=== PATIENT | male | born 1960 | race Caucasian/White ===

== ENCOUNTER → 2016-10-19 | Outpatient (CLI) | payer OTHER ==
[~2016-10-19] MED LIST: ASPI-586 PO; ATOR40TA70 PO; BUSP15TA60 PO; CATHETER FLUSH 10 ML SYR IV PRN; CINN500C2 PO; DULA0.75 SQ; FINA5TAB6 PO; GABA600T2 PO; GARL10002 PO; GLIP10TA13 PO; IOHEXOL 350 MG/ML 100 ML (OMNIPAQUE 350) VIAL IV ONE; LIRA0.6P3 SQ; LISI-552 PO; LISI1TAB10 PO; LOVA20TA2 PO; METF1000 PO; NS 100 ML (IVPB) BAG IV ONE; OMG1KC PO
--- OUTSIDE RECORDS SUMMARY | 2016-10-19 08:32 | XMS REPORT ---
Author Author YVONNE MCGEE [facility] eClinicalWorks Address Unknown Phone Unavailable Care Team Providers Care Staff Trainer Name Role Phone YVONNE MCGEE CP Unavailable Allergies, Adverse Reactions, Alerts Substance Reaction Event Type Januvia Info Not Available Drug Allergy Problems Problem Type Condition Code Onset Dates Condition Status Problem Elevated blood pressure reading without diagnosis of hypertension 796.2 Active Assessment Cellulitis, neck L03.221 Active Problem Mononeuritis of unspecified site 355.9 Active Problem Dermatophytosis of nail 110.1 Active Problem Unspecified otitis media 382.9 Active Problem Diabetes mellitus without mention of complication, type II or unspecified type, not stated as uncontrolled 250.00 Active Problem Periapical abscess without sinus 522.5 Active Problem Other and unspecified hyperlipidemia 272.4 Active Problem Unspecified essential hypertension 401.9 Active Medications Medication Code System Code Instructions Start Date End Date Status Dosage [place] [facility] [address]-67 5-325 MG Orally every 6 hrs May 30, 2016 1 tablet as needed Lisinopril [facility] [address]-02 20 mg Oct 01, 2014 take 1 tablet by Oral route 1 time per day Take in evening Hydrochlorothiazide [facility] [address]-63 25 MG Orally Once a day 1 tablet Aspirin [facility] [address]-49 81 MG Orally Once a day 1 tablet Lisinopril-Hydrochlorothiazide [facility] [address]-72 20-25 MG Orally Once a day May 29, 2016 1 tablet Bactrim DS [facility] [address]-71 800-160 MG Orally Twice a day May 29, 2016 Jun 08, 2016 1 tablet Atorvastatin Calcium [facility] [address]-36 40 mg Orally Once a day 1 tablet Gabapentin [facility] [address]-80 600 MG Orally Three times a day Oct 01, 2014 1 capsule GlipiZIDE [facility] [address]-09 10 mg Orally Once a day 1 tablet BusPIRone HCl [facility] [address]-04 15 MG Orally Twice a day 1 tablet Metformin HCl [facility] [address]-39 1000 MG Orally Twice a day 1 tablet with meals Procedures Procedure Coding System Code Date Office Visit, Est Pt., Level 2 CPT-4 46868 May 30, 2016 Vital Signs Date/Time: May 30, 2016 Blood Pressure Systolic 140 mmHg Cardiac Monitoring Heart Rate 98 bpm Height 67 in Blood Pressure Diastolic 86 mmHg Results No Known Results Summary Purpose eClinicalWorks Submission
--- NOTE | 2016-10-19 13:16 | Diagnostic Imaging Report ---
PROCEDURE: CT abdomen and pelvis with contrast. TECHNIQUE: Multiple contiguous axial images were obtained through the abdomen and pelvis after administration of intravenous contrast. INDICATION: Ventral hernia. 100 mL of Omnipaque-350 is administered intravenously. FINDINGS: There are few nodules seen in the left lung base measuring up to 10 mm in size. Etiology is uncertain. The liver, the spleen, the pancreas, and the left adrenal gland appear unremarkable. The right adrenal demonstrates a 1.9 cm nodule. The kidneys have symmetric enhancement and contrast excretion. The urinary bladder demonstrates mild wall thickening particularly anteriorly. There is no bowel obstruction. The appendix is normal. Small amount of fecal material is seen in the colon. The abdominal aorta is normal in caliber. No para-aortic significantly enlarged lymph node is seen. No significant free fluid or fluid collection in the abdomen or pelvis noted. The prostate overall size appears within normal limits. There are moderate degenerative changes in the hip joints with subchondral cysts seen at the lateral aspect of the acetabulum on both sides and mild degenerative changes with bridging syndesmophytes along the lower thoracic spine visualized portions. There is no ventral hernia seen. IMPRESSION: 1. There are pulmonary nodules up to 1 cm in size in the left lung base. Etiology is indeterminate. Follow-up PET/CT and/or CT chest in three months is recommended. 2. Indeterminate 1.9 cm right adrenal nodule. 3. Mild urinary bladder wall thickening anteriorly. Correlate with urinalysis, and with cystoscopy if indicated. Dictated by: Dictated on workstation # [id number]
== END ==
LOC: RAD 08:28
PROVIDERS: ATTEND Nurse Practitioner Community Health
DX: K43.9 Ventral hernia without obstruction or gangrene (principal); R91.1 Solitary pulmonary nodule
CPT/HCPCS: 74177

== ENCOUNTER 2016-10-26 05:37 | Outpatient (CLI) | payer BC, OTHER ==
[~2016-10-26] VITALS: Ht 170.2 cm; Wt 108.0 kg
[~2016-10-26 05:37] MED LIST changes: -ASPI-586 PO; -ATOR40TA70 PO; -CATHETER FLUSH 10 ML SYR IV PRN; -CINN500C2 PO; -DULA0.75 SQ; -FINA5TAB6 PO; -GARL10002 PO; -GLIP10TA13 PO; -IOHEXOL 350 MG/ML 100 ML (OMNIPAQUE 350) VIAL IV ONE; -LISI1TAB10 PO; -NS 100 ML (IVPB) BAG IV ONE; -OMG1KC PO
[2016-10-26] MEDS ORDERED: DULA0.75 SQ (09:31)
[2016-10-26] MEDS ORDERED: ATOR40TA70 PO (09:31)
[2016-10-26] MEDS ORDERED: FINA5TAB6 PO (09:31)
[2016-10-26] MEDS ORDERED: GARL10002 PO (09:36)
[2016-10-26] MEDS ORDERED: CINN500C2 PO (09:36)
[2016-10-26] MEDS ORDERED: GLIP10TA13 PO (09:36)
[2016-10-26] MEDS ORDERED: OMG1KC PO (09:36)
[2016-10-26] MEDS ORDERED: LISI1TAB10 PO (09:36)
[2016-10-26] MEDS ORDERED: ASPI-586 PO (09:36)
== END 2016-10-26 09:37 ==
LOC: PREOP 05:37
PROVIDERS: ATTEND Surgery
DX: Z01.818 Encounter for other preprocedural examination (principal); R19.5 Other fecal abnormalities

== ENCOUNTER 2016-10-30 09:37 | Day surgery (SDC) | payer OTHER ==
[~2016-10-30] VITALS: Ht 170.2 cm; Wt 108.0 kg
[~2016-10-30 09:37] MED LIST changes: +ASPI-586 PO; +ATOR40TA70 PO; +CINN500C2 PO; +DULA0.75 SQ; +FINA5TAB6 PO; +GARL10002 PO; +GLIP10TA13 PO; +LISI1TAB10 PO; +OMG1KC PO
[2016-10-30] MEDS ORDERED: NS IV 1000 ML 1,000 ML IV STA (09:44)
[2016-10-30 10:01] VITALS: BP 170/94
[2016-10-30] MEDS ORDERED: proPOfol 200 MG/20 ML (DIPRIVAN) VIAL IV ONE (12:39)
[2016-10-30] MEDS ORDERED: MIDAZOLAM 2 MG/2 ML (VERSED) VIAL ONE (12:40)
--- NOTE | 2016-10-30 13:08 | Progress Note-Pre Operative ---
Pre-Operative Progress Note H&P Reviewed The H&P was reviewed, patient examined and no changes noted. Date H&P Reviewed: Oct 30, 2016 Time H&P Reviewed: 13:08 Pre-Operative Diagnosis: change in bowel habits NENA DE LA VEGA DO Oct 30, 2016 13:08
--- NOTE | 2016-10-30 14:04 | Discharge Inst-Simple/Standard ---
Discharge Inst-Standard Discharge Medications New, Converted or Re-Newed RX: Call to Patients Pharmacy Patient Instructions/Follow Up Plan of Care/Instructions/FU: Follow up with Dr. Calloway in 3 weeks high fiber diet. Stool softner twice a day- Colace 100mg bid Us Diltiazem cream around anal area 3 times a day and after each bowel movement. 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 Activity as Tolerated: Yes Discharge Diet: No Restrictions RENEE PERRY APRN Oct 30, 2016 14:04
--- NOTE | 2016-10-30 14:04 | Progress Note-Post Operative ---
Post-Operative Progess Note Pre-Operative Diagnosis change in bowel habits Post-Operative Diagnosis colon polyps, anal fissure Post-Op Procedure Note Date of Procedure: Oct 30, 2016 Name of Procedure: colonoscopy with hot bx polypectomy x 3, cold biopsy anorectal tissue Procedure Note/Findings see note Anesthesia Type per analytical sciences director Estimated blood loss (mL): none Specimen(s) collected cecum, transverse, sigmoid polyps, anorectal tissue NENA DE LA VEGA DO Oct 30, 2016 14:04
[2016-10-30 14:15] VITALS: BP 122/78
[2016-10-30 14:40] VITALS: BP 132/95
[2016-10-30 14:55] VITALS: BP 132/95
--- NOTE | 2016-10-31 12:48 | OPERATIVE REPORT ---
PROCEDURE PHYSICIAN: NENA DE LA VEGA DATE OF PROCEDURE: 10/30/2016 PREOPERATIVE DIAGNOSIS: Change in bowel habits POSTOPERATIVE DIAGNOSIS: Colon polyps x3. Anal fissure. PROCEDURE: Colonoscopy with hot biopsy polypectomy x 3 and cold biopsy of anorectal tissue. SURGEON: Brodie. ANESTHESIA: Per COST REPORT CLERK. ESTIMATED BLOOD LOSS: None. COMPLICATIONS: None. INDICATIONS: The patient is a 56-year-old male who has change in his bowel habits. He understands the risks and benefits of the procedure and wished to proceed with procedure. Consent was signed on the chart. PROCEDURE: The patient was taken to the operating suite, placed in the left lateral recumbent position. Timeout was performed. Digital rectal exam was performed. Small anal fissure in the posterior area and also patient with increased rectal tone; it appears to be an anal fissure with some little fibromas surrounding this area. The scope was inserted in the rectum and advanced all way to the cecum with minimal difficulty. Lots of irrigation and suction was used for adequate visualization. The prep was adequate with irrigation and suction. The scope was then slowly retracted back. A small polyp was in the cecum, which hot biopsy polypectomy was performed. The scope was then continued to be slowly retracted back. There were no polyps, masses or ulcerations within the ascending colon. Within the transverse colon another small polyp was present which hot biopsy polypectomy was performed. The scope was continued be slowly retracted back into the descending colon, which had no polyps, masses, or ulcerations. The scope was then withdrawn back to the sigmoid where another some small polyp was present which hot biopsy polypectomy was performed. The scope was continued to be retracted back into the rectum, where the scope was also retroflexed. Appearance of little fibromas at the anorectal junction being a sessile appearing questionable lesion. It does appear to be possibly a fibroma but cold biopsy was obtained to verify. The scope was then returned to its normal position and slowly withdrawn noting the posterior anal fissure. The scope was slowly retracted until completely removed. The patient tolerated the procedure well without any complications and taken to recovery room in stable condition. RECOMMENDATIONS: The patient will need repeat colonoscopy in 5 years, unless he has any problems prior to that, he should be reevaluated. He will follow-up on the biopsies in approximately 2 to 3 weeks. In the meantime, he should be on a high fiber diet, increase water intake, be on stool softeners to keep such as Colace 100 mg twice a day to keep stools soft. We also called in diltiazem cream. I will see how the anal fissure is healing in the office in approximately 3 weeks. He may need exam under anesthesia and possibly surgical intervention. Job ID: [id number] Dictated Date: 10/30/2016 14:08:34 Flake Drier Date: 10/31/2016 12:36:25 / jeannette CENTENO
== END 2016-10-30 14:55 | disposition home or self-care (01) ==
LOC: ENDO 09:37
PROVIDERS: ATTEND Surgery
DX: D12.3 Benign neoplasm of transverse colon (principal); K63.5 Polyp of colon; K60.2 Anal fissure, unspecified; R19.4 Change in bowel habit
CPT/HCPCS: 88305

== ENCOUNTER → 2017-01-02 | Outpatient (CLI) | payer OTHER ==
[2017-01-02 08:12] LABS: ANION GAP 9 MMOL/L (5-14); BLOOD UREA NITROGEN 8 MG/DL (7-18); BUN/CREATININE RATIO 9; CALCIUM 9.2 MG/DL (8.5-10.1); CARBON DIOXIDE 27 MMOL/L (21-32); CHLORIDE 100 MMOL/L (98-107); CREATININE SERUM 0.89 MG/DL (0.60-1.30); GFR ESTIMATED > 60; GLUCOSE 257 MG/DL (70-105); POTASSIUM 4.3 MMOL/L (3.6-5.0); SODIUM 136 MMOL/L (135-145)
--- NOTE | 2017-01-02 08:41 | Diagnostic Imaging Report ---
PROCEDURE: CT chest without contrast. TECHNIQUE: Multiple contiguous axial images were obtained through the chest without the use of intravenous contrast. INDICATION: Lung nodule. There are no previous CT chest examinations available for comparison. However, the CT abdomen/pelvis exam of 10/19/2016, did note three pulmonary nodules in the left lung base. The largest of these measured approximately 10.05 mm and was located in the periphery of the left lower lobe. That finding is again evident and now measures 10.48 mm. Immediately superior to this nodule along its medial aspect, there was a 6.86-mm nodule. This nodule now measures 6.3 mm. Just inferior to this nodule was a pleural-based nodule measuring 4.85 mm. This nodule now measures 4.66 mm. These nodules have a fairly smooth margin although they are not calcified. There is another parenchymal opacity in the right upper lung which was not included on the previous study. This area measures 6.14 mm (image 27 of 61.) This may also represent a small nodule. There is a similar-appearing parenchymal opacity in the posterior aspect of the right midlung measuring 6.14 mm ( image 29 of 61.) I suspect that all of these nodules are benign. Even so, I would recommend that a short-term (six-month) followup CT chest exam be obtained for further study. There is no acute cardiopulmonary abnormality noted. There is no sign of failure, pneumonia, or a pleural effusion. The heart size is within normal limits. Coronary artery calcifications are evident. The aorta is not abnormally dilated. There is no obvious mediastinal or hilar adenopathy. The thyroid gland, where visualized, is unremarkable. The sections through the upper abdomen again show the low-density nodule associated with the right adrenal gland that was noted on the recent CT abdomen/pelvis study. This nodule measures approximately 17.26 mm in size and has not changed adversely since the previous study. Most likely this is a benign process. The bone windows show no evidence for a fracture or for a destructive lesion. IMPRESSION: 1. There are small pulmonary nodules in both lungs. These nodules are not clearly calcified but are most likely benign. A six-month followup CT chest exam would be recommended for further study. 2. There is no acute cardiopulmonary abnormality identified. 3. The low-density nodule associated with the right adrenal gland seen previously appears stable. Dictated by: Dictated on workstation # [id number]
== END ==
LOC: RAD 07:39
PROVIDERS: ATTEND Nurse Practitioner Community Health
DX: Z01.812 Encounter for preprocedural laboratory examination (principal); R91.1 Solitary pulmonary nodule
CPT/HCPCS: 36415; 71250; 80048

== ENCOUNTER 2017-06-11 18:23 | Emergency (ER) | payer SELFPAY ==
[~2017-06-11] VITALS: Ht 170.2 cm; Wt 106.1 kg
[2017-06-11] MEDS ORDERED: IBUPROFEN 800 MG (MOTRIN) TAB PO ONE (18:45)
[2017-06-11] MEDS ORDERED: NS IV 1000 ML 1,000 ML IV SCH ×2 (18:45→21:15)
[2017-06-11 18:49] LABS: BASOPHILS % (AUTO) 0 % (0-10); EOSINOPHILS % (AUTO) 0 % (0-10); LYMPHOCYTES # (AUTO) 0.3 X 10^3 (1.0-4.0); LYMPHOCYTES % (AUTO) 2 % (12-44); MEAN CORPUSCULAR HEMOGLOBIN 27 PG (25-34); MEAN CORPUSCULAR HGB CONC 34 G/DL (32-36); MEAN CORPUSCULAR VOLUME 79 FL (80-99); MEAN PLATELET VOLUME 10.1 FL (7.4-10.4); MONOCYTES # (AUTO) 0.5 X 10^3 (0.0-1.0); MONOCYTES % (AUTO) 4 % (0-12); NEUTROPHILS # (AUTO) 12.7 X 10^3 (1.8-7.8); NEUTROPHILS % (AUTO) 93 % (42-75); PLATELET COUNT 184 10^3/uL (130-400); RED BLOOD COUNT 4.86 10^6/uL (4.35-5.85); RED CELL DISTRIBUTION WIDTH 13.9 % (10.0-14.5); WHITE BLOOD COUNT 13.6 10^3/uL (4.3-11.0)
--- NOTE | 2017-06-11 18:49 | ED General ---
General Chief Complaint: Fever-Adult/Adol Stated Complaint: CHILLS,BLURRY VISION Source of Information: Patient Exam Limitations: No Limitations History of Present Illness Time Seen by Provider: 18:47 Initial Comments To ER with reports of chills and blurry vision that started this afternoon at about 4. He states that he has general weakness and "I feel like I got hit by a truck". Earlier today he felt slightly tired but not terrible. Denies any abdominal pain or sore throat, Does report slight cough. Took 2 Tylenol at about 2 hours prior to arrival. Timing/Duration: 4-6 Hours Severity: Moderate Associated Systoms: Weakness Allergies and Home Medications Allergies Coded Allergies: sitagliptin (Unverified Adverse Reaction, Unknown, 01/14/16) Home Medications Aspirin 81 Mg Tablet.dr, 81 MG PO DAILY, (Reported) Atorvastatin Calcium 40 Mg Tablet, 40 MG PO HS, (Reported) Buspirone HCl 15 Mg Tablet, 15 MG PO BID, (Reported) Cinnamon Bark Unknown Strength Capsule, 1,000 MG PO DAILY, (Reported) Dulaglutide 0.75 Mg/0.5 Ml Pen.injctr, 0.75 MG SQ WEEK, (Reported) takes on Saturday Finasteride 5 Mg Tablet, 5 MG PO HS, (Reported) Gabapentin 600 Mg Tablet, 600 MG PO TID, (Reported) Garlic 1,000 Mg Capsule, 1,000 MG PO DAILY, (Reported) Glipizide 10 Mg Tablet, 10 MG PO DAILY, (Reported) Lisinopril/Hydrochlorothiazide 1 Each Tablet, 1 EACH PO DAILY, (Reported) Metformin HCl 1,000 Mg Tablet, 1,000 MG PO BID, (Reported) [place] 3 Polyunsat Fatty Acids 1,000 Mg Cap, 1,000 MG PO DAILY, (Reported) Constitutional: see HPI, chills EENTM: see HPI Respiratory: no symptoms reported Cardiovascular: no symptoms reported Genitourinary: no symptoms reported Musculoskeletal: no symptoms reported Skin: no symptoms reported Psychiatric/Neurological: No Symptoms Reported Hematologic/Lymphatic: No Symptoms Reported Immunological/Allergic: no symptoms reported Past Morizlm-Buqann-Itofax Hx Patient Social History Recent Foreign Travel: No Contact w/Someone Who Travel: No Recent Hopitalizations: No Seasonal Allergies Seasonal Allergies: Yes Surgeries Surgeries: Orthopedic, Tonsillectomy Cardiovascular Cardiac Disorders: Heart Murmur, High Cholesterol, Hypertension Neurological Neurological Disorders: Neuropathy Endocrine Endocrine Disorders: Diabetes, Non-Insulin dep Psychosocial Behavioral Health Disorders: Anxiety Physical Exam Vital Signs Vital Sign - Last 12Hours 06/11/17 18:30 Temp 102.6 Pulse 133 Resp 10 B/P (MAP) 143/53 Capillary Refill : General Appearance: No Apparent Distress, WD/WN Eyes: Bilateral Eye Normal Inspection, Bilateral Eye PERRL, Bilateral Eye EOMI HEENT: PERRL/EOMI, TMs Normal, Normal ENT Inspection Neck: Full Range of Motion, Normal Inspection, Other (Full ROM, no nuchal rigidity. ) Respiratory: Normal Breath Sounds, No Accessory Muscle Use, No Respiratory Distress Cardiovascular: Regular Rate, Rhythm, Normal Peripheral Pulses Gastrointestinal: Normal Bowel Sounds, Non Tender, Soft, No Distended, No Guarding, No Hepatomegaly, No Tenderness Extremity: Normal Capillary Refill, Normal Inspection Neurologic/Psychiatric: Alert, Oriented x3, No Motor/Sensory Deficits Skin: Normal Color, Warm/Dry Focused Exam Evaluation Lactate Level Laboratory Tests 06/11/17 18:35: Lactic Acid Level 2.13*H 06/11/17 20:15: Lactic Acid Level 2.76*H Lactic Acid Level Laboratory Tests Test 06/11/17 18:35 06/11/17 20:15 Lactic Acid Level 2.13 MMOL/L (0.50-2.00) *H 2.76 MMOL/L (0.50-2.00) *H Progress/Results/Core Measures Results/Orders Lab Results Laboratory Tests Test 06/11/17 18:35 06/11/17 18:53 06/11/17 19:00 06/11/17 19:22 Range/Units White Blood Count 13.6 H 4.3-11.0 10^3/uL Red Blood Count 4.86 4.35-5.85 10^6/uL Hemoglobin 13.1 L 13.3-17.7 G/DL Hematocrit 38 L 40-54 % Mean Corpuscular Volume 79 L 80-99 FL Mean Corpuscular Hemoglobin 27 25-34 PG Mean Corpuscular Hemoglobin Concent 34 32-36 G/DL Red Cell Distribution Width 13.9 10.0-14.5 % Platelet Count 184 130-400 10^3/uL Mean Platelet Volume 10.1 7.4-10.4 FL Neutrophils (%) (Auto) 93 H 42-75 % Lymphocytes (%) (Auto) 2 L 12-44 % Monocytes (%) (Auto) 4 0-12 % Eosinophils (%) (Auto) 0 0-10 % Basophils (%) (Auto) 0 0-10 % Neutrophils # (Auto) 12.7 H 1.8-7.8 X 10^3 Lymphocytes # (Auto) 0.3 L 1.0-4.0 X 10^3 Monocytes # (Auto) 0.5 0.0-1.0 X 10^3 Eosinophils # (Auto) 0.0 0.0-0.3 10^3/uL Basophils # (Auto) 0.0 0.0-0.1 10^3/uL Neutrophils % (Manual) 93 % Lymphocytes % (Manual) 1 % Monocytes % (Manual) 2 % Eosinophils % (Manual) 0 % Basophils % (Manual) 0 % Band Neutrophils 4 % Blood Morphology Comment NORMAL Sodium Level 131 L 135-145 MMOL/L Potassium Level 3.5 L 3.6-5.0 MMOL/L Chloride Level 94 L 98-107 MMOL/L Carbon Dioxide Level 24 21-32 MMOL/L Anion Gap 13 5-14 MMOL/L Blood Urea Nitrogen 9 7-18 MG/DL Creatinine 0.84 0.60-1.30 MG/DL Estimat Glomerular Filtration Rate > 60 BUN/Creatinine Ratio 11 Glucose Level 155 H 70-105 MG/DL Lactic Acid Level 2.13 *H 0.50-2.00 MMOL/L Calcium Level 9.3 8.5-10.1 MG/DL Total Bilirubin 1.1 H 0.1-1.0 MG/DL Aspartate Amino Transf (AST/SGOT) 23 5-34 U/L Alanine Aminotransferase (ALT/SGPT) 29 0-55 U/L Alkaline Phosphatase 68 40-136 U/L C-Reactive Protein High Sensitivity 0.40 0.00-0.50 MG/DL Total Protein 6.7 6.4-8.2 GM/DL Albumin 4.3 3.2-4.5 GM/DL Monoscreen NEGATIVE NEGATIVE Urine Color YELLOW Urine Clarity CLEAR Urine pH 7 5-9 Urine Specific [place] 1.010 L 1.016-1.022 Urine Protein NEGATIVE NEGATIVE Urine Glucose (UA) NEGATIVE NEGATIVE Urine Ketones NEGATIVE NEGATIVE Urine Nitrite NEGATIVE NEGATIVE Urine Bilirubin NEGATIVE NEGATIVE Urine Urobilinogen NORMAL NORMAL MG/DL Urine Leukocyte Esterase NEGATIVE NEGATIVE Urine RBC (Auto) NEGATIVE NEGATIVE Urine RBC NONE /HPF Urine WBC RARE /HPF Urine Crystals NONE /LPF Urine Bacteria NEGATIVE /HPF Urine Casts NONE /LPF Urine Mucus NEGATIVE /LPF Urine Culture Indicated NO Group A Streptococcus Screen NEGATIVE NEGATIVE Test 06/11/17 20:15 Range/Units Lactic Acid Level 2.76 *H 0.50-2.00 MMOL/L My Orders Orders - LINDA VACA APRN Cbc With Automated Diff (06/11/17 18:36) Comprehensive Metabolic Panel (06/11/17 18:36) Ua Culture If Indicated (06/11/17 18:36) Blood Culture (06/11/17 18:36) Chest Pa/Lat (2 View) (06/11/17 18:36) Lactic Acid Analyzer (06/11/17 18:36) Ibuprofen Tablet (Motrin Tablet) (06/11/17 18:45) Ns Iv 1000 Ml (Sodium Chloride 0.9%) (06/11/17 18:45) Monotest (06/11/17 18:36) Hs C Reactive Protein (06/11/17 18:36) Rapid Strep A Screen (06/11/17 18:36) Manual Differential (06/11/17 18:35) Tick Panel With Lyme Eia (06/11/17 19:16) West Nile Virus Igg & M (06/11/17 19:16) Influenza A And B Antigens (06/11/17 19:39) Ns Iv 1000 Ml (Sodium Chloride 0.9%) (06/11/17 21:15) Azithromycin Tablet (Zithromax Tablet) (06/12/17 09:00) Medications Given in ED Current Medications Medications Dose Ordered Sig/Ant Route Start Time Stop Time Status Last Admin Dose Admin Ibuprofen 800 mg ONCE ONCE PO 06/11/17 18:45 06/11/17 18:46 DC 06/11/17 19:06 800 MG Vital Signs/I&O Vital Sign - Last 12Hours 06/11/17 06/11/17 18:30 19:06 Temp 102.6 102.5 Pulse 133 Resp 10 B/P (MAP) 143/53 Intake and Output 06/12/17 00:00 Intake Total 2000 ml Balance 2000 ml Diagnostic Imaging Diagonstic Imaging: Xray Comments NAME: RAN ZAVALA MED REC#: [id number] PT STATUS: REG ER : 1960 PHYSICIAN: LINDA VACA APRN ADMIT DATE: 06/11/17/ER Draft Date of Exam:06/11/17 CHEST PA/LAT (2 VIEW) INDICATION: 57-year-old male with fever and weakness, shortness of breath COMPARISONS: 01/14/16 FINDINGS: PA and lateral films of the chest show the cardiac contour to be normal. There is some very mild central venous prominence. There is some peribronchial cuffing centrally but no consolidations. There is no effusion or pneumothorax. Soft tissues and bony thorax are unchanged. Degenerative changes of the thoracic spine noted. IMPRESSION: Some peribronchial cuffing with slight prominence of the central lung markings suggest an element of mild bronchitis. No significant consolidations seen. Dictated on workstation # [id number] Dict: 06/11/171920 Trans: 06/11/171926 [facility] [id number] Interpreted by: LENNY HOYT MD Electronically signed by: Departure Communication (Admissions) Progress Notes 2112-I did discuss the case with Dr. Cruz. I do not find a source of the patient's fever and believe this to be viral in nature given his nonspecific complaints. She would recommend a Z-Catarino given the questionable bronchitis on x- ray if for no other reason than the anti-inflammatory properties associated with a azithromycin. She will have a nurse in the clinic of the patient a call tomorrow to check on him and schedule an appointment in the clinic if necessary. We believe that his elevated lactic acidosis secondary to metformin use. 2214- still feels rather fatigued. Heart rate down to 105 sinus. Blood pressure 111/80. Temperature 98.9. will stay home from work tomorrow to keep an eye on the patient and agrees to return him here for any worsening symptoms. Impression Impression: Primary Impression: Viral syndrome Disposition: HOME, SELF-CARE Condition: Stable Departure-Patient Inst. Decision time for Depature: 21:15 Referrals: BRE GORDILLO DO (PCP) Primary Care Physician LY PRINGLE (Family) Primary Care Physician Patient Instructions: Fever, Adult (DC) Add. Discharge Instructions: 1. Tylenol and Motrin to control your fever 2. Return to ER for any concerns such as persistent fever despite Tylenol and Motrin, pains or aches, headache, confusion or other concerns. 3. All discharge instructions reviewed with patient and/or family. Voiced understanding. Scripts Azithromycin (Zithromax) 250 Mg Tablet 250 MG PO DAILY, #4 TAB Prov: LINDA VACA APRN 06/11/17 LINDA VACA APRN Jun 11, 2017 18:49
[2017-06-11 19:01] LABS: BILIRUBIN,URINE NEGATIVE (NEGATIVE); KETONES,URINE NEGATIVE (NEGATIVE); LEUKOCYTE ESTERASE ,URINE NEGATIVE (NEGATIVE); NITRITE,URINE NEGATIVE (NEGATIVE); PH,URINE 7 (5-9); PROTEIN,URINE NEGATIVE (NEGATIVE); UROBILINOGEN,URINE NORMAL (NORMAL)
[2017-06-11 19:03] LABS: BAND NEUTROPHILS 4 %; BASOPHILS % (MANUAL) 0 %; EOSINOPHILS % (MANUAL) 0 %; LYMPHOCYTES % (MANUAL) 1 %; NEUTROPHILS % (MANUAL) 93 %
[2017-06-11 19:09] LABS: ALANINE AMINOTRANSFERASE 29 U/L (0-55); ALBUMIN 4.3 GM/DL (3.2-4.5); ANION GAP 13 MMOL/L (5-14); ASPARTATE AMINO TRANSFERASE 23 U/L (5-34); BILIRUBIN,TOTAL 1.1 MG/DL (0.1-1.0); BLOOD UREA NITROGEN 9 MG/DL (7-18); BUN/CREATININE RATIO 11; CALCIUM 9.3 MG/DL (8.5-10.1); CARBON DIOXIDE 24 MMOL/L (21-32); CHLORIDE 94 MMOL/L (98-107); CREATININE SERUM 0.84 MG/DL (0.60-1.30); GFR ESTIMATED > 60; GLUCOSE 155 MG/DL (70-105); POTASSIUM 3.5 MMOL/L (3.6-5.0); SODIUM 131 MMOL/L (135-145); TOTAL PROTEIN 6.7 GM/DL (6.4-8.2)
[2017-06-11 19:11] LABS: WBC,URINE RARE /HPF
--- NOTE | 2017-06-11 19:28 | Diagnostic Imaging Report ---
INDICATION: 57-year-old male with fever and weakness, shortness of breath COMPARISONS: 01/14/16 FINDINGS: PA and lateral films of the chest show the cardiac contour to be normal. There is some very mild central venous prominence. There is some peribronchial cuffing centrally but no consolidations. There is no effusion or pneumothorax. Soft tissues and bony thorax are unchanged. Degenerative changes of the thoracic spine noted. IMPRESSION: Some peribronchial cuffing with slight prominence of the central lung markings suggest an element of mild bronchitis. No significant consolidations seen. Dictated by: Dictated on workstation # [id number]
[2017-06-11] MEDS ORDERED: AZIT250T PO (22:16)
[2017-06-11] MEDS ORDERED: AZITHROMYCIN 250 MG TAB (ZITHROMAX) PO ONE (22:26)
[2017-06-11 22:44] VITALS: BP 112/59
[2017-06-11] MEDS ORDERED: AZITHROMYCIN 250 MG TAB (ZITHROMAX) PO SCH (22:45)
[2017-06-12] MEDS ORDERED: AZITHROMYCIN 250 MG TAB (ZITHROMAX) PO SCH (09:00)
[2017-06-13 06:02] LABS: LYME AB G M < 0.01 Index (0.00-0.89)
[2017-06-13 06:49] LABS: TULAREMIA ANTIBODY 1:40
[2017-06-13 06:53] LABS: LYME AB INTERP Negative (Negative)
== END 2017-06-11 22:44 | disposition home or self-care (01) ==
LOC: EDUNIT# 18:23 → ER 18:25
DX: B34.9 Viral infection, unspecified (principal); E11.40 Type 2 diabetes mellitus with diabetic neuropathy, unspecified; E78.00 Pure hypercholesterolemia, unspecified; I10 Essential (primary) hypertension; F41.9 Anxiety disorder, unspecified; Z90.49 Acquired absence of other specified parts of digestive tract; Z79.84 Long term (current) use of oral hypoglycemic drugs; Z79.4 Long term (current) use of insulin; Z79.82 Long term (current) use of aspirin
CPT/HCPCS: 36415; 71020; 80053; 81000; 83605; 85007; 85027; 86141; 86308; 86618; 86666; 86668; 86757; 86788; 86789; 87040; 87430; 87804

== ENCOUNTER → 2017-07-15 | Outpatient (CLI) | payer OTHER ==
[~2017-07-15] MED LIST changes: +AZIT250T PO
--- NOTE | 2017-07-15 11:48 | Diagnostic Imaging Report ---
PROCEDURE: CT chest without contrast. TECHNIQUE: Multiple contiguous axial images were obtained through the chest without the use of intravenous contrast. INDICATION: Followup nodules. COMPARISON: 01/02/2017, and 10/19/2016, exams. FINDINGS: There are pulmonary nodules in the left lung base up to 1.1 cm in size. This is similar to the prior exams without significant change. No significant consolidation, mass, or suspicious nodule is noted. The heart size is normal. There is no mediastinal mass or significant lymphadenopathy seen. No axillary lymphadenopathy seen. The thoracic aorta is normal in caliber. The heart size is normal. No pleural or pericardial effusion. Sections of the upper abdomen demonstrate a 1.9-cm hypodense lesion in the right adrenal gland similar to prior exams likely related to an adenoma. Prominent syndesmophytes are seen in the thoracic spine. IMPRESSION: 1. Stable left lung base nodules up to 1.1 cm in size, unchanged from 10/19/2016. These are likely benign. Another followup in 12 months is recommended to ensure stability. 2. Stable 1.9-cm right adrenal nodule, likely related to an adenoma. Dictated by: Dictated on workstation # [id number]
== END ==
LOC: RAD 08:53
PROVIDERS: ATTEND Nurse Practitioner Community Health
DX: R91.1 Solitary pulmonary nodule (principal)
CPT/HCPCS: 71250

== ENCOUNTER 2018-02-07 08:03 | Outpatient (RCR) | payer MEDICAID ==
[~2018-02-07 08:03] MED LIST changes: -METF1000 PO; +METF10002 PO
== END 2018-05-08 | disposition home or self-care (01) ==
LOC: CARD 08:03
PROVIDERS: ATTEND Internal Medicine Cardiovascular Disease
DX: R07.89 Other chest pain (principal); I10 Essential (primary) hypertension; E78.2 Mixed hyperlipidemia; E66.9 Obesity, unspecified
CPT/HCPCS: 93225; 93226

== ENCOUNTER → 2018-02-12 | Outpatient (CLI) | payer MEDICAID ==
[~2018-02-12] VITALS: Ht 170.2 cm; Wt 110.2 kg
[~2018-02-12] MED LIST changes: +CATHETER FLUSH 10 ML SYR IV PRN; +REGADENOSON 0.4 MG/5 ML SYR (LEXISCAN) IV ONE
[2018-02-12 09:09] VITALS: BP 156/93
[2018-02-12 09:11] VITALS: BP 145/63
--- NOTE | 2018-02-12 22:43 | STRESS TEST ---
DATE OF SERVICE: 02/12/2018 LEXISCAN MYOVIEW STRESS TEST REPORT REFERRING PHYSICIAN: [facility]. Baseline heart rate is 79, baseline blood pressure 156/83, baseline EKG is sinus rhythm with no ischemic changes. In summary, the patient was injected with 10.38 mCi of technetium-99 Myoview and the resting images were obtained. Then, the patient received 0.4 mg of Lexiscan followed by 28.9 mCi of technetium-99 Myoview. Throughout the test, there were no EKG changes. The resting and stress images were reviewed and compared in the short axis, horizontal long axis and vertical long axis views. Review of the images showed no significant ischemia or infarction on SPECT images. SSS is 3 and SDS 2. There is a mild apical thinning. TID value 1.14. On the gated images, the left ventricle appeared to be in normal size with normal contractility and calculated ejection fraction of 64%. CONCLUSION: 1. The patient tolerated Lexiscan well. 2. Mild apical thinning with no significant ischemia or infarction on SPECT images. 3. Normal left ventricular size with normal contractility. Calculated ejection fraction of 64%. Job ID: [id number] DocumentID: [id number] Dictated Date: 02/12/2018 16:18:43 Valve Pipe Irrigator Date: 02/12/2018 22:42:50 Dictated By: MYRTLE AMADOR MD
== END ==
LOC: CARD 06:52
PROVIDERS: ATTEND Internal Medicine Cardiovascular Disease
DX: R07.89 Other chest pain (principal); I10 Essential (primary) hypertension; E78.2 Mixed hyperlipidemia; E66.9 Obesity, unspecified; Z68.38 Body mass index [BMI] 38.0-38.9, adult
CPT/HCPCS: 78452; 93017

== ENCOUNTER → 2018-03-20 | Outpatient (CLI) | payer MEDICAID ==
[~2018-03-20] MED LIST changes: -CATHETER FLUSH 10 ML SYR IV PRN; -REGADENOSON 0.4 MG/5 ML SYR (LEXISCAN) IV ONE
== END ==
LOC: CARD 13:07
PROVIDERS: ATTEND Internal Medicine Cardiovascular Disease
DX: R07.89 Other chest pain (principal); I10 Essential (primary) hypertension; E78.2 Mixed hyperlipidemia; E66.9 Obesity, unspecified; I07.1 Rheumatic tricuspid insufficiency
CPT/HCPCS: 93306

== ENCOUNTER → 2018-08-04 | Outpatient (CLI) | payer MEDICAID ==
[~2018-08-04] MED LIST changes: +METF-399 PO; -METF10002 PO
== END ==
LOC: RAD 13:07
PROVIDERS: ATTEND Orthopaedic Surgery
DX: M75.111 Incomplete rotator cuff tear or rupture of right shoulder, not specified as traumatic (principal); M75.112 Incomplete rotator cuff tear or rupture of left shoulder, not specified as traumatic; Z53.8 Procedure and treatment not carried out for other reasons

== ENCOUNTER → 2018-10-14 | Outpatient (CLI) | payer MEDICAID ==
--- NOTE | 2018-10-14 12:31 | Diagnostic Imaging Report ---
PROCEDURE: CT chest without contrast. TECHNIQUE: Multiple contiguous axial images were obtained through the chest without the use of intravenous contrast. INDICATION: Followup pulmonary nodule. COMPARISON: 07/15/2017. FINDINGS: Lungs and airway: No endoluminal nodule within the trachea. No pulmonary mass or consolidation. A few scattered bilateral pulmonary nodules are all unchanged. There are known nodules in the left lower lobe measuring 1.1 cm. Multiple subjacent noncalcified nodules are present and likely due to noncalcified granulomas. 5 mm linear nodule along the right minor fissure is stable as well and likely due to benign intrapulmonary lymph node. No new pulmonary nodules. Pleura: No pleural effusion or pneumothorax. Heart and mediastinum: Thyroid is normal. No supraclavicular or axillary lymphadenopathy. No mediastinal, discrete hilar, or juxtaphrenic lymphadenopathy. Mild cardiomegaly is unchanged. No pericardial effusion. Normal-caliber thoracic aorta. Upper abdomen: Stable low-attenuation right adrenal nodule, compatible with benign lipid-rich adenoma. No concerning abnormality in the upper abdomen. Musculoskeletal: No worrisome focal osseous lesions. IMPRESSION: 1. Scattered bilateral pulmonary nodules are all stable since 2017 and can be considered benign in nature. 2. No new pulmonary nodules or intrathoracic lymphadenopathy. 3. 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 Dictated by: Dictated on workstation # [id number]
== END ==
LOC: RAD 09:15
PROVIDERS: ATTEND Nurse Practitioner
DX: D35.01 Benign neoplasm of right adrenal gland (principal); R91.8 Other nonspecific abnormal finding of lung field
CPT/HCPCS: 71250

== ENCOUNTER 2018-10-23 05:37 | Outpatient (CLI) | payer MEDICAID ==
[~2018-10-23] VITALS: Ht 170.2 cm; Wt 106.6 kg
[~2018-10-23 05:37] MED LIST changes: -GABA600T2 PO; +GBPN600T PO
[2018-10-23] MEDS ORDERED: GABA800T10 PO (13:50)
== END 2018-10-23 13:52 | disposition home or self-care (01) ==
LOC: PREOP 05:37
PROVIDERS: ATTEND Surgery
DX: Z01.818 Encounter for other preprocedural examination (principal)

== ENCOUNTER → 2018-10-24 | Outpatient (CLI) | payer MEDICAID ==
[~2018-10-24] MED LIST changes: +GABA800T10 PO
--- NOTE | 2018-10-24 14:23 | Diagnostic Imaging Report ---
PROCEDURE: US Gallbladder. TECHNIQUE: Multiple real-time grayscale images were obtained over the right upper quadrant in various projections. INDICATION: Abdominal pain. FINDINGS: The liver measures 15.7 cm. No discrete liver mass is identified. The portal vein is patent and shows normal direction of flow. Gallbladder is without stones or sludge. No wall thickening or biliary duct dilatation is seen. Visualized pancreas is unremarkable. Right kidney is unremarkable. There is no ascites. IMPRESSION: Unremarkable gallbladder ultrasound. Dictated by: Dictated on workstation # [id number]
== END ==
LOC: RAD 07:40
PROVIDERS: ATTEND Surgery
DX: R10.9 Unspecified abdominal pain (principal)
CPT/HCPCS: 76705

== ENCOUNTER 2018-12-11 19:25 | Emergency (ER) | payer BC, MEDICAID, OTHER ==
[~2018-12-11] VITALS: Ht 170.2 cm; Wt 103.0 kg
--- NOTE | 2018-12-11 19:30 | NUR ---
NOTIFIED NURSE HALEY OF CP
--- OUTSIDE RECORDS SUMMARY | 2018-12-11 19:35 | XMS REPORT ---
Author Author LISA SZYMANSKI [facility] Address [address] [place] [address] Care Team Providers Care Regional Coordinator Name Role Phone LISA SZYMANSKI Unavailable PROBLEMS Type Condition ICD9-CM Code TEH81-HH Code Onset Dates Condition Status SNOMED Code Problem Bilateral claudication of lower limb I73.9 Active 883028082 Problem Benign non-nodular prostatic hyperplasia with lower urinary tract symptoms N40.1 Active 16463656066827 Problem Essential hypertension I10 Active 40989763 Problem Neuropathy G62.9 Active 128724785 Problem Other chronic pain G89.29 Active 26844386 Problem Other secondary osteoarthritis of left knee M17.5 Active 920167374 Problem Benign prostatic hyperplasia with lower urinary tract symptoms N40.1 Active 85730948621679 Problem Anxiety F41.9 Active 51516262 Problem Hyperlipidemia, unspecified hyperlipidemia type E78.5 Active 38747417 Problem Diabetic retinopathy associated with type 2 diabetes mellitus, macular edema presence unspecified, unspecified laterality, unspecified retinopathy severity E11.319 Active 041408901 Problem MRSA (methicillin resistant staph aureus) culture positive Z22.322 Active 237824163 Problem Pulmonary nodule R91.1 Active 505944621 Problem Primary osteoarthritis of left knee M17.12 Active 897222924 Problem 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 Active 4376257 Problem Diabetic polyneuropathy associated with type 2 diabetes mellitus E11.42 Active 85464301 Problem Type 2 diabetes mellitus with complication, without long-term current use of insulin E11.8 Active 53879846 Problem Mixed hyperlipidemia E78.2 Active 210691456 ALLERGIES Substance Reaction Event Type Date Status [place] (Diagnostic) Unknown Drug Allergy Jul, Active Januvia Unknown Drug Allergy Jul, Active ENCOUNTERS Encounter Location Date Diagnosis [facility] [address] [facility] [id number] [address] Aug, [facility] [address] [address] Jul, Allergic reaction, initial encounter T78.40XA [place] [address] [address] Jul, Type 2 diabetes mellitus with complication, without long- term current use of insulin E11.8 [place] [address] [address] Jun, Pain in right shoulder M25.511 ; Pain in left shoulder M25.512 and Other chronic pain G89.29 [place] [address] [address] Jun, [place] [address] [address] Jun, Type 2 diabetes mellitus with complication, without long- term current use of insulin E11.8 [place] [address] [address] Jun, Type 2 diabetes mellitus with complication, without long- term current use of insulin E11.8 ; Hyperglycemia R73.9 and Neuropathy G62.9 [place] [address] [address]- [address] May, Pain in left knee M25.562 ; Other chronic pain G89.29 ; Left elbow pain M25.522 and Encounter for immunization Z23 [place] [address] [address] Apr, Other chronic pain G89.29 ; Pain in left shoulder M25.512 and Candidal intertrigo B37.2 [facility] [address] [address] Mar, Encounter for immunization Z23 and Laceration of right ring finger without foreign body without damage to nail, initial encounter S61.214A [place] [address] [address] Mar, Paronychia of finger of right hand L03.011 [facility] [address], [place] [address] Mar, Type 2 diabetes mellitus with complication, without long- term current use of insulin E11.8 [facility] [address] [place] [address]163[address] 8135 Mar, [facility] [id number] [place] [id number] Feb, [facility] [address] [place] [id number] [place] [address] 47831- 6766 Feb, Type 2 diabetes mellitus with complication, without long- term current use of insulin E11.8 [place] [address] [place] [id number] [place] [address] 82708- 6288 Feb, Type 2 diabetes mellitus with complication, without long- term current use of insulin E11.8 ; Polyneuropathy G62.9 ; Essential hypertension I10 ; Other secondary osteoarthritis of left knee M17.5 ; Frequency of micturition R35.0 ; Benign prostatic hyperplasia with lower urinary tract symptoms N40.1 ; Anxiety F41.9 ; Hyperlipidemia, unspecified hyperlipidemia type E78.5 and Leg cramps R25.2 [place] [address] [place] [address] 74435- 4809 Feb, [place] [address] [place] [id number] [place] [address] 75908- 2612 Nov, Benign non-nodular prostatic hyperplasia with lower urinary tract symptoms N40.1 and Acute epididymitis N45.1 [place] [address] [place] [address] 33279- 6136 Sep, Neuropathy G62.9 [place] [address] [place] [id number] [place] [address] 92421- 8800 Sep, Type 2 diabetes mellitus with complication, without long- term current use of insulin E11.8 ; Neuropathy G62.9 ; Bilateral leg weakness R29.898 and Cough R05 [place] [address] [place] [id number] [place] [address] Aug, Left ear pain H92.02 and Bilateral impacted cerumen H61.23 [place] [address] [place] [id number]- [address]26 Jul, [place] [address] [address]- [address] Jul, [place] [address] [place] [id number]- 1445 Jul, Type 2 diabetes mellitus with complication, without long- term current use of insulin E11.8 ; Bilateral leg weakness R29.898 and Neuropathy G62.9 [facility] [address] [address] Jul, Acute non-recurrent maxillary sinusitis J01.[address] [address]- [address] Jul, [place] [address] [address]41- 116[address] Jul, Primary osteoarthritis of left knee M17.12 [place] [id number]- [address] Jul, Type 2 diabetes mellitus with complication, without long- term current use of insulin E11.[address] [address]- [address]69 Jun, [place] [address] [place] [id number]- 5962 Jun, Neuropathy G62.9 ; Bilateral leg weakness R29.898 ; Leg cramps R25.2 and Encounter for immunization Z23 [address] [address]- [address] Jun, Bilateral claudication of lower limb I73.9 ; Essential hypertension I10 ; Mixed hyperlipidemia E78.2 and Diabetic polyneuropathy associated with type 2 diabetes mellitus E11.42 [place] [address] [address] 10 Jun, 2017 Pain in right leg M79.604 ; Pain of left leg M79.605 and Bilateral leg weakness R29.898 [facility] [address] [place] [id number] [place] [address] 87889- 3233 Jun, [facility] [address] [place] [id number] [place] [address] 91779- 3875 Jun, Left lateral knee pain M25.562 and Bilateral leg weakness R29.898 [facility] [address] [place] [id number] [place] [address] 03931- 0260 Jun, [facility] [address] [place] [id number] [place] [address] 69567- 1060 May, Type 2 diabetes mellitus with complication, without long- term current use of insulin E11.8 ; Neuropathy G62.9 and Leg cramps R25.2 [place] [address] [place] [id number] [place] [address] 44409- 0394 May, [facility] [address] [place] [id number] [place] [address] 26316- 1437 Apr, Bilateral leg weakness R29.898 and Leg cramps R25.2 [place] [address] [place] [id number] [place] [address] 45377- 2666 Mar, [facility] [address] [place] [id number] [place] [address] 47049- 8788 Feb, Chronic seasonal allergic rhinitis due to other allergen J30.2 [facility] [address] [place] [id number] [place] [address] 18729- 9001 January, Type 2 diabetes mellitus with complication, without long- term current use of insulin E11.8 and Neuropathy G62.9 [facility] [address] [place] [id number] [place] [address] 73457- 6218 Dec, [facility] [address] [place] [id number] [place] [address] 84824- 0697 Dec, Pulmonary nodule R91.1 [place] [address] [place] [id number] [place] [address] 03409- 8689 Dec, [place] [address] [place] [id number] [place] [address] 48266- 0975 Dec, [place] [address] [place] [id number] [place] [address] 09507- 5855 Nov, Pre-procedure lab exam Z01.812 [place] [address] [place] [id number] [place] [address] 55990- 3981 Nov, Seasonal allergic rhinitis due to pollen J30.1 [place] [address] 55308- 1744 Oct, Lower abdominal pain R10.30 ; Hematuria R31.9 ; Pulmonary nodule R91.1 and Type 2 diabetes mellitus with complication, without long-term current use of insulin E11.8 [place] [address] [place] [id number] [place] [address] 38264- 4715 Sep, Type 2 diabetes mellitus with complication, without long- term current use of insulin E11.8 and Ventral hernia without obstruction or gangrene K43.9 [place] [address] [place] [id number] [place] [address] 63527- 2913 Aug, [place] [address] [place] [id number] [place] [address] 63891- 7520 Aug, Benign non-nodular prostatic hyperplasia with lower urinary tract symptoms N40.1 and Type 2 diabetes mellitus with complication, without long-term current use of insulin E11.8 [place] [address] [place] [address] 57812- 2687 Jul, Benign non-nodular prostatic hyperplasia with lower urinary tract symptoms N40.1 and Type 2 diabetes mellitus with complication, without long-term current use of insulin E11.8 [place] [address] [place] [address] 24387- 6390 Jul, Type 2 diabetes mellitus with complication, without long- term current use of insulin E11.8 [facility] [address] [id number] [address] Jul, [facility] [address], [place] [address]- 3655 Jun, [facility] [address], [place] [address]- 1491 Jun, [facility] [address] [place] [id number] [place] [address] 72743- 1509 Jun, Type 2 diabetes mellitus with complication, without long- term current use of insulin E11.8 [facility] [address] [place] [address] 92839- 4025 Jun, [facility] [address] [place] [address] 82800- 6255 May, [facility] [address] [place] [address] 32022- 1126 May, [facility] [address], [place] [address]- 4[address] May, [facility] [address], [place] [address]- 4043 12 May, 2016 Encounter to establish care Z76.89 ; Type 2 diabetes mellitus with complication, without long-term current use of insulin E11.8 ; Essential hypertension I10 ; Hyperlipidemia, unspecified hyperlipidemia type E78.5 ; 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 ; MRSA (methicillin resistant staph aureus) culture positive Z22.322 ; Pain in unspecified knee M25.569 ; Other chronic pain G89.29 and Neuropathy G62.9 [facility] [address], [place] [address]- 0351 09 May, 2016 Neck abscess L02.11 [facility] [address] [place] [id number] [address]- 4080 06 May, 2016 Abscess, neck L02.11 [facility] [address] [place] [address] 28468 -8204 May, [facility] [address] [place] [id number], [place] [address]- 1431 May, Abscess of neck L02.11 [facility] [address], [place] [address] 31 Apr, 2016 Cellulitis, neck L03.221 [facility] [address], [place] [address] 30 Apr, 2016 Abscess L02.91 [facility] [address], [place] [address]- 3280 January, [facility] [address] [place] [id number] [place] [address] 35414- 2351 Dec, [facility] [address], [place] [address]- 0488 Dec, [facility] [address], [place] [address]- 2208 Oct, [facility] [address], [place] [address]- 3148 Oct, [facility] [address], [place] [address]- 2606 Sep, [facility] [address], [place] [address]- 6355 Sep, [facility] [address], [place] [address]- 1887 Sep, [facility] [address] [place] [id number] [address]- 6348 Sep, [facility] [address] 2535 Sep, [facility] [address] [place] [id number] [address]- 6757 Sep, [facility] [address] [place] [id number] [place] [address]- 2292 Sep, [facility] [place] [facility] [address] [id number] [place] [address]- 1867 Jul, [facility] [place] [facility] [address] [id number] [place] [address]- 3954 Jul, 2013 [facility] [place] [facility] [address] [id number] [place] [address]- 9546 Jun, 2013 [facility] [place] [facility] [address] [id number] [place] [address]- 2743 Jun, 2013 [facility] [place] [facility] [address] [id number] [place] [address] Jun, 2013 [facility] [place] [facility] [address] [id number] [place] [address]- 0353 Jun, 2013 [facility] [place] [facility] [address] [facility] [id number] [place] [address]- 5815 Jun, 2013 [facility] [place] [facility] [address] [id number] [place] [address]- 5595 Jun, 2013 [facility] [place] [facility] [address] [id number] [place] [address]- 2911 Jun, 2013 [facility] [place] [facility] [address] [facility] [id number] [place] [address]- 8428 Jun, [facility] [place] [facility] [address] [id number] [place] [address]- 5284 Jun, [facility] [place] [facility] [address] [id number], [place] [address]- 4946 Jun, [facility] [place] [facility] [address] [id number] [place] [address]- 1521 Jun, [facility] [place] [facility] [address] [facility] [id number] [place] [address]- 0045 May, [facility] [place] [facility] [address] [id number], [place] [address]- 4360 30 May, 2013 [facility] [place] [facility] [address] [id number] [place] [address]- 8921 23 May, 2013 [facility] [place] [facility] [address] [id number] [place] [address]- 2358 23 May, 2013 [facility] [place] [facility] [address] [id number] [place] [address]- 1598 18 May, 2013 [facility] [place] [facility] [address] [id number] [place] [address]- 7674 18 May, 2013 [facility] [place] [facility] [address] [id number] [place] [address]- 0704 11 May, 2013 [facility] [place] [facility] [address] [id number] [place] [address]- 3733 11 May, 2013 [facility] [place] [facility] [address] [id number] [place] [address]- 5480 11 May, 2013 [facility] [place] [facility] [address] [id number] [place] [address]- 6899 11 May, 2013 [facility] [place] [facility] [address] [id number] [place] [address]- 0640 04 May, 2013 [facility] [place] [facility] [address] [id number] [place] [address]- 3351 04 May, 2013 [facility] [place] [facility] [address] [id number] [place] [address]- 1249 03 May, 2013 [facility] [place] [facility] [address] [id number] [place] [address]- 2549 03 Sep, 2013 [facility] [place] [facility] [address] [id number] [place] [address]- 2547 02 May, 2013 [facility] [place] [facility] [address] [id number] [place] [address]- 254 02 May, 2013 [facility] [place] [facility] [address] [id number] [place] [address]- 3964 14 Apr, 2014 [facility] [place] [facility] [address] [id number], [place] [address]- 2546 Apr, [facility] [place] [facility] [address] [id number] [place] [address]- 5962 Apr, [facility] [place] [facility] [address] [id number] [place] [address]- 8156 Apr, [facility] [place] [facility] [address] [facility] [id number] [place] [address]- 1295 Mar, [facility] [place] [facility] [address] [id number] [place] [address]- 0769 Mar, [facility] [place] [facility] [address] [id number] [place] [address]- 7593 Mar, [facility] [place] [facility] [address] [facility] [id number] [place] [address]- 1962 Mar, [facility] [place] [facility] [address] [facility] [id number] [place] [address]- 9910 Mar, [facility] [place] [facility] [address] [facility] [id number] [place] [address]- 1045 Mar, [facility] [address] [facility] [id number] [id number] January, [facility] [place] [facility] [address] [facility] [id number], [place] [address]- 0376 January, [facility] [address] [facility] [id number][place] [address] Dec, [facility] [place] [facility] [address] [id number], [place] [address]- 2546 Dec, [facility] [address] [id number][place] [id number] Oct, [facility] [place] [facility] [address] [facility] [id number] [place] [address]- 2546 Oct, [facility] [address] [facility] [id number][place] [id number] Sep, [facility] [place] [facility] [address] [facility] [id number] [place] [address]- 5145 Sep, [facility] [place] [facility] [address] [id number] [place] [address]- 8555 Aug, [facility] [place] [facility] [address] [id number] [place] [address]- 4876 Aug, [facility] [place] [facility] [address] [id number] [place] [address]- 3736 Jul, [facility] [place] [facility] [address] [id number] [place] [address]- 8279 Jul, [facility] [place] [facility] [address] [id number] [place] [address]- 4004 Jul, [facility] [address] [facility] [id number][place] [id number] Jul, [facility] [place] [facility] [address] [facility] [id number] [place] [address]- 9568 Jul, [facility] [address] [id number] [address] Jul, [facility] [place] [facility] [address] [id number], [place] [address]- 7673 Jul, [facility] [place] [facility] [address] [facility] [id number], [place] [address]- 7816 Jul, [facility] [place] [facility] [address] [facility] [id number], [place] [address]- 4042 Jun, [facility] [place] [facility] [address] [id number], [place] [address]- 3686 Jun, [facility] [address] [facility] [id number][place] [id number] Jun, [facility] [place] [facility] [address] [id number] [place] [address]- 7726 Jun, [facility] [place] [facility] [address] [id number] [place] [address]- 2546 Apr, [facility] [place] [facility] [address] [id number], [place] [address]- 7696 Apr, [facility] [address] [place] [id number], [place] [address]- 4260 Feb, [facility] [address], [place] [address]- 3746 Dec, [facility] [address] [place] [address] [id number], [place] [address]- 4706 Dec, [facility] [address], [place] [address]- 1196 Nov, [facility] [address], [place] [address]- 4066 Nov, [facility] [address], [place] [address]- 8946 Nov, [facility] [address], [place] [address]- 7186 Oct, [facility] [address], [place] [address]- 6926 Oct, [facility] [address], [place] [address]- 6876 Oct, [facility] [address], [place] [address]- 4236 May, [facility] [address] [place] [id number], [place] [address]- 6296 Apr, [facility] [address], [place] [address]- 8416 Feb, [facility] [address] [place] [id number], [place] [address]- 3681 Feb, IMMUNIZATIONS No Known Immunizations SOCIAL HISTORY Never Assessed REASON FOR VISIT Rash started in groin and now all the way up to arms / stomach and legs Thania Correia , cortizone 10 was helping but not anymore - started rash last week Thania CORREIA , stopped taking tramadol it was making him nausea and heat flashes Thania CORREIA PLAN OF CARE Activity Details Follow Up gareth appt Reason: VITAL SIGNS Height 67 in 2018-08-08 Weight 240 lbs 2018-08-08 Temperature 98.2 degrees Fahrenheit 2018-08-08 Heart Rate 98 bpm 2018-08-08 Respiratory Rate 20 2018-08-08 BMI 37.59 kg/m2 2018-08-08 Blood pressure systolic 134 mmHg 2018-08-08 Blood pressure diastolic 88 mmHg 2018-08-08 MEDICATIONS Medication Instructions Dosage Frequency Start Date End Date Duration Status PredniSONE 20 mg Orally Once a day 2 tablet 24h Jul, Jul, 4 days Active BusPIRone HCl 15 MG TAKE ONE TABLET BY MOUTH TWICE DAILY 90 Active Aspirin 81 MG Orally Once a day 1 tablet 24h Active Trulicity 1.5 MG/0.5ML Subcutaneous once weekly Inject 1.5 mg 90 days Active Cinnamon 500 MG Active Metformin HCl 1000 MG Orally twice a day 1 tablet with a meal 12h Active GlipiZIDE 10 MG Orally 2 times a day 1 tablet 12h May, 90 days Active Fish Oil 1360 MG Orally Once a day 1 capsule 24h Active Proscar 5 mg Orally Once a day 1 tablet 24h 90 Active Gabapentin 800 MG TAKE ONE TABLET BY MOUTH THREE TIMES DAILY 90 Active Atorvastatin Calcium 40 MG TAKE ONE TABLET BY MOUTH ONCE DAILY. 90 Active Glucocard Expression Monitor w/Device as directed Sep, Active FreeStyle Caterina 14 Day Sensor - subcutaneously replace sensor every 14 days after read as directed for testing blood sugar Jun, 28 days Active Glucocard Expression Test - subcutaneously Once a day use to test blood sugar 24h Sep, 100 Active FreeStyle Caterina 14 Day Marty - as directed for reading blood sugar results Jun, Active Lisinopril-Hydrochlorothiazide 20-25 MG TAKE ONE TABLET BY MOUTH ONCE DAILY. 90 Active RESULTS No Results PROCEDURES No Known procedures INSTRUCTIONS MEDICATIONS ADMINISTERED No Known Medications MEDICAL (GENERAL) HISTORY Type Description Date Medical History Diabetes mellitus without mention of complication, type II or unspecified type, not stated as uncontrolled Medical History Periapical abscess without sinus Medical History Elevated blood pressure reading without diagnosis of hypertension Medical History Unspecified essential hypertension Medical History Other and unspecified hyperlipidemia Medical History stress test 01/[address] Meredith 11/2017 Medical History Mild diabetic retinopathy OU 03/2018 Surgical History left shoulder x 2 Surgical History colonoscopy 10/30/2016
--- OUTSIDE RECORDS SUMMARY | 2018-12-11 19:35 | XMS REPORT ---
Author Author LY PR[facility] Address [address] [place] [address] Care Team Providers Care Rn Burn Name Role Phone LY PRINGLE Unavailable PROBLEMS Type Condition ICD9-CM Code [id number] Code Onset Dates Condition Status SNOMED Code Problem Bilateral claudication of lower limb I73.9 Active 330539644 Problem Benign non-nodular prostatic hyperplasia with lower urinary tract symptoms N40.1 Active 44260510740459 Problem Essential hypertension I10 Active 30140334 Problem Neuropathy G62.9 Active 585610217 Problem Other chronic pain G89.29 Active 07094078 Problem Other secondary osteoarthritis of left knee M17.5 Active 791813267 Problem Benign prostatic hyperplasia with lower urinary tract symptoms N40.1 Active 62815658284725 Problem Anxiety F41.9 Active 28272876 Problem Hyperlipidemia, unspecified hyperlipidemia type E78.5 Active 27086429 Problem Diabetic retinopathy associated with type 2 diabetes mellitus, macular edema presence unspecified, unspecified laterality, unspecified retinopathy severity E11.319 Active 880529273 Problem MRSA (methicillin resistant staph aureus) culture positive Z22.322 Active 647983668 Problem Pulmonary nodule R91.1 Active 974993250 Problem Primary osteoarthritis of left knee M17.12 Active 223190992 Problem 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 Active 4795080 Problem Diabetic polyneuropathy associated with type 2 diabetes mellitus E11.42 Active 94229591 Problem Type 2 diabetes mellitus with complication, without long-term current use of insulin E11.8 Active 90237889 Problem Mixed hyperlipidemia E78.2 Active 051333744 ALLERGIES Substance Reaction Event Type Date Status [place] (Diagnostic) Unknown Drug Allergy Jun, Active Januvia Unknown Drug Allergy Jun, Active ENCOUNTERS Encounter Location Date Diagnosis [facility] [address] [facility] [id number], [place] [address] Aug, [facility] [address] [address] Jul, Allergic reaction, initial encounter T78.40XA [place] [address] [address] Jul, Type 2 diabetes mellitus with complication, without long- term current use of insulin E11.[address] [address] Jun, Pain in right shoulder M25.511 ; Pain in left shoulder M25.512 and Other chronic pain G89.[address] [address] Jun, [address] [address] Jun, Type 2 diabetes mellitus with complication, without long- term current use of insulin E11.[address] [address] Jun, Type 2 diabetes mellitus with complication, without long- term current use of insulin E11.8 ; Hyperglycemia R73.9 and Neuropathy G62.[address] [address] May, Pain in left knee M25.562 ; Other chronic pain G89.29 ; Left elbow pain M25.522 and Encounter for immunization Z23 [address] [address] Apr, Other chronic pain G89.29 ; Pain in left shoulder M25.512 and Candidal intertrigo B37.2 [facility] [place] [address] [address] Mar, Encounter for immunization Z23 and Laceration of right ring finger without foreign body without damage to nail, initial encounter S61.214A [address] [address] Mar, Paronychia of finger of right hand L03.011 [facility] [address], [place] [address] Mar, Type 2 diabetes mellitus with complication, without long- term current use of insulin E11.8 [facility] [address] [place] [address]- [address] Mar, [facility] [id number] [place] [id number] Feb, [facility] [address] [place] [id number] [place] [address]20- 8743 Feb, Type 2 diabetes mellitus with complication, without long- term current use of insulin E11.8 [place] [address] [place] [address] 18482- 0743 Feb, Type 2 diabetes mellitus with complication, without long- term current use of insulin E11.8 ; Polyneuropathy G62.9 ; Essential hypertension I10 ; Other secondary osteoarthritis of left knee M17.5 ; Frequency of micturition R35.0 ; Benign prostatic hyperplasia with lower urinary tract symptoms N40.1 ; Anxiety F41.9 ; Hyperlipidemia, unspecified hyperlipidemia type E78.5 and Leg cramps R25.2 [place] [address] [place] [address] 35695- 3261 Feb, [place] [address] [place] [address] 7[address]48- 3572 Nov, Benign non-nodular prostatic hyperplasia with lower urinary tract symptoms N40.1 and Acute epididymitis N45.1 [place] [address] [place] [address] 15341- 6030 Sep, Neuropathy G62.9 [place] [address] [place] [id number] [place] [address] 18792- 2656 Sep, Type 2 diabetes mellitus with complication, without long- term current use of insulin E11.8 ; Neuropathy G62.9 ; Bilateral leg weakness R29.898 and Cough R05 [place] [address] [address]- [address] Aug, Left ear pain H92.02 and Bilateral impacted cerumen H61.23 [place] [address] [address]54- [address] Jul, [place] [address] [address]- [address] Jul, [place] [address] [address]87- 46[address] Jul, Type 2 diabetes mellitus with complication, without long- term current use of insulin E11.8 ; Bilateral leg weakness R29.898 and Neuropathy G62.9 [facility] [place] [address] [address] Jul, Acute non-recurrent maxillary sinusitis J01.00 [place] [address] [address]- 1990 Jul, [place] [address] 00562- 0509 Jul, Primary osteoarthritis of left knee M17.12 [place] [address] [address]- 66[address] Jul, Type 2 diabetes mellitus with complication, without long- term current use of insulin E11.8 [place] [address] [address]80- 5216 Jun, [place] [address] [address]- 77[address] Jun, Neuropathy G62.9 ; Bilateral leg weakness R29.898 ; Leg cramps R25.2 and Encounter for immunization Z23 [place] [address] [address]- 299[address] Jun, Bilateral claudication of lower limb I73.9 ; Essential hypertension I10 ; Mixed hyperlipidemia E78.2 and Diabetic polyneuropathy associated with type 2 diabetes mellitus E11.42 [place] [address] [place] [id number] [place] [address] 24334- 2336 Jun, Pain in right leg M79.604 ; Pain of left leg M79.605 and Bilateral leg weakness R29.898 [facility] [address] [place] [id number] [place] [address] 78881- 8871 Jun, [facility] [address] [place] [id number] [place] [address] 38063- 2045 Jun, Left lateral knee pain M25.562 and Bilateral leg weakness R29.898 [place] [address] [place] [id number] [place] [address] 31346- 3713 Jun, [place] [address] [place] [id number] [place] [address] 14968- 2569 May, Type 2 diabetes mellitus with complication, without long- term current use of insulin E11.8 ; Neuropathy G62.9 and Leg cramps R25.2 [place] [address] [place] [id number] [place] [address] 66[address]- 2[address] May, [facility] [address] [place] [id number] [place] [address] 19205- 0255 Apr, Bilateral leg weakness R29.898 and Leg cramps R25.2 [place] [address] [place] [id number] [place] [address] 24860- 2806 Mar, [facility] [address] [place] [id number] [place] [address] 11698- 2241 Feb, Chronic seasonal allergic rhinitis due to other allergen J30.2 [facility] [address] [place] [id number] [place] [address] 60476- 5336 January, Type 2 diabetes mellitus with complication, without long- term current use of insulin E11.8 and Neuropathy G62.9 [facility] [address] [place] [id number] [place] [address] 85566- 0315 Dec, [facility] [address] [place] [id number] [place] [address] 50359- 3190 Dec, Pulmonary nodule R91.1 [place] [address] [place] [address] 57143- 8557 Dec, [place] [address] [place] [id number] [place] [address] 20359- 8097 Dec, [place] [address] [place] [id number] [place] [address] 08436- 5089 Nov, Pre-procedure lab exam Z01.812 [place] [address] [place] [id number] [place] [address] 07645- 4044 Nov, Seasonal allergic rhinitis due to pollen J30.1 [place] [address] [place] [id number] [place] [address] 03418- 8524 Oct, Lower abdominal pain R10.30 ; Hematuria R31.9 ; Pulmonary nodule R91.1 and Type 2 diabetes mellitus with complication, without long-term current use of insulin E11.8 [place] [address] [place] [id number] [place] [address] 25127- 3392 Sep, Type 2 diabetes mellitus with complication, without long- term current use of insulin E11.8 and Ventral hernia without obstruction or gangrene K43.9 [place] [address] [place] [id number] [place] [address] 16271- 6670 Aug, [place] [address] [place] [id number] [place] [address] 44641- 3579 Aug, Benign non-nodular prostatic hyperplasia with lower urinary tract symptoms N40.1 and Type 2 diabetes mellitus with complication, without long-term current use of insulin E11.8 [place] [address] [place] [address] 57091- 9593 Jul, Benign non-nodular prostatic hyperplasia with lower urinary tract symptoms N40.1 and Type 2 diabetes mellitus with complication, without long-term current use of insulin E11.8 [place] [address] [place] [id number] [place] [address] 14029- 6071 Jul, Type 2 diabetes mellitus with complication, without long- term current use of insulin E11.8 [facility] [address] [facility] [id number], [place] [address] 6[address] Jul, [facility] [address] [facility] [id number], [place] [address]- 8[address] Jun, [facility] [address] [facility] [id number], [place] [address]- 295[address] Jun, [facility] [address]65[address], [place] [address]- 24[address] Jun, Type 2 diabetes mellitus with complication, without long- term current use of insulin E11.8 [facility] [address], [place] [address]- 2072 Jun, [facility] [address], [place] [address]- 2438 May, [facility] [address], [place] [address]- 5770 May, [facility] [address] [place] [id number], [place] [address]- 64[address] May, [facility] [address], [place] [address]- 4702 12 May, 2016 Encounter to establish care Z76.89 ; Type 2 diabetes mellitus with complication, without long-term current use of insulin E11.8 ; Essential hypertension I10 ; Hyperlipidemia, unspecified hyperlipidemia type E78.5 ; 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 ; MRSA (methicillin resistant staph aureus) culture positive Z22.322 ; Pain in unspecified knee M25.569 ; Other chronic pain G89.29 and Neuropathy G62.9 [facility] [address] [place] [id number], [place] [address]- 74[address] 09 May, 2016 Neck abscess L02.11 [facility] [address] [id number], [place] [address]- 0093 06 May, 2016 Abscess, neck L02.11 [facility] [address] [place] [id number] [place] [address] 04 May, 2016 [facility] [address] [place] [address]- 1894 May, Abscess of neck L02.11 [facility] [address] [place] [address] 31 Apr, 2016 Cellulitis, neck L03.221 [facility] [address] [facility] [id number] [place] [address] 30 Apr, 2016 Abscess L02.91 [facility] [address] [place] [address]- 9508 January, [facility] [address], [place] [address]- 5450 Dec, [facility] [address], [place] [address]- 7125 Dec, [facility] [address] [place] [id number], [place] [address] Oct, [facility] [address] [place] [address]- 0902 Oct, [facility] [address], [place] [address]- 1327 Sep, [facility] [address], [place] [address]- 7732 Sep, [facility] [address] [id number], [place] [address]- 1674 Sep, [facility] [address], [place] [address]- 7825 Sep, [facility] [address] [place] [id number], [place] [address]- 6236 Sep, [facility] [address] [id number], [place] [address]- 3302 Sep, [facility] [address] [facility] [id number] [place] [address] 2548 Sep, [facility] [place] [facility] [address] [id number] [place] [address]- 6208 Jul, [facility] [place] [facility] [address] [id number] [place] [address]- 0056 Jul, [facility] [place] [facility] [address] [id number] [place] [address]- 7876 Jun, 2013 [facility] [place] [facility] [address] [id number] [place] [address]- 3983 Jun, 2013 [facility] [place] [facility] [address] [id number] [place] [address]- 0897 Jun, 2013 [facility] [place] [facility] [address] [id number] [place] [address]- 7913 Jun, 2013 [facility] [place] [facility] [address] [id number] [place] [address]- 0003 Jun, 2013 [facility] [place] [facility] [address] [id number] [place] [address]- 2029 Jun, [facility] [place] [facility] [address] [id number] [place] [address]- 0888 Jun, [facility] [place] [facility] [address] [facility] [id number] [place] [address]- 4351 Jun, [facility] [place] [facility] [address] [id number] [place] [address]- 4737 Jun, [facility] [place] [facility] [address] [id number] [place] [address]- 6104 Jun, [facility] [place] [facility] [address] [id number] [place] [address]- 9154 Jun, [facility] [place] [facility] [address] [id number] [place] [address]- 8725 May, [facility] [place] [facility] [address] [id number] [place] 68[address] May, 2013 [facility] [place] [facility] [address] [id number] [place] [address]- 1140 23 Sep, 2013 [facility] [place] [facility] [address] [id number] [place] [address]- 8426 23 May, 2013 [facility] [place] [facility] [address] [id number] [place] [address]- 2583 18 May, 2013 [facility] [place] [facility] [address] [id number] [place] [address]- 7495 18 May, 2013 [facility] [place] [facility] [address] [id number] [place] [address]- 7624 11 May, 2013 [facility] [place] [facility] [address] [id number] [place] [address]- 7664 11 May, 2013 [facility] [place] [facility] [address] [id number] [place] [address]- 3774 11 May, 2013 [facility] [place] [facility] [address] [id number] [place] [address]- 1242 11 May, 2013 [facility] [place] [facility] [address] [id number] [place] [address]- 0480 04 May, 2013 [facility] [place] [facility] [address] [id number] [place] [address]- 5968 04 May, 2013 [facility] [place] [facility] [address] [id number], [place] [address]- 7054 03 May, 2013 [facility] [place] [facility] [address] [id number], [place] [address]- 5667 03 Sep, 2013 [facility] [place] [facility] [address] [id number] [place] [address]- 0796 02 Sep, 2013 [facility] [place] [facility] [address] [id number] [place] [address]- 4013 02 May, 2013 [facility] [place] [facility] [address] [id number] [place] [address]- 5786 14 Apr, 2013 [facility] [place] [facility] [address] [id number], [place] [address]- 6108 Apr, [facility] [place] [facility] [address] [id number] [place] [address]- 5171 Apr, [facility] [place] [facility] [address] [facility] [id number] [place] [address]- 0012 Apr, [facility] [place] [facility] [address] [facility] [id number] [place] [address]- 7273 Mar, [facility] [place] [facility] [address] [facility] [id number] [place] [address]- 0851 Mar, [facility] [place] [facility] [address] [facility] [id number] [place] [address]- 2172 Mar, [facility] [place] [facility] [address] [facility] [id number] [place] [address]- 9919 Mar, [facility] [place] [facility] [address] [place] [id number] [place] [address]- 8411 Mar, [facility] [place] [facility] [address] [facility] [id number] [place] [address]- 5398 Mar, [facility] [address] [facility] [id number] [place] [id number] January, [facility] [place] [facility] [address] [facility] [id number], [place] [address]- 6916 January, [facility] [address] [facility] [id number] [place] [id number] Dec, [facility] [place] [facility] [address] [facility] [id number], [place] [address]- 2546 Dec, [facility] [address] [facility] [id number] [place] [id number] Oct, [facility] [place] [facility] [address] [facility] [id number], [place] [address]- 0956 Oct, [facility] [address] [facility] [id number] [place] [id number] Sep, [facility] [place] [facility] [address] [facility] [id number] [place] [address]- 9311 Sep, [facility] [place] [facility] [address] [id number] [place] [address]- 2546 Aug, [facility] [place] [facility] [address] [id number] [place] [address]- 2546 Aug, [facility] [place] [facility] [address] [id number] [place] [address]- 2546 Jul, [facility] [place] [facility] [address] [id number] [place] [address]- 2546 Jul, [facility] [place] [facility] [address] [id number] [place] [address]- 2546 Jul, [facility] [address] [id number] [id number] Jul, [facility] [place] [facility] [address] [facility] [id number] [place] [address]- 2546 Jul, [facility] [address] [id number] [id number] Jul, [facility] [place] [facility] [address] [facility] [id number] [place] [address]- 2546 Jul, [facility] [place] [facility] [address] [facility] [id number], [place] [address]- 2546 Jul, [facility] [place] [facility] [address] [facility] [id number], [place] [address]- 2546 Jun, [facility] [place] [facility] [address] [id number], [place] [address]- 2546 Jun, [facility] [address] [facility] [id number] [place] [id number] Jun, [facility] [place] [facility] [address] [id number] [place] [address]- 2546 Jun, [facility] [place] [facility] [address] [id number], [place] [address]- 2546 Apr, [facility] [place] [facility] [address] [facility] [id number], [place] [address]- 7746 Apr, [facility] [address] [place] [id number], [place] [address]- 7816 Feb, [facility] [address], [place] [address]- 4416 Dec, [facility] [address] [id number], [place] [address]- 7986 Dec, [facility] [address], [place] [address]- 1670 Nov, [facility] [address] [id number], [place] [address]- 6666 Nov, [facility] [address], [place] [address]- 4116 Nov, [facility] [address], [place] [address]- 2116 Oct, [facility] [address], [place] [address]- 2414 Oct, [facility] [address], [place] [address]- 0656 Oct, [facility] [address], [place] [address]- 0364 May, [facility] [address], [place] [address]- 7636 Apr, [facility] [address] [id number], [place] [address]- 2831 Feb, [facility] [address] [id number], [place] [address]- 0968 Feb, IMMUNIZATIONS No Known Immunizations SOCIAL HISTORY Never Assessed REASON FOR VISIT Shoulder pain Pt c/o bilateral shoulder pain over several months, has been seen for this which has not had any improvement, states he can barely moved a half gallon of milk with both arms, gets pain when crosses arms. 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 PLAN OF CARE Activity Details Follow Up prn Reason: VITAL SIGNS Height 67 in 2018-07-28 Weight 239.6 lbs 2018-07-28 Temperature 97.9 degrees Fahrenheit 2018-07-28 Heart Rate 92 bpm 2018-07-28 Respiratory Rate 18 2018-07-28 BMI 37.52 kg/m2 2018-07-28 Blood pressure systolic 122 mmHg 2018-07-28 Blood pressure diastolic 68 mmHg 2018-07-28 MEDICATIONS Medication Instructions Dosage Frequency Start Date End Date Duration Status Cinnamon 500 MG Active Tramadol HCl 50 mg Orally 3 times a day 1 tablet as needed 8h Jun, Active Glucocard Expression Monitor w/Device as directed Sep, Active Fish Oil 1360 MG Orally Once a day 1 capsule 24h Active Gabapentin 800 MG TAKE ONE TABLET BY MOUTH THREE TIMES DAILY 90 Active GlipiZIDE 10 MG Orally 2 times a day 1 tablet 12h May, 90 days Active Metformin HCl 1000 MG Orally twice a day 1 tablet with a meal 12h Active Proscar 5 mg Orally Once a day 1 tablet 24h 90 Active BusPIRone HCl 15 MG TAKE ONE TABLET BY MOUTH TWICE DAILY 90 Active Glucocard Expression Test - subcutaneously Once a day use to test blood sugar 24h Sep, 100 Active Lisinopril-Hydrochlorothiazide 20-25 MG TAKE ONE TABLET BY MOUTH ONCE DAILY. 90 Active Aspirin 81 MG Orally Once a day 1 tablet 24h Active FreeStyle Caterina 14 Day [place] - as directed for reading blood sugar results Jun, Active Trulicity 1.5 MG/0.5ML Subcutaneous once weekly as directed Active FreeStyle Caterina 14 Day Sensor - subcutaneously replace sensor every 14 days after read as directed for testing blood sugar Jun, 28 days Active Atorvastatin Calcium 40 MG TAKE ONE [...]
--- OUTSIDE RECORDS SUMMARY | 2018-12-11 19:36 | XMS REPORT ---
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 Name Role Phone LY PRINGLE Unavailable PROBLEMS Type Condition ICD9-CM Code VYG63-MS Code Onset Dates Condition Status SNOMED Code Problem Bilateral claudication of lower limb I73.9 Active 459858596 Problem Benign non-nodular prostatic hyperplasia with lower urinary tract symptoms N40.1 Active 08719393281036 Problem Essential hypertension I10 Active 68928283 Problem Neuropathy G62.9 Active 254446907 Problem Other chronic pain G89.29 Active 31355190 Problem Other secondary osteoarthritis of left knee M17.5 Active 524894971 Problem Benign prostatic hyperplasia with lower urinary tract symptoms N40.1 Active 17983476478183 Problem Anxiety F41.9 Active 51850213 Problem Hyperlipidemia, unspecified hyperlipidemia type E78.5 Active 44634265 Problem Diabetic retinopathy associated with type 2 diabetes mellitus, macular edema presence unspecified, unspecified laterality, unspecified retinopathy severity E11.319 Active 669309619 Problem MRSA (methicillin resistant staph aureus) culture positive Z22.322 Active 191129512 Problem Pulmonary nodule R91.1 Active 155106872 Problem Primary osteoarthritis of left knee M17.12 Active 350642717 Problem 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 Active 1930009 Problem Diabetic polyneuropathy associated with type 2 diabetes mellitus E11.42 Active 05211442 Problem Type 2 diabetes mellitus with complication, without long-term current use of insulin E11.8 Active 89197235 Problem Mixed hyperlipidemia E78.2 Active 543984524 ALLERGIES Substance Reaction Event Type Date Status Terrell (Diagnostic) Unknown Drug Allergy Jul, Active Januvia Unknown Drug Allergy Jul, Active ENCOUNTERS Encounter Location Date Diagnosis [facility] [address] [facility] [id number] [address] Aug, [facility] [address] [place] [id number] [place] [address]87- 8459 Jul, [place] [address] [address] Jul, Type 2 diabetes mellitus with complication, without long- term current use of insulin E11.8 [place] [address] [address]- 9118 Jun, Pain in right shoulder M25.511 ; Pain in left shoulder M25.512 and Other chronic pain G89.29 [place] [address] [address]- 6[address] Jun, [place] [address] [address]47- 9173 Jun, Type 2 diabetes mellitus with complication, without long- term current use of insulin E11.8 [place] [address] [address]- 7986 Jun, Type 2 diabetes mellitus with complication, without long- term current use of insulin E11.8 ; Hyperglycemia R73.9 and Neuropathy G62.9 [place] [address] [address]- 4755 May, Pain in left knee M25.562 ; Other chronic pain G89.29 ; Left elbow pain M25.522 and Encounter for immunization Z23 [place] [address] [address]- 3916 Apr, Other chronic pain G89.29 ; Pain in left shoulder M25.512 and Candidal intertrigo B37.2 [facility] [address] [address] Mar, Encounter for immunization Z23 and Laceration of right ring finger without foreign body without damage to nail, initial encounter S61.214A [place] [address] [address]- 4416 Mar, Paronychia of finger of right hand L03.011 [place] [id number] [place] [address] 58049- 3228 Mar, Type 2 diabetes mellitus with complication, without long- term current use of insulin E11.8 [place] [id number] [place] [address] 13076- 2469 Mar, [facility] [id number] [id number] Feb, [place] [address] [place] [id number] [place] [address] 38925- 7493 Feb, Type 2 diabetes mellitus with complication, without long- term current use of insulin E11.8 [place] [address] [place] [id number] [place] [address] 84219- 7509 Feb, Type 2 diabetes mellitus with complication, without long- term current use of insulin E11.8 ; Polyneuropathy G62.9 ; Essential hypertension I10 ; Other secondary osteoarthritis of left knee M17.5 ; Frequency of micturition R35.0 ; Benign prostatic hyperplasia with lower urinary tract symptoms N40.1 ; Anxiety F41.9 ; Hyperlipidemia, unspecified hyperlipidemia type E78.5 and Leg cramps R25.2 [place] [address] [place] [id number] [place] [address] 16885- 3519 Feb, [place] [address] [place] [id number] [place] [address] 84208- 3308 Nov, Benign non-nodular prostatic hyperplasia with lower urinary tract symptoms N40.1 and Acute epididymitis N45.1 [place] [address] [place] [address] 74491- 8584 Sep, Neuropathy G62.9 [place] [address] [place] [id number]- 3601 Sep, Type 2 diabetes mellitus with complication, without long- term current use of insulin E11.8 ; Neuropathy G62.9 ; Bilateral leg weakness R29.898 and Cough R05 [place] [address] [id number] [place] [address] Aug, Left ear pain H92.02 and Bilateral impacted cerumen H61.23 [place] [address] [place] [id number]- 3024 Jul, [facility] [address] 8[address]- 3470 Jul, [place] [address] [place] [id number]- 4006 Jul, Type 2 diabetes mellitus with complication, without long- term current use of insulin E11.8 ; Bilateral leg weakness R29.898 and Neuropathy G62.9 [facility] IN [facility] [address] [address] Jul, Acute non-recurrent maxillary sinusitis J01.00 [place] [address] 51095- 2565 Jul, [place] [address] 36525- 3560 Jul, Primary osteoarthritis of left knee M17.12 [place] [address] 63690- 3348 Jul, Type 2 diabetes mellitus with complication, without long- term current use of insulin E11.8 [place] [address] 96904- 6992 Jun, [place] [address] [place] [id number]- 3504 Jun, Neuropathy G62.9 ; Bilateral leg weakness R29.898 ; Leg cramps R25.2 and Encounter for immunization Z23 [place] [address] 94523- 8967 Jun, Bilateral claudication of lower limb I73.9 ; Essential hypertension I10 ; Mixed hyperlipidemia E78.2 and Diabetic polyneuropathy associated with type 2 diabetes mellitus E11.42 [place] [address] [place] [id number]- 2546 Jun, Pain in right leg M79.604 ; Pain of left leg M79.605 and Bilateral leg weakness R29.898 [place] [address] [place] [id number] [place] [address] 21423- 6148 Jun, [facility] [address] [place] [id number] [place] [address] 89988- 7413 Jun, Left lateral knee pain M25.562 and Bilateral leg weakness R29.898 [place] [address] [place] [id number] [place] [address] 95154- 9817 Jun, [place] [address] [place] [id number] [place] [address] 36695- 0247 May, Type 2 diabetes mellitus with complication, without long- term current use of insulin E11.8 ; Neuropathy G62.9 and Leg cramps R25.2 [place] [address] [place] [id number] [place] [address] 68428- 8659 May, [place] [address] [place] [id number] [place] [address] 38478- 1920 Apr, Bilateral leg weakness R29.898 and Leg cramps R25.2 [place] [address] [place] [id number] [place] [address] 89963- 5306 Mar, [place] [address] [place] [id number] [place] [address] 97372- 7994 Feb, Chronic seasonal allergic rhinitis due to other allergen J30.2 [place] [address] [place] [id number] [place] [address] 91973- 9479 January, Type 2 diabetes mellitus with complication, without long- term current use of insulin E11.8 and Neuropathy G62.9 [facility] [address] [place] [id number] [place] [address] 48970- 6895 Dec, [place] [address] [place] [id number] [place] [address] 35760- 4632 Dec, Pulmonary nodule R91.1 [place] [address] [place] [id number] [place] [address] 48293- 6390 Dec, [place] [address] [place] [id number] [place] [address] 04657- 5470 Dec, [place] [address] [place] [id number] [place] [address] 81472- 4642 Nov, Pre-procedure lab exam Z01.812 [place] [address] 66561- 6010 Nov, Seasonal allergic rhinitis due to pollen J30.1 [place] [address] 54644- 8340 Oct, Lower abdominal pain R10.30 ; Hematuria R31.9 ; Pulmonary nodule R91.1 and Type 2 diabetes mellitus with complication, without long-term current use of insulin E11.8 [place] [address] [place] [id number] [place] [address] 18954- 7101 Sep, Type 2 diabetes mellitus with complication, without long- term current use of insulin E11.8 and Ventral hernia without obstruction or gangrene K43.9 [place] [address] [place] [id number] [place] [address] 31041- 0988 Aug, [place] [address] [place] [id number] [place] [address] 84903- 3290 Aug, Benign non-nodular prostatic hyperplasia with lower urinary tract symptoms N40.1 and Type 2 diabetes mellitus with complication, without long-term current use of insulin E11.8 [place] [address] [place] [address] 28341- 5925 Jul, Benign non-nodular prostatic hyperplasia with lower urinary tract symptoms N40.1 and Type 2 diabetes mellitus with complication, without long-term current use of insulin E11.8 [place] [address] [place] [id number] [place] [address] 34364- 4151 Jul, Type 2 diabetes mellitus with complication, without long- term current use of insulin E11.8 [facility] [address] [id number] [address]- 5548 Jul, [facility] [address] [address]- 1654 Jun, [facility] [address] [facility] [id number] [address]- 6516 Jun, [facility] [address] [address]- 2893 Jun, Type 2 diabetes mellitus with complication, without long- term current use of insulin E11.8 [facility] [address] [address]- 4963 Jun, [facility] [address] [address]- 6345 May, [facility] [address] [address]- 1268 May, [facility] [address] [address]- 3242 May, [facility] [address] [address]- 2698 12 May, 2016 Encounter to establish care Z76.89 ; Type 2 diabetes mellitus with complication, without long-term current use of insulin E11.8 ; Essential hypertension I10 ; Hyperlipidemia, unspecified hyperlipidemia type E78.5 ; 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 ; MRSA (methicillin resistant staph aureus) culture positive Z22.322 ; Pain in unspecified knee M25.569 ; Other chronic pain G89.29 and Neuropathy G62.9 [facility] [address] [place] [address] [id number] [address]- 0224 09 May, 2016 Neck abscess L02.11 [facility] [address] [place] [id number] [address]- 7085 06 May, 2016 Abscess, neck L02.11 [facility] [address] [id number] [address] May, [facility] [address] [place] [id number] [address]- 5448 May, Abscess of neck L02.11 [facility] [address] [address] 31 Apr, 2016 Cellulitis, neck L03.221 [facility] [address] [address]7373 Apr, Abscess L02.91 [facility] [address] [address]- 6535 January, [facility] [address] [place] [address] [id number] [place] [address] 14148- 3380 Dec, [facility] [address]- 4768 Dec, [facility] [address] [place] [address] 45648- 0210 Oct, [facility] [address] [address]- 5965 Oct, [facility] [address]- 5087 Sep, [facility] [address] [address]- 2269 Sep, [facility] [address] [address]- 6519 Sep, [facility] [address] [address]- 0583 Sep, [facility] [address] [address]- 9476 Sep, [facility] [address] [place] [id number] [address]- 9396 Sep, [facility] [address] [address]- 1164 Sep, [facility] [place] [facility] [address] [id number] [place] [address]- 1056 Jul, [facility] [place] [facility] [address] [id number] 6438 Jul, [facility] [place] [facility] [address] [id number] [place] [address]- 5515 Jun, 2013 [facility] [place] [facility] [address] [id number], [place] [address]- 8809 Jun, 2013 [facility] [place] [facility] [address] [id number] [place] [address]- 1753 Jun, 2013 [facility] [place] [facility] [address] [id number] [place] [address]- 8907 Jun, 2013 [facility] [place] [facility] [address] [id number], [place] [address]- 3190 Jun, 2013 [facility] [place] [facility] [address] [id number], [place] [address]- 0185 Jun, [facility] [place] [facility] [address] [id number] [address]- 4069 Jun, [facility] [place] [facility] [address] [id number], [place] [address]- 4696 Jun, [facility] [place] [facility] [address] [id number], [place] [address]- 4258 Jun, [facility] [place] [facility] [address] [id number], [place] [address]- 9279 Jun, [facility] [place] [facility] [address] [id number]- 7469 Jun, [facility] [place] [facility] [address] [id number], [place] [address]- 6969 May, [facility] [place] [facility] [address] [id number] [place] [address]- 7921 May, [facility] [place] [facility] [address] [id number] [place] [address]- 2449 23 Sep, 2013 [facility] [place] [facility] [address] [id number] [place] [address]- 2136 23 May, 2013 [facility] [place] [facility] [address] [id number] [place] [address]- 2546 18 May, 2013 [facility] [place] [facility] [address] [id number] [place] [address] 2546 18 May, 2013 [facility] [place] [facility] [address] [id number] [place] [address]- 2547 11 May, 2013 [facility] [place] [facility] [address] [id number] [place] [address]- 6346 11 May, 2013 [facility] [place] [facility] [address] [id number] [place] [address]- 4426 11 May, 2013 [facility] [place] [facility] [address] [id number] [place] [address]- 5106 11 May, 2013 [facility] [place] [facility] [address] [id number] [place] [address]- 1230 04 May, 2013 [facility] [place] [facility] [address] [id number] [place] [address]- 2549 04 May, 2013 [facility] [place] [facility] [address] [id number] [place] [address]- 9274 03 May, 2013 [facility] [place] [facility] [address] [id number] [place] [address]- 2545 03 May, 2013 [facility] [place] [facility] [address] [id number] [place] [address]- 2544 02 May, 2013 [facility] [place] [facility] [address] [id number] [place] [address]- 2546 02 May, 2013 [facility] [place] [facility] [address] [id number] [place] [address]- 8687 14 Apr, 2014 [facility] [place] [facility] [address] [id number] [place] [address]- 9633 Apr, [facility] [place] [facility] [address] [id number] [place] [address]- 6387 Apr, [facility] [place] [facility] [address] [id number] [place] [address]- 8716 Apr, [facility] [place] [facility] [address] [id number] [place] [address]- 0046 Mar, [facility] [place] [facility] [address] [id number] [place] [address]- 5433 Mar, [facility] [place] [facility] [address] [id number] [place] [address]- 5996 Mar, [facility] [place] [facility] [address] [id number] [place] [address]- 7405 Mar, [facility] [place] [facility] [address] [id number] [place] [address]- 3351 Mar, [facility] [place] [facility] [address] [id number] [place] [address]- 9403 Mar, [facility] [address] [id number] [place] [id number] January, [facility] [place] [facility] [address] [id number] [place] [address]- 7986 January, [facility] [address] [id number] [place] [id number] Dec, [facility] [place] [facility] [address] [id number], [place] [address]- 2546 Dec, [facility] [address] [id number] [id number] Oct, [facility] [place] [facility] [address] [id number] [place] [address]- 2546 Oct, [facility] [address] [id number] [place] [id number] Sep, [facility] [place] [facility] [address] [id number] [place] [address]- 5616 Sep, [facility] [place] [facility] [address] [id number] [place] [address]- 5603 Aug, [facility] [place] [facility] [address] [id number] [place] [address]- 8876 Aug, [facility] [place] [facility] [address] [id number] [place] [address]- 6556 Jul, [facility] [place] [facility] [address] [id number] [place] [address]- 6306 Jul, [facility] [place] [facility] [address] [id number] [place] [address]- 0024 Jul, [facility] [id number] [place] [id number] Jul, [facility] [address] [id number] [address]- 0026 Jul, [facility] [address] [place] [id number] Jul, [facility] [address] [id number], [place] [address]- 5596 Jul, [facility] [place] [facility] [address] [facility] [id number] [address]- 2546 Jul, [facility] [place] [facility] [address] [id number] [address]- 5586 Jun, [facility] [place] [facility] [address] [id number], [place] [address]- 2546 Jun, [facility] [address] [facility] [id number] [id number] Jun, [facility] [place] [facility] [address] [id number], [place] [address] 2546 Jun, [facility] [place] [facility] [address] [id number] [place] [address] 2546 Apr, [facility] [place] [facility] [address] [id number], [place] [address] 2546 Apr, [facility] [place] [facility] [address] [address]- 1171 Feb, [facility] [address] [address]- 9196 Dec, [facility] [address], [place] [address]- 9266 Dec, [facility] [address] [address]- 4763 Nov, [facility] [address] [address]- 5710 Nov, [facility] [id number] [place] [address] 21465- 7686 Nov, [facility] [address], [place] [address]- 7636 Oct, [facility] [address] [address]- 1071 Oct, [facility] [address], [place] [address]- 8242 Oct, [facility] [address] [address]- 0118 May, [facility] [address], [place] [address]- 5916 Apr, [facility] [address] [address]- 5066 Feb, [facility] [id number] [address]- 0169 Feb, IMMUNIZATIONS No Known Immunizations SOCIAL HISTORY Never Assessed REASON FOR VISIT PALS PLAN OF CARE VITAL SIGNS MEDICATIONS Medication Instructions Dosage Frequency Start Date End Date Duration Status Trulicity 1.5 MG/0.5ML Subcutaneous once weekly Inject 1.5 mg 90 days Active RESULTS No Results PROCEDURES No Known [...]
--- OUTSIDE RECORDS SUMMARY | 2018-12-11 19:36 | XMS REPORT ---
Author Author LY PRINGLE Organization [facility] Address [address] [place] [address] Care Team Providers Care Bread Molder Name Role Phone LY PRINGLE Unavailable PROBLEMS Type Condition ICD9-CM Code CUO88-CM Code Onset Dates Condition Status SNOMED Code Problem Bilateral claudication of lower limb I73.9 Active 079231157 Problem Benign non-nodular prostatic hyperplasia with lower urinary tract symptoms N40.1 Active [id number] Problem Essential hypertension I10 Active 75314993 Problem Neuropathy G62.9 Active 746821638 Problem Other chronic pain G89.29 Active 23230790 Problem Other secondary osteoarthritis of left knee M17.5 Active 278082506 Problem Benign prostatic hyperplasia with lower urinary tract symptoms N40.1 Active 91560115073788 Problem Anxiety F41.9 Active 57608477 Problem Hyperlipidemia, unspecified hyperlipidemia type E78.5 Active 03854511 Problem Diabetic retinopathy associated with type 2 diabetes mellitus, macular edema presence unspecified, unspecified laterality, unspecified retinopathy severity E11.319 Active 370754909 Problem MRSA (methicillin resistant staph aureus) culture positive Z22.322 Active 270921510 Problem Pulmonary nodule R91.1 Active 831348585 Problem Primary osteoarthritis of left knee M17.12 Active 872291058 Problem 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 Active 2561458 Problem Diabetic polyneuropathy associated with type 2 diabetes mellitus E11.42 Active 63322740 Problem Type 2 diabetes mellitus with complication, without long-term current use of insulin E11.8 Active 95656073 Problem Mixed hyperlipidemia E78.2 Active 465571514 ALLERGIES No Information ENCOUNTERS Encounter Location Date Diagnosis [facility] [address] [facility] [id number] [address] Jun, Pain in right shoulder M25.511 ; Pain in left shoulder M25.512 and Other chronic pain G89.29 [facility] [id number] [place] [address] 30720- 3864 Jun, [facility] [id number] [place] [address] 39928- 2486 Jun, Type 2 diabetes mellitus with complication, without long- term current use of insulin E11.8 [facility] [id number] [place] [address] 63373- 5725 Jun, Type 2 diabetes mellitus with complication, without long- term current use of insulin E11.8 ; Hyperglycemia R73.9 and Neuropathy G62.9 [facility] [id number] [place] [address] 87648- 8803 May, Pain in left knee M25.562 ; Other chronic pain G89.29 ; Left elbow pain M25.522 and Encounter for immunization Z23 [facility] [id number] [place] [address] 06034- 4543 Apr, Other chronic pain G89.29 ; Pain in left shoulder M25.512 and Candidal intertrigo B37.2 [facility] WALK IN [facility] [id number] [place] [address] 42376 -1479 Mar, Encounter for immunization Z23 and Laceration of right ring finger without foreign body without damage to nail, initial encounter S61.214A [facility] [id number] [place] [address] 53288- 9490 Mar, Paronychia of finger of right hand L03.011 [facility] [id number] [place] [address] 98372- 1767 Mar, Type 2 diabetes mellitus with complication, without long- term current use of insulin E11.8 [facility] [id number] [place] [address] 94389- 0996 Mar, [facility] [id number] [place] [address] [id number] Feb, [facility] [id number] [place] [address] 07174- 4626 Feb, Type 2 diabetes mellitus with complication, without long- term current use of insulin E11.8 [facility] [address] 95001- 1678 Feb, Type 2 diabetes mellitus with complication, without long- term current use of insulin E11.8 ; Polyneuropathy G62.9 ; Essential hypertension I10 ; Other secondary osteoarthritis of left knee M17.5 ; Frequency of micturition R35.0 ; Benign prostatic hyperplasia with lower urinary tract symptoms N40.1 ; Anxiety F41.9 ; Hyperlipidemia, unspecified hyperlipidemia type E78.5 and Leg cramps R25.2 [facility] [address] 42369- 2062 Feb, [facility] [address] 15077- 0128 Nov, Benign non-nodular prostatic hyperplasia with lower urinary tract symptoms N40.1 and Acute epididymitis N45.1 [facility] [address] 91831- 2426 Sep, Neuropathy G62.9 [facility] [address] 86218- 3912 Sep, Type 2 diabetes mellitus with complication, without long- term current use of insulin E11.8 ; Neuropathy G62.9 ; Bilateral leg weakness R29.898 and Cough R05 [facility] [address] 86569- 4665 Aug, Left ear pain H92.02 and Bilateral impacted cerumen H61.23 [facility] [id number] [place] [address] 76475- 6374 Jul, [facility] [address] 10721- 3226 Jul, [facility] [address] 73519- 6638 Jul, Type 2 diabetes mellitus with complication, without long- term current use of insulin E11.8 ; Bilateral leg weakness R29.898 and Neuropathy G62.9 [facility] WALK IN [facility] [id number] [place] [address] 10250 -2119 Jul, Acute non-recurrent maxillary sinusitis J01.00 [facility] [id number] [place] [address] 29219- 1300 Jul, [place] [address] 22359- 2305 Jul, Primary osteoarthritis of left knee M17.12 [facility] [address] 41244- 8372 Jul, Type 2 diabetes mellitus with complication, without long- term current use of insulin E11.8 [facility] [address] 00954- 0272 Jun, [facility] [address] 25494- 2852 Jun, Neuropathy G62.9 ; Bilateral leg weakness R29.898 ; Leg cramps R25.2 and Encounter for immunization Z23 [place] [address] 77121- 6469 Jun, Bilateral claudication of lower limb I73.9 ; Essential hypertension I10 ; Mixed hyperlipidemia E78.2 and Diabetic polyneuropathy associated with type 2 diabetes mellitus E11.42 [facility] [id number] [place] [address] 06881- 4612 Jun, Pain in right leg M79.604 ; Pain of left leg M79.605 and Bilateral leg weakness R29.898 [facility] [id number] [place] [address] 64668- 7746 Jun, [facility] [address] 96446- 1626 Jun, Left lateral knee pain M25.562 and Bilateral leg weakness R29.898 [facility] [address] 47824- 0204 Jun, [facility] [id number] [place] [address] 07757- 7328 May, Type 2 diabetes mellitus with complication, without long- term current use of insulin E11.8 ; Neuropathy G62.9 and Leg cramps R25.2 [facility] [id number] [place] [address] 31779- 7431 May, [facility] [address] 61895- 6325 Apr, Bilateral leg weakness R29.898 and Leg cramps R25.2 [facility] [address] 87791- 4744 Mar, [facility] [id number] [place] [address] 88453- 2915 Feb, Chronic seasonal allergic rhinitis due to other allergen J30.2 [facility] [address] 19590- 5569 January, Type 2 diabetes mellitus with complication, without long- term current use of insulin E11.8 and Neuropathy G62.9 [facility] [id number] [place] [address] 97119- 2841 Dec, [facility] [id number] [place] [address] 94522- 3973 Dec, Pulmonary nodule R91.1 [facility] [id number] [place] [address] 99645- 6981 Dec, [facility] [id number] [place] [address] 45223- 7095 Dec, [facility] [id number] [place] [address] 03330- 2749 Nov, Pre-procedure lab exam Z01.812 [facility] [id number] [place] [address] 14271- 8305 Nov, Seasonal allergic rhinitis due to pollen J30.1 [facility] [id number] [place] [address] 65373- 8792 Oct, Lower abdominal pain R10.30 ; Hematuria R31.9 ; Pulmonary nodule R91.1 and Type 2 diabetes mellitus with complication, without long-term current use of insulin E11.8 [facility] [id number] [place] [address] 39411- 2445 Sep, Type 2 diabetes mellitus with complication, without long- term current use of insulin E11.8 and Ventral hernia without obstruction or gangrene K43.9 [facility] [id number] [place] [address] 35737- 7612 Aug, [facility] [id number] [place] [address] 77758- 1254 Aug, Benign non-nodular prostatic hyperplasia with lower urinary tract symptoms N40.1 and Type 2 diabetes mellitus with complication, without long-term current use of insulin E11.8 [facility] [id number] [place] [address] 31801- 4440 Jul, Benign non-nodular prostatic hyperplasia with lower urinary tract symptoms N40.1 and Type 2 diabetes mellitus with complication, without long-term current use of insulin E11.8 [facility] [id number] [place] [address] 31932- 0908 Jul, Type 2 diabetes mellitus with complication, without long- term current use of insulin E11.8 [facility] [id number] [place] [address] 58358- 4521 Jul, [facility] [id number] [place] [address] 30610- 9193 Jun, [facility] [id number] [place] [address] 31629- 9724 Jun, [facility] [id number] [place] [address] 87970- 0353 Jun, Type 2 diabetes mellitus with complication, without long- term current use of insulin E11.8 [facility] [address] [address]- 0480 Jun, [facility] [address], [place] [address]- 0817 May, [facility] [address], [place] [address]- 0603 May, [facility] [place] [address] [place] [address] 34738- 5220 May, [facility] [address] [place] [address] 35615- 3942 May, Encounter to establish care Z76.89 ; Type 2 diabetes mellitus with complication, without long-term current use of insulin E11.8 ; Essential hypertension I10 ; Hyperlipidemia, unspecified hyperlipidemia type E78.5 ; 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 ; MRSA (methicillin resistant staph aureus) culture positive Z22.322 ; Pain in unspecified knee M25.569 ; Other chronic pain G89.29 and Neuropathy G62.9 [facility] [address], [place] [address]- 1845 May, Neck abscess L02.11 [facility] [address], [place] [address]- 6732 06 May, 2016 Abscess, neck L02.11 [facility] [address], [place] [address]80 04 May, 2016 [facility] [address], [place] [address]- 1449 May, Abscess of neck L02.11 [facility] [address] [place] [address] 56029 -6752 Apr, Cellulitis, neck L03.221 [facility] [id number] [address] Apr, Abscess L02.91 [facility] [id number] [place] [address], [place] [address]- 9350 January, [facility] [place] [facility] [address] [id number] [place] [address]- 9671 Dec, [facility] [place] [facility] [address] [id number] [place] [address]- 6786 Dec, [facility] [place] [facility] [address] [id number] [place] [address]- 5875 Oct, [facility] [place] [facility] [address] [id number] [place] [address]- 8994 Oct, [facility] [place] [facility] [address] [id number] [place] [address]- 0846 Sep, [facility] [place] [facility] [address] [id number] [place] [address]- 8184 Sep, [facility] [place] [facility] [address] [id number] [place] [address]- 8667 Sep, [facility] [place] [facility] [address] [id number] [place] [address]- 0647 Sep, [facility] [place] [facility] [address] [id number] [place] [address]- 7754 Sep, [facility] [place] [facility] [address] [facility] [id number] [place] [address]- 1691 Sep, [facility] [place] [facility] [address] [id number] [place] [address]- 1015 Sep, [facility] [place] [facility] [address] [id number] [place] [address]- 8908 Jul, [facility] [place] [facility] [address] [id number] [place] [address]- 2831 Jul, [facility] [place] [facility] [address] [id number] [place] [address]- 4140 Jun, [facility] [place] [facility] [address] [id number] [place] [address]- 4222 Jun, [facility] [place] [facility] [address] [id number] [place] [address]- 8844 Jun, 2013 [facility] [place] [facility] [address] [id number] [place] [address]- 5292 Jun, 2013 [facility] [place] [facility] [address] [id number] [place] [address]- 9210 Jun, 2013 [facility] [place] [facility] [address] [id number] [place] [address]- 4091 Jun, 2013 [facility] [place] [facility] [address] [id number] [place] [address]- 8502 Jun, 2013 [facility] [place] [facility] [address] [id number] [place] [address]- 2647 Jun, [facility] [place] [facility] [address] [id number] [place] [address]- 1493 Jun, [facility] [place] [facility] [address] [id number] [place] [address]- 9235 Jun, [facility] [place] [facility] [address] [id number] [place] [address]- 3619 Jun, [facility] [place] [facility] [address] [id number] [place] [address]- 2525 30 May, 2013 [facility] [place] [facility] [address] [id number] [place] [address]- 4374 30 May, 2013 [facility] [place] [facility] [address] [id number], [place] [address]- 0430 23 May, 2013 [facility] [place] [facility] [address] [id number] [place] [address]- 8627 23 May, 2013 [facility] [place] [facility] [address] [id number] [place] [address]- 5514 18 May, 2013 [facility] [place] [facility] [address] [id number] [place] [address]- 6070 18 May, 2013 [facility] [place] [facility] [address] [id number] [place] [address]- 2014 11 May, 2013 [facility] [place] [facility] [address] [id number] [place] [address]- 4691 11 May, 2013 [facility] [place] [facility] [address] [id number] [place] [address]- 9216 11 May, 2013 [facility] [place] [facility] [address] [id number] [place] [address]- 0756 11 May, 2013 [facility] [place] [facility] [address] [id number] [place] [address]- 7053 04 May, 2013 [facility] [place] [facility] [address] [id number] [place] [address]- 8936 04 May, 2013 [facility] [place] [facility] [address] [id number] [place] [address]- 8410 May, 2013 [facility] [place] [facility] [address] [id number] [place] [address]- 0693 May, 2013 [facility] [place] [facility] [address] [id number] [place] [address]- 1244 May, 2013 [facility] [place] [facility] [address] [id number] [place] [address]- 0186 May, 2013 [facility] [place] [facility] [address] [id number] [place] [address]- 0060 Apr, [facility] [place] [facility] [address] [id number] [place] [address]- 3376 Apr, [facility] [place] [facility] [address] [id number] [place] [address]- 5776 Apr, [facility] [place] [facility] [address] [id number] [place] [address]- 1589 Apr, [facility] [place] [facility] [address] [id number] [place] [address]- 7661 Mar, [facility] [place] [facility] [address] [id number] [place] [address]- 9572 Mar, [facility] [place] [facility] [address] [id number] [place] [address]- 2546 Mar, [facility] [address] [id number] [place] [address]- 6623 Mar, [facility] [place] [facility] [address] [id number] [place] [address]- 2546 Mar, [facility] [address] [id number] [place] [address]- 7496 Mar, [facility] [address] [id number] [place] [id number] January, [facility] [address] [id number] [place] [address]- 0956 January, [facility] [address] [id number] [place] [id number] Dec, [facility] [address] [id number], [place] [address]- 7406 Dec, [facility] [address] [facility] [id number] [id number] Oct, [facility] [place] [facility] [address] [id number] [place] [address]- 8676 Oct, [facility] [address] [facility] [id number] [place] [id number] Sep, [facility] [place] [facility] [address] [id number] [place] [address]- 5796 Sep, [facility] [place] [facility] [address] [id number] [place] [address]- 4999 Aug, [facility] [place] [facility] [address] [id number] [place] [address]- 5603 Aug, [facility] [place] [facility] [address] [id number] [place] [address]- 2916 Jul, [facility] [place] [facility] [address] [id number] [place] [address]- 6526 Jul, [facility] [place] [facility] [address] [id number], [place] [address]- 2546 Jul, [facility] [address] [facility] [id number] [id number] Jul, [facility] [place] [facility] [address] [facility] [id number], [place] [address]- 2546 Jul, [facility] [address] [id number] [id number] Jul, [facility] [place] [facility] [address] [id number], [place] [address]- 2546 Jul, [facility] [place] [facility] [address] [id number], [place] [address]- 2546 Jul, [facility] [place] [facility] [id number] [address]- 2546 Jun, [facility] [place] [facility] [id number] [address]- 2546 Jun, [facility] [id number] [id number] Jun, [facility] [place] [facility] [id number] [address]- 9336 Jun, [facility] [place] [facility] [id number] [address]- 0566 Apr, [facility] [place] [facility] [id number] [address]- 2546 Apr, [facility] [place] [facility] [address] [facility] [id number], [place] [address]- 2546 Feb, [facility] [place] [facility] [address] [id number], [place] [address]- 2546 Dec, [facility] [place] [facility] [address] [id number], [place] [address]- 2546 Dec, [facility] [place] [facility] [address] [facility] [id number], [place] [address]- 2546 Nov, [facility] [place] [facility] [address] [id number], [place] [address]- 2546 Nov, [facility] [id number] [address]- 2546 Nov, [facility] [id number] [address] 2546 Oct, [facility] [id number] [address]- 2546 Oct, [facility] [address], [place] [address]- 2546 Oct, [facility] [address], [place] [address] 2546 May, [facility] [address], [place] [address]- 2546 Apr, [facility] [id number] [address] 2546 Feb, [facility] [id number], [place] [address]- 2546 Feb, IMMUNIZATIONS No Known Immunizations SOCIAL HISTORY Never Assessed REASON FOR VISIT Free Style Caterina results PLAN OF CARE VITAL SIGNS MEDICATIONS No Known Medications RESULTS No Results PROCEDURES No Known procedures [...]
--- OUTSIDE RECORDS SUMMARY | 2018-12-11 19:37 | XMS REPORT ---
Author Author REED KING Organization [facility] Address [address] [place] [address] Care Team Providers Care Learning Technologist Name Role Phone REED KING Unavailable PROBLEMS Type Condition ICD9-CM Code JTQ29-HK Code Onset Dates Condition Status SNOMED Code Problem Mixed hyperlipidemia E78.2 Active 795651321 Problem Essential hypertension I10 Active 89445444 Problem Bilateral claudication of lower limb I73.9 Active 313224057 Problem Other chronic pain G89.29 Active 49399189 Problem Anxiety F41.9 Active 72231763 Problem Benign prostatic hyperplasia with lower urinary tract symptoms N40.1 Active 26427251502459 Problem Benign non-nodular prostatic hyperplasia with lower urinary tract symptoms N40.1 Active 32124531364004 Problem Hyperlipidemia, unspecified hyperlipidemia type E78.5 Active 15471082 Problem Other secondary osteoarthritis of left knee M17.5 Active 467628879 Problem Diabetic retinopathy associated with type 2 diabetes mellitus, macular edema presence unspecified, unspecified laterality, unspecified retinopathy severity E11.319 Active 453656482 Problem Polyneuropathy G62.9 Active 78435284 Problem Type 2 diabetes mellitus with complication, without long-term current use of insulin E11.8 Active 74803957 Problem Pulmonary nodule R91.1 Active 223552585 Problem MRSA (methicillin resistant staph aureus) culture positive Z22.322 Active 996043375 Problem Primary osteoarthritis of left knee M17.12 Active 158337162 Problem 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 Active 3187791 Problem Diabetic polyneuropathy associated with type 2 diabetes mellitus E11.42 Active 98077119 ALLERGIES Substance Reaction Event Type Date Status [place] (Diagnostic) Unknown Drug Allergy Apr, Active Januvia Unknown Drug Allergy Apr, Active ENCOUNTERS Encounter Location Date Diagnosis [facility] [address] [facility] [id number] [place] [address] Jun, [facility] [id number] [place] [address]6779- 3528 Apr, Other chronic pain G89.29 ; Pain in left shoulder M25.512 and Candidal intertrigo B37.2 [facility] IN [facility] [id number] [place] [address] -[address]285 Mar, Encounter for immunization Z23 and Laceration of right ring finger without foreign body without damage to nail, initial encounter S61.214A [place] [address] [address]- [address]84 Mar, Paronychia of finger of right hand L03.011 [place] [address] 75722- 9699 Mar, Type 2 diabetes mellitus with complication, without long- term current use of insulin E11.8 [facility] [address] [place] [id number] [place] [address] 86055- 1661 Mar, [facility] [address] [id number] Feb, [facility] [address] [place] [id number] [place] [address] 43080- 3088 Feb, Type 2 diabetes mellitus with complication, without long- term current use of insulin E11.8 [facility] [id number] [place] [address] 10820- 8745 Feb, Type 2 diabetes mellitus with complication, without long- term current use of insulin E11.8 ; Polyneuropathy G62.9 ; Essential hypertension I10 ; Other secondary osteoarthritis of left knee M17.5 ; Frequency of micturition R35.0 ; Benign prostatic hyperplasia with lower urinary tract symptoms N40.1 ; Anxiety F41.9 ; Hyperlipidemia, unspecified hyperlipidemia type E78.5 and Leg cramps R25.2 [facility] [id number] [place] [address] 92394- 8504 Feb, [facility] [id number] [place] [address] 99271- 6677 02 Mar, 2018 Benign non-nodular prostatic hyperplasia with lower urinary tract symptoms N40.1 and Acute epididymitis N45.1 [place] [address] [address]- 8794 Sep, Neuropathy G62.9 [place] [address] 60662- 6375 Sep, Type 2 diabetes mellitus with complication, without long- term current use of insulin E11.8 ; Neuropathy G62.9 ; Bilateral leg weakness R29.898 and Cough R05 [place] [address] 79573- 5349 Aug, Left ear pain H92.02 and Bilateral impacted cerumen H61.23 [place] [address] 28377- 3948 Jul, [place] [address] 74612- 6572 Jul, [place] [address] 77946- 2530 Jul, Type 2 diabetes mellitus with complication, without long- term current use of insulin E11.8 ; Bilateral leg weakness R29.898 and Neuropathy G62.9 [facility] IN [facility] [id number] [place] [address] 37499 -6941 Jul, Acute non-recurrent maxillary sinusitis J01.00 [place] [address] [id number] [place] [address] 23170- 4182 Jul, [place] [address] 46838- 7153 Jul, Primary osteoarthritis of left knee M17.12 [place] [address] 66295- 9073 Jul, Type 2 diabetes mellitus with complication, without long- term current use of insulin E11.8 [place] [address] 69989- 2093 Jun, [facility] [id number] [place] [address] 57316- 0562 Jun, Neuropathy G62.9 ; Bilateral leg weakness R29.898 ; Leg cramps R25.2 and Encounter for immunization Z23 [facility] [id number] [place] [address] 40867- 4274 Jun, Bilateral claudication of lower limb I73.9 ; Essential hypertension I10 ; Mixed hyperlipidemia E78.2 and Diabetic polyneuropathy associated with type 2 diabetes mellitus E11.42 [place] [address] 93778- 6324 Jun, Pain in right leg M79.604 ; Pain of left leg M79.605 and Bilateral leg weakness R29.898 [place] [address] 09361- 7161 Jun, [place] [address] 61501- 3839 Jun, Left lateral knee pain M25.562 and Bilateral leg weakness R29.898 [place] [address] 27896- 6776 Jun, [place] [address] [address] [id number] [place] [address] 44660- 1233 18 May, 2017 Type 2 diabetes mellitus with complication, without long- term current use of insulin E11.8 ; Neuropathy G62.9 and Leg cramps R25.2 [place] [address] [address] [id number] [place] [address] 27851- 5207 May, [place] [address] 84910- 9466 Apr, Bilateral leg weakness R29.898 and Leg cramps R25.2 [place] [address] [place] [address] [id number] [place] [address] 78043- 3684 Mar, [place] [address] 24894- 5668 Feb, Chronic seasonal allergic rhinitis due to other allergen J30.2 [place] [address] [address] [id number] [place] [address] 28358- 1784 January, Type 2 diabetes mellitus with complication, without long- term current use of insulin E11.8 and Neuropathy G62.9 [place] [address] 90887- 0405 Dec, [place] [address] 19932- 0709 Dec, Pulmonary nodule R91.[address] 68891- 8190 Dec, [place] [address] [place] [id number] [place] [address] 65258- 3675 Dec, [place] [address] 57852- 4234 Nov, Pre-procedure lab exam Z01.812 [place] [address] [address] [id number] [place] [address] 08027- 3930 Nov, Seasonal allergic rhinitis due to pollen J30.1 [place] [address] [place] [address] [id number] [place] [address] 64524- 6107 Oct, Lower abdominal pain R10.30 ; Hematuria R31.9 ; Pulmonary nodule R91.1 and Type 2 diabetes mellitus with complication, without long-term current use of insulin E11.8 [place] [address] [address] [id number] [place] [address] 02457- 9473 Sep, Type 2 diabetes mellitus with complication, without long- term current use of insulin E11.8 and Ventral hernia without obstruction or gangrene K43.9 [place] [address] [place] [address] [id number] [place] [address] 74396- 5754 Aug, [place] [address] [place] [address] [id number] [place] [address] 24149- 8235 Aug, Benign non-nodular prostatic hyperplasia with lower urinary tract symptoms N40.1 and Type 2 diabetes mellitus with complication, without long-term current use of insulin E11.8 [place] [address] [address] [id number] [place] [address] 31996- 8793 Jul, Benign non-nodular prostatic hyperplasia with lower urinary tract symptoms N40.1 and Type 2 diabetes mellitus with complication, without long-term current use of insulin E11.8 [place] [address] [place] [address] [id number] [place] [address] 83146- 5814 Jul, Type 2 diabetes mellitus with complication, without long- term current use of insulin E11.8 [place] [address] [address] [id number] [place] [address] 34756- 5783 Jul, [facility] [id number] [place] [address] 88058- 3270 Jun, [place] [address] [id number] [place] [address] 90770- 2025 Jun, [facility] [id number] [place] [address] 95467- 8067 Jun, Type 2 diabetes mellitus with complication, without long- term current use of insulin E11.8 [place] [address] [place] [address]- 2256 Jun, [place] [address] [place] [address]- 5152 May, [facility] [id number] [place] [address] 31492- 8435 May, [facility] [address] [place] [address]- 5119 May, [place] [address] [place] [address] [id number] [place] [address] 60584- 0754 May, Encounter to establish care Z76.89 ; Type 2 diabetes mellitus with complication, without long-term current use of insulin E11.8 ; Essential hypertension I10 ; Hyperlipidemia, unspecified hyperlipidemia type E78.5 ; 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 ; MRSA (methicillin resistant staph aureus) culture positive Z22.322 ; Pain in unspecified knee M25.569 ; Other chronic pain G89.29 and Neuropathy G62.9 [facility] [address] [id number] [place] [address]- 2385 09 May, 2016 Neck abscess L02.11 [facility] [address] [id number] [place] [address]- 3537 06 May, 2016 Abscess, neck L02.11 [facility] [address] [id number] [place] [address] May, [facility] [address] [id number] [place] [address]- 4441 May, Abscess of neck L02.11 [facility] IN [facility] [address] [id number] [place] [address]79 Apr, Cellulitis, neck L03.221 [facility] IN [facility] [address] [id number] [place] [address]8 Apr, Abscess L02.91 [place] [address] [facility] [id number] [place] [address]- 4903 January, [facility] [address] [id number] [place] [address]- 1324 Dec, [facility] [address] [id number] [place] [address]- 7336 Dec, [facility] [address] [id number] [place] [address]- 8117 Oct, [facility] [address] [facility] [id number] [place] [address]- 5429 Oct, [facility] [address] [facility] [id number] [place] [address]- 3067 Sep, [facility] [address] [facility] [id number] [place] [address]- 5869 Sep, [facility] [place] [facility] [address] [id number] [place] [address]- 8054 Sep, [facility] [place] [facility] [address] [id number] [place] [address]- 0396 Sep, [facility] [place] [facility] [address] [id number] [place] [address]- 0808 Sep, [facility] [place] [facility] [address] [id number] [place] [address]- 4177 Sep, [facility] [place] [facility] [address] [id number] [place] [address]- 8222 Sep, [facility] [place] [facility] [address] [id number] [place] [address]- 6110 Jul, [facility] [place] [facility] [address] [id number] [place] [address]- 2229 Jul, [facility] [place] [facility] [address] [id number] [place] [address]- 7787 Jun, [facility] [place] [facility] [address] [id number] [place] [address]- 1235 Jun, [facility] [place] [facility] [address] [id number] [place] [address]- 5764 Jun, [facility] [place] [facility] [address] [facility] [id number] [place] [address]- 4970 Jun, [facility] [place] [facility] [address] [id number] [place] [address]- 5086 Jun, [facility] [place] [facility] [address] [id number] [place] [address]- 9187 Jun, [facility] [place] [facility] [address] [id number] [place] 7227 Jun, [facility] [place] [facility] [address] [id number] [place] [address]- 9501 Jun, [facility] [place] [facility] [address] [id number] [place] [address]- 0504 Jun, [facility] [place] [facility] [address] [id number] [place] [address]- 9320 02 Jun, 2014 [facility] [place] [facility] [address] [id number] [place] [address]- 2721 Jun, [facility] [place] [facility] [address] [id number] [place] [address]- 2171 30 May, 2013 [facility] [place] [facility] [address] [id number] [place] [address]- 4989 30 May, 2013 [facility] [place] [facility] [address] [id number] [place] [address]- 4995 23 May, 2013 [facility] [place] [facility] [address] [id number] [place] [address]- 5051 23 May, 2013 [facility] [place] [facility] [address] [id number] [place] [address]- 9849 18 May, 2013 [facility] [place] [facility] [address] [id number] [place] [address]- 9041 18 May, 2013 [facility] [place] [facility] [address] [id number] [place] [address]- 7375 11 May, 2013 [facility] [place] [facility] [address] [id number] [place] [address]- 9866 11 May, 2013 [facility] [place] [facility] [address] [id number] [place] [address]- 3012 11 May, 2013 [facility] [place] [facility] [address] [id number] [place] [address]- 2542 11 May, 2013 [facility] [place] [facility] [address] [id number] [place] [address]- 0791 04 Sep, 2013 [facility] [place] [facility] [address] [id number] [place] [address]- 7838 04 Sep, 2013 [facility] [place] [facility] [address] [id number] [place] [address]- 1306 03 Sep, 2013 [facility] [place] [facility] [address] [id number] [place] [address]- 4908 May, [facility] [place] [facility] [address] [id number] [place] [address]- 3975 May, [facility] [place] [facility] [address] [id number] [place] [address]- 6711 May, [facility] [place] [facility] [address] [id number] [place] [address]- 2552 Apr, [facility] [place] [facility] [address] [id number] [place] [address]- 1670 Apr, [facility] [place] [facility] [address] [id number] [place] [address]- 3642 Apr, [facility] [place] [facility] [address] [id number] [place] [address]- 1717 Apr, [facility] [place] [facility] [address] [id number] [place] [address]- 4239 Mar, [facility] [place] [facility] [address] [id number] [place] [address]- 2974 Mar, [facility] [place] [facility] [address] [id number] [place] [address]- 8792 Mar, [facility] [place] [facility] [address] [id number] [place] [address]- 5573 Mar, [facility] [place] [facility] [address] [id number] [place] [address]- 9453 Mar, [facility] [place] [facility] [address] [id number] [place] [address]- 1444 Mar, [facility] [address] [id number] [id number] January, [facility] [place] [facility] [address] [id number] [place] [address]- 7916 January, [facility] [address] [id number][place] [address] Dec, [facility] [place] [facility] [address] [id number] [place] [address]- 9476 Dec, [facility] [address] [facility] [id number][place] [id number] Oct, [facility] [address] [facility] [id number] [place] [address]- 9176 Oct, [facility] [address] [id number] [id number] Sep, [facility] [place] [facility] [address] [facility] [id number] [place] [address]- 7568 Sep, [facility] [place] [facility] [address] [facility] [id number] [place] [address]- 9141 Aug, [facility] [place] [facility] [address] [facility] [id number] [place] 5934 Aug, [facility] [place] [facility] [address] [place] [address]- 0107 Jul, [facility] [address] [facility] [id number] [place] [address]- 7646 Jul, [facility] [place] [facility] [address] [id number] [place] [address]- 4182 Jul, [facility] [address] [id number][place] [id number] Jul, [facility] [place] [facility] [address] [facility] [id number] [place] [address]- 0138 Jul, [facility] [address] [facility] [id number][place] [address] Jul, [facility] [place] [facility] [address] [id number] [place] [address]- 7616 Jul, [facility] [place] [facility] [address] [facility] [id number] [place] [address]- 2056 06 Jul, 2013 [facility] [place] [facility] [address] [facility] [id number] [place] [address]- 3876 Jun, [facility] [place] [facility] [address] [facility] [id number] [place] [address]- 7420 Jun, [facility] [address] [id number] [place] [id number] Jun, [facility] [address] [facility] [id number] [place] [address]- 1788 Jun, [facility] [address] [facility] [id number] [place] [address]- 2645 Apr, [facility] [address] [facility] [id number] [place] [address]- 9963 Apr, [facility] [address] [id number] [place] [address]- 2619 Feb, [facility] [address] [facility] [id number] [place] [address]- 9895 Dec, [facility] [address] [id number] [place] [address]- 4425 Dec, [facility] [address] [facility] [id number] [place] [address]- 3356 Nov, [facility] [address] [facility] [id number] [place] [address]- 1445 Nov, [facility] [address] [id number] [place] [address]- 6080 Nov, [facility] [address] [id number] [place] [address]- 0618 Oct, [facility] [address] [facility] [id number] [place] [address]- 9176 Oct, [facility] [address] [id number] [place] [address]- 7485 Oct, [facility] [place] [facility] [address] [facility] [id number] [place] [address]- 5212 May, [facility] [address] [facility] [id number] [place] [address]- 5641 Apr, [facility] [address] [facility] [id number] [place] [address]- 0218 Feb, [facility] [address] [facility] [id number] [place] [address]- 7386 Feb, IMMUNIZATIONS No Known Immunizations SOCIAL HISTORY Never Assessed REASON FOR VISIT rash L arm/clavical pain, PT reports his left shoulder has been hurting bad for the last month and it has recently worsened. PT notes it is from falling so many times. 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.- Edgar BYNUM PLAN OF CARE Activity Details Follow Up prn Reason:shoulder pain, rash Future/Pending Procedure JOINT INJECTION-LARGE JOINT VITAL SIGNS Height 67 in 2018-05-13 Weight 240.8 lbs 2018-05-13 Temperature 97.7 degrees Fahrenheit 2018-05-13 Heart Rate 76 bpm 2018-05-13 Respiratory Rate 20 2018-05-13 Oximetry 96 % 2018-05-13 BMI 37.71 kg/m2 2018-05-13 Blood pressure systolic 128 mmHg 2018-05-13 Blood pressure diastolic 72 mmHg 2018-05-13 MEDICATIONS Medication Instructions Dosage Frequency Start Date End Date Duration Status Gabapentin 800 MG TAKE ONE TABLET BY MOUTH THREE TIMES DAILY 90 Active Cinnamon 500 MG Active Glucocard Expression Test - subcutaneously Once a day use to test blood sugar 24h Sep, 100 Active Aspirin 81 MG Orally Once a day 1 tablet 24h Active GlipiZIDE 5 MG Orally bid 1 tablet in AM and 1.5 tab in PM 12h 18 May, 2017 90 days Active Glucocard Expression Monitor w/Device as directed Sep, Active BusPIRone HCl 15 MG TAKE ONE TABLET BY MOUTH TWICE DAILY 90 Active Proscar 5 mg Orally Once a day 1 tablet 24h 90 Active Lisinopril-Hydrochlorothiazide 20-25 MG TAKE ONE TABLET BY MOUTH ONCE DAILY. 90 Active Fish Oil 1360 MG Orally Once a day 1 capsule 24h Active Atorvastatin Calcium 40 MG TAKE ONE TABLET BY MOUTH ONCE DAILY. 90 Active Nystatin 139040 UNIT/GM Externally Twice a day 1 application to affected area 12h 14 Apr, 2018 Apr, 14 days Active RESULTS Name Result Date Reference Range Xray : Shoulder, Left 2 view (IN HOUSE) 2018-05-13 PROCEDURES Procedure Date Ordered Result Body Site X-RAY EXAM OF SHOULDER May 13, 2018 DRAIN/INJECT, JOINT/BURSA May 13, 2018 INSTRUCTIONS MEDICATIONS ADMINISTERED No Known Medications MEDICAL [...]
--- OUTSIDE RECORDS SUMMARY | 2018-12-11 19:37 | XMS REPORT ---
Author Author NAREN Valdes [facility] IN [facility] Address [address] [place] [address] Care Team Providers Care Hose Handler Name Role Phone NAREN Valdes Unavailable PROBLEMS Type Condition ICD9-CM Code POK06-GY Code Onset Dates Condition Status SNOMED Code Problem Mixed hyperlipidemia E78.2 Active 446798595 Problem Essential hypertension I10 Active 25994230 Problem Bilateral claudication of lower limb I73.9 Active 415164838 Problem Other chronic pain G89.29 Active 88233197 Problem Anxiety F41.9 Active 86451317 Problem Benign prostatic hyperplasia with lower urinary tract symptoms N40.1 Active 35621343295375 Problem Benign non-nodular prostatic hyperplasia with lower urinary tract symptoms N40.1 Active 37236290634941 Problem Hyperlipidemia, unspecified hyperlipidemia type E78.5 Active 76321458 Problem Other secondary osteoarthritis of left knee M17.5 Active 673407553 Problem Diabetic retinopathy associated with type 2 diabetes mellitus, macular edema presence unspecified, unspecified laterality, unspecified retinopathy severity E11.319 Active 077840177 Problem Polyneuropathy G62.9 Active 28244052 Problem Type 2 diabetes mellitus with complication, without long-term current use of insulin E11.8 Active 85995476 Problem Pulmonary nodule R91.1 Active 660078336 Problem MRSA (methicillin resistant staph aureus) culture positive Z22.322 Active 577918556 Problem Primary osteoarthritis of left knee M17.12 Active 768283567 Problem 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 Active 5091869 Problem Diabetic polyneuropathy associated with type 2 diabetes mellitus E11.42 Active 75627842 ALLERGIES Substance Reaction Event Type Date Status Januvia Unknown Drug Allergy Mar, Active ENCOUNTERS Encounter Location Date Diagnosis [facility] [address] [facility] [id number], [place] [address] Jun, [facility] [address] [facility] [id number] [place] [address]2500- 6533 Apr, Other chronic pain G89.29 ; Pain in left shoulder M25.512 and Candidal intertrigo B37.2 [facility] WALK IN [facility] [address] [place] [id number] [place] [address]280 [address] Mar, Encounter for immunization Z23 and Laceration of right ring finger without foreign body without damage to nail, initial encounter S61.214A [place] [address] [address] Mar, Paronychia of finger of right hand L03.011 [place] [address] 35447- 6628 Mar, Type 2 diabetes mellitus with complication, without long- term current use of insulin E11.8 [facility] [id number] [place] [address] 63736- 9371 Mar, [facility] [address] [id number] Feb, [facility] [id number] [place] [address] 20662- 5717 Feb, Type 2 diabetes mellitus with complication, without long- term current use of insulin E11.8 [facility] [id number] [place] [address] 98139- 0377 Feb, Type 2 diabetes mellitus with complication, without long- term current use of insulin E11.8 ; Polyneuropathy G62.9 ; Essential hypertension I10 ; Other secondary osteoarthritis of left knee M17.5 ; Frequency of micturition R35.0 ; Benign prostatic hyperplasia with lower urinary tract symptoms N40.1 ; Anxiety F41.9 ; Hyperlipidemia, unspecified hyperlipidemia type E78.5 and Leg cramps R25.2 [facility] [id number] [place] [address] 41363- 2848 Feb, [facility] [id number] [place] [address] 48835- 1711 Nov, Benign non-nodular prostatic hyperplasia with lower urinary tract symptoms N40.1 and Acute epididymitis N45.1 [place] [address] [address]00- 5911 Sep, Neuropathy G62.9 [place] [address] [place] [id number]- 3005 Sep, Type 2 diabetes mellitus with complication, without long- term current use of insulin E11.8 ; Neuropathy G62.9 ; Bilateral leg weakness R29.898 and Cough R05 [place] [address] [address]44- 0999 Aug, Left ear pain H92.02 and Bilateral impacted cerumen H61.23 [place] [address] 57391- 2905 Jul, [place] [address] 92298- 2064 Jul, [place] [address] 89172- 6749 Jul, Type 2 diabetes mellitus with complication, without long- term current use of insulin E11.8 ; Bilateral leg weakness R29.898 and Neuropathy G62.9 [facility] IN [facility] [id number] [place] [address] 11166 -1197 Jul, Acute non-recurrent maxillary sinusitis J01.00 [place] [address] 02498- 6503 Jul, [place] [address] 10808- 1527 Jul, Primary osteoarthritis of left knee M17.12 [place] [address] 84984- 5655 Jul, Type 2 diabetes mellitus with complication, without long- term current use of insulin E11.8 [place] [address] 58465- 8861 Jun, [place] [address] [address] [id number] [place] [address] 39560- 3094 Jun, Neuropathy G62.9 ; Bilateral leg weakness R29.898 ; Leg cramps R25.2 and Encounter for immunization Z23 [facility] [id number] [place] [address] 74343- 5629 Jun, Bilateral claudication of lower limb I73.9 ; Essential hypertension I10 ; Mixed hyperlipidemia E78.2 and Diabetic polyneuropathy associated with type 2 diabetes mellitus E11.42 [place] [address] 11141- 8495 Jun, Pain in right leg M79.604 ; Pain of left leg M79.605 and Bilateral leg weakness R29.898 [place] [address] 66557- 1826 Jun, [place] [address] 36347- 5511 Jun, Left lateral knee pain M25.562 and Bilateral leg weakness R29.898 [place] [address] 89696- 3982 Jun, [place] [address] [place] [id number] [place] [address] 35800- 6784 18 May, 2017 Type 2 diabetes mellitus with complication, without long- term current use of insulin E11.8 ; Neuropathy G62.9 and Leg cramps R25.2 [place] [address] [id number] [place] [address] 89785- 4237 May, [place] [address] 79252- 1153 Apr, Bilateral leg weakness R29.898 and Leg cramps R25.2 [place] [address] [place] [id number] [place] [address] 67507- 7168 Mar, [place] [address] 40588- 6638 Feb, Chronic seasonal allergic rhinitis due to other allergen J30.2 [place] [address] [id number] [place] [address] 66405- 0602 January, Type 2 diabetes mellitus with complication, without long- term current use of insulin E11.8 and Neuropathy G62.[address] 97522- 4737 Dec, [place] [address] 21946- 3792 Dec, Pulmonary nodule R91.[address] 38081- 6957 Dec, [place] [address] [place] [id number] [place] [address] 30848- 2368 Dec, [address] 00808- 2178 Nov, Pre-procedure lab exam Z01.812 [place] [id number] [place] [address] 99833- 1082 Nov, Seasonal allergic rhinitis due to pollen J30.1 [place] [address] [address] [id number] [place] [address] 84646- 2456 Oct, Lower abdominal pain R10.30 ; Hematuria R31.9 ; Pulmonary nodule R91.1 and Type 2 diabetes mellitus with complication, without long-term current use of insulin E11.8 [place] [address] [address] [id number] [place] [address] 07448- 0616 Sep, Type 2 diabetes mellitus with complication, without long- term current use of insulin E11.8 and Ventral hernia without obstruction or gangrene K43.9 [place] [address] [place] [id number] [place] [address] 13306- 4632 Aug, [place] [id number] [place] [address] 19273- 0038 Aug, Benign non-nodular prostatic hyperplasia with lower urinary tract symptoms N40.1 and Type 2 diabetes mellitus with complication, without long-term current use of insulin E11.8 [place] [address] [place] [id number] [place] [address] 77714- 1023 Jul, Benign non-nodular prostatic hyperplasia with lower urinary tract symptoms N40.1 and Type 2 diabetes mellitus with complication, without long-term current use of insulin E11.8 [place] [address] [place] [id number] [place] [address] 04249- 1348 Jul, Type 2 diabetes mellitus with complication, without long- term current use of insulin E11.8 [place] [address] [place] [id number] [place] [address] 98681- 1533 Jul, [place] [address] [place] [id number] [place] [address] 61458- 1645 Jun, [place] [address] [place] [id number] [place] [address] 21259- 9985 Jun, [place] [address] [place] [id number] [place] [address] 18700- 3579 Jun, Type 2 diabetes mellitus with complication, without long- term current use of insulin E11.8 [place] [address] [place] [address] 38045- 3710 Jun, [place] [address] [place] [address] 88548- 1906 May, [place] [address] [place] [address] [id number] [place] [address] 81597- 5493 May, [place] [address] [address]- 3575 May, [place] [address] [place] [id number] [place] [address] 62224- 2132 May, Encounter to establish care Z76.89 ; Type 2 diabetes mellitus with complication, without long-term current use of insulin E11.8 ; Essential hypertension I10 ; Hyperlipidemia, unspecified hyperlipidemia type E78.5 ; 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 ; MRSA (methicillin resistant staph aureus) culture positive Z22.322 ; Pain in unspecified knee M25.569 ; Other chronic pain G89.29 and Neuropathy G62.9 [facility] [address] [id number], [place] [address] 09 May, 2016 Neck abscess L02.11 [facility] [address] [id number], [place] [address] 49[address] 06 May, 2016 Abscess, neck L02.11 [facility]ARE [address] [id number], [place] [address] May, [facility] [address] [id number], [place] [address]- 7444 May, Abscess of neck L02.11 [facility] WALK IN [facility] [address] [id number], [place] [address] Apr, Cellulitis, neck L03.221 [facility] WALK IN [facility] [address] [id number], [place] [address] Apr, Abscess L02.91 [place] [address] [facility] [id number], [place] [address]- 8718 January, [facility] [address] [id number], [place] [address]- 5713 Dec, [facility] [address] [id number], [place] [address]- 9584 Dec, [facility] [address] [id number], [place] [address]- 7648 Oct, [facility] [address] [id number], [place] [address]- 8905 Oct, [facility] [address] [id number], [place] [address]- 8953 Sep, [facility] [address] [facility] [id number], [place] [address]- 3176 Sep, [facility] [place] [facility] [address] [id number] [place] [address]- 5704 Sep, [facility] [place] [facility] [address] [id number] [place] [address]- 5903 Sep, [facility] [place] [facility] [address] [id number] [place] [address]- 8404 Sep, [facility] [place] [facility] [address] [id number] [place] [address]- 0312 Sep, [facility] [place] [facility] [address] [id number] [place] [address]- 0350 Sep, [facility] [place] [facility] [address] [id number] [place] [address]- 2423 Jul, [facility] [place] [facility] [address] [id number] [place] [address]- 6784 Jul, [facility] [place] [facility] [address] [id number], [place] [address]- 8089 Jun, [facility] [place] [facility] [address] [id number] [place] [address]- 3953 Jun, [facility] [place] [facility] [address] [id number], [place] [address]- 7177 Jun, [facility] [place] [facility] [address] [id number], [place] [address]- 7997 Jun, [facility] [place] [facility] [address] [id number], [place] [address]- 9235 Jun, [facility] [place] [facility] [address] [id number], [place] [address]- 2582 Jun, [facility] [place] [facility] [address] [id number] [place] [address]- 7241 Jun, [facility] [place] [facility] [address] [id number], [place] [address]- 0823 Jun, [facility] [place] [facility] [address] [id number], [place] [address]- 1454 Jun, [facility] [place] [facility] [address] [id number] [place] [address]- 6313 02 Jun, 2014 [facility] [place] [facility] [address] [id number] [place] [address]- 1490 Jun, [facility] [place] [facility] [address] [id number] [place] [address]- 4052 30 May, 2013 [facility] [place] [facility] [address] [id number] [place] [address] 2544 30 May, 2013 [facility] [place] [facility] [address] [id number] [place] [address]- 7801 23 May, 2013 [facility] [place] [facility] [address] [id number] [place] [address]- 1000 23 May, 2013 [facility] [place] [facility] [address] [id number] [place] [address]- 0854 18 May, 2013 [facility] [place] [facility] [address] [id number] [place] [address]- 6928 18 May, 2013 [facility] [place] [facility] [address] [id number] [place] [address]- 8998 11 May, 2013 [facility] [place] [facility] [address] [id number] [place] [address]- 254 11 May, 2013 [facility] [place] [facility] [address] [id number] [place] [address]- 8586 11 May, 2013 [facility] [place] [facility] [address] [id number], [place] [address]- 2545 11 May, 2013 [facility] [place] [facility] [address] [id number] [place] [address]- 2541 04 Sep, 2013 [facility] [place] [facility] [address] [id number] [place] [address]- 2174 04 May, 2013 [facility] [place] [facility] [address] [id number] [place] [address]- 2544 03 Sep, 2013 [facility] [place] [facility] [address] [id number] [place] [address]- 2747 May, [facility] [place] [facility] [address] [id number] [place] [address]- 1110 May, [facility] [place] [facility] [address] [id number] [place] [address]- 3241 May, [facility] [place] [facility] [address] [id number] [place] [address]- 3930 Apr, [facility] [place] [facility] [address] [id number] [place] [address]- 6831 Apr, [facility] [place] [facility] [address] [id number] [place] [address]- 4568 Apr, [facility] [place] [facility] [address] [id number] [place] [address]- 0548 Apr, [facility] [place] [facility] [address] [id number] [place] [address]- 7994 Mar, [facility] [place] [facility] [address] [id number] [place] [address]- 9606 Mar, [facility] [place] [facility] [address] [id number] [place] [address]- 3122 Mar, [facility] [place] [facility] [address] [id number] [place] [address]- 5399 Mar, [facility] [place] [facility] [address] [id number] [place] [address]- 7151 Mar, [facility] [place] [facility] [address] [id number] [place] [address]- 1519 Mar, [facility] [address] [id number][place] [id number] January, [facility] [place] [facility] [address] [id number] [place] [address]- 8426 January, [facility] [address] [id number][place] [id number] Dec, [facility] [place] [facility] [address] [facility] [id number], [place] [address]- 3356 Dec, [facility] [address] [facility] [id number][place] [address] Oct, [facility] [place] [facility] [address] [facility] [id number], [place] [address]- 6796 Oct, [facility] [address] [facility] [id number][place] [address] Sep, [facility] [place] [facility] [address] [facility] [id number], [place] [address]- 8609 Sep, [facility] [place] [facility] [address] [facility] [id number], [place] [address]- 8071 Aug, [facility] [place] [facility] [address] [facility] [id number], [place] [address]- 3846 Aug, [facility] [place] [facility] [address] [facility] [id number], [place] [address]- 9279 Jul, [facility] [place] [facility] [address] [facility] [id number], [place] [address]- 4752 Jul, [facility] [place] [facility] [address] [facility] [id number], [place] [address]- 2196 Jul, [facility] [address] [id number][place] [address] Jul, [facility] [place] [facility] [address] [facility] [id number], [place] [address]- 8088 Jul, [facility] [address] [facility] [id number][place] [address] Jul, [facility] [place] [facility] [address] [facility] [id number], [place] [address]- 7906 Jul, [facility] [place] [facility] [address] [facility] [id number], [place] [address]- 6063 Jul, [facility] [place] [facility] [address] [facility] [id number], [place] [address]- 9506 Jun, [facility] [place] [facility] [address] [facility] [id number], [place] [address]- 1212 Jun, [facility] [address] [id number] [place] [id number] Jun, [facility] [address] [id number], [place] [address] 1943 Jun, [facility] [address] [id number] [address]- 2099 Apr, [facility] [address] [facility] [id number], [place] [address]- 6048 Apr, [facility] [address] [place] [id number] [place] [address]- 1124 Feb, [facility] [address]65[address], [place] [address]- 1742 Dec, [facility] [address]65[address], [place] [address]- 4928 Dec, [facility] [address] [id number], [place] [address]- 2095 Nov, [facility] [address] [id number] [place] [address]- 9545 Nov, [facility] [address] [id number], [place] [address]- 3161 Nov, [facility] [address] [id number], [place] [address]- 1236 Oct, [facility] [place] [facility] [address] [facility] [id number], [place] [address]- 0697 Oct, [facility] [place] [facility] [address] [facility] [id number], [place] [address]- 7516 Oct, [facility] [place] [facility] [address] [id number], [place] [address]- 7175 May, [facility] [place] [facility] [address] [id number], [place] [address]- 7232 Apr, [facility] [address] [facility] [id number] [place] [address]- 9814 15 Feb, 2012 [facility] [address] [facility] [id number], [place] [address]- 3007 14 Feb, 2012 IMMUNIZATIONS Vaccine Route Administration Date Status TDAP (BOOSTRIX) IM Intramuscular April 29, 2018 Administered SOCIAL HISTORY Never Assessed REASON FOR VISIT cut tip of right ring finger an hour ago at home on a slicer. [email or web address] PLAN OF CARE Activity Details Follow Up prn Reason: VITAL SIGNS Height 67 in 2018-04-29 Weight 241.6 lbs 2018-04-29 Temperature 98.0 degrees Fahrenheit 2018-04-29 Heart Rate 94 bpm 2018-04-29 Respiratory Rate 20 2018-04-29 BMI 37.84 kg/m2 2018-04-29 Blood pressure systolic 132 mmHg 2018-04-29 Blood pressure diastolic 74 mmHg 2018-04-29 MEDICATIONS Medication Instructions Dosage Frequency Start Date End Date Duration Status Fish Oil 1360 MG Orally Once a day 1 capsule 24h Active Gabapentin 800 MG TAKE ONE TABLET BY MOUTH THREE TIMES DAILY 90 Active Cinnamon 500 MG Active Glucocard Expression Monitor w/Device as directed Sep, Active Lisinopril-Hydrochlorothiazide 20-25 MG TAKE ONE TABLET BY MOUTH ONCE DAILY. 90 Active Aspirin 81 MG Orally Once a day 1 tablet 24h Active BusPIRone HCl 15 MG TAKE ONE TABLET BY MOUTH TWICE DAILY 90 Active GlipiZIDE 5 MG Orally bid 1 tablet in AM and 1.5 tab in PM 12h May, 90 days Active Tegretol 200 mg Orally Once a day at bedtime 1 tablet Apr, 90 days Active Proscar 5 mg Orally Once a day 1 tablet 24h 90 Active Glucocard Expression Test - subcutaneously Once a day use to test blood sugar 24h Sep, 100 Active Atorvastatin Calcium 40 MG TAKE ONE TABLET BY MOUTH ONCE DAILY. 90 Active RESULTS No Results PROCEDURES Procedure Date Ordered Result Body Site TDAP (BOOSTRIX) April 29, 2018 SINGLE IMMUNIZATION ADMIN April 29, 2018 INSTRUCTIONS MEDICATIONS ADMINISTERED No Known Medications [...]
--- OUTSIDE RECORDS SUMMARY | 2018-12-11 19:37 | XMS REPORT ---
Author Author REED KING [facility] Address [address] [place] [address] Care Team Providers Care Captain Waiter/Waitress Name Role Phone REED KING Unavailable PROBLEMS ALLERGIES ENCOUNTERS IMMUNIZATIONS SOCIAL HISTORY No smoking Hx information available REASON FOR VISIT PLAN OF CARE VITAL SIGNS MEDICATIONS RESULTS No Results PROCEDURES INSTRUCTIONS MEDICATIONS ADMINISTERED No Known Medications MEDICAL (GENERAL) HISTORY
--- OUTSIDE RECORDS SUMMARY | 2018-12-11 19:38 | XMS REPORT ---
Author Author LY PRINGLE Organization [facility] Address [address] [place] [address] Care Team Providers Care Agricultural Researcher Name Role Phone LY PRINGLE Unavailable PROBLEMS Type Condition ICD9-CM Code TMO64-YP Code Onset Dates Condition Status SNOMED Code Problem Mixed hyperlipidemia E78.2 Active 819482077 Problem Essential hypertension I10 Active 24615065 Problem Bilateral claudication of lower limb I73.9 Active 461596011 Problem Other chronic pain G89.29 Active 23192767 Problem Anxiety F41.9 Active 44448758 Problem Benign prostatic hyperplasia with lower urinary tract symptoms N40.1 Active 81249273349764 Problem Benign non-nodular prostatic hyperplasia with lower urinary tract symptoms N40.1 Active 87646294042689 Problem Hyperlipidemia, unspecified hyperlipidemia type E78.5 Active 91402789 Problem Other secondary osteoarthritis of left knee M17.5 Active 924324509 Problem Diabetic retinopathy associated with type 2 diabetes mellitus, macular edema presence unspecified, unspecified laterality, unspecified retinopathy severity E11.319 Active 446973961 Problem Polyneuropathy G62.9 Active 55280783 Problem Type 2 diabetes mellitus with complication, without long-term current use of insulin E11.8 Active 19607829 Problem Pulmonary nodule R91.1 Active 878399870 Problem MRSA (methicillin resistant staph aureus) culture positive Z22.322 Active 589976982 Problem Primary osteoarthritis of left knee M17.12 Active 612490290 Problem 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 Active 8796038 Problem Diabetic polyneuropathy associated with type 2 diabetes mellitus E11.42 Active 41517685 ALLERGIES No Information ENCOUNTERS Encounter Location Date Diagnosis [facility] [address] [facility] [id number], [place] [address] Jun, [facility] [address] [facility] [id number], [place] [address] Apr, Other chronic pain G89.29 ; Pain in left shoulder M25.512 and Candidal intertrigo B37.2 [facility] [id number] [place] [address]08 -[address]79 Mar, Encounter for immunization Z23 and Laceration of right ring finger without foreign body without damage to nail, initial encounter S61.214A [place] [id number] [place] [address] 11469- 0762 Mar, Paronychia of finger of right hand L03.011 [place] [address] [address]00- 4041 Mar, Type 2 diabetes mellitus with complication, without long- term current use of insulin E11.8 [facility] [id number] [place] [address] 90438- 0419 Mar, [facility] [address] [id number] Feb, [facility] [address] 8[address]38- 0022 Feb, Type 2 diabetes mellitus with complication, without long- term current use of insulin E11.8 [facility] [id number] [place] [address] 21884- 4369 Feb, Type 2 diabetes mellitus with complication, without long- term current use of insulin E11.8 ; Polyneuropathy G62.9 ; Essential hypertension I10 ; Other secondary osteoarthritis of left knee M17.5 ; Frequency of micturition R35.0 ; Benign prostatic hyperplasia with lower urinary tract symptoms N40.1 ; Anxiety F41.9 ; Hyperlipidemia, unspecified hyperlipidemia type E78.5 and Leg cramps R25.2 [place] [address] 21535- 0386 Feb, [facility] [id number] [place] [address] 26462- 9071 Nov, Benign non-nodular prostatic hyperplasia with lower urinary tract symptoms N40.1 and Acute epididymitis N45.1 [place] [id number] [place] [address] 43790- 1916 Sep, Neuropathy G62.9 [place] [address] [place] 19591289- 0002 Sep, Type 2 diabetes mellitus with complication, without long- term current use of insulin E11.8 ; Neuropathy G62.9 ; Bilateral leg weakness R29.898 and Cough R05 [facility] [address] 75369- 4652 Aug, Left ear pain H92.02 and Bilateral impacted cerumen H61.23 [place] [address] 87432- 2675 Jul, [place] [address] 41940- 4630 Jul, [place] [address] 37154- 3566 Jul, Type 2 diabetes mellitus with complication, without long- term current use of insulin E11.8 ; Bilateral leg weakness R29.898 and Neuropathy G62.9 [facility] [address] 9[address]60 -3023 Jul, Acute non-recurrent maxillary sinusitis J01.00 [facility] [address] 05441- 1374 Jul, [facility] [address] 09793- 9824 Jul, Primary osteoarthritis of left knee M17.12 [place] [address] 69718- 5164 Jul, Type 2 diabetes mellitus with complication, without long- term current use of insulin E11.8 [facility] [address] 61604- 8034 Jun, [facility] [address] 59987- 6528 Jun, Neuropathy G62.9 ; Bilateral leg weakness R29.898 ; Leg cramps R25.2 and Encounter for immunization Z23 [place] [id number] [place] [address] 35230- 7867 Jun, Bilateral claudication of lower limb I73.9 ; Essential hypertension I10 ; Mixed hyperlipidemia E78.2 and Diabetic polyneuropathy associated with type 2 diabetes mellitus E11.42 [place] [address] 96608- 9824 Jun, Pain in right leg M79.604 ; Pain of left leg M79.605 and Bilateral leg weakness R29.898 [place] [address] 99548- 6539 Jun, [place] [address] 06064- 6425 Jun, Left lateral knee pain M25.562 and Bilateral leg weakness R29.898 [place] [address] 29183- 6302 Jun, [place] [address] 04414- 4592 May, Type 2 diabetes mellitus with complication, without long- term current use of insulin E11.8 ; Neuropathy G62.9 and Leg cramps R25.2 [place] [id number] [place] [address] 79865- 3292 May, [place] [address] 57580- 5546 Apr, Bilateral leg weakness R29.898 and Leg cramps R25.2 [place] [id number] [place] [address] 93273- 1217 Mar, [place] [id number] [place] [address] 10753- 6787 Feb, Chronic seasonal allergic rhinitis due to other allergen J30.2 [place] [id number] [place] [address] 14375- 7571 January, Type 2 diabetes mellitus with complication, without long- term current use of insulin E11.8 and Neuropathy G62.9 [place] [id number] [place] [address] 81021- 5776 Dec, [place] [address] 42599- 2709 Dec, Pulmonary nodule R91.[address] 75894- 8607 Dec, [place] [address] 59779- 3522 Dec, [address] 38572- 8014 Nov, Pre-procedure lab exam Z01.[address] 51637- 9136 Nov, Seasonal allergic rhinitis due to pollen J30.1 [place] [id number] [place] [address] 95132- 0756 Oct, Lower abdominal pain R10.30 ; Hematuria R31.9 ; Pulmonary nodule R91.1 and Type 2 diabetes mellitus with complication, without long-term current use of insulin E11.8 [place] [id number] [place] [address] 83727- 2992 Sep, Type 2 diabetes mellitus with complication, without long- term current use of insulin E11.8 and Ventral hernia without obstruction or gangrene K43.9 [place] [id number] [place] [address] 15986- 7671 Aug, [address] 59812- 2239 Aug, Benign non-nodular prostatic hyperplasia with lower urinary tract symptoms N40.1 and Type 2 diabetes mellitus with complication, without long-term current use of insulin E11.8 [facility] [address] [facility] [id number], [place] [address] 299[address] Jul, Benign non-nodular prostatic hyperplasia with lower urinary tract symptoms N40.1 and Type 2 diabetes mellitus with complication, without long-term current use of insulin E11.8 [facility] [address] [address] 379[address] Jul, Type 2 diabetes mellitus with complication, without long- term current use of insulin E11.8 [facility] [address] [facility] [id number], [place] [address] 8340 Jul, [facility] [address] [address] 1805 Jun, [facility] [address], [place] [address]- 8030 Jun, [facility] [address] [address]- 0209 Jun, Type 2 diabetes mellitus with complication, without long- term current use of insulin E11.8 [facility] [address] [address]- 8644 Jun, [facility] [address] [id number] [address]- 8172 May, [facility] [address] [id number], [place] [address]- 2166 May, [facility] [address] [id number], [place] [address]- 3564 May, [facility] [address] [id number], [place] [address]- [address]32 12 May, 2016 Encounter to establish care Z76.89 ; Type 2 diabetes mellitus with complication, without long-term current use of insulin E11.8 ; Essential hypertension I10 ; Hyperlipidemia, unspecified hyperlipidemia type E78.5 ; 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 ; MRSA (methicillin resistant staph aureus) culture positive Z22.322 ; Pain in unspecified knee M25.569 ; Other chronic pain G89.29 and Neuropathy G62.9 [facility] [id number] [place] [address] 03545- 7904 09 May, 2016 Neck abscess L02.11 [facility] [id number] [place] [address] 80366- 5673 06 May, 2016 Abscess, neck L02.11 [facility] [address] 34412 -1438 May, [facility] [id number] [place] [address] 57899- 3556 May, Abscess of neck L02.11 [facility] [id number] [place] [address] 67961 -6113 Apr, Cellulitis, neck L03.221 [facility] [id number] [place] [address] 99432 -9721 Apr, Abscess L02.91 [facility] [id number] [place] [address] 70879- 6899 January, [facility] [id number] [place] [address] 45087- 4910 Dec, [facility] [id number] [place] [address] 04689- 8818 Dec, [facility] [id number] [place] [address] 62205- 3470 Oct, [facility] [id number] [place] [address] 11161- 0527 Oct, [facility] [id number] [place] [address] 49464- 7259 Sep, [facility] [id number] [place] [address] 99282- 6327 Sep, [facility] [address] 74121- 8012 Sep, [facility] [place] [facility] [address] [id number] [place] [address]- 7824 Sep, [facility] [place] [facility] [address] [id number] [place] [address]- 4385 Sep, [facility] [place] [facility] [address] [id number] [place] [address]- 9656 Sep, [facility] [place] [facility] [address] [id number] [place] [address]- 2955 Sep, [facility] [place] [facility] [address] [id number] [place] [address]- 8557 Jul, [facility] [place] [facility] [address] [id number] [place] [address]- 3759 Jul, [facility] [place] [facility] [address] [id number], [place] [address]- 3092 Jun, [facility] [place] [facility] [address] [id number], [place] [address]- 0408 Jun, [facility] [place] [facility] [address] [id number], [place] [address]- 0219 Jun, [facility] [place] [facility] [address] [id number], [place] [address]- 6146 Jun, [facility] [place] [facility] [address] [id number], [place] [address]- 4533 Jun, [facility] [place] [facility] [address] [id number], [place] [address]- 3955 Jun, [facility] [place] [facility] [address] [id number], [place] [address]- 9064 Jun, [facility] [place] [facility] [address] [id number], [place] [address]- 5196 Jun, [facility] [place] [facility] [address] [id number], [place] [address]- 6597 Jun, [facility] [place] [facility] [address] [id number] [place] [address]- 0117 02 Jun, 2014 [facility] [place] [facility] [address] [id number] [place] [address]- 1369 Jun, [facility] [place] [facility] [address] [id number] [place] [address]- 2146 30 May, 2013 [facility] [place] [facility] [address] [id number] [place] [address]- 4266 30 May, 2013 [facility] [place] [facility] [address] [id number] [place] [address]- 2548 23 May, 2013 [facility] [place] [facility] [address] [id number] [place] [address]- 3718 23 May, 2013 [facility] [place] [facility] [address] [id number] [place] [address]- 4959 18 May, 2013 [facility] [place] [facility] [address] [id number] [place] [address]- 2547 18 May, 2013 [facility] [place] [facility] [address] [id number] [place] [address]- 254 11 May, 2013 [facility] [place] [facility] [address] [id number] [place] [address]- 2542 11 May, 2013 [facility] [place] [facility] [address] [id number] [place] [address]- 2544 11 May, 2013 [facility] [place] [facility] [address] [id number] [place] [address]- 2545 11 May, 2013 [facility] [place] [facility] [address] [id number] [place] [address]- 2543 04 Sep, 2013 [facility] [place] [facility] [address] [id number] [place] [address] 2544 04 Sep, 2013 [facility] [place] [facility] [address] [id number] [place] [address]- 2546 03 Sep, 2013 [facility] [place] [facility] [address] [id number] [place] [address]- 2541 May, [facility] [place] [facility] [address] [id number] [place] [address]- 3090 May, [facility] [place] [facility] [address] [id number] [place] [address]- 6326 May, [facility] [place] [facility] [address] [id number] [place] [address]- 5408 Apr, [facility] [place] [facility] [address] [id number] [place] [address]- 4196 Apr, [facility] [place] [facility] [address] [id number] [place] [address]- 5721 Apr, [facility] [place] [facility] [address] [id number] [place] [address]- 0980 Apr, [facility] [place] [facility] [address] [id number] [place] [address]- 0267 Mar, [facility] [place] [facility] [address] [id number] [place] [address]- 5459 Mar, [facility] [place] [facility] [address] [id number] [place] [address]- 3693 Mar, [facility] [place] [facility] [address] [id number] [place] [address]- 0917 Mar, [facility] [place] [facility] [address] [id number] [place] [address]- 9007 Mar, [facility] [place] [facility] [address] [id number] [place] [address]- 7458 Mar, [facility] [address] [id number] [address] January, [facility] [place] [facility] [address] [id number] [place] [address]- 1086 January, [facility] [address] [id number] [address] Dec, [facility] [place] [facility] [address] [id number] [place] [address]- 6506 Dec, [facility] [address] [id number] [place] [id number] Oct, [facility] [address] [id number] [place] [address]- 2126 Oct, [facility] [address] [facility] [id number][place] [address] Sep, [facility] [place] [facility] [address] [id number] [place] [address]- 7166 Sep, [facility] [place] [facility] [address] [id number] [place] [address]- 0936 Aug, [facility] [place] [facility] [address] [id number] [place] [address]- 2146 Aug, [facility] [place] [facility] [id number] [address]- 1664 Jul, [facility] [place] [facility] [address] [place] [address]- 2729 Jul, [facility] [place] [facility] [address] [id number] [address]- 8648 Jul, [facility] [address] [facility] [id number][place] [id number] Jul, [facility] [address] [id number], [place] [address]- 5896 Jul, [facility] [address] [facility] [id number][place] [id number] Jul, [facility] [place] [facility] [address] [id number], [place] [address]- 2546 Jul, [facility] [place] [facility] [address] [facility] [id number], [place] [address]- 3386 Jul, [facility] [place] [facility] [address] [facility] [id number], [place] [address]- 0516 Jun, [facility] [place] [facility] [address] [id number], [place] [address]- 4016 Jun, [facility] [address] [id number] [place] [id number] Jun, [facility] [address] [id number] [place] [address]- 7661 Jun, [facility] [address] [id number] [place] [address]- 7337 Apr, [facility] [address] [id number] [place] [address]- 8526 Apr, [facility] [address] [id number] [place] [address]- 6268 Feb, [facility] [address] [id number] [place] [address]- 6662 Dec, [facility] [address] [id number] [place] [address]- 3109 Dec, [facility] [address] [id number] [place] [address]- 1351 Nov, [facility] [address] [id number] [place] [address]- 5339 Nov, [facility] [address] [id number] [place] [address]- 2004 Nov, [facility] [address] [id number] [place] [address]- 9896 Oct, [facility] [address] [id number] [place] [address]- 4742 Oct, [facility] [address] [id number] [place] [address]- 8054 Oct, [facility] [place] [facility] [address] [id number] [place] [address]- 0080 May, [facility] [place] [facility] [address] [id number] [place] [address]- 7603 Apr, [facility] [address] [id number] [place] [address]- 1532 15 Feb, 2012 [facility] [address] [facility] [id number] [place] [address]- 1629 14 Feb, 2012 IMMUNIZATIONS No Known Immunizations SOCIAL HISTORY Never Assessed REASON FOR VISIT Refill request PLAN OF CARE VITAL SIGNS MEDICATIONS Medication Instructions Dosage Frequency Start Date End Date Duration Status GlipiZIDE 5 MG Orally bid 1 tablet in AM and 1.5 tab in PM 12h 18 May, 2017 90 days Active RESULTS No Results PROCEDURES [...]
--- OUTSIDE RECORDS SUMMARY | 2018-12-11 19:38 | XMS REPORT ---
Author Author LY PRINGLE Organization [facility] Address [address] [place] [address] Care Team Providers Care Aluminum Pourer Name Role Phone LY PRINGLE Unavailable PROBLEMS Type Condition ICD9-CM Code [id number] Code Onset Dates Condition Status SNOMED Code Problem Mixed hyperlipidemia E78.2 Active 954527572 Problem Essential hypertension I10 Active 08784191 Problem Bilateral claudication of lower limb I73.9 Active 985322602 Problem Other chronic pain G89.29 Active 50949842 Problem Anxiety F41.9 Active 01993587 Problem Benign prostatic hyperplasia with lower urinary tract symptoms N40.1 Active [id number] Problem Benign non-nodular prostatic hyperplasia with lower urinary tract symptoms N40.1 Active 92146193494901 Problem Hyperlipidemia, unspecified hyperlipidemia type E78.5 Active 76186011 Problem Other secondary osteoarthritis of left knee M17.5 Active 761325970 Problem Diabetic retinopathy associated with type 2 diabetes mellitus, macular edema presence unspecified, unspecified laterality, unspecified retinopathy severity E11.319 Active 709106395 Problem Polyneuropathy G62.9 Active 98586165 Problem Type 2 diabetes mellitus with complication, without long-term current use of insulin E11.8 Active 75942222 Problem Pulmonary nodule R91.1 Active 392360599 Problem MRSA (methicillin resistant staph aureus) culture positive Z22.322 Active 079377587 Problem Primary osteoarthritis of left knee M17.12 Active 502583857 Problem 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 Active 8133536 Problem Diabetic polyneuropathy associated with type 2 diabetes mellitus E11.42 Active 39421698 ALLERGIES No Information ENCOUNTERS Encounter Location Date Diagnosis [facility] [address] [facility] [id number], [place] [address] Jun, [facility] [address] [facility] [id number], [place] [address] Apr, Other chronic pain G89.29 ; Pain in left shoulder M25.512 and Candidal intertrigo B37.2 [facility] [id number] [place] [address] Mar, Encounter for immunization Z23 and Laceration of right ring finger without foreign body without damage to nail, initial encounter S61.214A [place] [id number] [place] [address] 38158- 1002 Mar, Paronychia of finger of right hand L03.011 [place] [address] [address]251- 9629 Mar, Type 2 diabetes mellitus with complication, without long- term current use of insulin E11.8 [facility] [id number] [place] [address] 53205- 7810 Mar, [facility] [address] [id number] Feb, [facility] [address] [address]35- [address]290 Feb, Type 2 diabetes mellitus with complication, without long- term current use of insulin E11.8 [facility] [id number] [place] [address] 97939- 2763 Feb, Type 2 diabetes mellitus with complication, without long- term current use of insulin E11.8 ; Polyneuropathy G62.9 ; Essential hypertension I10 ; Other secondary osteoarthritis of left knee M17.5 ; Frequency of micturition R35.0 ; Benign prostatic hyperplasia with lower urinary tract symptoms N40.1 ; Anxiety F41.9 ; Hyperlipidemia, unspecified hyperlipidemia type E78.5 and Leg cramps R25.2 [place] [address] 18192- 2553 Feb, [facility] [id number] [place] [address] 19585- 0580 Nov, Benign non-nodular prostatic hyperplasia with lower urinary tract symptoms N40.1 and Acute epididymitis N45.1 [place] [id number] [place] [address] 22702- 7071 Sep, Neuropathy G62.9 [place] [address] [place] [address] [id number]- 3076 Sep, Type 2 diabetes mellitus with complication, without long- term current use of insulin E11.8 ; Neuropathy G62.9 ; Bilateral leg weakness R29.898 and Cough R05 [facility] [address] 20364- 7338 Aug, Left ear pain H92.02 and Bilateral impacted cerumen H61.23 [place] [address] 70434- 6998 Jul, [place] [address] 03564- 3174 Jul, [place] [address] 79832- 0399 Jul, Type 2 diabetes mellitus with complication, without long- term current use of insulin E11.8 ; Bilateral leg weakness R29.898 and Neuropathy G62.9 [facility] [address] [address]2124 Jul, Acute non-recurrent maxillary sinusitis J01.00 [facility] [address] 03291- 9685 Jul, [facility] [address] 32954- 0026 Jul, Primary osteoarthritis of left knee M17.12 [place] [address] 13753- 8657 Jul, Type 2 diabetes mellitus with complication, without long- term current use of insulin E11.8 [facility] [address] 56505- 3646 Jun, [facility] [address] 32548- 3611 Jun, Neuropathy G62.9 ; Bilateral leg weakness R29.898 ; Leg cramps R25.2 and Encounter for immunization Z23 [place] [id number] [place] [address] 05550- 9653 Jun, Bilateral claudication of lower limb I73.9 ; Essential hypertension I10 ; Mixed hyperlipidemia E78.2 and Diabetic polyneuropathy associated with type 2 diabetes mellitus E11.42 [place] [address] 53579- 6999 Jun, Pain in right leg M79.604 ; Pain of left leg M79.605 and Bilateral leg weakness R29.898 [place] [address] 05284- 9028 Jun, [place] [address] 80336- 6621 Jun, Left lateral knee pain M25.562 and Bilateral leg weakness R29.898 [place] [address] 33950- 9711 Jun, [place] [address] 41423- 1532 May, Type 2 diabetes mellitus with complication, without long- term current use of insulin E11.8 ; Neuropathy G62.9 and Leg cramps R25.2 [place] [id number] [place] [address] 28235- 0705 May, [place] [address] 50117- 0145 Apr, Bilateral leg weakness R29.898 and Leg cramps R25.2 [place] [id number] [place] [address] 30742- 7579 Mar, [place] [id number] [place] [address] 85967- 6885 Feb, Chronic seasonal allergic rhinitis due to other allergen J30.2 [place] [id number] [place] [address] 29008- 1839 January, Type 2 diabetes mellitus with complication, without long- term current use of insulin E11.8 and Neuropathy G62.9 [place] [id number] [place] [address] 13309- 7120 Dec, [place] [address] 64097- 3079 Dec, Pulmonary nodule R91.[address] 99805- 3057 Dec, [place] [address] 52248- 9517 Dec, [address] 64958- 4841 Nov, Pre-procedure lab exam Z01.[address] 28536- 7693 Nov, Seasonal allergic rhinitis due to pollen J30.1 [place] [id number] [place] [address] 72848- 6041 Oct, Lower abdominal pain R10.30 ; Hematuria R31.9 ; Pulmonary nodule R91.1 and Type 2 diabetes mellitus with complication, without long-term current use of insulin E11.8 [place] [id number] [place] [address] 58917- 8399 Sep, Type 2 diabetes mellitus with complication, without long- term current use of insulin E11.8 and Ventral hernia without obstruction or gangrene K43.9 [place] [id number] [place] [address] 39350- 5325 Aug, [address] [address]- 8012 Aug, Benign non-nodular prostatic hyperplasia with lower urinary tract symptoms N40.1 and Type 2 diabetes mellitus with complication, without long-term current use of insulin E11.8 [facility] [address] [facility] [id number], [place] [address] Jul, Benign non-nodular prostatic hyperplasia with lower urinary tract symptoms N40.1 and Type 2 diabetes mellitus with complication, without long-term current use of insulin E11.8 [facility] [address] [address] Jul, Type 2 diabetes mellitus with complication, without long- term current use of insulin E11.8 [facility] [address] [facility] [id number], [place] [address]- 0260 Jul, [facility] [address], [place] [address]- 7158 Jun, [facility] [address], [place] [address]- 0041 Jun, [facility] [address], [place] [address]- 8541 Jun, Type 2 diabetes mellitus with complication, without long- term current use of insulin E11.8 [facility] [address], [place] [address]- 2719 Jun, [facility] [address] [id number], [place] [address]- 4608 May, [facility] [address] [id number], [place] [address]- 7771 May, [facility] [address] [id number], [place] [address]- 7950 May, [facility] [address] [id number], [place] [address]- 9779 12 May, 2016 Encounter to establish care Z76.89 ; Type 2 diabetes mellitus with complication, without long-term current use of insulin E11.8 ; Essential hypertension I10 ; Hyperlipidemia, unspecified hyperlipidemia type E78.5 ; 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 ; MRSA (methicillin resistant staph aureus) culture positive Z22.322 ; Pain in unspecified knee M25.569 ; Other chronic pain G89.29 and Neuropathy G62.9 [facility] [id number] [place] [address] 24297- 3749 09 May, 2016 Neck abscess L02.11 [facility] [id number] [place] [address] 31472- 6916 06 May, 2016 Abscess, neck L02.11 [facility] [address] 40170 -2236 May, [facility] [id number] [place] [address] 95854- 3727 May, Abscess of neck L02.11 [facility] [id number] [place] [address] 11528 -5048 Apr, Cellulitis, neck L03.221 [facility] [id number] [place] [address] 47929 -1355 Apr, Abscess L02.91 [facility] [id number] [place] [address] 31365- 4697 January, [facility] [id number] [place] [address] 40989- 4343 Dec, [facility] [id number] [place] [address] 62092- 4928 Dec, [facility] [id number] [place] [address] 46714- 7584 Oct, [facility] [id number] [place] [address] 80743- 2645 Oct, [facility] [id number] [place] [address] 14628- 2161 Sep, [facility] [id number] [place] [address] 99977- 1561 Sep, [facility] [address] 84876- 7821 Sep, [facility] [place] [facility] [address] [id number] [place] [address]- 0098 Sep, [facility] [place] [facility] [address] [id number] [place] [address]- 2062 Sep, [facility] [place] [facility] [address] [id number] [place] [address]- 7019 Sep, [facility] [place] [facility] [address] [id number] [place] [address]- 1755 Sep, [facility] [place] [facility] [address] [id number] [place] [address]- 0151 Jul, [facility] [place] [facility] [address] [id number] [place] [address]- 2094 Jul, [facility] [place] [facility] [address] [id number], [place] [address]- 4024 Jun, [facility] [place] [facility] [address] [id number], [place] [address]- 0854 Jun, [facility] [place] [facility] [address] [id number], [place] [address]- 7061 Jun, [facility] [place] [facility] [address] [id number], [place] [address]- 5374 Jun, [facility] [place] [facility] [address] [id number], [place] [address]- 0541 Jun, [facility] [place] [facility] [address] [id number], [place] [address]- 7088 Jun, [facility] [place] [facility] [address] [id number], [place] [address]- 9671 Jun, [facility] [place] [facility] [address] [id number], [place] [address]- 6117 Jun, [facility] [place] [facility] [address] [id number], [place] [address]- 9369 Jun, [facility] [place] [facility] [address] [id number] [place] [address]- 7585 02 Jun, 2014 [facility] [place] [facility] [address] [id number] [place] [address]- 9922 Jun, [facility] [place] [facility] [address] [id number] [place] [address]- 4996 30 May, 2013 [facility] [place] [facility] [address] [id number] [place] [address]- 2466 30 May, 2013 [facility] [place] [facility] [address] [id number] [place] [address]- 2541 23 May, 2013 [facility] [place] [facility] [address] [id number] [place] [address]- 4893 23 May, 2013 [facility] [place] [facility] [address] [id number] [place] [address]- 9271 18 May, 2013 [facility] [place] [facility] [address] [id number] [place] [address]- 2540 18 May, 2013 [facility] [place] [facility] [address] [id number] [place] [address]- 2541 11 May, 2013 [facility] [place] [facility] [address] [id number] [place] [address]- 2547 11 May, 2013 [facility] [place] [facility] [address] [id number] [place] [address]- 2542 11 May, 2013 [facility] [place] [facility] [address] [id number] [place] [address]- 254 11 May, 2013 [facility] [place] [facility] [address] [id number] [place] [address]- 2548 04 Sep, 2013 [facility] [place] [facility] [address] [id number] [place] [address] 2548 04 Sep, 2013 [facility] [place] [facility] [address] [id number] [place] [address]- 2546 03 Sep, 2013 [facility] [place] [facility] [address] [id number] [place] [address]- 2549 May, [facility] [place] [facility] [address] [id number] [place] [address]- 9393 May, [facility] [place] [facility] [address] [id number] [place] [address]- 2106 May, [facility] [place] [facility] [address] [id number] [place] [address]- 4841 Apr, [facility] [place] [facility] [address] [id number] [place] [address]- 2176 Apr, [facility] [place] [facility] [address] [id number] [place] [address]- 1480 Apr, [facility] [place] [facility] [address] [id number] [place] [address]- 2388 Apr, [facility] [place] [facility] [address] [id number] [place] [address]- 1735 Mar, [facility] [place] [facility] [address] [id number] [place] [address]- 0918 Mar, [facility] [place] [facility] [address] [id number] [place] [address]- 6878 Mar, [facility] [place] [facility] [address] [id number] [place] [address]- 5535 Mar, [facility] [place] [facility] [address] [id number] [place] [address]- 3167 Mar, [facility] [place] [facility] [address] [id number] [place] [address]- 7915 Mar, [facility] [address] [id number] [id number] January, [facility] [place] [facility] [address] [id number] [place] [address]- 7906 January, [facility] [address] [id number] [id number] Dec, [facility] [place] [facility] [address] [id number] [place] [address]- 8716 Dec, [facility] [address] [id number] [place] [id number] Oct, [facility] [address] [id number] [place] [address]- 9766 Oct, [facility] [address] [facility] [id number] [id number] Sep, [facility] [place] [facility] [address] [id number] [place] [address]- 5416 Sep, [facility] [place] [facility] [address] [id number] [place] [address]- 1146 Aug, [facility] [place] [facility] [address] [id number] [place] [address]- 0946 Aug, [facility] [place] [facility] [id number] [place] [address]- 4623 Jul, [facility] [place] [facility] [id number] [place] [address]- 9784 Jul, [facility] [place] [facility] [address] [id number], [place] [address]- 3598 Jul, [facility] [address] [facility] [id number] [id number] Jul, [facility] [address] [id number], [place] [address]- 7836 Jul, [facility] [address] [facility] [id number][place] [id number] Jul, [facility] [place] [facility] [address] [id number], [place] [address]- 2546 Jul, [facility] [place] [facility] [address] [facility] [id number], [place] [address]- 7126 Jul, [facility] [place] [facility] [address] [facility] [id number], [place] [address]- 5416 Jun, [facility] [place] [facility] [address] [id number], [place] [address]- 8746 Jun, [facility] [address] [id number] [place] [id number] Jun, [facility] [address] [id number] [place] [address]- 9050 Jun, [facility] [address] [id number] [place] [address]- 6635 Apr, [facility] [address] [id number] [place] [address]- 9831 Apr, [facility] [address] [id number] [place] [address]- 3919 Feb, [facility] [address] [id number] [place] [address]- 0361 Dec, [facility] [address] [id number] [place] [address]- 9476 Dec, [facility] [address] [id number] [place] [address]- 8418 Nov, [facility] [address] [id number] [place] [address]- 5603 Nov, [facility] [address] [id number] [place] [address]- 2016 Nov, [facility] [address] [id number] [place] [address]- 9912 Oct, [facility] [address] [id number] [place] [address]- 4317 Oct, [facility] [address] [id number] [place] [address]- 4777 Oct, [facility] [place] [facility] [address] [id number] [place] [address]- 1152 May, [facility] [place] [facility] [address] [id number] [place] [address]- 5448 Apr, [facility] [address] [id number] [place] [address]- 5102 Feb, [facility] [address] [facility] [id number] [place] [address]- 0613 Feb, IMMUNIZATIONS No Known Immunizations SOCIAL HISTORY Never Assessed REASON FOR VISIT PALS IN-Trulicity PLAN OF CARE VITAL SIGNS MEDICATIONS Unknown Medications RESULTS No Results PROCEDURES No Known [...]
--- OUTSIDE RECORDS SUMMARY | 2018-12-11 19:38 | XMS REPORT ---
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 Name Role Phone LISA SZYMANSKI Unavailable PROBLEMS Type Condition ICD9-CM Code APQ55-BY Code Onset Dates Condition Status SNOMED Code Problem Mixed hyperlipidemia E78.2 Active 694665353 Problem Essential hypertension I10 Active 39005811 Problem Bilateral claudication of lower limb I73.9 Active 261540126 Problem Other chronic pain G89.29 Active 49050082 Problem Anxiety F41.9 Active 92788505 Problem Benign prostatic hyperplasia with lower urinary tract symptoms N40.1 Active 79708853261845 Problem Benign non-nodular prostatic hyperplasia with lower urinary tract symptoms N40.1 Active 59641221514208 Problem Hyperlipidemia, unspecified hyperlipidemia type E78.5 Active 39250452 Problem Other secondary osteoarthritis of left knee M17.5 Active 537457359 Problem Diabetic retinopathy associated with type 2 diabetes mellitus, macular edema presence unspecified, unspecified laterality, unspecified retinopathy severity E11.319 Active 679626468 Problem Polyneuropathy G62.9 Active 20238254 Problem Type 2 diabetes mellitus with complication, without long-term current use of insulin E11.8 Active 89440819 Problem Pulmonary nodule R91.1 Active 159696168 Problem MRSA (methicillin resistant staph aureus) culture positive Z22.322 Active 238858080 Problem Primary osteoarthritis of left knee M17.12 Active 456913857 Problem 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 Active 2415236 Problem Diabetic polyneuropathy associated with type 2 diabetes mellitus E11.42 Active 13425711 ALLERGIES Substance Reaction Event Type Date Status Januvia Unknown Drug Allergy Mar, Active ENCOUNTERS Encounter Location Date Diagnosis [facility] [address] [facility] [id number], [place] [address] Jun, [facility] [address] [facility] [id number], [place] [address] Apr, Other chronic pain G89.29 ; Pain in left shoulder M25.512 and Candidal intertrigo B37.2 [facility] [id number] [place] [address] Mar, Encounter for immunization Z23 and Laceration of right ring finger without foreign body without damage to nail, initial encounter S61.214A [facility] [id number] [place] [address] 88342- 2496 Mar, Paronychia of finger of right hand L03.011 [facility] [id number] [place] [address] 70709- 8104 Mar, Type 2 diabetes mellitus with complication, without long- term current use of insulin E11.8 [facility] [id number] [place] [address] 49277- 0475 Mar, [facility] [address] [id number] Feb, [facility] [id number] [place] [address] 34337- 4939 Feb, Type 2 diabetes mellitus with complication, without long- term current use of insulin E11.8 [facility] [id number] [place] [address] 13920- 3120 Feb, Type 2 diabetes mellitus with complication, without long- term current use of insulin E11.8 ; Polyneuropathy G62.9 ; Essential hypertension I10 ; Other secondary osteoarthritis of left knee M17.5 ; Frequency of micturition R35.0 ; Benign prostatic hyperplasia with lower urinary tract symptoms N40.1 ; Anxiety F41.9 ; Hyperlipidemia, unspecified hyperlipidemia type E78.5 and Leg cramps R25.2 [facility] [id number] [place] [address] 87389- 1403 Feb, [facility] [id number] [place] [address] 03530- 4188 Nov, Benign non-nodular prostatic hyperplasia with lower urinary tract symptoms N40.1 and Acute epididymitis N45.1 [facility] [id number] [place] [address] 76292- 7241 Sep, Neuropathy G62.9 [place] [address] [address]345- 4684 Sep, Type 2 diabetes mellitus with complication, without long- term current use of insulin E11.8 ; Neuropathy G62.9 ; Bilateral leg weakness R29.898 and Cough R05 [facility] [address] [address]- [address]50 Aug, Left ear pain H92.02 and Bilateral impacted cerumen H61.23 [place] [address] 9[address]78- 5849 Jul, [place] [address] 95310- 3662 Jul, [place] [address] [address]64- 2232 Jul, Type 2 diabetes mellitus with complication, without long- term current use of insulin E11.8 ; Bilateral leg weakness R29.898 and Neuropathy G62.9 [facility] [id number] [place] [address] 84015 -1696 Jul, Acute non-recurrent maxillary sinusitis J01.00 [facility] [id number] [place] [address] 29485- 4659 Jul, [facility] [id number] [place] [address] 13598- 1534 Jul, Primary osteoarthritis of left knee M17.12 [place] [address] [address]93- 1975 Jul, Type 2 diabetes mellitus with complication, without long- term current use of insulin E11.8 [facility] [id number] [place] [address] 69682- 3042 Jun, [facility] [id number] [place] [address] 38669- 3818 Jun, Neuropathy G62.9 ; Bilateral leg weakness R29.898 ; Leg cramps R25.2 and Encounter for immunization Z23 [place] [id number] [place] [address] 07609- 3767 Jun, Bilateral claudication of lower limb I73.9 ; Essential hypertension I10 ; Mixed hyperlipidemia E78.2 and Diabetic polyneuropathy associated with type 2 diabetes mellitus E11.42 [place] [address] 84710- 4387 Jun, Pain in right leg M79.604 ; Pain of left leg M79.605 and Bilateral leg weakness R29.898 [place] [address] 18097- 4270 Jun, [place] [address] 12291- 6296 Jun, Left lateral knee pain M25.562 and Bilateral leg weakness R29.898 [place] [address] 86671- 0940 Jun, [place] [address] 52819- 1167 18 May, 2017 Type 2 diabetes mellitus with complication, without long- term current use of insulin E11.8 ; Neuropathy G62.9 and Leg cramps R25.2 [place] [id number] [place] [address] 02888- 0721 May, [place] [address] 03268- 9676 Apr, Bilateral leg weakness R29.898 and Leg cramps R25.2 [place] [id number] [place] [address] 45353- 6457 Mar, [place] [address] 04377- 2575 Feb, Chronic seasonal allergic rhinitis due to other allergen J30.2 [place] [id number] [place] [address] 92908- 6101 January, Type 2 diabetes mellitus with complication, without long- term current use of insulin E11.8 and Neuropathy G62.9 [place] [address] 29320- 3527 Dec, [place] [address] 75166- 2966 Dec, Pulmonary nodule R91.[address] [address]13- 5721 Dec, [place] [address] 16770- 6270 Dec, [address] 0[address]14- 9887 Nov, Pre-procedure lab exam Z01.812 [place] [address] 16893- 2039 Nov, Seasonal allergic rhinitis due to pollen J30.1 [place] [id number] [place] [address] 68248- 3031 Oct, Lower abdominal pain R10.30 ; Hematuria R31.9 ; Pulmonary nodule R91.1 and Type 2 diabetes mellitus with complication, without long-term current use of insulin E11.8 [place] [id number] [place] [address] 71253- 0359 Sep, Type 2 diabetes mellitus with complication, without long- term current use of insulin E11.8 and Ventral hernia without obstruction or gangrene K43.9 [place] [address] 11697- 4051 Aug, [place] [address] 21331- 8368 Aug, Benign non-nodular prostatic hyperplasia with lower urinary tract symptoms N40.1 and Type 2 diabetes mellitus with complication, without long-term current use of insulin E11.8 [facility] [address] [address]294 Jul, Benign non-nodular prostatic hyperplasia with lower urinary tract symptoms N40.1 and Type 2 diabetes mellitus with complication, without long-term current use of insulin E11.8 [place] [address] [address] 6657 Jul, Type 2 diabetes mellitus with complication, without long- term current use of insulin E11.8 [facility] [address] [address]- 3376 Jul, [facility] [address] [address]- 2690 Jun, [facility] [address] [address]- 9329 Jun, [facility] [address], [place] [address]- 9209 Jun, Type 2 diabetes mellitus with complication, without long- term current use of insulin E11.8 [facility] [address] [address]- 6464 Jun, [facility] [address], [place] [address]- 0709 May, [facility] [address], [place] [address]- 3209 May, [facility] [id number], [place] [address]- 2488 May, [facility] [address] [address]- 0320 May, Encounter to establish care Z76.89 ; Type 2 diabetes mellitus with complication, without long-term current use of insulin E11.8 ; Essential hypertension I10 ; Hyperlipidemia, unspecified hyperlipidemia type E78.5 ; 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 ; MRSA (methicillin resistant staph aureus) culture positive Z22.322 ; Pain in unspecified knee M25.569 ; Other chronic pain G89.29 and Neuropathy G62.9 [facility] [address] [id number], [place] [address]- 5848 09 May, 2016 Neck abscess L02.11 [facility] [address] [id number], [place] [address]- 9333 06 May, 2016 Abscess, neck L02.11 [facility] [address] [id number], [place] [address] 04 May, 2016 [facility] [address] [id number], [place] [address]- 5962 May, Abscess of neck L02.11 [facility] [address] [id number], [place] [address]59 Apr, Cellulitis, neck L03.221 [facility] [address] [id number], [place] [address]1272 Apr, Abscess L02.91 [facility] [address] [id number], [place] [address]- 9056 January, [facility] [address] [id number], [place] [address]- 4840 Dec, [facility] [address] [id number], [place] [address]- 5440 Dec, [facility] [address] [id number], [place] [address]- 1312 Oct, [facility] [address] [id number], [place] [address]- 1681 Oct, [facility] [address] [id number], [place] [address]- 5188 Sep, [facility] [address] [id number], [place] [address]- 7800 Sep, [facility] [address] [id number] [place] [address]- 8341 Sep, [facility] [address] [id number] [place] [address]69 Sep, [facility] [place] [facility] [address] [id number] [place] [address]- 7365 Sep, [facility] [address] [id number] [place] [address]- 4467 Sep, [facility] [place] [facility] [address] [id number] [place] [address]- 1255 Sep, [facility] [place] [facility] [address] [id number] [place] [address]- 1949 Jul, [facility] [place] [facility] [address] [id number] [place] [address]- 6292 Jul, [facility] [place] [facility] [address] [id number] [place] [address]- 1143 Jun, [facility] [place] [facility] [address] [id number] [place] [address]- 1831 Jun, [facility] [place] [facility] [address] [id number] [place] [address]- 7838 Jun, [facility] [place] [facility] [address] [facility] [id number], [place] [address]- 7127 Jun, 2013 [facility] [place] [facility] [address] [id number] [place] [address]- 4849 Jun, [facility] [place] [facility] [address] [id number] 5908 Jun, 2013 [facility] [place] [facility] [address] [id number] [place] [address]- 3700 Jun, 2013 [facility] [place] [facility] [address] [facility] [id number] [place] [address]- 2739 Jun, 2013 [facility] [place] [facility] [address] [id number], [place] [address]- 1580 Jun, [facility] [place] [facility] [address] [id number] [place] [address]- 9120 02 Jun, 2014 [facility] [place] [facility] [address] [id number] [place] [address]- 8696 Jun, [facility] [place] [facility] [address] [id number] [place] [address]- 7157 30 May, 2013 [facility] [place] [facility] [address] [id number] [place] [address]- 7816 30 May, 2013 [facility] [place] [facility] [address] [id number] [place] [address]- 9902 23 May, 2013 [facility] [place] [facility] [address] [id number] [place] [address]- 8389 23 May, 2013 [facility] [place] [facility] [address] [id number] [place] [address]- 8602 18 May, 2013 [facility] [place] [facility] [address] [id number] [place] [address]- 8701 18 May, 2013 [facility] [place] [facility] [address] [id number] [place] [address]- 8606 11 May, 2013 [facility] [place] [facility] [address] [id number] [place] [address]- 1344 11 May, 2013 [facility] [place] [facility] [address] [id number], [place] [address]- 5940 11 May, 2013 [facility] [place] [facility] [address] [id number], [place] [address]- 9207 11 May, 2013 [facility] [place] [facility] [address] [id number] [place] [address]- 2548 04 May, 2013 [facility] [place] [facility] [address] [id number] [place] [address]- 2547 04 May, 2013 [facility] [place] [facility] [address] [id number], [place] [address]- 3088 03 May, 2013 [facility] [place] [facility] [address] [id number], [place] [address]- 9029 May, [facility] [place] [facility] [address] [id number] [place] [address]- 6829 May, [facility] [place] [facility] [address] [id number] [place] [address]- 9054 May, [facility] [place] [facility] [address] [id number] [place] [address]- 4983 Apr, [facility] [place] [facility] [address] [id number] [place] [address]- 1935 Apr, [facility] [place] [facility] [address] [id number] [place] [address]- 2068 Apr, [facility] [place] [facility] [address] [id number] [place] [address]- 9447 Apr, [facility] [place] [facility] [address] [id number] [place] [address]- 2295 Mar, [facility] [place] [facility] [address] [id number] [place] [address]- 2528 Mar, [facility] [place] [facility] [address] [id number] [place] [address]- 1892 Mar, [facility] [place] [facility] [address] [id number], [place] [address]- 9607 Mar, [facility] [place] [facility] [address] [id number], [place] [address]- 5063 Mar, [facility] [place] [facility] [address] [id number], [place] [address]- 5273 Mar, [facility] [address] [id number] [place] [id number] January, [facility] [place] [facility] [address] [id number], [place] [address]- 4340 January, [facility] [address] [id number] [address] Dec, [facility] [place] [facility] [address] [id number], [place] [address]- 5576 Dec, [facility] [address] [facility] [id number][place] [address] Oct, [facility] [place] [facility] [address] [facility] [id number], [place] [address]- 0786 Oct, [facility] [address] [facility] [id number] [address] Sep, [facility] [place] [facility] [address] [facility] [id number], [place] [address]- 1622 Sep, [facility] [place] [facility] [address] [facility] [id number], [place] [address]- 1488 Aug, [facility] [place] [facility] [address], [place] [address]- 9860 Aug, [facility] [place] [facility] [address], [place] [address]- 1228 Jul, [facility] [place] [facility] [id number], [place] [address]- 0628 Jul, [facility] [place] [facility] [id number], [place] [address]- 6275 Jul, [facility] [address] [id number] [address] Jul, [facility] [place] [facility] [id number], [place] [address]- 4366 Jul, [facility] [address] [facility] [id number][place] [address] Jul, [facility] [place] [facility] [address] [facility] [id number], [place] [address]- 8166 Jul, [facility] [place] [facility] [address] [facility] [id number], [place] [address]- 6166 Jul, [facility] [place] [facility] [address] [facility] [id number], [place] [address]- 6536 16 Jun, 2013 [facility] [place] [facility] [address], [place] [address]- 0486 Jun, [facility] [address] [id number] [place] [id number] Jun, [facility] [address] [id number] [place] [address]- 9510 Jun, [facility] [address] [id number] [place] [address]- 1776 Apr, [facility] [address] [id number], [place] [address]- 6334 Apr, [facility] [address] [id number] [place] [address]- 4424 Feb, [facility] [address] [id number], [place] [address]- 0489 Dec, [facility] [address] [id number] [place] [address]- 7946 Dec, [facility] [address] [id number], [place] [address]- 6692 Nov, [facility] [address] [id number] [place] [address]- 9360 Nov, [facility] [address] [id number], [place] [address]- 9126 Nov, [facility] [place] [facility] [address] [id number], [place] [address]- 6508 Oct, [facility] [place] [facility] [address] [id number], [place] [address]- 8193 Oct, [facility] [place] [facility] [address] [id number] [place] 7066 Oct, [facility] [place] [facility] [address] [id number], [place] [address]- 6465 May, [facility] [place] [facility] [address] [id number] [place] [address]- 1792 Apr, [facility] [place] [facility] [address] [facility] [id number] [place] [address]- 2979 15 Feb, 2012 [facility] [address] [facility] [id number] [place] [address]- 1762 14 Feb, 2012 IMMUNIZATIONS No Known Immunizations SOCIAL HISTORY Never Assessed REASON FOR VISIT pinky finger on right hand swollen/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, 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 PLAN OF CARE Activity Details Follow Up Routine appt Reason: VITAL SIGNS Height 67 in 2018-04-17 Weight 242.0 lbs 2018-04-17 Temperature 99.6 degrees Fahrenheit 2018-04-17 Heart Rate 102 bpm 2018-04-17 Respiratory Rate 20 2018-04-17 Oximetry on room air:98 % 2018-04-17 BMI 37.90 kg/m2 2018-04-17 Blood pressure systolic 130 mmHg 2018-04-17 Blood pressure diastolic 64 mmHg 2018-04-17 MEDICATIONS Medication Instructions Dosage Frequency Start Date End Date Duration Status Tegretol 200 mg Orally Once a day at bedtime 1 tablet Apr, 90 days Active Lisinopril-Hydrochlorothiazide 20-25 MG TAKE ONE TABLET BY MOUTH ONCE DAILY. 90 Active Glucocard Expression Test - subcutaneously Once a day use to test blood sugar 24h Sep, 100 Active Atorvastatin Calcium 40 MG TAKE ONE TABLET BY MOUTH ONCE DAILY. 90 Active Gabapentin 800 MG TAKE ONE TABLET BY MOUTH THREE TIMES DAILY 90 Active Aspirin 81 MG Orally Once a day 1 tablet 24h Active BusPIRone HCl 15 MG TAKE ONE TABLET BY MOUTH TWICE DAILY 90 Active Bactrim DS 800-160 MG Orally Twice a day 1 tablet 12h Mar,Mar 07 days Active GlipiZIDE 5 MG Orally bid 1 tablet in AM and 1.5 tab in PM 12h May, 90 days Active Fish Oil 1360 MG Orally Once a day 1 capsule 24h Active Proscar 5 mg Orally Once a day 1 tablet 24h 90 Active Cinnamon 500 MG Active Glucocard Expression Monitor w/Device as directed Sep, Active RESULTS No Results PROCEDURES No Known [...]
--- OUTSIDE RECORDS SUMMARY | 2018-12-11 19:39 | XMS REPORT ---
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 Maker Name Role Phone LY PRINGLE Unavailable PROBLEMS Type Condition ICD9-CM Code JHB41-BZ Code Onset Dates Condition Status SNOMED Code Problem Mixed hyperlipidemia E78.2 Active 334637149 Problem Essential hypertension I10 Active 00941026 Problem Bilateral claudication of lower limb I73.9 Active 018322231 Problem Other chronic pain G89.29 Active 59289790 Problem Anxiety F41.9 Active 91805806 Problem Benign prostatic hyperplasia with lower urinary tract symptoms N40.1 Active 71786601612905 Problem Benign non-nodular prostatic hyperplasia with lower urinary tract symptoms N40.1 Active 30733535213068 Problem Hyperlipidemia, unspecified hyperlipidemia type E78.5 Active 69872264 Problem Other secondary osteoarthritis of left knee M17.5 Active 729796370 Problem Diabetic retinopathy associated with type 2 diabetes mellitus, macular edema presence unspecified, unspecified laterality, unspecified retinopathy severity E11.319 Active 631581770 Problem Polyneuropathy G62.9 Active 77137794 Problem Type 2 diabetes mellitus with complication, without long-term current use of insulin E11.8 Active 70748086 Problem Pulmonary nodule R91.1 Active 254125208 Problem MRSA (methicillin resistant staph aureus) culture positive Z22.322 Active 056507978 Problem Primary osteoarthritis of left knee M17.12 Active 678441232 Problem 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 Active 6367632 Problem Diabetic polyneuropathy associated with type 2 diabetes mellitus E11.42 Active 88872319 ALLERGIES No Information ENCOUNTERS Encounter Location Date Diagnosis [facility] [address] [facility] [id number], [place] [address] Jun, [facility] [address] [facility] [id number] [address] Apr, Other chronic pain G89.29 ; Pain in left shoulder M25.512 and Candidal intertrigo B37.2 [facility] WALK IN [facility] [id number] [place] [address]71 -[address]76 Mar, Encounter for immunization Z23 and Laceration of right ring finger without foreign body without damage to nail, initial encounter S61.214A [place] [id number] [place] [address] 17423- 5330 Mar, Paronychia of finger of right hand L03.011 [place] [address] [address]- 6870 Mar, Type 2 diabetes mellitus with complication, without long- term current use of insulin E11.8 [facility] [id number] [place] [address] 09101- 4087 Mar, [facility] [address] [id number] Feb, [facility] [address] [address]- 8464 Feb, Type 2 diabetes mellitus with complication, without long- term current use of insulin E11.8 [facility] [id number] [place] [address] 00922- 3873 Feb, Type 2 diabetes mellitus with complication, without long- term current use of insulin E11.8 ; Polyneuropathy G62.9 ; Essential hypertension I10 ; Other secondary osteoarthritis of left knee M17.5 ; Frequency of micturition R35.0 ; Benign prostatic hyperplasia with lower urinary tract symptoms N40.1 ; Anxiety F41.9 ; Hyperlipidemia, unspecified hyperlipidemia type E78.5 and Leg cramps R25.2 [place] [address] 28[address]- 7214 Feb, [facility] [id number] [place] [address] 98885- 8900 Nov, Benign non-nodular prostatic hyperplasia with lower urinary tract symptoms N40.1 and Acute epididymitis N45.1 [place] [id number] [place] [address] 96571- 5869 Sep, Neuropathy G62.9 [place] [address] [id number]- [address]270 Sep, Type 2 diabetes mellitus with complication, without long- term current use of insulin E11.8 ; Neuropathy G62.9 ; Bilateral leg weakness R29.898 and Cough R05 [facility] [address] 13572- 0086 Aug, Left ear pain H92.02 and Bilateral impacted cerumen H61.23 [place] [address] 13185- 1858 Jul, [place] [address] 17335- 3171 Jul, [place] [address] 46809- 5025 Jul, Type 2 diabetes mellitus with complication, without long- term current use of insulin E11.8 ; Bilateral leg weakness R29.898 and Neuropathy G62.[address] [facility] IN [facility] [address] [address] Jul, Acute non-recurrent maxillary sinusitis J01.00 [facility] [address] 75822- 2041 Jul, [facility] [address] 15106- 4129 Jul, Primary osteoarthritis of left knee M17.12 [place] [address] 57670- 9967 Jul, Type 2 diabetes mellitus with complication, without long- term current use of insulin E11.8 [facility] [address] 75152- 4444 Jun, [facility] [address] 96991- 6543 Jun, Neuropathy G62.9 ; Bilateral leg weakness R29.898 ; Leg cramps R25.2 and Encounter for immunization Z23 [place] [id number] [place] [address] 10902- 9059 Jun, Bilateral claudication of lower limb I73.9 ; Essential hypertension I10 ; Mixed hyperlipidemia E78.2 and Diabetic polyneuropathy associated with type 2 diabetes mellitus E11.42 [place] [address] 92024- 6885 Jun, Pain in right leg M79.604 ; Pain of left leg M79.605 and Bilateral leg weakness R29.898 [place] [address] 67493- 9502 Jun, [place] [address] 76257- 4029 Jun, Left lateral knee pain M25.562 and Bilateral leg weakness R29.898 [place] [address] 18831- 1210 Jun, [place] [address] 69162- 8568 May, Type 2 diabetes mellitus with complication, without long- term current use of insulin E11.8 ; Neuropathy G62.9 and Leg cramps R25.2 [place] [id number] [place] [address] 29064- 9912 May, [place] [address] 46708- 6473 Apr, Bilateral leg weakness R29.898 and Leg cramps R25.2 [place] [id number] [place] [address] 55997- 7298 Mar, [place] [id number] [place] [address] 99976- 8404 Feb, Chronic seasonal allergic rhinitis due to other allergen J30.2 [place] [id number] [place] [address] 37413- 4486 January, Type 2 diabetes mellitus with complication, without long- term current use of insulin E11.8 and Neuropathy G62.9 [place] [id number] [place] [address] 32884- 7591 Dec, [place] [address] 66224- 4545 Dec, Pulmonary nodule R91.[address] [address]- 6572 Dec, [place] [address] 89715- 6761 Dec, [address] 63370- 0999 Nov, Pre-procedure lab exam Z01.[address] 41126- 1542 Nov, Seasonal allergic rhinitis due to pollen J30.1 [place] [id number] [place] [address] 74555- 9315 Oct, Lower abdominal pain R10.30 ; Hematuria R31.9 ; Pulmonary nodule R91.1 and Type 2 diabetes mellitus with complication, without long-term current use of insulin E11.8 [place] [id number] [place] [address] 72749- 6564 Sep, Type 2 diabetes mellitus with complication, without long- term current use of insulin E11.8 and Ventral hernia without obstruction or gangrene K43.9 [place] [id number] [place] [address] 48113- 9402 Aug, [address] 06316- 5294 Aug, Benign non-nodular prostatic hyperplasia with lower urinary tract symptoms N40.1 and Type 2 diabetes mellitus with complication, without long-term current use of insulin E11.8 [facility] [address] [facility] [id number], [place] [address] Jul, Benign non-nodular prostatic hyperplasia with lower urinary tract symptoms N40.1 and Type 2 diabetes mellitus with complication, without long-term current use of insulin E11.8 [facility] [address] [address] 0967 Jul, Type 2 diabetes mellitus with complication, without long- term current use of insulin E11.8 [facility] [address] [facility] [id number], [place] [address]- 1817 Jul, [facility] [address] [address]- 5939 Jun, [facility] [address], [place] [address] Jun, [facility] [address] [address]- 4669 Jun, Type 2 diabetes mellitus with complication, without long- term current use of insulin E11.8 [facility] [address], [place] [address]- 6476 Jun, [facility] [address] [place] [id number] [address]- 6733 May, [facility] [id number], [place] [address]- 0305 May, [facility] [id number], [place] [address]- 7473 May, [facility] [address] [id number], [place] [address]- 7542 12 May, 2016 Encounter to establish care Z76.89 ; Type 2 diabetes mellitus with complication, without long-term current use of insulin E11.8 ; Essential hypertension I10 ; Hyperlipidemia, unspecified hyperlipidemia type E78.5 ; 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 ; MRSA (methicillin resistant staph aureus) culture positive Z22.322 ; Pain in unspecified knee M25.569 ; Other chronic pain G89.29 and Neuropathy G62.9 [facility] [id number] [place] [address] 35634- 9996 09 May, 2016 Neck abscess L02.11 [facility] [id number] [place] [address] 72759- 3547 06 May, 2016 Abscess, neck L02.11 [facility]ARE [address] 27623 -3863 May, [facility] [id number] [place] [address] 19368- 4103 May, Abscess of neck L02.11 [facility] [id number] [place] [address] 41818 -7506 Apr, Cellulitis, neck L03.221 [facility] [id number] [place] [address] 30432 -5064 Apr, Abscess L02.91 [facility] [id number] [place] [address] 43948- 0830 January, [facility] [id number] [place] [address] 67115- 4137 Dec, [facility] [id number] [place] [address] 82968- 8660 Dec, [facility] [id number] [place] [address] 24429- 3044 Oct, [facility] [id number] [place] [address] 01633- 1750 Oct, [facility] [id number] [place] [address] 82923- 0342 Sep, [facility] [id number] [place] [address] 34769- 4076 Sep, [facility] [address] 41939- 9617 Sep, [facility] [place] [facility] [address] [id number] [place] [address]- 5881 Sep, [facility] [place] [facility] [address] [id number] [place] [address]- 0043 Sep, [facility] [place] [facility] [address] [id number] [place] [address]- 3124 Sep, [facility] [place] [facility] [address] [id number] [place] [address]- 3959 Sep, [facility] [place] [facility] [address] [id number] [place] [address]- 4736 Jul, [facility] [place] [facility] [address] [id number] [place] [address]- 9089 Jul, [facility] [place] [facility] [address] [id number], [place] [address]- 3921 Jun, [facility] [place] [facility] [address] [id number], [place] [address]- 1153 Jun, [facility] [place] [facility] [address] [id number], [place] [address]- 8881 Jun, [facility] [place] [facility] [address] [id number], [place] [address]- 4368 Jun, [facility] [place] [facility] [address] [id number], [place] [address]- 4470 Jun, [facility] [place] [facility] [address] [id number], [place] [address]- 3582 Jun, [facility] [place] [facility] [address] [id number], [place] [address]- 4537 Jun, [facility] [place] [facility] [address] [id number], [place] [address]- 5200 Jun, [facility] [place] [facility] [address] [id number], [place] [address]- 2860 Jun, [facility] [place] [facility] [address] [id number] [place] [address]- 1965 02 Jun, 2014 [facility] [place] [facility] [address] [id number] [place] [address]- 3710 Jun, [facility] [place] [facility] [address] [id number] [place] [address]- 8596 30 May, 2013 [facility] [place] [facility] [address] [id number] [place] [address]- 5736 30 May, 2013 [facility] [place] [facility] [address] [id number] [place] [address]- 2548 23 May, 2013 [facility] [place] [facility] [address] [id number] [place] [address]- 1654 23 May, 2013 [facility] [place] [facility] [address] [id number] [place] [address]- 5566 18 May, 2013 [facility] [place] [facility] [address] [id number] [place] [address]- 2541 18 May, 2013 [facility] [place] [facility] [address] [id number] [place] [address]- 2545 11 May, 2013 [facility] [place] [facility] [address] [id number] [place] [address]- 2541 11 May, 2013 [facility] [place] [facility] [address] [id number] [place] [address]- 2549 11 May, 2013 [facility] [place] [facility] [address] [id number] [place] [address]- 2549 11 May, 2013 [facility] [place] [facility] [address] [id number] [place] [address]- 2544 04 Sep, 2013 [facility] [place] [facility] [address] [id number] [place] [address] 2540 04 Sep, 2013 [facility] [place] [facility] [address] [id number] [place] [address]- 2546 03 Sep, 2013 [facility] [place] [facility] [address] [id number] [place] [address]- 2542 May, [facility] [place] [facility] [address] [id number] [place] [address]- 9878 May, [facility] [place] [facility] [address] [id number] [place] [address]- 5426 May, [facility] [place] [facility] [address] [id number] [place] [address]- 4231 Apr, [facility] [place] [facility] [address] [id number] [place] [address]- 5630 Apr, [facility] [place] [facility] [address] [id number] [place] [address]- 5727 Apr, [facility] [place] [facility] [address] [id number] [place] [address]- 3558 Apr, [facility] [place] [facility] [address] [id number] [place] [address]- 5410 Mar, [facility] [place] [facility] [address] [id number] [place] [address]- 5768 Mar, [facility] [place] [facility] [address] [id number] [place] [address]- 3981 Mar, [facility] [place] [facility] [address] [id number] [place] [address]- 5901 Mar, [facility] [place] [facility] [address] [id number] [place] [address]- 8601 Mar, [facility] [place] [facility] [address] [id number] [place] [address]- 7938 Mar, [facility] [address] [id number] [id number] January, [facility] [place] [facility] [address] [id number] [place] [address]- 0986 January, [facility] [address] [id number] [address] Dec, [facility] [place] [facility] [address] [id number] [place] [address]- 7176 Dec, [facility] [address] [id number] [place] [id number] Oct, [facility] [address] [id number] [place] [address]- 0996 Oct, [facility] [address] [facility] [id number] [id number] Sep, [facility] [place] [facility] [address] [id number] [place] [address]- 9916 Sep, [facility] [place] [facility] [address] [id number] [place] [address]- 7676 Aug, [facility] [place] [facility] [address] [id number] [place] [address]- 8636 Aug, [facility] [place] [facility] [id number] [address]- 8483 Jul, [facility] [place] [facility] [address] [address]- 4196 Jul, [facility] [place] [facility] [address] [id number] [address]- 9583 Jul, [facility] [address] [facility] [id number][place] [id number] Jul, [facility] [address] [id number] [address]- 5246 Jul, [facility] [address] [facility] [id number] [address] Jul, [facility] [place] [facility] [address] [id number], [place] [address]- 2546 Jul, [facility] [place] [facility] [address] [facility] [id number], [place] [address]- 8476 Jul, [facility] [place] [facility] [address] [facility] [id number], [place] [address]- 1416 Jun, [facility] [place] [facility] [address] [id number], [place] [address]- 6846 Jun, [facility] [address] [id number] [place] [id number] Jun, [facility] [address] [id number] [place] [address]- 7717 Jun, [facility] [address] [id number] [place] [address]- 4564 Apr, [facility] [address] [id number] [place] [address]- 8723 Apr, [facility] [address] [id number] [place] [address]- 2702 Feb, [facility] [address] [id number] [place] [address]- 3588 Dec, [facility] [address] [id number] [place] [address]- 1096 Dec, [facility] [address] [id number] [place] [address]- 5499 Nov, [facility] [address] [id number] [place] [address]- 4858 Nov, [facility] [address] [id number] [place] [address]- 7162 Nov, [facility] [address] [id number] [place] [address]- 4393 Oct, [facility] [address] [id number] [place] [address]- 9840 Oct, [facility] [address] [id number] [place] [address]- 3029 Oct, [facility] [place] [facility] [address] [id number] [place] [address]- 8206 May, [facility] [place] [facility] [address] [id number] [place] [address]- 5851 Apr, [facility] [address] [id number] [place] [address]- 9451 Feb, [facility] [address] [facility] [id number] [place] [address]- 3443 Feb, IMMUNIZATIONS No Known Immunizations SOCIAL HISTORY Never Assessed REASON FOR VISIT Prior Authorization PLAN OF CARE VITAL SIGNS MEDICATIONS Unknown [...]
--- OUTSIDE RECORDS SUMMARY | 2018-12-11 19:39 | XMS REPORT ---
Author Author LY PRINGLE Organization [facility] Address [address] [place] [address] Care Team Providers Care Cork Sorter Name Role Phone LY PRINGLE Unavailable PROBLEMS Type Condition ICD9-CM Code KXO30-VR Code Onset Dates Condition Status SNOMED Code Problem Mixed hyperlipidemia E78.2 Active 198482106 Problem Essential hypertension I10 Active 03523368 Problem Bilateral claudication of lower limb I73.9 Active 863661142 Problem Other chronic pain G89.29 Active 21544721 Problem Anxiety F41.9 Active 52874376 Problem Benign prostatic hyperplasia with lower urinary tract symptoms N40.1 Active 18990971258248 Problem Benign non-nodular prostatic hyperplasia with lower urinary tract symptoms N40.1 Active 74906517608816 Problem Hyperlipidemia, unspecified hyperlipidemia type E78.5 Active 05295782 Problem Other secondary osteoarthritis of left knee M17.5 Active 768443339 Problem Diabetic retinopathy associated with type 2 diabetes mellitus, macular edema presence unspecified, unspecified laterality, unspecified retinopathy severity E11.319 Active 067434273 Problem Polyneuropathy G62.9 Active 00738353 Problem Type 2 diabetes mellitus with complication, without long-term current use of insulin E11.8 Active 66124837 Problem Pulmonary nodule R91.1 Active 432601311 Problem MRSA (methicillin resistant staph aureus) culture positive Z22.322 Active 835084878 Problem Primary osteoarthritis of left knee M17.12 Active 201034993 Problem 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 Active 4438661 Problem Diabetic polyneuropathy associated with type 2 diabetes mellitus E11.42 Active 61734127 ALLERGIES No Information ENCOUNTERS Encounter Location Date Diagnosis [facility] [address] [facility] [id number] [address] Jun, [facility] [address] [facility] [id number], [place] [address] Apr, Other chronic pain G89.29 ; Pain in left shoulder M25.512 and Candidal intertrigo B37.2 [facility] [id number] [place] [address]65 Mar, Encounter for immunization Z23 and Laceration of right ring finger without foreign body without damage to nail, initial encounter S61.214A [place] [id number] [place] [address] 76542- 4138 Mar, Paronychia of finger of right hand L03.011 [place] [address] [address] Mar, Type 2 diabetes mellitus with complication, without long- term current use of insulin E11.8 [facility] [id number] [place] [address]25- 6609 Mar, [facility] [address] [id number] Feb, [facility] [address] [address] 1178 Feb, Type 2 diabetes mellitus with complication, without long- term current use of insulin E11.8 [facility] [id number] [place] [address] 52895- 9835 Feb, Type 2 diabetes mellitus with complication, without long- term current use of insulin E11.8 ; Polyneuropathy G62.9 ; Essential hypertension I10 ; Other secondary osteoarthritis of left knee M17.5 ; Frequency of micturition R35.0 ; Benign prostatic hyperplasia with lower urinary tract symptoms N40.1 ; Anxiety F41.9 ; Hyperlipidemia, unspecified hyperlipidemia type E78.5 and Leg cramps R25.2 [place] [address] 99374- 5607 Feb, [facility] [id number] [place] [address] 96856- 6366 Nov, Benign non-nodular prostatic hyperplasia with lower urinary tract symptoms N40.1 and Acute epididymitis N45.1 [place] [id number] [place] [address] 57682- 7926 Sep, Neuropathy G62.9 [place] [address] [place] [id number]- 2993 Sep, Type 2 diabetes mellitus with complication, without long- term current use of insulin E11.8 ; Neuropathy G62.9 ; Bilateral leg weakness R29.898 and Cough R05 [facility] [address] 67472- 0132 Aug, Left ear pain H92.02 and Bilateral impacted cerumen H61.23 [place] [address] 71275- 8417 Jul, [place] [address] 33521- 3344 Jul, [place] [address] 78587- 3141 Jul, Type 2 diabetes mellitus with complication, without long- term current use of insulin E11.8 ; Bilateral leg weakness R29.898 and Neuropathy G62.9 [facility] [address] 14[address] -8845 Jul, Acute non-recurrent maxillary sinusitis J01.00 [facility] [address] 75765- 2440 Jul, [facility] [address] 65724- 5429 Jul, Primary osteoarthritis of left knee M17.12 [place] [address] 22812- 1762 Jul, Type 2 diabetes mellitus with complication, without long- term current use of insulin E11.8 [facility] [address] 26909- 6744 Jun, [facility] [address] 98252- 0392 Jun, Neuropathy G62.9 ; Bilateral leg weakness R29.898 ; Leg cramps R25.2 and Encounter for immunization Z23 [place] [id number] [place] [address] 59090- 3545 Jun, Bilateral claudication of lower limb I73.9 ; Essential hypertension I10 ; Mixed hyperlipidemia E78.2 and Diabetic polyneuropathy associated with type 2 diabetes mellitus E11.42 [place] [address] 32561- 1601 Jun, Pain in right leg M79.604 ; Pain of left leg M79.605 and Bilateral leg weakness R29.898 [place] [address] 93186- 1496 Jun, [place] [address] 04453- 0389 Jun, Left lateral knee pain M25.562 and Bilateral leg weakness R29.898 [place] [address] 44520- 5419 Jun, [place] [address] 05663- 8721 May, Type 2 diabetes mellitus with complication, without long- term current use of insulin E11.8 ; Neuropathy G62.9 and Leg cramps R25.2 [place] [id number] [place] [address] 60485- 1867 May, [place] [address] 49826- 1740 Apr, Bilateral leg weakness R29.898 and Leg cramps R25.2 [place] [id number] [place] [address] 37767- 5617 Mar, [place] [id number] [place] [address] 03337- 2483 Feb, Chronic seasonal allergic rhinitis due to other allergen J30.2 [place] [id number] [place] [address] 68467- 0834 January, Type 2 diabetes mellitus with complication, without long- term current use of insulin E11.8 and Neuropathy G62.9 [place] [address] [id number] [place] [address] 69655- 0529 Dec, [place] [address] 47652- 6983 Dec, Pulmonary nodule R91.[address] 69876- 4947 Dec, [place] [address] 41619- 6884 Dec, [address] 56612- 5255 Nov, Pre-procedure lab exam Z01.[address] 29791- 8510 Nov, Seasonal allergic rhinitis due to pollen J30.1 [place] [id number] [place] [address] 04326- 8581 Oct, Lower abdominal pain R10.30 ; Hematuria R31.9 ; Pulmonary nodule R91.1 and Type 2 diabetes mellitus with complication, without long-term current use of insulin E11.8 [place] [id number] [place] [address] 10500- 1093 Sep, Type 2 diabetes mellitus with complication, without long- term current use of insulin E11.8 and Ventral hernia without obstruction or gangrene K43.9 [place] [id number] [place] [address] 43376- 4003 Aug, [address] 13323- 9870 Aug, Benign non-nodular prostatic hyperplasia with lower urinary tract symptoms N40.1 and Type 2 diabetes mellitus with complication, without long-term current use of insulin E11.8 [facility] [address] [facility] [id number], [place] [address] Jul, Benign non-nodular prostatic hyperplasia with lower urinary tract symptoms N40.1 and Type 2 diabetes mellitus with complication, without long-term current use of insulin E11.8 [facility] [address] [address] Jul, Type 2 diabetes mellitus with complication, without long- term current use of insulin E11.8 [facility] [address] [facility] [id number], [place] [address]- 1669 Jul, [facility] [address], [place] [address] 4541 Jun, [facility] [address], [place] [address] 2827 Jun, [facility] [address], [place] [address]- 7259 Jun, Type 2 diabetes mellitus with complication, without long- term current use of insulin E11.8 [facility] [address], [place] [address]- 4507 Jun, [facility] [address] [id number], [place] [address]- 8514 May, [facility] [address] [address] [id number], [place] [address]- 7210 May, [facility] [address] [id number], [place] [address]- 5153 May, [facility] [address] [id number], [place] [address]- 8979 12 May, 2016 Encounter to establish care Z76.89 ; Type 2 diabetes mellitus with complication, without long-term current use of insulin E11.8 ; Essential hypertension I10 ; Hyperlipidemia, unspecified hyperlipidemia type E78.5 ; 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 ; MRSA (methicillin resistant staph aureus) culture positive Z22.322 ; Pain in unspecified knee M25.569 ; Other chronic pain G89.29 and Neuropathy G62.9 [facility] [id number] [place] [address] 03946- 3276 09 May, 2016 Neck abscess L02.11 [facility] [id number] [place] [address] 03675- 6235 06 May, 2016 Abscess, neck L02.11 [facility] [address] 02889 -6496 May, [facility] [id number] [place] [address] 07023- 8960 May, Abscess of neck L02.11 [facility] [id number] [place] [address] 82204 -7989 Apr, Cellulitis, neck L03.221 [facility] [id number] [place] [address] 72332 -7008 Apr, Abscess L02.91 [facility] [id number] [place] [address] 84634- 9369 January, [facility] [id number] [place] [address] 25981- 2348 Dec, [facility] [id number] [place] [address] 68082- 8913 Dec, [facility] [id number] [place] [address] 90704- 0891 Oct, [facility] [id number] [place] [address] 63627- 1553 Oct, [facility] [id number] [place] [address] 12056- 3239 Sep, [facility] [id number] [place] [address] 29359- 3060 Sep, [facility] [address] 03954- 2212 Sep, [facility] [place] [facility] [address] [id number] [place] [address]- 6982 Sep, [facility] [place] [facility] [address] [id number] [place] [address]- 3403 Sep, [facility] [place] [facility] [address] [id number] [place] [address]- 6768 Sep, [facility] [place] [facility] [address] [id number] [place] [address]- 7434 Sep, [facility] [place] [facility] [address] [id number] [place] [address]- 9988 Jul, [facility] [place] [facility] [address] [id number] [place] [address]- 4605 Jul, [facility] [place] [facility] [address] [id number], [place] [address]- 6183 Jun, [facility] [place] [facility] [address] [id number], [place] [address]- 3993 Jun, [facility] [place] [facility] [address] [id number], [place] [address]- 5693 Jun, [facility] [place] [facility] [address] [id number], [place] [address]- 6239 Jun, [facility] [place] [facility] [address] [id number], [place] [address]- 6889 Jun, [facility] [place] [facility] [address] [id number], [place] [address]- 6299 Jun, [facility] [place] [facility] [address] [id number], [place] [address]- 6970 Jun, [facility] [place] [facility] [address] [id number], [place] [address]- 9474 Jun, [facility] [place] [facility] [address] [id number][place] [address]- 0316 Jun, [facility] [place] [facility] [address] [id number] [place] [address]- 8186 02 Jun, 2014 [facility] [place] [facility] [address] [id number] [place] [address]- 4554 Jun, [facility] [place] [facility] [address] [id number] [place] [address]- 5746 30 May, 2013 [facility] [place] [facility] [address] [id number] [place] [address]- 1506 30 May, 2013 [facility] [place] [facility] [address] [id number] [place] [address]- 2540 23 May, 2013 [facility] [place] [facility] [address] [id number] [place] [address]- 8531 23 May, 2013 [facility] [place] [facility] [address] [id number] [place] [address]- 0270 18 May, 2013 [facility] [place] [facility] [address] [id number] [place] [address]- 2544 18 May, 2013 [facility] [place] [facility] [address] [id number] [place] [address]- 254 11 May, 2013 [facility] [place] [facility] [address] [id number] [place] [address]- 2545 11 May, 2013 [facility] [place] [facility] [address] [id number] [place] [address]- 2542 11 May, 2013 [facility] [place] [facility] [address] [id number] [place] [address]- 2542 11 May, 2013 [facility] [place] [facility] [address] [id number] [place] [address]- 2541 04 Sep, 2013 [facility] [place] [facility] [address] [id number] [place] [address] 2545 04 Sep, 2013 [facility] [place] [facility] [address] [id number] [place] [address]- 2546 03 Sep, 2013 [facility] [place] [facility] [address] [id number] [place] [address]- 2542 May, [facility] [place] [facility] [address] [id number] [place] [address]- 5488 May, [facility] [place] [facility] [address] [id number] [place] [address]- 5646 May, [facility] [place] [facility] [address] [id number] [place] [address]- 7024 Apr, [facility] [place] [facility] [address] [id number] [place] [address]- 4001 Apr, [facility] [place] [facility] [address] [id number] [place] [address]- 6361 Apr, [facility] [place] [facility] [address] [id number] [place] [address]- 3365 Apr, [facility] [place] [facility] [address] [id number] [place] [address]- 6673 Mar, [facility] [place] [facility] [address] [id number] [place] [address]- 9981 Mar, [facility] [place] [facility] [address] [id number] [place] [address]- 3322 Mar, [facility] [place] [facility] [address] [id number] [place] [address]- 4339 Mar, [facility] [place] [facility] [address] [id number] [place] [address]- 1225 Mar, [facility] [place] [facility] [address] [id number] [place] [address]- 1422 Mar, [facility] [address] [id number] [id number] January, [facility] [place] [facility] [address] [id number] [place] [address]- 3046 January, [facility] [address] [id number][place] [id number] Dec, [facility] [place] [facility] [address] [id number] [place] [address]- 0296 Dec, [facility] [address] [id number] [place] [id number] Oct, [facility] [address] [id number] [place] [address]- 7716 Oct, [facility] [address] [facility] [id number][place] [id number] Sep, [facility] [place] [facility] [address] [id number] [place] [address]- 7886 Sep, [facility] [place] [facility] [address] [id number] [place] [address]- 7376 Aug, [facility] [place] [facility] [address] [id number] [place] [address]- 7256 Aug, [facility] [place] [facility] [id number] [place] [address]- 8684 Jul, [facility] [place] [facility] [address] [place] [address]- 2427 Jul, [facility] [place] [facility] [address] [id number], [place] [address]- 8639 Jul, [facility] [address] [facility] [id number][place] [id number] Jul, [facility] [address] [id number], [place] [address]- 2306 Jul, [facility] [address] [facility] [id number][place] [id number] Jul, [facility] [place] [facility] [address] [id number], [place] [address]- 2546 Jul, [facility] [place] [facility] [address] [facility] [id number], [place] [address]- 8896 Jul, [facility] [place] [facility] [address] [facility] [id number], [place] [address]- 2526 Jun, [facility] [place] [facility] [address] [id number], [place] [address]- 9156 Jun, [facility] [address] [id number] [place] [id number] Jun, [facility] [address] [id number] [place] [address]- 5934 Jun, [facility] [address] [id number] [place] [address]- 4191 Apr, [facility] [address] [id number] [place] [address]- 1247 Apr, [facility] [address] [id number] [place] [address]- 1378 Feb, [facility] [address] [id number] [place] [address]- 3092 Dec, [facility] [address] [id number] [place] [address]- 3134 Dec, [facility] [address] [id number] [place] [address]- 9470 Nov, [facility] [address] [id number] [place] [address]- 6958 Nov, [facility] [address] [id number] [place] [address]- 4833 Nov, [facility] [address] [id number] [place] [address]- 2026 Oct, [facility] [address] [id number] [place] [address]- 7357 Oct, [facility] [address] [id number] [place] [address]- 3176 Oct, [facility] [place] [facility] [address] [id number] [place] [address]- 5974 May, [facility] [place] [facility] [address] [id number] [place] [address]- 8534 Apr, [facility] [address] [id number] [place] [address]- 2319 Feb, [facility] [address] [facility] [id number] [place] [address]- 9925 Feb, IMMUNIZATIONS No Known Immunizations SOCIAL HISTORY Never Assessed REASON FOR VISIT PALs Trulicity PLAN OF CARE VITAL SIGNS MEDICATIONS Medication Instructions Dosage Frequency Start Date End Date Duration Status Glucocard Expression Test - subcutaneously Once a day use to test blood sugar 24h Sep, 100 Active RESULTS No Results PROCEDURES No Known [...]
--- OUTSIDE RECORDS SUMMARY | 2018-12-11 19:39 | XMS REPORT ---
Author Author LY PRINGLE [facility] Address [address] [place] [address] Care Team Providers Care Cleaning Supervisor Name Role Phone LY PRINGLE Unavailable PROBLEMS Type Condition ICD9-CM Code HRP24-SR Code Onset Dates Condition Status SNOMED Code Problem Mixed hyperlipidemia E78.2 Active 300884998 Problem Essential hypertension I10 Active 37574932 Problem Bilateral claudication of lower limb I73.9 Active 630485656 Problem Other chronic pain G89.29 Active 73223486 Problem Anxiety F41.9 Active 89591501 Problem Benign prostatic hyperplasia with lower urinary tract symptoms N40.1 Active 61773284420858 Problem Benign non-nodular prostatic hyperplasia with lower urinary tract symptoms N40.1 Active 92793281178670 Problem Hyperlipidemia, unspecified hyperlipidemia type E78.5 Active 15122717 Problem Other secondary osteoarthritis of left knee M17.5 Active 127106974 Problem Diabetic retinopathy associated with type 2 diabetes mellitus, macular edema presence unspecified, unspecified laterality, unspecified retinopathy severity E11.319 Active 959000567 Problem Polyneuropathy G62.9 Active 89100612 Problem Type 2 diabetes mellitus with complication, without long-term current use of insulin E11.8 Active 29382364 Problem Pulmonary nodule R91.1 Active 416793411 Problem MRSA (methicillin resistant staph aureus) culture positive Z22.322 Active 917956475 Problem Primary osteoarthritis of left knee M17.12 Active 806790529 Problem 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 Active 3574032 Problem Diabetic polyneuropathy associated with type 2 diabetes mellitus E11.42 Active 14764205 ALLERGIES Substance Reaction Event Type Date Status Januvia Unknown Drug Allergy Feb, Active ENCOUNTERS Encounter Location Date Diagnosis [facility] [address] [facility] [id number], [place] [address] Jun, [facility] [address] [facility] [id number], [place] [address] Apr, Other chronic pain G89.29 ; Pain in left shoulder M25.512 and Candidal intertrigo B37.2 [facility] [id number] [place] [address]883 Mar, Encounter for immunization Z23 and Laceration of right ring finger without foreign body without damage to nail, initial encounter S61.214A [place] [id number] [place] [address] 32475- 0957 Mar, Paronychia of finger of right hand L03.011 [place] [id number] [place] [address] 54116- 8344 Mar, Type 2 diabetes mellitus with complication, without long- term current use of insulin E11.8 [facility] [id number] [place] [address] 81636- 6636 Mar, [facility] [id number] [place] [address] [id number] Feb, [facility] [address] [place] [id number] [place] [address] 30218- 2980 Feb, Type 2 diabetes mellitus with complication, without long- term current use of insulin E11.8 [facility] [address] [place] [address] 86342- 9070 Feb, Type 2 diabetes mellitus with complication, without long- term current use of insulin E11.8 ; Polyneuropathy G62.9 ; Essential hypertension I10 ; Other secondary osteoarthritis of left knee M17.5 ; Frequency of micturition R35.0 ; Benign prostatic hyperplasia with lower urinary tract symptoms N40.1 ; Anxiety F41.9 ; Hyperlipidemia, unspecified hyperlipidemia type E78.5 and Leg cramps R25.2 [place] [id number] [place] [address] 55631- 5202 Feb, [facility] [id number] [place] [address] 05473- 7815 Nov, Benign non-nodular prostatic hyperplasia with lower urinary tract symptoms N40.1 and Acute epididymitis N45.1 [facility] [address] 8[address]89- 4719 Sep, Neuropathy G62.9 [place] [address] [place] 540512- 5288 Sep, Type 2 diabetes mellitus with complication, without long- term current use of insulin E11.8 ; Neuropathy G62.9 ; Bilateral leg weakness R29.898 and Cough R05 [facility] [address] 14752- 0867 Aug, Left ear pain H92.02 and Bilateral impacted cerumen H61.23 [place] [address] 43137- 7601 Jul, [place] [address] 24812- 4620 Jul, [place] [address] 58300- 3528 Jul, Type 2 diabetes mellitus with complication, without long- term current use of insulin E11.8 ; Bilateral leg weakness R29.898 and Neuropathy G62.9 [facility] [address] 33591 -9057 Jul, Acute non-recurrent maxillary sinusitis J01.00 [place] [address] 95630- 6388 Jul, [facility] [address] 29760- 5481 Jul, Primary osteoarthritis of left knee M17.12 [place] [address] 98935- 8606 Jul, Type 2 diabetes mellitus with complication, without long- term current use of insulin E11.8 [facility] [address] 66103- 5094 Jun, [place] [id number] [place] [address] 28039- 4397 Jun, Neuropathy G62.9 ; Bilateral leg weakness R29.898 ; Leg cramps R25.2 and Encounter for immunization Z23 [facility] [id number] [place] [address] 88890- 2837 Jun, Bilateral claudication of lower limb I73.9 ; Essential hypertension I10 ; Mixed hyperlipidemia E78.2 and Diabetic polyneuropathy associated with type 2 diabetes mellitus E11.42 [place] [id number] [place] [address] 43633- 4273 Jun, Pain in right leg M79.604 ; Pain of left leg M79.605 and Bilateral leg weakness R29.898 [place] [id number] [place] [address] 31684- 8399 Jun, [place] [address] 73258- 7663 Jun, Left lateral knee pain M25.562 and Bilateral leg weakness R29.898 [place] [id number] [place] [address] 39535- 3335 Jun, [place] [id number] [place] [address] 92951- 3097 May, Type 2 diabetes mellitus with complication, without long- term current use of insulin E11.8 ; Neuropathy G62.9 and Leg cramps R25.2 [place] [id number] [place] [address] 92331- 3990 May, [place] [id number] [place] [address] 23784- 6534 Apr, Bilateral leg weakness R29.898 and Leg cramps R25.2 [place] [id number] [place] [address] 84059- 9861 Mar, [place] [address] 66181- 6721 Feb, Chronic seasonal allergic rhinitis due to other allergen J30.2 [place] [id number] [place] [address] 43894- 7391 January, Type 2 diabetes mellitus with complication, without long- term current use of insulin E11.8 and Neuropathy G62.9 [place] [address] [id number] [place] [address] 77564- 6261 Dec, [place] [address] 30938- 9415 Dec, Pulmonary nodule R91.[address] 97581- 0481 Dec, [place] [id number] [place] [address] 30902- 4904 Dec, [address] 51607- 1429 Nov, Pre-procedure lab exam Z01.812 [place] [address] 27438- 3330 Nov, Seasonal allergic rhinitis due to pollen J30.1 [place] [id number] [place] [address] 10350- 1023 Oct, Lower abdominal pain R10.30 ; Hematuria R31.9 ; Pulmonary nodule R91.1 and Type 2 diabetes mellitus with complication, without long-term current use of insulin E11.8 [place] [id number] [place] [address] 25660- 4290 Sep, Type 2 diabetes mellitus with complication, without long- term current use of insulin E11.8 and Ventral hernia without obstruction or gangrene K43.9 [place] [id number] [place] [address] 79694- 1332 Aug, [place] [id number] [place] [address] 55524- 1082 Aug, Benign non-nodular prostatic hyperplasia with lower urinary tract symptoms N40.1 and Type 2 diabetes mellitus with complication, without long-term current use of insulin E11.8 [place] [address] [address] Jul, Benign non-nodular prostatic hyperplasia with lower urinary tract symptoms N40.1 and Type 2 diabetes mellitus with complication, without long-term current use of insulin E11.8 [place] [address] [address] 9915 Jul, Type 2 diabetes mellitus with complication, without long- term current use of insulin E11.8 [facility] [address] [address] 0239 Jul, [facility] [id number] [place] [address] 21429- 8349 Jun, [place] [address] [address] 3393 Jun, [facility] [address] [id number] [address]- 6605 Jun, Type 2 diabetes mellitus with complication, without long- term current use of insulin E11.8 [place] [address] [address] 3254 Jun, [facility] [address] [address]- 5955 May, [facility] [address] [address]- 0077 May, [facility] [address], [place] [address]- 6060 May, [facility] [address] [place] [address] 89552- 4713 May, Encounter to establish care Z76.89 ; Type 2 diabetes mellitus with complication, without long-term current use of insulin E11.8 ; Essential hypertension I10 ; Hyperlipidemia, unspecified hyperlipidemia type E78.5 ; 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 ; MRSA (methicillin resistant staph aureus) culture positive Z22.322 ; Pain in unspecified knee M25.569 ; Other chronic pain G89.29 and Neuropathy G62.9 [facility] [address] [id number], [place] [address]- 6048 09 May, 2016 Neck abscess L02.11 [facility] [address] [id number], [place] [address]- 1800 06 May, 2016 Abscess, neck L02.11 [facility] [address] [id number], [place] [address] 04 May, 2016 [facility] [address] [id number], [place] [address]- 7704 May, Abscess of neck L02.11 [facility] [address] [id number], [place] [address] Apr, Cellulitis, neck L03.221 [facility] [address] [id number], [place] [address] Apr, Abscess L02.91 [facility] [address] [id number], [place] [address]- 2432 January, [facility] [address] [facility] [id number], [place] [address]- 2811 Dec, [facility] [address] [id number], [place] [address]- 2622 Dec, [facility] [address] [id number], [place] [address]- 5645 Oct, [facility] [address] [id number], [place] [address]- 6725 Oct, [facility] [address] [facility] [id number], [place] [address]- 8361 Sep, [facility] [address] [facility] [id number], [place] [address]- 1906 Sep, [facility] [place] [facility] [address] [id number] [place] [address]- 3781 Sep, [facility] [place] [facility] [address] [id number] [place] [address]- 3300 Sep, [facility] [place] [facility] [address] [id number] [place] [address]- 9641 Sep, [facility] [place] [facility] [address] [id number] [place] [address]- 3079 Sep, [facility] [place] [facility] [address] [id number] [place] [address]- 3501 Sep, [facility] [place] [facility] [address] [id number] [place] [address]- 7065 Jul, [facility] [place] [facility] [address] [id number] [place] [address]- 3343 Jul, [facility] [place] [facility] [address] [id number] [place] [address]- 6518 Jun, [facility] [place] [facility] [address] [id number] [place] [address]- 5834 Jun, [facility] [place] [facility] [address] [id number] [place] [address]- 0545 Jun, [facility] [place] [facility] [address] [facility] [id number] [place] [address]- 9471 Jun, 2013 [facility] [place] [facility] [address] [id number] [place] [address]- 3883 Jun, [facility] [place] [facility] [address] [id number] [place] [address]- 7340 Jun, [facility] [place] [facility] [address] [id number] [place] [address]- 1758 Jun, [facility] [place] [facility] [address] [id number] [place] [address]- 2171 Jun, [facility] [place] [facility] [address] [id number] [place] [address]- 9050 Jun, [facility] [place] [facility] [address] [id number] [place] [address]- 6038 Jun, [facility] [place] [facility] [address] [id number] [place] [address]- 9240 Jun, [facility] [place] [facility] [address] [id number] [place] [address]- 3638 30 May, 2013 [facility] [place] [facility] [address] [id number] [place] [address]- 7123 30 May, 2013 [facility] [place] [facility] [address] [id number] [place] [address]- 9467 23 May, 2013 [facility] [place] [facility] [address] [id number] [place] [address]- 2194 23 May, 2013 [facility] [place] [facility] [address] [id number] [place] [address]- 9378 18 May, 2013 [facility] [place] [facility] [address] [id number] [place] [address]- 9762 18 May, 2013 [facility] [place] [facility] [address] [id number] [place] [address]- 9296 11 May, 2013 [facility] [place] [facility] [address] [id number] [place] [address]- 8145 11 May, 2013 [facility] [place] [facility] [address] [id number], [place] [address]- 4903 11 May, 2013 [facility] [place] [facility] [address] [id number], [place] [address]- 1098 11 May, 2013 [facility] [place] [facility] [address] [id number] [place] [address]- 0085 04 May, 2013 [facility] [place] [facility] [address] [id number] [place] [address]- 1231 04 May, 2013 [facility] [place] [facility] [address] [id number] [place] [address]- 6153 03 May, 2013 [facility] [place] [facility] [address] [id number] [place] [address]- 7868 May, [facility] [place] [facility] [address] [id number] [place] [address]- 9536 May, [facility] [place] [facility] [address] [id number] [place] [address]- 2130 May, [facility] [place] [facility] [address] [id number] [place] [address]- 6201 Apr, [facility] [place] [facility] [address] [id number] [place] [address]- 9966 Apr, [facility] [place] [facility] [address] [id number] [place] [address]- 9201 Apr, [facility] [place] [facility] [address] [id number] [place] [address]- 5121 Apr, [facility] [place] [facility] [address] [id number] [place] [address]- 1356 Mar, [facility] [place] [facility] [address] [id number] [place] [address]- 4576 Mar, [facility] [place] [facility] [address] [id number] [place] [address]- 0871 Mar, [facility] [place] [facility] [address] [id number] [place] [address]- 0034 Mar, [facility] [place] [facility] [address] [id number] [place] [address]- 0639 Mar, [facility] [place] [facility] [address] [id number] [place] [address]- 5290 Mar, [facility] [address] [id number][place] [address] January, [facility] [place] [facility] [address] [id number] [place] [address]- 4702 January, [facility] [address] [id number][place] [id number] Dec, [facility] [place] [facility] [address] [id number], [place] [address]- 2908 Dec, [facility] [address] [facility] [id number][place] [id number] Oct, [facility] [place] [facility] [address] [id number], [place] [address]- 1234 Oct, [facility] [id number] [address] Sep, [facility] [place] [facility] [address] [facility] [id number], [place] [address]- 1137 Sep, [facility] [place] [facility] [address] [facility] [id number], [place] [address]- 9044 Aug, [facility] [place] [facility] [address] [facility] [id number], [place] [address]- 1308 Aug, [facility] [place] [facility] [address], [place] [address]- 4156 Jul, [facility] [place] [facility] [address], [place] [address]- 4996 Jul, [facility] [place] [facility] [address], [place] [address]- 2053 Jul, [facility] [id number] [address] Jul, [facility] [place] [facility] [address], [place] [address]- 4907 Jul, [facility] [address] [facility] [id number][place] [id number] Jul, [facility] [place] [facility] [address] [facility] [id number] 6623 Jul, [facility] [place] [facility] [address] [facility] [id number], [place] [address]- 2025 Jul, [facility] [place] [facility] [address] [facility] [id number], [place] [address]- 5673 Jun, [facility] [place] [facility] [address] [facility] [id number], [place] [address]- 3716 Jun, [facility] [address] [id number][place] [id number] Jun, [facility] [address] [id number] [place] [address]- 9527 Jun, [facility] [place] [facility] [address] [id number] [place] [address]- 9837 Apr, [facility] [place] [facility] [address] [id number] [place] [address]- 2157 Apr, [facility] [place] [facility] [address] [id number] [place] [address]- 1597 Feb, [facility] [place] [facility] [address] [id number] [place] [address]- 2220 Dec, [facility] [place] [facility] [address] [id number] [place] [address]- 0208 Dec, [facility] [place] [facility] [address] [id number] [place] [address]- 0196 Nov, [facility] [place] [facility] [address] [id number] [place] [address]- 4852 Nov, [facility] [place] [facility] [address] [id number] [place] [address]- 7807 Nov, [facility] [place] [facility] [address] [id number] [place] [address]- 0260 Oct, [facility] [place] [facility] [address] [id number] [place] [address]- 8130 Oct, [facility] [place] [facility] [address] [id number] [place] [address]- 4604 Oct, [facility] [place] [facility] [address] [id number] [place] [address]- 9837 May, [facility] [place] [facility] [address] [id number] [place] [address]- 9412 Apr, [facility] [place] [facility] [address] [facility] [id number] [place] [address] [address] 15 Feb, 2012 [facility] [address] [facility] [id number] [place] [address]- 4902 14 Feb, 2012 IMMUNIZATIONS No Known Immunizations SOCIAL HISTORY Never Assessed REASON FOR VISIT Diabetes---DBennettRN PLAN OF CARE Activity Details Follow Up 3 Months Reason:DM VITAL SIGNS Height 67 in 2018-03-19 Weight 239 lbs 2018-03-19 Temperature 97.8 degrees Fahrenheit 2018-03-19 Heart Rate 90 bpm 2018-03-19 Respiratory Rate 2018-03-19 BMI 37.43 kg/m2 2018-03-19 Blood pressure systolic 120 mmHg 2018-03-19 Blood pressure diastolic 74 mmHg 2018-03-19 MEDICATIONS Medication Instructions Dosage Frequency Start Date End Date Duration Status BusPIRone HCl 15 MG TAKE ONE TABLET BY MOUTH TWICE DAILY 90 Active GlipiZIDE 5 mg Orally bid 1 tablet in AM and 1.5 tab in PM 12h May, 30 days Active Lisinopril-Hydrochlorothiazide 20-25 MG TAKE ONE TABLET BY MOUTH ONCE DAILY. 90 Active Atorvastatin Calcium 40 MG TAKE ONE TABLET BY MOUTH ONCE DAILY. 90 Active Metformin HCl 1000 MG TAKE ONE TABLET BY MOUTH TWICE DAILY WITH MEALS 90 Active Glucocard Expression Monitor w/Device as directed Sep, Active Proscar 5 mg Orally Once a day 1 tablet 24h 90 Active Gabapentin 800 MG TAKE ONE TABLET BY MOUTH THREE TIMES DAILY 90 Active Trulicity 0.75 MG/0.5ML Subcutaneous once weekly Inject 0.5ML Jun, 90 days Active Glucocard Expression Test - subcutaneously Once a day use to test blood sugar 24h Sep, 100 Active Fish Oil 1360 MG Orally Once a day 1 capsule 24h Active Tegretol 200 mg Orally Once a day at bedtime 1 tablet Apr, 90 days Active Cinnamon 500 MG Active Aspirin 81 MG Orally Once a day 1 tablet 24h Active RESULTS Name Result Date Reference Range A1C (IN HOUSE) 2018-03-19 A1C IN HOUSE 8.4 4.3 - 5.6 % Previous A1c 6.8 Lot [id number] Exp date 12/17 PROCEDURES Procedure Date Ordered Result Body Site GLYCATED HEMOGLOBIN TEST March 19, 2018 INSTRUCTIONS MEDICATIONS ADMINISTERED No Known Medications [...]
--- OUTSIDE RECORDS SUMMARY | 2018-12-11 19:40 | XMS REPORT ---
Author Author YVONNE MCGEE Organization [facility] Address [address] [place] [address] Care Team Providers Care Class A Lineman Name Role Phone YVONNE MCGEE Unavailable PROBLEMS Type Condition ICD9-CM Code IRG54-UZ Code Onset Dates Condition Status SNOMED Code Problem Bilateral claudication of lower limb I73.9 Active 700345192 Problem Mixed hyperlipidemia E78.2 Active 774408549 Problem Diabetic polyneuropathy associated with type 2 diabetes mellitus E11.42 Active 47481446 Problem Anxiety F41.9 Active 65395038 Problem Hyperlipidemia, unspecified hyperlipidemia type E78.5 Active 17436283 Problem Benign non-nodular prostatic hyperplasia with lower urinary tract symptoms N40.1 Active 14943643617656 Problem Essential hypertension I10 Active 82414975 Problem Other secondary osteoarthritis of left knee M17.5 Active 809102604 Problem Benign prostatic hyperplasia with lower urinary tract symptoms N40.1 Active 31053667096644 Problem Diabetic retinopathy associated with type 2 diabetes mellitus, macular edema presence unspecified, unspecified laterality, unspecified retinopathy severity E11.319 Active 646740971 Problem 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 Active 3412335 Problem Type 2 diabetes mellitus with complication, without long-term current use of insulin E11.8 Active 29902761 Problem Polyneuropathy G62.9 Active 40659403 Problem Pulmonary nodule R91.1 Active 658651240 Problem MRSA (methicillin resistant staph aureus) culture positive Z22.322 Active 376707262 Problem Primary osteoarthritis of left knee M17.12 Active 238723364 ALLERGIES Substance Reaction Event Type Date Status Januvia Unknown Drug Allergy Nov, Active ENCOUNTERS Encounter Location Date Diagnosis [facility] [address] [id number] [place] [address] Mar, [facility] [address] [id number] [place] [address] Mar, [facility] [id number] [address] Feb, [facility] [id number] [place] [address]000- 7961 Feb, Type 2 diabetes mellitus with complication, without long- term current use of insulin E11.8 [facility] [id number] [place] [address] 98918- 6575 Feb, Type 2 diabetes mellitus with complication, without long- term current use of insulin E11.8 ; Polyneuropathy G62.9 ; Essential hypertension I10 ; Other secondary osteoarthritis of left knee M17.5 ; Frequency of micturition R35.0 ; Benign prostatic hyperplasia with lower urinary tract symptoms N40.1 ; Anxiety F41.9 ; Hyperlipidemia, unspecified hyperlipidemia type E78.5 and Leg cramps R25.2 [facility] [id number] [place] [address] 20739- 4258 Feb, [facility] [id number] [place] [address] 70386- 9633 Nov, Benign non-nodular prostatic hyperplasia with lower urinary tract symptoms N40.1 and Acute epididymitis N45.1 [facility] [id number] [place] [address] 95608- 6786 Sep, Neuropathy G62.9 [facility] [id number] [place] [address] 38867- 2042 Sep, Type 2 diabetes mellitus with complication, without long- term current use of insulin E11.8 ; Neuropathy G62.9 ; Bilateral leg weakness R29.898 and Cough R05 [facility] [id number] [place] [address] 39813- 7656 Aug, Left ear pain H92.02 and Bilateral impacted cerumen H61.23 [facility] [id number] [place] [address] 92935- 3711 Jul, [facility] [id number] [place] [address] 09504- 8123 Jul, [facility] [id number] [place] [address] 58340- 8138 Jul, Type 2 diabetes mellitus with complication, without long- term current use of insulin E11.8 ; Bilateral leg weakness R29.898 and Neuropathy G62.9 [facility] [id number] [place] [address] 41288 -2586 Jul, Acute non-recurrent maxillary sinusitis J01.00 [place] [address] [address]65- 9369 Jul, [facility] [address] 43869- 7176 Jul, Primary osteoarthritis of left knee M17.12 [place] [address] [address]72- 2229 Jul, Type 2 diabetes mellitus with complication, without long- term current use of insulin E11.8 [facility] [address] 05648- 8941 Jun, [facility] [address] 25679- 2762 Jun, Neuropathy G62.9 ; Bilateral leg weakness R29.898 ; Leg cramps R25.2 and Encounter for immunization Z23 [facility] [id number] [place] [address] 85711- 0821 Jun, Bilateral claudication of lower limb I73.9 ; Essential hypertension I10 ; Mixed hyperlipidemia E78.2 and Diabetic polyneuropathy associated with type 2 diabetes mellitus E11.42 [facility] [id number] [place] [address] 99151- 7902 Jun, Pain in right leg M79.604 ; Pain of left leg M79.605 and Bilateral leg weakness R29.898 [facility] [id number] [place] [address] 75315- 4116 Jun, [facility] [address] [address]342- 4080 Jun, Left lateral knee pain M25.562 and Bilateral leg weakness R29.898 [facility] [id number] [place] [address] 38363- 1307 Jun, [facility] [id number] [place] [address] 09359- 1405 May, Type 2 diabetes mellitus with complication, without long- term current use of insulin E11.8 ; Neuropathy G62.9 and Leg cramps R25.2 [place] [id number] [place] [address] 29451- 8232 May, [facility] [id number] [place] [address] 30996- 6513 Apr, Bilateral leg weakness R29.898 and Leg cramps R25.2 [facility] [id number] [place] [address] 56730- 5971 Mar, [facility] [id number] [place] [address] 36667- 1168 Feb, Chronic seasonal allergic rhinitis due to other allergen J30.2 [facility] [id number] [place] [address] 77833- 8938 January, Type 2 diabetes mellitus with complication, without long- term current use of insulin E11.8 and Neuropathy G62.9 [facility] [id number] [place] [address] 79529- 2041 Dec, [facility] [id number] [place] [address] 46059- 2834 Dec, Pulmonary nodule R91.1 [facility] [id number] [place] [address] 47383- 2179 Dec, [facility] [id number] [place] [address] 62624- 9830 Dec, [facility] [id number] [place] [address] 79579- 2558 Nov, Pre-procedure lab exam Z01.812 [facility] [id number] [place] [address] 39826- 7306 Nov, Seasonal allergic rhinitis due to pollen J30.1 [facility] [id number] [place] [address] 90535- 1562 Oct, Lower abdominal pain R10.30 ; Hematuria R31.9 ; Pulmonary nodule R91.1 and Type 2 diabetes mellitus with complication, without long-term current use of insulin E11.8 [place] [id number] [place] [address] 95741- 2802 Sep, Type 2 diabetes mellitus with complication, without long- term current use of insulin E11.8 and Ventral hernia without obstruction or gangrene K43.9 [place] [address] 10474- 4786 Aug, [place] [address] 02950- 7783 Aug, Benign non-nodular prostatic hyperplasia with lower urinary tract symptoms N40.1 and Type 2 diabetes mellitus with complication, without long-term current use of insulin E11.8 [place] [id number] [place] [address] 53155- 2584 Jul, Benign non-nodular prostatic hyperplasia with lower urinary tract symptoms N40.1 and Type 2 diabetes mellitus with complication, without long-term current use of insulin E11.8 [place] [id number] [place] [address] 23111- 5126 Jul, Type 2 diabetes mellitus with complication, without long- term current use of insulin E11.8 [place] [id number] [place] [address] 89532- 9510 Jul, [place] [id number] [place] [address] 99641- 3175 Jun, [place] [address] 80202- 4391 Jun, [facility] [address] [facility] [id number], [place] [address]11 13 Jun, 2016 Type 2 diabetes mellitus with complication, without long- term current use of insulin E11.8 [facility] [address] [facility] [id number], [place] [address]- 0892 Jun, [place] [address] [place] [address] 77319- 7284 May, [place] [address] [facility] [id number], [place] [address]- 6698 May, [place] [address], [place] [address] May, [place] [id number], [place] [address]- 7499 12 May, 2016 Encounter to establish care Z76.89 ; Type 2 diabetes mellitus with complication, without long-term current use of insulin E11.8 ; Essential hypertension I10 ; Hyperlipidemia, unspecified hyperlipidemia type E78.5 ; 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 ; MRSA (methicillin resistant staph aureus) culture positive Z22.322 ; Pain in unspecified knee M25.569 ; Other chronic pain G89.29 and Neuropathy G62.9 [facility] [address] [id number], [place] [address]- 1181 09 May, 2016 Neck abscess L02.11 [place] [address], [place] [address]- 7469 06 May, 2016 Abscess, neck L02.11 [facility] [address] [id number], [place] [address] May, [place] [address], [place] [address]- 3720 May, Abscess of neck L02.11 [facility] [address] [id number], [place] [address] Apr, Cellulitis, neck L03.221 [facility] [address] [id number] [place] [address] Apr, Abscess L02.91 [facility] [address] [id number] [place] [address]- 8022 January, [facility] [address] [id number] [place] [address]- 0020 Dec, [facility] [address] [id number] [place] [address]- 2618 Dec, [facility] [address] [id number] [place] [address]- 3700 Oct, [facility] [address] [id number] [place] [address]- 6592 Oct, [facility] [address] [facility] [id number] [place] [address]- 2593 Sep, [facility] [address] [facility] [id number] [place] [address]- 8412 Sep, [facility] [address] [facility] [id number] [place] [address]- 7666 Sep, [facility] [address] [facility] [id number] [place] [address]- 4501 Sep, [facility] [address] [facility] [id number] [place] [address]- 2664 Sep, [facility] [address] [facility] [id number], [place] [address]- 0660 Sep, [facility] [address] [facility] [id number] [place] [address]- 0775 Sep, [facility] [address] [facility] [id number] [place] [address]- 1571 Jul, [facility] [address] [facility] [id number] [place] [address]- 2237 Jul, [facility] [address] [id number], [place] [address]- 5335 Jun, 2013 [facility] [place] [facility] [address] [id number] [place] [address]- 4242 Jun, 2013 [facility] [place] [facility] [address] [id number], [place] [address]- 4543 Jun, 2013 [facility] [place] [facility] [address] [id number] [place] [address]- 5046 Jun, 2013 [facility] [place] [facility] [address] [id number] [place] [address]- 5297 Jun, 2013 [facility] [place] [facility] [address] [id number] [place] [address]- 1748 Jun, 2013 [facility] [place] [facility] [address] [id number] [place] [address]- 3753 Jun, 2013 [facility] [place] [facility] [address] [id number], [place] [address]- 2445 Jun, 2013 [facility] [place] [facility] [address] [id number], [place] [address]- 9375 Jun, 2013 [facility] [place] [facility] [address] [id number] [place] [address]- 3714 Jun, 2013 [facility] [place] [facility] [address] [id number], [place] [address]- 7563 Jun, 2013 [facility] [place] [facility] [address] [id number], [place] [address]- 3916 30 May, 2013 [facility] [place] [facility] [address] [id number], [place] [address]- 0928 30 Sep, 2013 [facility] [place] [facility] [address] [id number], [place] [address]- 3259 23 Sep, 2013 [facility] [place] [facility] [address] [id number], [place] [address]- 0602 23 May, 2013 [facility] [place] [facility] [address] [id number], [place] [address]- 0733 18 Sep, 2013 [facility] [place] [facility] [address] [id number] [place] [address]- 9221 18 Sep, 2013 [facility] [place] [facility] [address] [id number] [place] [address] 2546 11 May, 2013 [facility] [place] [facility] [address] [id number] [place] [address] 2546 11 May, 2013 [facility] [place] [facility] [address] [id number] [place] [address] 2546 11 May, 2013 [facility] [place] [facility] [address] [id number] [place] [address] 2547 11 May, 2013 [facility] [place] [facility] [address] [id number] [place] [address]- 0092 04 May, 2013 [facility] [place] [facility] [address] [id number] [place] [address]- 9468 04 May, 2013 [facility] [place] [facility] [address] [id number] [place] [address]- 1422 03 May, 2013 [facility] [place] [facility] [address] [id number] [place] [address]- 6950 03 May, 2013 [facility] [place] [facility] [address] [id number] [place] [address]- 6145 02 May, 2013 [facility] [place] [facility] [address] [id number] [place] [address]- 5387 02 May, 2013 [facility] [place] [facility] [address] [id number] [place] [address]- 3259 14 Apr, 2014 [facility] [place] [facility] [address] [id number] [place] [address]- 254 14 Apr, 2014 [facility] [place] [facility] [address] [id number] [place] [address]- 254 14 Apr, 2014 [facility] [place] [facility] [address] [id number] [place] [address]- 2542 14 Apr, 2014 [facility] [place] [facility] [address] [id number] [place] [address]- 3609 Mar, [facility] [place] [facility] [address] [id number] [place] [address]- 3549 Mar, [facility] [place] [facility] [address] [id number] [place] [address]- 1156 Mar, [facility] [place] [facility] [address] [facility] [id number] [place] [address]- 8746 Mar, [facility] [place] [facility] [address] [facility] [id number] [place] [address]- 7416 Mar, [facility] [place] [facility] [address] [id number] [place] [address]- 3226 Mar, [facility] [address] [facility] [id number] [place] [id number] January, [facility] [address] [facility] [id number] [place] [address]- 1066 January, [facility] [address] [facility] [id number] [place] [address] Dec, [facility] [place] [facility] [address] [facility] [id number] [place] [address]- 0126 Dec, [facility] [address] [facility] [id number] [place] [id number] Oct, [facility] [place] [facility] [address] [facility] [id number], [place] [address]- 2546 Oct, [facility] [address] [facility] [id number] [place] [address] Sep, [facility] [place] [facility] [address] [id number] [place] [address]- 2546 Sep, [facility] [place] [facility] [address] [facility] [id number] [place] [address]- 2176 Aug, [facility] [place] [facility] [address] [id number] [place] [address]- 2546 Aug, [facility] [place] [facility] [address] [facility] [id number] [place] [address]- 5126 Jul, [facility] [address] [id number] [place] [address]- 2046 Jul, [facility] [place] [facility] [address] [id number] [place] [address]- 2626 Jul, [facility] [address] [facility] [id number] [place] [address] Jul, [facility] [place] [facility] [address] [id number] [place] [address]- 2546 Jul, [facility] [address] [id number] [place] [id number] Jul, [facility] [place] [facility] [address] [id number] [place] [address]- 2546 Jul, [facility] [place] [facility] [address] [id number] [place] [address]- 2546 Jul, [facility] [place] [facility] [address] [id number] [place] [address]- 5726 Jun, [facility] [place] [facility] [address] [id number] [place] [address]- 0996 Jun, [facility] [address] [facility] [id number] [place] [id number] Jun, [facility] [place] [facility] [address] [id number], [place] [address]- 1746 Jun, [facility] [place] [facility] [address] [id number] [place] [address]- 2546 Apr, [facility] [place] [facility] [address] [id number], [place] [address]- 2546 Apr, [facility] [place] [facility] [address] [id number] [place] [address]- 7326 Feb, [facility] [place] [facility] [address] [id number] [place] [address]- 2546 Dec, [facility] [place] [facility] [address] [id number], [place] [address]- 9996 Dec, [facility] [address] [id number], [place] [address]- 9355 Nov, [facility] [address], [place] [address]- 9965 Nov, [facility] [address], [place] [address]- 0406 Nov, [facility] [id number] [place] [address] 45520- 2973 Oct, [facility] [id number] [place] [address] 64473- 4876 Oct, [facility] [id number] [place] [address] 71946- 5206 Oct, [facility] [id number] [place] [address] 59164- 8746 May, [facility] [address] [place] [address] 92103- 6946 Apr, [facility] [address], [place] [address]- 3760 Feb, [facility] [address] [address]11 Feb, IMMUNIZATIONS No Known Immunizations SOCIAL HISTORY Never Assessed REASON FOR VISIT Low Abdominal/ high groin pain, Pain has been present for a while. PT has a past hernia problem-Ciro BYNUM, PT testicles are hurting and has problems urinating PLAN OF CARE VITAL SIGNS Height 67 in 2017-11-29 Weight 237.8 lbs 2017-11-29 Temperature 98.0 degrees Fahrenheit 2017-11-29 Heart Rate 82 bpm 2017-11-29 Respiratory Rate 20 2017-11-29 BMI 37.24 kg/m2 2017-11-29 Blood pressure systolic 142 mmHg 2017-11-29 Blood pressure diastolic 82 mmHg 2017-11-29 MEDICATIONS Medication Instructions Dosage Frequency Start Date End Date Duration Status Fish Oil 1360 MG Orally Once a day 1 capsule 24h Active Gabapentin 800 MG TAKE ONE TABLET BY MOUTH THREE TIMES DAILY 30 Active Aspirin 81 MG Orally Once a day 1 tablet 24h Active Bactrim DS 800-160 MG Orally Twice a day 1 tablet 12h Nov,Nov 4 weeks Active Tegretol 200 mg Orally Once a day at bedtime 1 tablet Apr, Active Metformin HCl 1000 MG TAKE ONE TABLET BY MOUTH TWICE DAILY WITH MEALS 90 Active Proscar 5 mg Orally Once a day 1 tablet 24h 90 Active Cinnamon 500 MG Active Trulicity 0.75 MG/0.5ML Subcutaneous once weekly Inject 0.5ML Jun, 90 days Active GlipiZIDE 5 mg Orally 2 times a day 1 tablet 12h May, 30 days Active BusPIRone HCl 15 MG TAKE ONE TABLET BY MOUTH TWICE DAILY 90 Active Glucocard Expression Test - subcutaneously Once a day use to test blood sugar 24h Sep, Active Glucocard Expression Monitor w/Device as directed Sep, Active Atorvastatin Calcium 40 MG TAKE ONE TABLET BY MOUTH ONCE DAILY. 90 Active Lisinopril-Hydrochlorothiazide 20-25 MG TAKE ONE TABLET BY MOUTH ONCE DAILY. 90 Active RESULTS Name Result Date Reference Range UA LONG DIP (IN HOUSE) 2017-11-29 Lot # [id number] Exp date 06/2018 Clarity clear Color yellow Odor none GLU 2+ SHAN negative KET negative SG <=1.005 BLO negative pH 5.0 Protein negative URO 0.2 NIT negative SARINA negative Lot # Exp date PROCEDURES Procedure Date Ordered Result Body Site URINALYSIS, AUTO, W/O SCOPE November 29, 2017 INSTRUCTIONS MEDICATIONS ADMINISTERED No Known Medications MEDICAL [...] 01/[address] Meredith 11/2017 Surgical History left shoulder x 2 Surgical History colonoscopy 10/30/2016
--- OUTSIDE RECORDS SUMMARY | 2018-12-11 19:40 | XMS REPORT ---
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 Active 2261714 Problem Pulmonary nodule R91.1 Active 664312906 Problem Type 2 diabetes mellitus with complication, without long-term current use of insulin E11.8 Active 69918781 Problem Polyneuropathy G62.9 Active 66705397 Problem MRSA (methicillin resistant staph aureus) culture positive Z22.322 Active 210135348 Problem Benign non-nodular prostatic hyperplasia with lower urinary tract symptoms N40.1 Active 29644484831280 Problem Mixed hyperlipidemia E78.2 Active 282096598 Problem Bilateral claudication of lower limb I73.9 Active 955510149 Problem Primary osteoarthritis of left knee M17.12 Active 812603079 Problem Essential hypertension I10 Active 34705612 Problem Diabetic polyneuropathy associated with type 2 diabetes mellitus E11.42 Active 29599851 ALLERGIES No Information ENCOUNTERS Encounter Location Date Diagnosis [place] [address] [address] Feb, [place] [id number] [place] [address] Nov, Benign non-nodular prostatic hyperplasia with lower urinary tract symptoms N40.1 and Acute epididymitis N45.1 [place] [id number] [place] [address]20- 9984 Sep, Neuropathy G62.9 [place] [address], [place] [address] Sep, Type 2 diabetes mellitus with complication, without long- term current use of insulin E11.8 ; Neuropathy G62.9 ; Bilateral leg weakness R29.898 and Cough R05 [place] [address] [address] Aug, Left ear pain H92.02 and Bilateral impacted cerumen H61.23 [place] [address] [address] Jul, [place] [address] [address]676 Jul, [place] [address] [address] 9756 Jul, Type 2 diabetes mellitus with complication, without long- term current use of insulin E11.8 ; Bilateral leg weakness R29.898 and Neuropathy G62.9 [facility] [address] [address] Jul, Acute non-recurrent maxillary sinusitis J01.00 [place] [address] [address] Jul, [place] [address] [address] 3704 Jul, Primary osteoarthritis of left knee M17.12 [place] [address] [address]- 65[address] Jul, Type 2 diabetes mellitus with complication, without long- term current use of insulin E11.8 [place] [address] [address]- 1717 Jun, [place] [address] 96[address]- 9328 Jun, Neuropathy G62.9 ; Bilateral leg weakness R29.898 ; Leg cramps R25.2 and Encounter for immunization Z23 [place] [address] [address]- 47[address] Jun, Bilateral claudication of lower limb I73.9 ; Essential hypertension I10 ; Mixed hyperlipidemia E78.2 and Diabetic polyneuropathy associated with type 2 diabetes mellitus E11.42 [place] [address] [address]- 0859 Jun, Pain in right leg M79.604 ; Pain of left leg M79.605 and Bilateral leg weakness R29.898 [place] [address] [address]- 3330 Jun, [place] [address] [address]- 4[address] Jun, Left lateral knee pain M25.562 and Bilateral leg weakness R29.898 [place] [address] 8[address]29- 6084 Jun, [place] [address] 11271- 6[address] May, Type 2 diabetes mellitus with complication, without long- term current use of insulin E11.8 ; Neuropathy G62.9 and Leg cramps R25.2 [place] [address] 14951- 6238 May, [place] [address] 0[address]31- 1662 Apr, Bilateral leg weakness R29.898 and Leg cramps R25.2 [place] [address] 5[address]99- 8110 Mar, [place] [address] 33871- 1234 Feb, Chronic seasonal allergic rhinitis due to other allergen J30.2 [place] [address] 0[address]- 9[address] January, Type 2 diabetes mellitus with complication, without long- term current use of insulin E11.8 and Neuropathy G62.9 [place] [address] 11386- 6869 Dec, [place] [id number] [place] [address] 81260- 9413 Dec, Pulmonary nodule R91.1 [place] [address] [place] [id number] [place] [address] 42474- 9523 Dec, [place] [address] [place] [id number] [place] [address] 13352- 0227 Dec, [place] [address] [address]607- 66[address] Nov, Pre-procedure lab exam Z01.[address] [address]- [address]85 Nov, Seasonal allergic rhinitis due to pollen J30.1 [place] [address] [place] [id number] [place] [address] 22372- 3728 Oct, Lower abdominal pain R10.30 ; Hematuria R31.9 ; Pulmonary nodule R91.1 and Type 2 diabetes mellitus with complication, without long-term current use of insulin E11.8 [place] [address] [place] [id number] [place] [address] 22520- 6734 Sep, Type 2 diabetes mellitus with complication, without long- term current use of insulin E11.8 and Ventral hernia without obstruction or gangrene K43.9 [place] [address] [place] [id number] [place] [address] 95015- 2072 Aug, [place] [address] 25737- 8159 Aug, Benign non-nodular prostatic hyperplasia with lower urinary tract symptoms N40.1 and Type 2 diabetes mellitus with complication, without long-term current use of insulin E11.8 [place] [address] [place] [address] 39874- 5316 Jul, Benign non-nodular prostatic hyperplasia with lower urinary tract symptoms N40.1 and Type 2 diabetes mellitus with complication, without long-term current use of insulin E11.8 [place] [address] [facility] [id number], [place] [address] Jul, Type 2 diabetes mellitus with complication, without long- term current use of insulin E11.8 [facility] [address] [facility] [id number], [place] [address] 8[address] Jul, [facility] [address] [facility] [id number], [place] [address] 3216 Jun, [facility] [address] [facility] [id number], [place] [address] 1804 Jun, [facility] [address] [facility] [id number], [place] [address]- 3476 Jun, Type 2 diabetes mellitus with complication, without long- term current use of insulin E11.8 [place] [address] [facility] [id number], [place] [address] 2637 Jun, [facility] [address] [facility] [id number], [place] [address]- 2962 May, [facility] [address] [facility] [id number], [place] [address] 5254 May, [facility] [address], [place] [address] 77[address] May, [facility] [address] [place] [id number], [place] [address] 12 May, 2016 Encounter to establish care Z76.89 ; Type 2 diabetes mellitus with complication, without long-term current use of insulin E11.8 ; Essential hypertension I10 ; Hyperlipidemia, unspecified hyperlipidemia type E78.5 ; 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 ; MRSA (methicillin resistant staph aureus) culture positive Z22.322 ; Pain in unspecified knee M25.569 ; Other chronic pain G89.29 and Neuropathy G62.9 [facility] [address] [facility] [id number], [place] [address]- 6040 09 May, 2016 Neck abscess L02.11 [place] [address] [place] [id number] [place] [address] 11976- 8236 06 May, 2016 Abscess, neck L02.11 [facility] [address] [facility] [id number], [place] [address] May, [facility] [address] [facility] [id number], [place] [address]- 2266 May, Abscess of neck L02.11 [facility] [address] [facility] [id number], [place] [address] Apr, Cellulitis, neck L03.221 [facility] [address] [facility] [id number], [place] [address] Apr, Abscess L02.91 [facility] [address], [place] [address] 490[address] January, [facility] [address], [place] [address]- 3806 Dec, [facility] [address] [place] [id number], [place] [address]- 5342 Dec, [facility] [address], [place] [address]- 5793 Oct, [facility] [address], [place] [address]- 1055 Oct, [facility] [address], [place] [address]- 3590 Sep, [facility] [address], [place] [address]- 3821 Sep, [facility] [address] [place] [id number], [place] [address]- 0701 Sep, [facility] [address] [place] [id number], [place] [address]- 1685 Sep, [facility] [address], [place] [address]- 1223 Sep, [facility] [address] [facility] [id number] [place] [address]- 9956 Sep, [facility] [place] [facility] [address] [id number] [place] [address]- 2056 Sep, [facility] [place] [facility] [address] [id number] [place] [address]- 5538 Jul, [facility] [place] [facility] [address] [id number] [place] [address]- 2645 Jul, [facility] [place] [facility] [address] [id number] [place] [address]- 3969 Jun, 2013 [facility] [place] [facility] [address] [id number] [place] [address]39 Jun, 2013 [facility] [place] [facility] [address] [id number] [place] [address]- 0005 Jun, 2013 [facility] [place] [facility] [address] [id number] [place] [address]- 7642 Jun, 2013 [facility] [place] [facility] [address] [id number] [place] [address]- 1943 Jun, 2013 [facility] [place] [facility] [address] [id number] [place] [address]- 6828 Jun, 2013 [facility] [place] [facility] [address] [facility] [id number] [place] [address]- 5404 Jun, 2013 [facility] [place] [facility] [address] [id number] [place] [address]- 6834 Jun, 2013 [facility] [place] [facility] [address] [id number] [place] [address]- 1379 Jun, [facility] [place] [facility] [address] [id number] [place] [address]- 1683 Jun, [facility] [place] [facility] [address] [id number] [place] [address]- 4050 Jun, [facility] [place] [facility] [address] [id number] [place] 4495 May, [facility] [place] [facility] [address] [id number] [place] [address]- 7701 30 Sep, 2013 [facility] [place] [facility] [address] [id number] [place] [address]- 5406 23 Sep, 2013 [facility] [place] [facility] [address] [id number] [place] [address]- 0610 23 Sep, 2013 [facility] [place] [facility] [address] [id number] [place] [address]- 2544 18 Sep, 2013 [facility] [place] [facility] [address] [id number] [place] [address]- 0390 18 Sep, 2013 [facility] [place] [facility] [address] [id number] [place] [address]- 5568 11 Sep, 2013 [facility] [place] [facility] [address] [id number] [place] [address]- 4848 11 May, 2013 [facility] [place] [facility] [address] [id number] [place] [address]- 4165 11 Sep, 2013 [facility] [place] [facility] [address] [id number] [place] [address]- 6952 11 Sep, 2013 [facility] [place] [facility] [address] [id number] [place] [address]- 9747 04 Sep, 2013 [facility] [place] [facility] [address] [id number], [place] [address]- 7343 04 Sep, 2013 [facility] [place] [facility] [address] [id number], [place] [address]- 1589 03 Sep, 2013 [facility] [place] [facility] [address] [id number] [place] [address]- 2542 03 Sep, 2013 [facility] [place] [facility] [address] [id number] [place] [address]- 9987 02 Sep, 2013 [facility] [place] [facility] [address] [id number] [place] [address]- 3441 02 Sep, 2013 [facility] [place] [facility] [address] [id number], [place] [address]- 6307 Apr, [facility] [place] [facility] [address] [id number] [place] [address]- 0218 Apr, [facility] [place] [facility] [address] [id number] [place] [address]- 8740 Apr, [facility] [place] [facility] [address] [facility] [id number] [place] [address]- 1811 Apr, [facility] [place] [facility] [address] [facility] [id number] [place] [address]- 9624 Mar, [facility] [place] [facility] [address] [facility] [id number] [place] [address]- 9733 Mar, [facility] [place] [facility] [address] [facility] [id number] [place] [address]- 5062 Mar, [facility] [place] [facility] [address] [facility] [id number] [place] [address]- 4415 Mar, [facility] [place] [facility] [address] [facility] [id number] [place] [address]- 0649 Mar, [facility] [place] [facility] [address] [facility] [id number], [place] [address]- 2809 Mar, [facility] [id number][place] [id number] January, [facility] [place] [facility] [address] [facility] [id number], [place] [address]- 5116 January, [facility] [id number][place] [id number] Dec, [facility] [place] [facility] [address] [facility] [id number], [place] [address]- 0794 Dec, [facility] [id number][place] [id number] Oct, [facility] [place] [facility] [address] [facility] [id number], [place] [address]- 4233 Oct, [facility] [id number][place] [address] Sep, [facility] [place] [facility] [address] [id number] [place] [address]- 3576 Sep, [facility] [place] [facility] [address] [id number] [place] [address]- 2546 Aug, [facility] [place] [facility] [address] [id number] [place] [address]- 2546 Aug, [facility] [place] [facility] [address] [id number] [place] [address]- 0826 Jul, [facility] [place] [facility] [address] [id number] [place] [address]- 1306 Jul, [facility] [place] [facility] [address] [facility] [id number], [place] [address]- 9216 Jul, [facility] [address] [place] [id number][place] [address] Jul, [facility] [place] [facility] [address] [facility] [id number], [place] [address]- 3316 Jul, [facility] [id number][place] [id number] Jul, [facility] [place] [facility] [address] [facility] [id number], [place] [address]- 2546 Jul, [facility] [place] [facility] [address] [facility] [id number], [place] [address]- 2546 Jul, [facility] [place] [facility] [address] [id number], [place] [address]- 2546 Jun, [facility] [place] [facility] [address] [id number], [place] [address]- 2546 Jun, [facility] [id number][place] [address] Jun, [facility] [place] [facility] [address] [id number], [place] [address]- 2546 Jun, [facility] [place] [facility] [address] [facility] [id number], [place] [address]- 8540 Apr, [facility] [address] [address] Apr, [facility] [address], [place] [address]- 2857 Feb, [facility] [address], [place] [address]- 3454 Dec, [facility] [address] [place] [id number], [place] [address]- 4126 Dec, [facility] [address] 20[address] Nov, [facility] [address] [place] [id number] [place] [address] 00258- 8325 Nov, [facility] [address], [place] [address]- 2936 Nov, [facility] [address], [place] [address]- 9715 Oct, [facility] [address], [place] [address]- 0888 Oct, [facility] [address], [place] [address]- 5871 Oct, [facility] [address], [place] [address]- 3376 May, [facility] [address], [place] [address]- 8554 Apr, [facility] [address], [place] [address]- 4861 Feb, [facility] [address], [place] [address]- 5759 Feb, IMMUNIZATIONS No Known Immunizations SOCIAL HISTORY Never Assessed REASON FOR VISIT Referrals for polyneuropathy PLAN OF CARE VITAL SIGNS MEDICATIONS Unknown [...] hypertension Medical History Other and unspecified hyperlipidemia Surgical History left shoulder x 2 Surgical History colonoscopy 10/30/2016
--- OUTSIDE RECORDS SUMMARY | 2018-12-11 19:41 | XMS REPORT ---
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 Active 3892675 Problem Pulmonary nodule R91.1 Active 700415529 Problem Type 2 diabetes mellitus with complication, without long-term current use of insulin E11.8 Active 06123089 Problem Polyneuropathy G62.9 Active 44299147 Problem MRSA (methicillin resistant staph aureus) culture positive Z22.322 Active 321503608 Problem Benign non-nodular prostatic hyperplasia with lower urinary tract symptoms N40.1 Active 33536362817976 Problem Mixed hyperlipidemia E78.2 Active 606453854 Problem Bilateral claudication of lower limb I73.9 Active 305516077 Problem Primary osteoarthritis of left knee M17.12 Active 748065293 Problem Essential hypertension I10 Active 56182161 Problem Diabetic polyneuropathy associated with type 2 diabetes mellitus E11.42 Active 02436832 ALLERGIES Substance Reaction Event Type Date Status Sepuv Unknown Drug Allergy Jun, Active ENCOUNTERS Encounter Location Date Diagnosis [facility] [id number], [place] [address] Feb, [facility] [id number], [place] [address] Nov, Benign non-nodular prostatic hyperplasia with lower urinary tract symptoms N40.1 and Acute epididymitis N45.1 [facility] [address] [id number], [place] [address] Sep, Neuropathy G62.9 [facility] [address] [id number], [place] [address] Sep, Type 2 diabetes mellitus with complication, without long- term current use of insulin E11.8 ; Neuropathy G62.9 ; Bilateral leg weakness R29.898 and Cough R05 [place] [address] [address] Aug, Left ear pain H92.02 and Bilateral impacted cerumen H61.23 [place] [address] [address] Jul, [facility] [address] [address] Jul, [place] [address] [address] Jul, Type 2 diabetes mellitus with complication, without long- term current use of insulin E11.8 ; Bilateral leg weakness R29.898 and Neuropathy G62.9 [facility] [address] [address] Jul, Acute non-recurrent maxillary sinusitis J01.00 [place] [address] [address] Jul, [place] [address] [address] Jul, Primary osteoarthritis of left knee M17.12 [place] [address] [address] Jul, Type 2 diabetes mellitus with complication, without long- term current use of insulin E11.8 [place] [address] [address] Jun, [place] [address] [address] Jun, Neuropathy G62.9 ; Bilateral leg weakness R29.898 ; Leg cramps R25.2 and Encounter for immunization Z23 [place] [address] [address] Jun, Bilateral claudication of lower limb I73.9 ; Essential hypertension I10 ; Mixed hyperlipidemia E78.2 and Diabetic polyneuropathy associated with type 2 diabetes mellitus E11.42 [place] [id number] [place] [address] Jun, Pain in right leg M79.604 ; Pain of left leg M79.605 and Bilateral leg weakness R29.898 [place] [address] [address] Jun, [place] [address] [address] Jun, Left lateral knee pain M25.562 and Bilateral leg weakness R29.898 [place] [id number] [place] [address]- 7843 Jun, [place] [address] [address] May, Type 2 diabetes mellitus with complication, without long- term current use of insulin E11.8 ; Neuropathy G62.9 and Leg cramps R25.2 [place] [address] [address]- [address] May, [place] [id number] [place] [address]- [address] Apr, Bilateral leg weakness R29.898 and Leg cramps R25.2 [place] [id number] [place] [address]- 6455 Mar, [place] [id number] [place] [address]- 1580 Feb, Chronic seasonal allergic rhinitis due to other allergen J30.2 [place] [id number] [place] [address]- 7595 January, Type 2 diabetes mellitus with complication, without long- term current use of insulin E11.8 and Neuropathy G62.9 [place] [id number] [place] [address]- 1053 Dec, [place] [id number] [place] [address]87- 5453 Dec, Pulmonary nodule R91.1 [place] [id number] [place] [address]- 3723 Dec, [place] [address] [address]- [address] Dec, [place] [id number] [place] [address]- 0[address] Nov, Pre-procedure lab exam Z01.812 [place] [address] [address]- [address] Nov, Seasonal allergic rhinitis due to pollen J30.1 [place] [id number] [place] [address]97- 4144 Oct, Lower abdominal pain R10.30 ; Hematuria R31.9 ; Pulmonary nodule R91.1 and Type 2 diabetes mellitus with complication, without long-term current use of insulin E11.8 [place] [id number] [place] [address]- 2040 Sep, Type 2 diabetes mellitus with complication, without long- term current use of insulin E11.8 and Ventral hernia without obstruction or gangrene K43.9 [place] [id number] [place] [address]- 9645 Aug, [place] [id number] [place] [address]- 8616 Aug, Benign non-nodular prostatic hyperplasia with lower urinary tract symptoms N40.1 and Type 2 diabetes mellitus with complication, without long-term current use of insulin E11.8 [place] [address] [place] [address]- 75[address] Jul, Benign non-nodular prostatic hyperplasia with lower urinary tract symptoms N40.1 and Type 2 diabetes mellitus with complication, without long-term current use of insulin E11.8 [facility] [address] [facility] [id number] [address] Jul, Type 2 diabetes mellitus with complication, without long- term current use of insulin E11.8 [facility] [address] [facility] [id number], [place] [address] Jul, [facility] [address], [place] [address] Jun, [facility] [address] [facility] [id number], [place] [address] Jun, [place] [address], [place] [address] Jun, Type 2 diabetes mellitus with complication, without long- term current use of insulin E11.8 [place] [address], [place] [address] Jun, [facility] [address], [place] [address] May, [facility] [address], [place] [address] 119[address] May, [facility] [id number], [place] [address] May, [facility] [id number], [place] [address] 12 May, 2016 Encounter to establish care Z76.89 ; Type 2 diabetes mellitus with complication, without long-term current use of insulin E11.8 ; Essential hypertension I10 ; Hyperlipidemia, unspecified hyperlipidemia type E78.5 ; 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 ; MRSA (methicillin resistant staph aureus) culture positive Z22.322 ; Pain in unspecified knee M25.569 ; Other chronic pain G89.29 and Neuropathy G62.9 [place] [id number], [place] [address] 09 May, 2016 Neck abscess L02.11 [place] [address] [place] [address]- [address] 06 May, 2016 Abscess, neck L02.11 [facility] [address] [place] [address] 04 May, 2016 [facility] [address] [place] [address] 02 May, 2016 Abscess of neck L02.11 [facility] [address] [place] [address], [place] [address] Apr, Cellulitis, neck L03.221 [facility] [address] [place] [address], [place] [address] Apr, Abscess L02.91 [facility] [address] [place] [address]- 112[address] January, [facility] [address] [place] [address] 69295- 9200 Dec, [facility] [address], [place] [address]- 87[address] Dec, [facility] [address] [place] [address]- 450[address] Oct, [facility] [address] [place] [address]- 07[address] Oct, [facility] [address], [place] [address]- 9[address] Sep, [facility] [address], [place] [address]- 4764 Sep, [facility] [address], [place] [address]- 9720 Sep, [facility] [address], [place] [address]- 8856 Sep, [facility] [address], [place] [address]- [address] Sep, [facility] [place] [facility] [address] [id number] [place] [address]- [address] Sep, [facility] [place] [facility] [address] [id number] [place] [address]- 9348 Sep, [facility] [place] [facility] [address] [id number] [place] [address]- 4565 Jul, [facility] [place] [facility] [address] [id number] [place] [address]- 7640 Jul, [facility] [place] [facility] [address] [id number] [place] [address]- 3586 Jun, [facility] [place] [facility] [address] [id number] [place] [address]- 3805 Jun, [facility] [place] [facility] [address] [id number] [place] [address]- 9605 Jun, [facility] [place] [facility] [address] [id number], [place] [address]- 2745 Jun, [facility] [place] [facility] [address] [id number], [place] [address]- 8151 Jun, [facility] [place] [facility] [address] [id number], [place] [address]- 5844 Jun, [facility] [place] [facility] [address] [id number], [place] [address]- 5314 Jun, 2013 [facility] [place] [facility] [address] [id number], [place] [address]- 3408 Jun, [facility] [place] [facility] [address] [id number], [place] [address]- 0215 Jun, [facility] [place] [facility] [address] [id number], [place] [address]- 2849 Jun, [facility] [place] [facility] [address] [id number], [place] [address]- 9143 Jun, [facility] [place] [facility] [address] [id number] [place] [address]- 6043 30 Sep, 2013 [facility] [place] [facility] [address] [id number] [place] [address] 2546 30 Sep, 2013 [facility] [place] [facility] [address] [id number] [place] [address] 2546 23 Sep, 2013 [facility] [place] [facility] [address] [id number] [place] [address] 2546 23 Sep, 2013 [facility] [place] [facility] [address] [id number] [place] [address] 2546 18 Sep, 2013 [facility] [place] [facility] [address] [id number] [place] [address] 2541 18 Sep, 2013 [facility] [place] [facility] [address] [id number] [place] [address] 2548 11 Sep, 2013 [facility] [place] [facility] [address] [id number] [place] [address]- 7154 11 Sep, 2013 [facility] [place] [facility] [address] [id number] [place] [address] 2545 11 Sep, 2013 [facility] [place] [facility] [address] [id number] [place] [address] 2546 11 Sep, 2013 [facility] [place] [facility] [address] [id number] [place] [address] 2548 04 Sep, 2013 [facility] [place] [facility] [address] [id number] [place] [address] 2546 04 Sep, 2013 [facility] [place] [facility] [address] [id number] [place] [address] 2546 03 Sep, 2013 [facility] [place] [facility] [address] [id number] [place] [address] 2546 03 Sep, 2013 [facility] [place] [facility] [address] [id number] [place] [address]- 2546 02 Sep, 2013 [facility] [place] [facility] [address] [id number] [place] [address] 2547 02 May, 2014 [facility] [place] [facility] [address] [id number] [place] [address]- 4562 Apr, [facility] [place] [facility] [address] [id number] [place] [address]- 0330 Apr, [facility] [place] [facility] [address] [id number] [place] [address]- 5196 Apr, [facility] [place] [facility] [address] [id number] [place] [address]- 2003 Apr, [facility] [place] [facility] [address] [id number] [place] [address]- 2611 Mar, [facility] [place] [facility] [address] [id number] [place] [address]- 5563 Mar, [facility] [place] [facility] [address] [id number] [place] [address]- 0923 Mar, [facility] [place] [facility] [address] [id number] [place] [address]- 6437 Mar, [facility] [place] [facility] [address] [id number] [place] [address]- 2160 Mar, [facility] [place] [facility] [address] [id number] [place] [address]- 7322 Mar, [facility] [address] [facility] [facility] [id number] [address] January, [facility] [place] [facility] [address] [id number] [place] [address]- 6246 January, [facility] [address] [id number][place] [address] Dec, [facility] [place] [facility] [address] [id number] [place] [address]- 6241 Dec, [facility] [address] [facility] [facility] [id number][place] [address] Oct, [facility] [place] [facility] [address] [id number] [place] [address]- 0611 Oct, [facility] [address] [id number][place] [address] Sep, [facility] [address] [facility] [id number], [place] [address]- 478[address] Sep, [facility] [place] [facility] [address] [id number] [place] [address]- 0666 Aug, [facility] [place] [facility] [address] [facility] [id number] [place] [address]- 2126 Aug, [facility] [place] [facility] [address] [id number] [place] [address]- 1542 Jul, [facility] [place] [facility] [id number] [place] [address]- 4043 Jul, [facility] [id number], [place] [address]- 6316 Jul, [facility] [id number][place] [address] Jul, [facility] [address] [facility] [id number], [place] [address]- 0049 Jul, [facility] [address] [id number] [address] Jul, [facility] [id number], [place] [address]- 7656 Jul, [facility] [place] [facility] [id number], [place] [address]- 9446 Jul, [facility] [place] [facility] [address] [facility] [id number], [place] [address]- 2546 Jun, [facility] [place] [facility] [address] [facility] [id number], [place] [address]- 2186 Jun, [facility] [address] [facility] [id number][place] [address] Jun, [facility] [place] [facility] [id number], [place] [address]- 2546 Jun, [facility] [place] [facility] [address], [place] [address]- 7[address] Apr, [facility] [address], [place] [address]- 4795 Apr, [facility] [id number] [address] Feb, [facility] [address], [place] [address]- 4455 Dec, [facility] [address] [facility] [id number] [place] [address] Dec, [facility] [address] [place] [address]- 6835 Nov, [facility] [address] [place] [address]- 4526 Nov, [facility] [address], [place] [address]- 5768 Nov, [facility] [address], [place] [address]- 7615 Oct, [facility] [address], [place] [address]- 4598 Oct, [facility] [address] [address] Oct, [facility] [address], [place] [address]- 2344 May, [facility] [id number], [place] [address]- 6920 Apr, [facility] [address], [place] [address]- 9414 Feb, [facility] [id number] [address] Feb, IMMUNIZATIONS No Known Immunizations SOCIAL HISTORY Never Assessed REASON FOR VISIT Difficulty walking for two days, viet Tanner MA, PT went the ER and was diagnosted with [facility] PLAN OF CARE Activity Details Follow Up 2 Weeks Reason:leg weakness VITAL SIGNS Height 67 in 2017-07-08 Weight 231.7 lbs 2017-07-08 Temperature 97.7 degrees Fahrenheit 2017-07-08 Heart Rate 88 bpm 2017-07-08 Respiratory Rate 18 2017-07-08 BMI 36.29 kg/m2 2017-07-08 Blood pressure systolic 122 mmHg 2017-07-08 Blood pressure diastolic 82 mmHg 2017-07-08 MEDICATIONS Medication Instructions Dosage Frequency Start Date End Date Duration Status Proscar 5 mg Orally Once a day 1 tablet 24h 30 Active Doxycycline Hyclate 100 MG Orally Twice a day 1 capsule 12h Active Metformin HCl 1000 MG TAKE ONE TABLET BY MOUTH TWICE DAILY WITH MEALS 30 Active Atorvastatin Calcium 40 MG TAKE ONE TABLET BY MOUTH ONCE DAILY. 30 Active BusPIRone HCl 15 MG TAKE ONE TABLET BY MOUTH TWICE DAILY 30 Active Cinnamon 500 MG Active Fish Oil 1360 MG Orally Once a day 1 capsule 24h Active Lisinopril-Hydrochlorothiazide 20-25 MG TAKE ONE TABLET BY MOUTH ONCE DAILY. 30 Active Trulicity 0.75 MG/0.5ML Subcutaneous once weekly Inject 0.5ML Jun, 90 days Active Aspirin 81 MG Orally Once a day 1 tablet 24h Active Glucocard Expression Test - subcutaneously Once a day use to test blood sugar 24h Sep, Active GlipiZIDE 5 mg Orally 2 times a day 1 tablet 12h May, 30 days Active Tegretol 200 mg Orally Once a day at bedtime 1 tablet Apr, Active Gabapentin 800 MG Orally Three times a day 1 capsule 8h 30 Active Glucocard Expression Monitor w/Device as directed Sep, Active RESULTS Name Result Date Reference Range Xray : Knee, Left 3 views (IN HOUSE) 2017-07-08 PROCEDURES Procedure Date Ordered Result Body Site EMG, 2 LIMBS 2017-07-08 NOT PERFORMED/SEE INTERNAL NOTES X-RAY EXAM OF KNEE, 3 Jul 08, 2017 INSTRUCTIONS MEDICATIONS ADMINISTERED No Known Medications [...]
--- OUTSIDE RECORDS SUMMARY | 2018-12-11 19:41 | XMS REPORT ---
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 Active 2679449 Problem Pulmonary nodule R91.1 Active 820528523 Problem Type 2 diabetes mellitus with complication, without long-term current use of insulin E11.8 Active 43935083 Problem Polyneuropathy G62.9 Active 13359135 Problem MRSA (methicillin resistant staph aureus) culture positive Z22.322 Active 386408496 Problem Benign non-nodular prostatic hyperplasia with lower urinary tract symptoms N40.1 Active 56274687963331 Problem Mixed hyperlipidemia E78.2 Active 288992728 Problem Bilateral claudication of lower limb I73.9 Active 981769024 Problem Primary osteoarthritis of left knee M17.12 Active 000018857 Problem Essential hypertension I10 Active 14548864 Problem Diabetic polyneuropathy associated with type 2 diabetes mellitus E11.42 Active 46787496 ALLERGIES Substance Reaction Event Type Date Status Sepuv Unknown Drug Allergy Jun, Active ENCOUNTERS Encounter Location Date Diagnosis [facility] [id number] [address] Feb, [facility] [id number], [place] [address] Nov, Benign non-nodular prostatic hyperplasia with lower urinary tract symptoms N40.1 and Acute epididymitis N45.1 [facility] [id number] [address] Sep, Neuropathy G62.9 [facility] [id number] [address] Sep, Type 2 diabetes mellitus with complication, without long- term current use of insulin E11.8 ; Neuropathy G62.9 ; Bilateral leg weakness R29.898 and Cough R05 [place] [address] [address] Aug, Left ear pain H92.02 and Bilateral impacted cerumen H61.23 [place] [address] [address] Jul, [facility] [address] [address] Jul, [place] [address] [address] Jul, Type 2 diabetes mellitus with complication, without long- term current use of insulin E11.8 ; Bilateral leg weakness R29.898 and Neuropathy G62.9 [facility] [address] [address] Jul, Acute non-recurrent maxillary sinusitis J01.00 [place] [address] [address] Jul, [place] [address] [address] Jul, Primary osteoarthritis of left knee M17.12 [place] [address] [address] Jul, Type 2 diabetes mellitus with complication, without long- term current use of insulin E11.8 [place] [address] [address] Jun, [place] [address] [address] Jun, Neuropathy G62.9 ; Bilateral leg weakness R29.898 ; Leg cramps R25.2 and Encounter for immunization Z23 [place] [address] [address] Jun, Bilateral claudication of lower limb I73.9 ; Essential hypertension I10 ; Mixed hyperlipidemia E78.2 and Diabetic polyneuropathy associated with type 2 diabetes mellitus E11.42 [place] [address] [place] [id number] [place] [address]- [address] Jun, Pain in right leg M79.604 ; Pain of left leg M79.605 and Bilateral leg weakness R29.898 [place] [address] [address] Jun, [place] [address] [address] Jun, Left lateral knee pain M25.562 and Bilateral leg weakness R29.898 [place] [id number] [place] [address]- [address]81 Jun, [place] [address] [address] May, Type 2 diabetes mellitus with complication, without long- term current use of insulin E11.8 ; Neuropathy G62.9 and Leg cramps R25.2 [place] [address] [address]- [address] May, [place] [id number] [place] [address]- 77[address] Apr, Bilateral leg weakness R29.898 and Leg cramps R25.2 [place] [id number] [place] [address]- 38[address] Mar, [place] [id number] [place] [address]- 2579 Feb, Chronic seasonal allergic rhinitis due to other allergen J30.2 [place] [id number] [place] [address]- 95[address] January, Type 2 diabetes mellitus with complication, without long- term current use of insulin E11.8 and Neuropathy G62.9 [place] [id number] [place] [address]- 5879 Dec, [place] [id number] [place] [address] 8[address]14- 5484 Dec, Pulmonary nodule R91.1 [place] [id number] [place] [address]- 9691 Dec, [place] [address] [address] Dec, [place] [id number] [place] [address]689- 1089 Nov, Pre-procedure lab exam Z01.812 [place] [address] [address] Nov, Seasonal allergic rhinitis due to pollen J30.1 [place] [id number] [place] [address]- 8369 Oct, Lower abdominal pain R10.30 ; Hematuria R31.9 ; Pulmonary nodule R91.1 and Type 2 diabetes mellitus with complication, without long-term current use of insulin E11.8 [place] [id number] [place] [address]- 7791 Sep, Type 2 diabetes mellitus with complication, without long- term current use of insulin E11.8 and Ventral hernia without obstruction or gangrene K43.9 [place] [id number] [place] [address]- 0377 Aug, [place] [id number] [place] [address]- 4[address] Aug, Benign non-nodular prostatic hyperplasia with lower urinary tract symptoms N40.1 and Type 2 diabetes mellitus with complication, without long-term current use of insulin E11.8 [place] [address] [place] [address]- 7[address] Jul, Benign non-nodular prostatic hyperplasia with lower urinary tract symptoms N40.1 and Type 2 diabetes mellitus with complication, without long-term current use of insulin E11.8 [facility] [address] [facility] [id number] [address] Jul, Type 2 diabetes mellitus with complication, without long- term current use of insulin E11.8 [facility] [address] [facility] [id number], [place] [address] Jul, [facility] [address] [address] Jun, [facility] [address] [facility] [id number], [place] [address] Jun, [place] [address], [place] [address] Jun, Type 2 diabetes mellitus with complication, without long- term current use of insulin E11.8 [place] [address], [place] [address] Jun, [facility] [address], [place] [address] May, [facility] [address], [place] [address] May, [facility] [id number], [place] [address] May, [facility] [id number], [place] [address] 12 May, 2016 Encounter to establish care Z76.89 ; Type 2 diabetes mellitus with complication, without long-term current use of insulin E11.8 ; Essential hypertension I10 ; Hyperlipidemia, unspecified hyperlipidemia type E78.5 ; 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 [address] [place] [address] 04 May, 2016 [facility] [address] [place] [address] 02 May, 2016 Abscess of neck L02.11 [facility] [address] [place] [address], [place] [address] Apr, Cellulitis, neck L03.221 [facility] [address] [place] [address], [place] [address] Apr, Abscess L02.91 [facility] [address] [place] [address]- [address] January, [facility] [address] [place] [address] 7[address]99- 4268 Dec, [facility] [address], [place] [address]- 4[address] Dec, [facility] [address] [place] [address]- 6[address] Oct, [facility] [address] [place] [address]- 0838 Oct, [facility] [address], [place] [address]- 07[address] Sep, [facility] [address], [place] [address]- [address] Sep, [facility] [address], [place] [address]- 3[address] Sep, [facility] [address], [place] [address]- 4[address] Sep, [facility] [address], [place] [address]- 17[address] Sep, [facility] [place] [facility] [address] [id number] [place] [address]- 0196 Sep, [facility] [place] [facility] [address] [id number] [place] [address]- 5378 Sep, [facility] [place] [facility] [address] [id number] [place] [address]- 4783 Jul, [facility] [place] [facility] [address] [id number] [place] [address]- 0861 Jul, [facility] [place] [facility] [address] [id number] [place] [address]- 1657 Jun, [facility] [place] [facility] [address] [id number] [place] [address]- 5194 Jun, [facility] [place] [facility] [address] [id number] [place] [address]- [address] Jun, [facility] [place] [facility] [address] [id number], [place] [address]- 8[address] Jun, [facility] [place] [facility] [address] [id number], [place] [address]- 0[address] Jun, [facility] [place] [facility] [address] [id number], [place] [address]- [address] Jun, [facility] [place] [facility] [address] [id number], [place] [address]- 9[address] Jun, 2013 [facility] [place] [facility] [address] [id number], [place] [address]- 4987 Jun, [facility] [place] [facility] [address] [id number], [place] [address]- 1420 Jun, [facility] [place] [facility] [address] [id number], [place] [address]- 8561 Jun, [facility] [place] [facility] [address] [id number], [place] [address]- 2740 Jun, [facility] [place] [facility] [address] [id number] [place] [address]- 5250 30 Sep, 2013 [facility] [place] [facility] [address] [id number] [place] [address] 2546 30 Sep, 2013 [facility] [place] [facility] [address] [id number] [place] [address] 2546 23 Sep, 2013 [facility] [place] [facility] [address] [id number] [place] [address] 2546 23 Sep, 2013 [facility] [place] [facility] [address] [id number] [place] [address] 2546 18 Sep, 2013 [facility] [place] [facility] [address] [id number] [place] [address] 2545 18 Sep, 2013 [facility] [place] [facility] [address] [id number] [place] [address] 2540 11 Sep, 2013 [facility] [place] [facility] [address] [id number] [place] [address]- 9727 11 Sep, 2013 [facility] [place] [facility] [address] [id number] [place] [address] 2548 11 Sep, 2013 [facility] [place] [facility] [address] [id number] [place] [address] 2546 11 Sep, 2013 [facility] [place] [facility] [address] [id number] [place] [address] 254 04 Sep, 2013 [facility] [place] [facility] [address] [id number] [place] [address] 2546 04 Sep, 2013 [facility] [place] [facility] [address] [id number] [place] [address] 2546 03 Sep, 2013 [facility] [place] [facility] [address] [id number] [place] [address] 2546 03 Sep, 2013 [facility] [place] [facility] [address] [id number] [place] [address]- 2546 02 Sep, 2013 [facility] [place] [facility] [address] [id number] [place] [address] 2547 02 May, 2014 [facility] [place] [facility] [address] [id number] [place] [address]- 4435 Apr, [facility] [place] [facility] [address] [id number] [place] [address]- 7889 Apr, [facility] [place] [facility] [address] [id number] [place] [address]- 2734 Apr, [facility] [place] [facility] [address] [id number] [place] [address]- 3867 Apr, [facility] [place] [facility] [address] [id number] [place] [address]- 3988 Mar, [facility] [place] [facility] [address] [id number] [place] [address]- 0008 Mar, [facility] [place] [facility] [address] [id number] [place] [address]- 6184 Mar, [facility] [place] [facility] [address] [id number] [place] [address]- 3428 Mar, [facility] [place] [facility] [address] [id number] [place] [address]- 6407 Mar, [facility] [place] [facility] [address] [id number] [place] [address]- 0177 Mar, [facility] [place] [address] [facility] [id number] [place] [address] January, [facility] [place] [facility] [address] [id number] [place] [address]- 8570 January, [facility] [place] [address] [id number] [place] [id number] Dec, [facility] [place] [facility] [address] [id number] [place] [address]- 3499 Dec, [facility] [address] [facility] [id number] [place] [id number] Oct, [facility] [place] [facility] [address] [id number] [place] [address]- 1692 Oct, [facility] [place] [address] [id number] [place] [address] Sep, [facility] [address] [facility] [id number], [place] [address]- [address] Sep, [facility] [place] [facility] [address] [id number] [place] [address]- 9296 Aug, [facility] [place] [facility] [address] [facility] [id number] [place] [address]- 8155 Aug, [facility] [place] [facility] [address] [id number] [place] [address]- 9454 Jul, [facility] [place] [facility] [id number] [place] [address]- 3[address] Jul, [facility] [id number], [place] [address]- 8142 Jul, [facility] [place] [id number] [place] [address] Jul, [facility] [address] [facility] [id number], [place] [address]- 3814 Jul, [facility] [place] [address] [id number] [id number] Jul, [facility] [id number], [place] [address]- 8[address] Jul, [facility] [place] [facility] [id number], [place] [address]- 8996 Jul, [facility] [place] [facility] [address] [facility] [id number], [place] [address]- 2546 Jun, [facility] [place] [facility] [address] [facility] [id number], [place] [address]- 2696 Jun, [facility] [address] [facility] [id number] [place] [address] Jun, [facility] [place] [facility] [id number], [place] [address]- 2546 Jun, [facility] [place] [facility] [address], [place] [address]- 3[address] Apr, [facility] [address], [place] [address]- 6[address] Apr, [facility] [address], [place] [address]- 7827 Feb, [facility] [address], [place] [address]- 0103 Dec, [facility] [address], [place] [address]- 8787 Dec, [facility] [address] [place] [address]- 2451 Nov, [facility] [address], [place] [address]- 04[address] Nov, [facility] [address], [place] [address]- 3199 Nov, [facility] [address], [place] [address]- 7856 Oct, [facility] [address], [place] [address]- [address] Oct, [facility] [address], [place] [address]- 6739 Oct, [facility] [address] [address] May, [facility] [id number] [address] Apr, [facility] [address], [place] [address]- 77[address] Feb, [facility] [id number] [address] Feb, IMMUNIZATIONS Vaccine Route Administration Date Status FLUARIX QUAD (3 AND UP) 2017 IM Intramuscular Jul 22, 2017 Administered SOCIAL HISTORY Never Assessed REASON FOR VISIT leg weakness f/u--H Wilner BYNUM PLAN OF CARE Activity Details Follow Up 4 Weeks Reason:leg weakness VITAL SIGNS Height 67 in 2017-07-22 Weight 227.2 lbs 2017-07-22 Temperature 97.8 degrees Fahrenheit 2017-07-22 Heart Rate 94 bpm 2017-07-22 Respiratory Rate 20 2017-07-22 BMI 35.58 kg/m2 2017-07-22 Blood pressure systolic 138 mmHg 2017-07-22 Blood pressure diastolic 82 mmHg 2017-07-22 MEDICATIONS Medication Instructions Dosage Frequency Start Date End Date Duration Status Lisinopril-Hydrochlorothiazide 20-25 MG TAKE ONE TABLET BY MOUTH ONCE DAILY. 30 Active BusPIRone HCl 15 MG TAKE ONE TABLET BY MOUTH TWICE DAILY 30 Active Metformin HCl 1000 MG TAKE ONE TABLET BY MOUTH TWICE DAILY WITH MEALS 30 Active Atorvastatin Calcium 40 MG TAKE ONE TABLET BY MOUTH ONCE DAILY. 30 Active Aspirin 81 MG Orally Once a day 1 tablet 24h Active Glucocard Expression Monitor w/Device as directed Sep, Active Tegretol 200 mg Orally Once a day at bedtime 1 tablet Apr, Active Gabapentin 800 MG Orally Three times a day 1 1/2 capsule 8h Active Trulicity 0.75 MG/0.5ML Subcutaneous once weekly Inject 0.5ML Jun, 90 days Active Glucocard Expression Test - subcutaneously Once a day use to test blood sugar 24h Sep, Active Cinnamon 500 MG Active GlipiZIDE 5 mg Orally 2 times a day 1 tablet 12h May, 30 days Active Fish Oil 1360 MG Orally Once a day 1 capsule 24h Active Proscar 5 mg Orally Once a day 1 tablet 24h 30 Active RESULTS No Results PROCEDURES Procedure Date Ordered Result Body Site FLUARIX QUAD (3 AND UP) 2016Jul 22, 2017 SINGLE IMMUNIZATION ADMIN Jul 22, 2017 INSTRUCTIONS MEDICATIONS ADMINISTERED No Known Medications [...]
--- OUTSIDE RECORDS SUMMARY | 2018-12-11 19:41 | XMS REPORT ---
Author Author LY PRINGLE [facility] eClinicalWorks Address Unknown Phone Unavailable Care Team Providers Care Attendant Coin Operated Laundry Name Role Phone LY PRINGLE CP Unavailable Allergies, Adverse Reactions, Alerts Substance Reaction Event Type Januvia Info Not Available Drug Allergy Problems Problem Type Condition Code Onset Dates Condition Status Problem Elevated blood pressure reading without diagnosis of hypertension 796.2 Active Problem Diabetes mellitus without mention of complication, type II or unspecified type, not stated as uncontrolled 250.00 Active Problem Periapical abscess without sinus 522.5 Active Problem MRSA (methicillin resistant staph aureus) culture positive Z22.322 Active Problem Unspecified otitis media 382.9 Active Problem 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 Active Problem Other and unspecified hyperlipidemia 272.4 Active Problem Unspecified essential hypertension 401.9 Active Problem Mononeuritis of unspecified site 355.9 Active Problem Dermatophytosis of nail 110.1 Active Assessment Other chronic pain G89.29 Active Assessment Pain in unspecified knee M25.569 Active Assessment Neuropathy G62.9 Active Assessment Hyperlipidemia, unspecified hyperlipidemia type E78.5 Active Assessment Essential hypertension I10 Active Assessment MRSA (methicillin resistant staph aureus) culture positive Z22.322 Active Assessment Type 2 diabetes mellitus with complication, without long-term current use of insulin E11.8 Active Assessment 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 Active Assessment Encounter to establish care Z76.89 Active Medications Medication Code System Code Instructions Start Date End Date Status Dosage Metformin HCl [facility] [address]-70 1000 MG Orally Twice a day 1 tablet with meals Atorvastatin Calcium [facility] [address]-16 40 mg Orally Once a day 1 tablet Gabapentin [facility] [address]-21 600 MG Orally Three times a day Oct 01, 2014 1 capsule BusPIRone HCl [facility] [address]-97 15 MG Orally Twice a day 1 tablet Bactrim DS [facility] [address]-30 800-160 MG Orally Twice a day May 29, 2016 Jun 11, 2016 1 tablet Lisinopril-Hydrochlorothiazide [facility] [address]-53 20-25 MG Orally Once a day May 29, 2016 1 tablet Aspirin [facility] [address]-97 81 MG Orally Once a day 1 tablet GlipiZIDE [facility] [address]-62 10 mg Orally Once a day 1 tablet Procedures Procedure Coding System Code Date Office Visit, New Pt., Level 3 CPT-4 38523 Jun 11, 2016 GLYCATED HEMOGLOBIN TEST CPT-4 98098 Jun 11, 2016 Vital Signs Date/Time: Jun 11, 2016 Cardiac Monitoring Heart Rate 100 bpm Weight 244.5 lbs Height 67 in BMI 38.29 Index Blood Pressure Diastolic 70 mmHg Blood Pressure Systolic 140 mmHg Results Name Result Date Reference Range Unit Abnormality Flag A1C (IN HOUSE) ----A1C IN HOUSE 10.3 20160611 4.3 - 5.6 % ----Previous A1c None Available [id number] ----Lot [id number] ----Exp date [id number] Summary Purpose eClinicalWorks Submission
--- OUTSIDE RECORDS SUMMARY | 2018-12-11 19:41 | XMS REPORT ---
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 Active 6086814 Problem Pulmonary nodule R91.1 Active 202903606 Problem Benign non-nodular prostatic hyperplasia with lower urinary tract symptoms N40.1 Active 908560298 ALLERGIES Substance Reaction Event Type Date Status Andreuvia Unknown Drug Allergy Nov, Active SOCIAL HISTORY Never Assessed PLAN OF CARE Activity Details Follow Up prn Reason: VITAL SIGNS Height 67 in 2016-12-06 Weight 246 lbs 2016-12-06 Temperature 97.7 degrees Fahrenheit 2016-12-06 Heart Rate 88 bpm 2016-12-06 Respiratory Rate 20 2016-12-06 Oximetry on room air:96 % 2016-12-06 BMI 38.52 kg/m2 2016-12-06 Blood pressure systolic 130 mmHg 2016-12-06 Blood pressure diastolic 80 mmHg 2016-12-06 MEDICATIONS Medication Instructions Dosage Frequency Start Date End Date Duration Status Trulicity 0.75 MG/0.5ML Subcutaneous once weekly Inject 0.5ML Jun, 90 days Active Fish Oil 1360 MG Orally Once a day 1 capsule 24h Active Aspirin 81 MG Orally Once a day 1 tablet 24h Active Glucocard Expression Monitor w/Device as directed Sep, Active Cinnamon 500 MG Active Atorvastatin Calcium 40 MG TAKE ONE TABLET BY MOUTH ONCE DAILY. 30 Active Claritin 10 mg Orally Once a day in AM 1 tablet Nov, Feb, 30 day(s) Active Gabapentin 600 MG Orally Three times a day 1 capsule 8h 30 Active Garlic 1500 1500 MG Active Lisinopril-Hydrochlorothiazide 20-25 MG TAKE ONE TABLET BY MOUTH ONCE DAILY. 30 Active GlipiZIDE 10 MG TAKE ONE TABLET BY MOUTH ONCE DAILY. 30 Active Proscar 5 mg Orally Once a day 1 tablet 24h 10 Jul, 2016 Active Glucocard Expression Test - subcutaneously Once a day use to test blood sugar 24h Sep, Active Metformin HCl 1000 MG TAKE ONE TABLET BY MOUTH TWICE DAILY WITH MEALS. 30 Active BusPIRone HCl 15 MG TAKE ONE TABLET BY MOUTH TWICE DAILY 30 Active RESULTS No Results PROCEDURES Procedure Date Ordered Result Body Site MEASURE BLOOD OXYGEN LEVEL December 06, 2016 IMMUNIZATIONS No Known Immunizations MEDICAL (GENERAL) HISTORY Type Description Date Medical [...]
--- OUTSIDE RECORDS SUMMARY | 2018-12-11 19:41 | XMS REPORT ---
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 Active 5789558 Problem Pulmonary nodule R91.1 Active 062204400 Problem Type 2 diabetes mellitus with complication, without long-term current use of insulin E11.8 Active 86257989 Problem Polyneuropathy G62.9 Active 29922682 Problem MRSA (methicillin resistant staph aureus) culture positive Z22.322 Active 182834689 Problem Benign non-nodular prostatic hyperplasia with lower urinary tract symptoms N40.1 Active 03687094342561 Problem Mixed hyperlipidemia E78.2 Active 225458142 Problem Bilateral claudication of lower limb I73.9 Active 130766203 Problem Primary osteoarthritis of left knee M17.12 Active 436105503 Problem Essential hypertension I10 Active 81150917 Problem Diabetic polyneuropathy associated with type 2 diabetes mellitus E11.42 Active 21335105 ALLERGIES No Information ENCOUNTERS Encounter Location Date Diagnosis [place] [address] [address] Feb, [place] [address] [place] [address] Nov, Benign non-nodular prostatic hyperplasia with lower urinary tract symptoms N40.1 and Acute epididymitis N45.1 [place] [address] [place] [address] Sep, Neuropathy G62.9 [place] [address] [address] Sep, Type 2 diabetes mellitus with complication, without long- term current use of insulin E11.8 ; Neuropathy G62.9 ; Bilateral leg weakness R29.898 and Cough R05 [place] [address] [address] Aug, Left ear pain H92.02 and Bilateral impacted cerumen H61.23 [place] [address] [address] Jul, [place] [address] [address] Jul, [place] [address] [address] Jul, Type 2 diabetes mellitus with complication, without long- term current use of insulin E11.8 ; Bilateral leg weakness R29.898 and Neuropathy G62.9 [facility] [address] [address] Jul, Acute non-recurrent maxillary sinusitis J01.00 [place] [address] [address] Jul, [place] [address] [address] Jul, Primary osteoarthritis of left knee M17.12 [place] [address] [address] Jul, Type 2 diabetes mellitus with complication, without long- term current use of insulin E11.8 [place] [address] [address] Jun, [place] [address] [address] Jun, Neuropathy G62.9 ; Bilateral leg weakness R29.898 ; Leg cramps R25.2 and Encounter for immunization Z23 [place] [address] [address] Jun, Bilateral claudication of lower limb I73.9 ; Essential hypertension I10 ; Mixed hyperlipidemia E78.2 and Diabetic polyneuropathy associated with type 2 diabetes mellitus E11.42 [place] [address] [address] Jun, Pain in right leg M79.604 ; Pain of left leg M79.605 and Bilateral leg weakness R29.898 [place] [address] [address] Jun, [place] [address] [address] Jun, Left lateral knee pain M25.562 and Bilateral leg weakness R29.898 [place] [address] [address] Jun, [place] [address] [address] May, Type 2 diabetes mellitus with complication, without long- term current use of insulin E11.8 ; Neuropathy G62.9 and Leg cramps R25.2 [place] [address] [address] May, [place] [address] [address] Apr, Bilateral leg weakness R29.898 and Leg cramps R25.2 [place] [address] [address] Mar, [place] [address] [address] Feb, Chronic seasonal allergic rhinitis due to other allergen J30.2 [place] [address] [address] January, Type 2 diabetes mellitus with complication, without long- term current use of insulin E11.8 and Neuropathy G62.9 [place] [address] [address] Dec, [place] [address] [place] [address] Dec, Pulmonary nodule R91.1 [place] [address] [place] [id number] [place] [address]- [address] Dec, [place] [address] [place] [id number] [place] [address]- [address] Dec, [place] [address] [address] Nov, Pre-procedure lab exam Z01.[address] [address] Nov, Seasonal allergic rhinitis due to pollen J30.1 [place] [address] [place] [id number] [place] [address] Oct, Lower abdominal pain R10.30 ; Hematuria R31.9 ; Pulmonary nodule R91.1 and Type 2 diabetes mellitus with complication, without long-term current use of insulin E11.8 [place] [address] [place] [id number] [place] [address]- [address] Sep, Type 2 diabetes mellitus with complication, without long- term current use of insulin E11.8 and Ventral hernia without obstruction or gangrene K43.9 [place] [address] [place] [id number] [place] [address]- [address] Aug, [place] [address] [address] Aug, Benign non-nodular prostatic hyperplasia with lower urinary tract symptoms N40.1 and Type 2 diabetes mellitus with complication, without long-term current use of insulin E11.8 [place] [address] [place] [address]- 365[address] Jul, Benign non-nodular prostatic hyperplasia with lower urinary tract symptoms N40.1 and Type 2 diabetes mellitus with complication, without long-term current use of insulin E11.8 [place] [address] [facility] [id number] [address] Jul, Type 2 diabetes mellitus with complication, without long- term current use of insulin E11.8 [facility] [address] [facility] [id number] [place] [address] Jul, [facility] [address] [facility] [id number] [place] [address] Jun, [facility] [address] [facility] [id number] [place] [address] Jun, [facility] [address] [facility] [id number] [place] [address] Jun, Type 2 diabetes mellitus with complication, without long- term current use of insulin E11.8 [place] [address] [facility] [id number] [place] [address]- [address] Jun, [facility] [address] [facility] [id number] [place] [address]- [address] May, [facility] [address] [facility] [id number] [place] [address]- [address] May, [facility] [address] [address]- [address] May, [facility] [address] [place] [id number] [address] 12 May, 2016 Encounter to establish care Z76.89 ; Type 2 diabetes mellitus with complication, without long-term current use of insulin E11.8 ; Essential hypertension I10 ; Hyperlipidemia, unspecified hyperlipidemia type E78.5 ; 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 ; MRSA (methicillin resistant staph aureus) culture positive Z22.322 ; Pain in unspecified knee M25.569 ; Other chronic pain G89.29 and Neuropathy G62.9 [facility] [address] [facility] [id number] [place] [address]- [address] 09 May, 2016 Neck abscess L02.11 [place] [address] [place] [id number] [place] [address]- [address] 06 May, 2016 Abscess, neck L02.11 [facility] [address] [facility] [id number] [place] [address] May, [facility] [address] [facility] [id number] [place] [address] May, Abscess of neck L02.11 [facility] [address] [facility] [id number] [place] [address] Apr, Cellulitis, neck L03.221 [facility] [address] [facility] [id number] [place] [address] Apr, Abscess L02.91 [facility] [address] [address]- [address] January, [facility] [address] [address]- 17[address] Dec, [facility] [address] [place] [id number] [address]- [address] Dec, [facility] [address] [address]- [address] Oct, [facility] [address] [address]- [address] Oct, [facility] [address] [address]- 69[address] Sep, [facility] [address] [address]- 47[address] Sep, [facility] [address] [place] [id number] [address]- 0[address] Sep, [facility] [address] [place] [id number] [address]- 1733 Sep, [facility] [address] [address]- [address] Sep, [facility] [address] [facility] [id number] [place] [address]- [address] Sep, [facility] [place] [facility] [address] [id number] [place] [address]- 2676 Sep, [facility] [place] [facility] [address] [id number] [place] [address]- 8821 Jul, [facility] [place] [facility] [address] [id number] [place] [address]- 8234 Jul, [facility] [place] [facility] [address] [id number] [place] [address]- 0396 Jun, 2013 [facility] [place] [facility] [address] [id number] [place] [address] Jun, 2013 [facility] [place] [facility] [address] [id number] [place] [address]- 0991 Jun, 2013 [facility] [place] [facility] [address] [id number] [place] [address]- 3008 Jun, 2013 [facility] [place] [facility] [address] [id number] [place] [address]- 4420 Jun, 2013 [facility] [place] [facility] [address] [id number] [place] [address]- 8613 Jun, 2013 [facility] [place] [facility] [address] [facility] [id number] [place] [address]- 7428 Jun, 2013 [facility] [place] [facility] [address] [id number] [place] [address]- 3366 Jun, 2013 [facility] [place] [facility] [address] [id number] [place] [address]- 1257 Jun, [facility] [place] [facility] [address] [id number] [place] [address]- 8097 Jun, [facility] [place] [facility] [address] [id number] [place] [address]- 2793 Jun, [facility] [place] [facility] [address] [id number] [place] [address] May, [facility] [place] [facility] [address] [id number] [place] [address]- 1692 30 Sep, 2013 [facility] [place] [facility] [address] [id number] [place] [address]- 6[address] 23 Sep, 2013 [facility] [place] [facility] [address] [id number] [place] [address]- 2688 23 Sep, 2013 [facility] [place] [facility] [address] [id number] [place] [address]- 2547 18 Sep, 2013 [facility] [place] [facility] [address] [id number] [place] [address]- 7872 18 Sep, 2013 [facility] [place] [facility] [address] [id number] [place] [address]- 6467 11 Sep, 2013 [facility] [place] [facility] [address] [id number] [place] [address]- 7667 11 May, 2013 [facility] [place] [facility] [address] [id number] [place] [address]- 2199 11 Sep, 2013 [facility] [place] [facility] [address] [id number] [place] [address]- 7841 11 Sep, 2013 [facility] [place] [facility] [address] [id number] [place] [address]- 8858 04 Sep, 2013 [facility] [place] [facility] [address] [id number] [place] [address]- 3574 04 Sep, 2013 [facility] [place] [facility] [address] [id number] [place] [address]- 6861 03 Sep, 2013 [facility] [place] [facility] [address] [id number] [place] [address]- 2545 03 Sep, 2013 [facility] [place] [facility] [address] [id number] [place] [address]- 4486 02 Sep, 2013 [facility] [place] [facility] [address] [id number] [place] [address]- 4568 02 Sep, 2013 [facility] [place] [facility] [address] [id number] [place] [address]- 8545 Apr, [facility] [place] [facility] [address] [id number] [place] [address]- 2490 Apr, [facility] [place] [facility] [address] [id number] [place] [address]- 3279 Apr, [facility] [place] [facility] [address] [facility] [id number] [place] [address]- 8320 Apr, [facility] [place] [facility] [address] [facility] [id number] [place] [address]- 2089 Mar, [facility] [place] [facility] [address] [facility] [id number] [place] [address]- 0506 Mar, [facility] [place] [facility] [address] [facility] [id number] [place] [address]- 4061 Mar, [facility] [place] [facility] [address] [facility] [id number] [place] [address]- 2739 Mar, [facility] [place] [facility] [address] [facility] [id number] [place] [address]- 6410 Mar, [facility] [place] [facility] [address] [facility] [id number] [place] [address]- 57[address] Mar, [facility] [address] [facility] [id number] [id number] January, [facility] [place] [facility] [address] [facility] [id number] [place] [address]- 2948 January, [facility] [address] [facility] [id number][place] [id number] Dec, [facility] [place] [facility] [address] [facility] [id number] [place] [address]- 0759 Dec, [facility] [address] [facility] [id number][place] [id number] Oct, [facility] [place] [facility] [address] [facility] [id number] [place] [address]- 4425 Oct, [facility] [address] [facility] [id number][place] [id number] Sep, [facility] [place] [facility] [address] [id number] [place] [address]- 9356 Sep, [facility] [place] [facility] [address] [id number] [place] [address]- 2546 Aug, [facility] [place] [facility] [address] [id number] [place] [address]- 2546 Aug, [facility] [place] [facility] [address] [id number] [place] [address]- 8716 Jul, [facility] [place] [facility] [address] [id number] [place] [address]- 5326 Jul, [facility] [place] [facility] [address] [facility] [id number] [place] [address]- 2856 Jul, [facility] [address] [id number] [id number] Jul, [facility] [place] [facility] [address] [facility] [id number] [place] [address]- 3[address] Jul, [facility] [address] [facility] [id number][place] [id number] Jul, [facility] [place] [facility] [address] [facility] [id number] [place] [address]- 2546 Jul, [facility] [place] [facility] [address] [facility] [id number] [place] [address]- 2546 Jul, [facility] [place] [facility] [address] [id number] [place] [address]- 2546 Jun, [facility] [place] [facility] [address] [id number] [place] [address]- 2546 Jun, [facility] [address] [facility] [id number][place] [id number] Jun, [facility] [place] [facility] [address] [id number] [place] [address]- 2546 Jun, [facility] [place] [facility] [address] [facility] [id number] [place] [address]- 0[address] Apr, [facility] [address] [place] [id number] [address] Apr, [facility] [address] [address] Feb, [facility] [address] [address]- 0091 Dec, [facility] [address] [address] Dec, [facility] [address] [address] Nov, [facility] [address] [place] [address]- 7629 Nov, [facility] [address] [address]- 7423 Nov, [facility] [address] [address]- 96[address] Oct, [facility] [address] [address] Oct, [facility] [address] [address]- 6428 Oct, [facility] [address] [address]- 54[address] May, [facility] [address] [address]- 4[address] Apr, [facility] [address] [address]- 2[address] Feb, [facility] [address] [address]- 7[address] Feb, IMMUNIZATIONS No Known Immunizations SOCIAL HISTORY Never Assessed REASON FOR VISIT Records request PLAN OF CARE VITAL SIGNS MEDICATIONS Unknown [...]
--- OUTSIDE RECORDS SUMMARY | 2018-12-11 19:42 | XMS REPORT ---
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 Active 7084008 Problem Pulmonary nodule R91.1 Active 321060137 Problem Type 2 diabetes mellitus with complication, without long-term current use of insulin E11.8 Active 62578337 Problem Polyneuropathy G62.9 Active 05605764 Problem MRSA (methicillin resistant staph aureus) culture positive Z22.322 Active 116039370 Problem Benign non-nodular prostatic hyperplasia with lower urinary tract symptoms N40.1 Active 98278119017347 Problem Mixed hyperlipidemia E78.2 Active 194612622 Problem Bilateral claudication of lower limb I73.9 Active 449306577 Problem Primary osteoarthritis of left knee M17.12 Active 752617785 Problem Essential hypertension I10 Active 60497408 Problem Diabetic polyneuropathy associated with type 2 diabetes mellitus E11.42 Active 67549652 ALLERGIES Substance Reaction Event Type Date Status Januvia Unknown Drug Allergy Aug, Active ENCOUNTERS Encounter Location Date Diagnosis [facility] [place] [id number] [address] Feb, [facility] [place] [address] [id number] [address] Nov, Benign non-nodular prostatic hyperplasia with lower urinary tract symptoms N40.1 and Acute epididymitis N45.1 [facility] [place] [id number] [place] [address]98 Sep, Neuropathy G62.9 [facility] [place] [id number] [address] Sep, Type 2 diabetes mellitus with complication, without long- term current use of insulin E11.8 ; Neuropathy G62.9 ; Bilateral leg weakness R29.898 and Cough R05 [place] [address] [id number]- [address] Aug, Left ear pain H92.02 and Bilateral impacted cerumen H61.23 [place] [address] [address] Jul, [place] [address] [address] Jul, [place] [address] [address]- [address] Jul, Type 2 diabetes mellitus with complication, without long- term current use of insulin E11.8 ; Bilateral leg weakness R29.898 and Neuropathy G62.9 [facility] [address] [address] Jul, Acute non-recurrent maxillary sinusitis J01.00 [place] [address] [address]- [address] Jul, [place] [address] [address]- 4[address] Jul, Primary osteoarthritis of left knee M17.12 [place] [address] [address] 5166 Jul, Type 2 diabetes mellitus with complication, without long- term current use of insulin E11.8 [place] [address] [address]- [address] Jun, [place] [address] [address]- 9073 Jun, Neuropathy G62.9 ; Bilateral leg weakness R29.898 ; Leg cramps R25.2 and Encounter for immunization Z23 [place] [address] [address]- 9472 Jun, Bilateral claudication of lower limb I73.9 ; Essential hypertension I10 ; Mixed hyperlipidemia E78.2 and Diabetic polyneuropathy associated with type 2 diabetes mellitus E11.42 [place] [id number] [place] [address]131- 9356 Jun, Pain in right leg M79.604 ; Pain of left leg M79.605 and Bilateral leg weakness R29.898 [place] [address] [address]- [address] Jun, [place] [address] [address]- 2034 Jun, Left lateral knee pain M25.562 and Bilateral leg weakness R29.898 [place] [address] [address] 7060 Jun, [place] [address] [address]- 9566 May, Type 2 diabetes mellitus with complication, without long- term current use of insulin E11.8 ; Neuropathy G62.9 and Leg cramps R25.2 [place] [address] [address]- [address]40 May, [place] [id number] [place] [address]479- 9176 Apr, Bilateral leg weakness R29.898 and Leg cramps R25.2 [place] [id number] [place] [address] 20050- 6505 Mar, [place] [address] [address]- 0732 Feb, Chronic seasonal allergic rhinitis due to other allergen J30.2 [place] [id number] [place] [address]77- 6144 January, Type 2 diabetes mellitus with complication, without long- term current use of insulin E11.8 and Neuropathy G62.9 [place] [address] [place] [address]- 92[address] Dec, [place] [id number] [place] [address] 43632- 8759 Dec, Pulmonary nodule R91.1 [place] [id number] [place] [address] 34642- 0751 Dec, [place] [id number] [place] [address] 08129- 9925 Dec, [place] [id number] [place] [address] 28110- 8863 Nov, Pre-procedure lab exam Z01.812 [place] [id number] [place] [address] 30833- 2472 Nov, Seasonal allergic rhinitis due to pollen J30.1 [place] [id number] [place] [address] 53115- 9251 Oct, Lower abdominal pain R10.30 ; Hematuria R31.9 ; Pulmonary nodule R91.1 and Type 2 diabetes mellitus with complication, without long-term current use of insulin E11.8 [place] [id number] [place] [address] 43558- 2495 Sep, Type 2 diabetes mellitus with complication, without long- term current use of insulin E11.8 and Ventral hernia without obstruction or gangrene K43.9 [place] [address] [place] [address] 95918- 1401 Aug, [place] [id number] [place] [address] 64478- 6384 Aug, Benign non-nodular prostatic hyperplasia with lower urinary tract symptoms N40.1 and Type 2 diabetes mellitus with complication, without long-term current use of insulin E11.8 [place] [address] [place] [address] 29252- 4608 Jul, Benign non-nodular prostatic hyperplasia with lower urinary tract symptoms N40.1 and Type 2 diabetes mellitus with complication, without long-term current use of insulin E11.8 [facility] [place] [address] [facility] [id number] [address] Jul, Type 2 diabetes mellitus with complication, without long- term current use of insulin E11.8 [facility] [place] [address] [facility] [id number] [address] Jul, [facility] [place] [address] [address]- [address] Jun, [facility] [place] [address] [facility] [id number] [address]- 2555 Jun, [facility] [place] [address] [address]- 9810 Jun, Type 2 diabetes mellitus with complication, without long- term current use of insulin E11.8 [facility] [place] [address] [address]- 1136 Jun, [facility] [place] [address] [address]- 66[address] May, [facility] [place] [id number] [address]- 4077 May, [facility] [place] [id number] [address]- 9485 May, [facility] [place] [id number] [address]- [address] 12 May, 2016 Encounter to establish care Z76.89 ; Type 2 diabetes mellitus with complication, without long-term current use of insulin E11.8 ; Essential hypertension I10 ; Hyperlipidemia, unspecified hyperlipidemia type E78.5 ; 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 ; MRSA (methicillin resistant staph aureus) culture positive Z22.322 ; Pain in unspecified knee M25.569 ; Other chronic pain G89.29 and Neuropathy G62.9 [facility] [place] [id number] [address] 09 May, 2016 Neck abscess L02.11 [facility] [place] [address] [address]- 9841 06 May, 2016 Abscess, neck L02.11 [facility] [address] [address] 04 May, 2016 [facility] [place] [address] [place] [address]- 6386 02 May, 2016 Abscess of neck L02.11 [facility] [address] [place] [address], [place] [address] Apr, Cellulitis, neck L03.221 [facility] [address] [place] [address], [place] [address] Apr, Abscess L02.91 [facility] [place] [id number] [place] [address], [place] [address]- 9172 January, [facility] [place] [id number] [place] [address] 97824- 9538 Dec, [facility] [place] [address] [address]- 0091 Dec, [facility] [place] [address] [place] [address] 69828- 4663 Oct, [facility] [place] [address] [address]- 0613 Oct, [facility] [place] [address] [place] [address] 49204- 4897 Sep, [facility] [place] [address] [address]- 8280 Sep, [facility] [place] [address] [place] [address] 92746- 5545 Sep, [facility] [place] [address] [address]- 7179 Sep, [facility] [place] [address] [address]- 9472 Sep, [facility] [place] [facility] [address] [id number] [place] [address]- 9254 Sep, [facility] [place] [facility] [address] [id number] [place] [address]- 7319 Sep, [facility] [place] [facility] [address] [id number] [place] [address]- 3998 Jul, [facility] [place] [facility] [address] [id number] [place] [address]- 1151 Jul, [facility] [place] [facility] [address] [id number] [place] [address] Jun, 2013 [facility] [place] [facility] [address] [id number] [place] [address]- 6699 Jun, 2013 [facility] [place] [facility] [address] [facility] [id number] [place] [address]- 4893 Jun, 2013 [facility] [place] [facility] [address] [id number] [address]- 1243 Jun, 2013 [facility] [place] [facility] [address] [facility] [id number] [address]- 5865 Jun, [facility] [place] [facility] [address] [id number] [address]- 2783 Jun, [facility] [place] [facility] [address] [facility] [id number] [address]- 6478 Jun, [facility] [place] [facility] [address] [id number] [address]- 5323 Jun, [facility] [place] [facility] [address] [id number] [place] [address]- 6374 Jun, [facility] [place] [facility] [address] [id number] 0287 Jun, [facility] [place] [facility] [address] [facility] [id number] [place] [address]- 3108 Jun, [facility] [place] [facility] [address] [id number] [place] [address] 254 30 Sep, 2013 [facility] [place] [facility] [address] [id number] [place] [address] 2546 30 Sep, 2013 [facility] [place] [facility] [address] [id number] [place] [address] 2546 23 Sep, 2013 [facility] [place] [facility] [address] [id number] [place] [address] 2546 23 Sep, 2013 [facility] [place] [facility] [address] [id number] [place] [address] 2544 18 Sep, 2013 [facility] [place] [facility] [address] [id number] [place] [address]- 6107 18 Sep, 2013 [facility] [place] [facility] [address] [id number] [place] [address]- 7279 11 Sep, 2013 [facility] [place] [facility] [address] [id number] [place] [address]- 6961 11 Sep, 2013 [facility] [place] [facility] [address] [id number] [place] [address]- 8532 11 Sep, 2013 [facility] [place] [facility] [address] [id number] [place] [address]- 8340 11 Sep, 2013 [facility] [place] [facility] [address] [id number] [place] [address]- 4490 04 Sep, 2013 [facility] [place] [facility] [address] [id number] [place] [address] 2540 04 Sep, 2013 [facility] [place] [facility] [address] [id number] [place] [address]- 2543 03 Sep, 2013 [facility] [place] [facility] [address] [id number] [place] [address] 2541 03 Sep, 2013 [facility] [place] [facility] [address] [id number] [place] [address]- 2552 02 Sep, 2013 [facility] [place] [facility] [address] [id number] [place] [address]- 6712 02 Sep, 2013 [facility] [place] [facility] [address] [id number] [place] [address]- 6686 Apr, [facility] [place] [facility] [address] [id number] [place] [address]- 7757 Apr, [facility] [place] [facility] [address] [id number] [place] [address]- 4858 Apr, [facility] [place] [facility] [address] [id number] [place] [address]- 8125 Apr, [facility] [place] [facility] [address] [id number] [place] [address]- 6939 Mar, [facility] [place] [facility] [address] [id number] [place] [address]- 5679 Mar, [facility] [place] [facility] [address] [id number] [place] [address]- 7822 Mar, [facility] [place] [facility] [address] [id number] [place] [address]- 1131 Mar, [facility] [place] [facility] [address] [id number] [place] [address]- 2996 Mar, [facility] [place] [facility] [address] [id number] [place] [address]- 0485 Mar, [facility] [address] [facility] [id number] [id number] January, [facility] [place] [facility] [address] [id number] [place] [address]- 1116 January, [facility] [address] [facility] [id number][place] [id number] Dec, [facility] [place] [facility] [address] [id number] [place] [address]- 5942 Dec, [facility] [address] [facility] [id number][place] [id number] Oct, [facility] [place] [facility] [address] [id number] [place] [address]- 3581 Oct, [facility] [address] [facility] [id number][place] [address] Sep, [facility] [address] [id number] [place] [address]- 7594 Sep, [facility] [place] [facility] [address] [id number] [address]- 9374 Aug, [facility] [place] [facility] [address] [facility] [id number] [place] [address]- 5383 Aug, [facility] [place] [facility] [address] [id number] [place] [address]- 7142 Jul, [facility] [place] [facility] [address] [facility] [id number] [place] [address]- 6814 Jul, [facility] [place] [facility] [address] [facility] [id number] [place] [address]- 3584 Jul, [facility] [address] [facility] [id number][place] [id number] Jul, [facility] [place] [facility] [address] [facility] [id number] [place] [address]- 8283 Jul, [facility] [address] [facility] [id number], [place] [id number] Jul, [facility] [place] [facility] [address] [facility] [id number] [place] [address]- 3531 Jul, [facility] [place] [facility] [address] [facility] [id number] [place] [address]- 9466 Jul, [facility] [place] [facility] [address] [facility] [id number] [place] [address]- 9292 Jun, [facility] [place] [facility] [address] [facility] [id number] [place] [address]- 1229 Jun, [facility] [address] [facility] [id number], [place] [id number] Jun, [facility] [place] [facility] [address] [facility] [id number] [place] [address]- 8091 Jun, [facility] [place] [facility] [address] [address]- 5510 Apr, [facility] [address] [address]- 0225 Apr, [facility] [address] [address]- 8678 Feb, [facility] [address] [address]- 5412 Dec, [facility] [address] [address]- 3201 Dec, [facility] [address] [address]- 5836 Nov, [facility] [address] [address]- 4748 Nov, [facility] [address] [address]- 4841 Nov, [facility] [address] [address]- 0983 Oct, [facility] [address] [address]- 5715 Oct, [facility] [address] [address]- 9671 Oct, [facility] [address] [address]- 7974 May, [facility] [id number] [address]- 3598 Apr, [facility] [address] [address]- 1557 Feb, [facility] [address] [address]- 0871 Feb, IMMUNIZATIONS No Known Immunizations SOCIAL HISTORY Never Assessed REASON FOR VISIT ear c/o, feels pain with his left ear, began a week ago, has been putting peroxide in it, has used several days of debrox and removed a lot-Eleuterio PLAN OF CARE Activity Details Follow Up prn, PCP Dannie Reason: VITAL SIGNS Height 67 in 2017-09-24 Weight 235.5 lbs 2017-09-24 Temperature 97.9 degrees Fahrenheit 2017-09-24 Heart Rate 84 bpm 2017-09-24 Respiratory Rate 20 2017-09-24 BMI 36.88 kg/m2 2017-09-24 Blood pressure systolic 132 mmHg 2017-09-24 Blood pressure diastolic 74 mmHg 2017-09-24 MEDICATIONS Medication Instructions Dosage Frequency Start Date End Date Duration Status Glucocard Expression Test - subcutaneously Once a day use to test blood sugar 24h Sep, Active GlipiZIDE 5 mg Orally 2 times a day 1 tablet 12h May, 30 days Active Glucocard Expression Monitor w/Device as directed Sep, Active Fish Oil 1360 MG Orally Once a day 1 capsule 24h Active Tegretol 200 mg Orally Once a day at bedtime 1 tablet Apr, Active Proscar 5 mg Orally Once a day 1 tablet 24h 30 Active Atorvastatin Calcium 40 MG TAKE ONE TABLET BY MOUTH ONCE DAILY. 30 Active BusPIRone HCl 15 MG TAKE ONE TABLET BY MOUTH TWICE DAILY 30 Active Trulicity 0.75 MG/0.5ML Subcutaneous once weekly Inject 0.5ML Jun, 90 days Active Gabapentin 800 MG TAKE ONE TABLET BY MOUTH THREE TIMES DAILY 30 Active Lisinopril-Hydrochlorothiazide 20-25 MG TAKE ONE TABLET BY MOUTH ONCE DAILY. 30 Active Cinnamon 500 MG Active Metformin HCl 1000 MG TAKE ONE TABLET BY MOUTH TWICE DAILY WITH MEALS 30 Active Aspirin 81 MG Orally Once a day 1 tablet 24h Active RESULTS No Results PROCEDURES No Known [...]
--- OUTSIDE RECORDS SUMMARY | 2018-12-11 19:42 | XMS REPORT ---
Author Author LY PRINGLE [facility] [employer] Address Unknown Phone Unavailable Care Team Providers Care Patient Accounts Coordinator Name Role Phone LY PRINGLE CP Unavailable Allergies, Adverse Reactions, Alerts Substance Reaction Event Type Januvia Info Not Available Drug Allergy Problems Problem Type Condition Code Onset Dates Condition Status Problem Diabetes mellitus without mention of complication, type II or unspecified type, not stated as uncontrolled 250.00 Active Problem Other and unspecified hyperlipidemia 272.4 Active Problem Unspecified essential hypertension 401.9 Active Problem Type 2 diabetes mellitus with complication, without long-term current use of insulin E11.8 Active Problem 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 Active Problem Benign non-nodular prostatic hyperplasia with lower urinary tract symptoms N40.1 Active Problem Mononeuritis of unspecified site 355.9 Active Problem Dermatophytosis of nail 110.1 Active Problem MRSA (methicillin resistant staph aureus) culture positive Z22.322 Active Problem Unspecified otitis media 382.9 Active Assessment Type 2 diabetes mellitus with complication, without long-term current use of insulin E11.8 Active Assessment Benign non-nodular prostatic hyperplasia with lower urinary tract symptoms N40.1 Active Problem Elevated blood pressure reading without diagnosis of hypertension 796.2 Active Problem Periapical abscess without sinus 522.5 Active Medications Medication Code System Code Instructions Start Date End Date Status Dosage Aspirin [facility] [address]-43 81 MG Orally Once a day 1 tablet Proscar [facility] [address]-92 5 mg Orally Once a day Aug 09, 2016 1 tablet BusPIRone HCl [facility] [address]-16 15 MG TAKE ONE TABLET BY MOUTH TWICE DAILY. Gabapentin [facility] [address]-40 600 MG Orally Three times a day Oct 01, 2014 1 capsule Atorvastatin Calcium [facility] [address]-55 40 mg Orally Once a day 1 tablet Metformin HCl [facility] [address]-04 1000 MG Orally Twice a day 1 tablet with meals GlipiZIDE [facility] [address]-21 10 mg Orally Once a day 1 1/2 tablet Trulicity [facility] [address]-13 0.75 MG/0.5ML Subcutaneous once weekly Aug 01, 2016 Aug 31, 2016 0.5 ml Lisinopril-Hydrochlorothiazide [facility] 98655507791 20-25 MG Orally Once a day 1 tablet Procedures Procedure Coding System Code Date Office Visit, Est Pt., Level 3 CPT-4 09462 Aug 09, 2016 URINALYSIS, AUTO, W/O SCOPE CPT-4 13260 Aug 09, 2016 Vital Signs Date/Time: Aug 09, 2016 Cardiac Monitoring Heart Rate 94 bpm Weight 248.0 lbs Height 67 in BMI 38.84 Index Blood Pressure Diastolic 82 mmHg Blood Pressure Systolic 132 mmHg Results Name Result Date Reference Range Unit Abnormality Flag UA LONG DIP (IN HOUSE) ----SARINA Negative 20160809 ----NIT Negative 20160809 ----SG 1.010 20160809 ----KET Negative 20160809 ----SHAN Negative 20160809 ----GLU Race 20160809 ----Odor None 20160809 ----pH 7.0 20160809 ----BLO Trace-Intact 20160809 ----URO 0.2 20160809 ----Protein Negative 20160809 ----Lot # [id number] ----Exp date 20160809 ----Clarity Clear 20160809 ----Color Yellow 20160809 Summary Purpose eClinicalWorks Submission
--- OUTSIDE RECORDS SUMMARY | 2018-12-11 19:42 | XMS REPORT ---
Author Author YVONNE MCGEE [facility] Address [address] [place] [address] Care Team Providers Care Raise Driller Name Role Phone YVONNE MCGEE Unavailable PROBLEMS Type Condition ICD9-CM Code [id number] Code Onset Dates Condition Status SNOMED Code Problem Periapical abscess without sinus 522.5 Active 747462400 Problem Unspecified essential hypertension 401.9 Active 60081316 Problem Diabetes mellitus without mention of complication, type II or unspecified type, not stated as uncontrolled 250.00 Active 590491245 Assessment Abscess of neck L02.11 May, Active 8394245 Problem Elevated blood pressure reading without diagnosis of hypertension 796.2 Active 332292808 Problem 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 Active 9241883 Problem MRSA (methicillin resistant staph aureus) culture positive Z22.322 Active 910986521 Problem Dermatophytosis of nail 110.1 Active 971409916 Problem Other and unspecified hyperlipidemia 272.4 Active 21654101 Problem Unspecified otitis media 382.9 Active 54172869 Problem Mononeuritis of unspecified site 355.9 Active 92920139 ALLERGIES Substance Reaction Event Type Date Status Januvia Unknown Drug Allergy May, Active SOCIAL HISTORY No smoking Hx information available PLAN OF CARE VITAL SIGNS Height 67 in 2016-06-01 Weight 247.1 lbs 2016-06-01 Heart Rate 84 bpm 2016-06-01 Respiratory Rate 20 2016-06-01 BMI 38.70 kg/m2 2016-06-01 Blood pressure systolic 136 mmHg 2016-06-01 Blood pressure diastolic 76 mmHg 2016-06-01 MEDICATIONS Medication Instructions Dosage Frequency Start Date End Date Duration Status Bactrim DS 800-160 MG Orally Twice a day 1 tablet 12h Apr, May, 10 day(s) Active Aspirin 81 MG Orally Once a day 1 tablet 24h Active Gabapentin 600 MG Orally Three times a day 1 capsule 8h Sep, 20 days Active Atorvastatin Calcium 40 mg Orally Once a day 1 tablet 24h 20 days Active Prescott 5-325 MG Orally every 6 hrs 1 tablet as needed 6h Apr, Active Lisinopril 20 mg take 1 tablet by Oral route 1 time per day Take in evening Sep, Active Lisinopril-Hydrochlorothiazide 20-25 MG Orally Once a day 1 tablet 24h Apr, 20 days Active Metformin HCl 1000 MG Orally Twice a day 1 tablet with meals 12h 20 days Active Hydrochlorothiazide 25 MG Orally Once a day 1 tablet 24h Active BusPIRone HCl 15 MG Orally Twice a day 1 tablet 12h 20 days Active GlipiZIDE 10 mg Orally Once a day 1 tablet 24h 20 days Active RESULTS No Results PROCEDURES Procedure Date Ordered Related Diagnosis Body Site Office Visit, Est Pt., Level 3 Jun 01, 2016 IMMUNIZATIONS No Known Immunizations
--- OUTSIDE RECORDS SUMMARY | 2018-12-11 19:42 | XMS REPORT ---
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 Active 4410792 Problem Pulmonary nodule R91.1 Active 858730319 Problem Type 2 diabetes mellitus with complication, without long-term current use of insulin E11.8 Active 07411739 Problem Polyneuropathy G62.9 Active 92144543 Problem MRSA (methicillin resistant staph aureus) culture positive Z22.322 Active 643366097 Problem Benign non-nodular prostatic hyperplasia with lower urinary tract symptoms N40.1 Active 95094276414415 Problem Mixed hyperlipidemia E78.2 Active 822774185 Problem Bilateral claudication of lower limb I73.9 Active 554348874 Problem Primary osteoarthritis of left knee M17.12 Active 867060366 Problem Essential hypertension I10 Active 51920091 Problem Diabetic polyneuropathy associated with type 2 diabetes mellitus E11.42 Active 82653459 ALLERGIES No Information ENCOUNTERS Encounter Location Date Diagnosis [place] [id number] [place] [address]- 3476 Feb, [place] [address] [place] [id number] [place] [address] 85179- 0952 Nov, Benign non-nodular prostatic hyperplasia with lower urinary tract symptoms N40.1 and Acute epididymitis N45.1 [place] [address] [place] [id number] [place] [address]407- 3628 Sep, Neuropathy G62.9 [facility] [address] [place] [address] 11286- 8042 Sep, Type 2 diabetes mellitus with complication, without long- term current use of insulin E11.8 ; Neuropathy G62.9 ; Bilateral leg weakness R29.898 and Cough R05 [place] [address] [address] Aug, Left ear pain H92.02 and Bilateral impacted cerumen H61.23 [place] [address] [address] Jul, [place] [address] [address]- 4416 Jul, [place] [address] 9[address]- 3343 Jul, Type 2 diabetes mellitus with complication, without long- term current use of insulin E11.8 ; Bilateral leg weakness R29.898 and Neuropathy G62.9 [facility] [address] [address] Jul, Acute non-recurrent maxillary sinusitis J01.00 [place] [address] [address]- 6613 Jul, [place] [address] [address]01- 2723 Jul, Primary osteoarthritis of left knee M17.12 [place] [address] 29618- 7610 Jul, Type 2 diabetes mellitus with complication, without long- term current use of insulin E11.8 [place] [address] [place] [id number] [place] [address] 14578- 7731 Jun, [place] [address] [address]- 3437 Jun, Neuropathy G62.9 ; Bilateral leg weakness R29.898 ; Leg cramps R25.2 and Encounter for immunization Z23 [place] [address] [address]- 6576 Jun, Bilateral claudication of lower limb I73.9 ; Essential hypertension I10 ; Mixed hyperlipidemia E78.2 and Diabetic polyneuropathy associated with type 2 diabetes mellitus E11.42 [place] [address] [place] [id number] [place] [address] 12871- 8690 Jun, Pain in right leg M79.604 ; Pain of left leg M79.605 and Bilateral leg weakness R29.898 [place] [address] [place] [id number] [place] [address] 48719- 5201 Jun, [place] [address] 31193- 8592 Jun, Left lateral knee pain M25.562 and Bilateral leg weakness R29.898 [place] [address] 60077- 4020 Jun, [place] [address] 74542- 2240 May, Type 2 diabetes mellitus with complication, without long- term current use of insulin E11.8 ; Neuropathy G62.9 and Leg cramps R25.2 [place] [address] [place] [id number] [place] [address] 35081- 9320 May, [place] [address] [place] [id number] [place] [address] 32009- 5619 Apr, Bilateral leg weakness R29.898 and Leg cramps R25.2 [place] [address] [place] [id number] [place] [address] 01552- 2450 Mar, [place] [address] [place] [id number] [place] [address] 70509- 0679 Feb, Chronic seasonal allergic rhinitis due to other allergen J30.2 [place] [address] 0[address]- 4771 January, Type 2 diabetes mellitus with complication, without long- term current use of insulin E11.8 and Neuropathy G62.9 [place] [address] 93053- 5899 Dec, [place] [address] [address] 45[address] Dec, Pulmonary nodule R91.1 [place] [address] [place] [id number] [place] [address] 81431- 7412 Dec, [place] [address] [place] [id number] [place] [address] 80721- 6064 Dec, [place] [address] [place] [id number] [place] [address] 82752- 3486 Nov, Pre-procedure lab exam Z01.812 [place] [address] 74474- 8322 Nov, Seasonal allergic rhinitis due to pollen J30.1 [place] [address] [place] [id number] [place] [address] 76003- 0581 Oct, Lower abdominal pain R10.30 ; Hematuria R31.9 ; Pulmonary nodule R91.1 and Type 2 diabetes mellitus with complication, without long-term current use of insulin E11.8 [place] [address] [place] [id number] [place] [address] 92787- 2298 Sep, Type 2 diabetes mellitus with complication, without long- term current use of insulin E11.8 and Ventral hernia without obstruction or gangrene K43.9 [place] [address] [address]- 5156 Aug, [place] [address] [place] [id number] [place] [address] 31270- 0037 Aug, Benign non-nodular prostatic hyperplasia with lower urinary tract symptoms N40.1 and Type 2 diabetes mellitus with complication, without long-term current use of insulin E11.8 [place] [address] [place] [address] 95582- 0700 Jul, Benign non-nodular prostatic hyperplasia with lower urinary tract symptoms N40.1 and Type 2 diabetes mellitus with complication, without long-term current use of insulin E11.8 [place] [address] [place] [id number] [address] 67[address] Jul, Type 2 diabetes mellitus with complication, without long- term current use of insulin E11.8 [facility] [address] [facility] [id number] [address] 89[address] Jul, [facility] [address] [place] [id number] [address]- 1352 Jun, [facility] [address] [facility] [id number] [address]- 7245 Jun, [facility] [address] [facility] [id number] [address]- 4281 Jun, Type 2 diabetes mellitus with complication, without long- term current use of insulin E11.8 [place] [address] [address]- 3272 Jun, [facility] [address] [address]- 3838 May, [facility] [address] [place] [id number] [address]- 1550 May, [facility] [address] [address]- 5302 May, [facility] [address] [place] [id number] [address]- 5963 12 May, 2016 Encounter to establish care Z76.89 ; Type 2 diabetes mellitus with complication, without long-term current use of insulin E11.8 ; Essential hypertension I10 ; Hyperlipidemia, unspecified hyperlipidemia type E78.5 ; 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 ; MRSA (methicillin resistant staph aureus) culture positive Z22.322 ; Pain in unspecified knee M25.569 ; Other chronic pain G89.29 and Neuropathy G62.9 [facility] [address] [place] [id number] [address]- 8466 09 May, 2016 Neck abscess L02.11 [place] [address] [place] [id number] [address]- 7347 May, Abscess, neck L02.11 [facility] [address] [address] May, [facility] [address] [place] [address] 31787- 2982 May, Abscess of neck L02.11 [facility] [address] [place] [id number] [place] [address] 74595 -0071 Apr, Cellulitis, neck L03.221 [facility] [address] [address] Apr, Abscess L02.91 [facility] [address] [place] [id number] [place] [address] 47943- 2795 January, [facility] [address] [id number] [address]- 3130 Dec, [facility] [address] [place] [id number] [place] [address] 47601- 0210 Dec, [facility] [address] [address]- 0704 Oct, [facility] [id number] [place] [address] 84222- 4672 Oct, [facility] [address] [address]- 1770 Sep, [facility] [address] [address]- 7800 Sep, [facility] [address] [address]- 6912 Sep, [facility] [id number] [place] [address] 82337- 0245 Sep, [facility] [address] [address]- 5058 Sep, [facility] [address] [place] [id number] [place] [address]- 1499 Sep, [facility] [place] [facility] [address] [id number] [place] [address]- 8707 Sep, [facility] [place] [facility] [address] [id number] [place] [address]70 Jul, [facility] [place] [facility] [address] [id number] [place] [address]- 3813 Jul, 2013 [facility] [place] [facility] [address] [id number] [place] [address]- 4085 Jun, 2013 [facility] [place] [facility] [address] [id number] [place] 4302 Jun, 2013 [facility] [place] [facility] [address] [id number] [place] [address]- 6645 Jun, 2013 [facility] [place] [facility] [address] [id number] [place] [address]- 3899 Jun, 2013 [facility] [place] [facility] [address] [id number] [place] [address]- 5139 Jun, 2013 [facility] [place] [facility] [address] [id number] [place] [address]- 0530 Jun, 2013 [facility] [place] [facility] [address] [facility] [id number] [place] [address]- 0490 Jun, 2013 [facility] [place] [facility] [address] [id number] [place] [address]- 3751 Jun, 2013 [facility] [place] [facility] [address] [id number], [place] [address]- 1307 Jun, [facility] [place] [facility] [address] [id number] [place] [address]- 2315 Jun, [facility] [place] [facility] [address] [facility] [id number] [place] [address]- 2127 Jun, [facility] [place] [facility] [address] [id number], [place] [address]- 6810 May, [facility] [place] [facility] [address] [id number] [place] [address]- 8087 30 Sep, 2013 [facility] [place] [facility] [address] [id number] [place] [address]- 8064 23 Sep, 2013 [facility] [place] [facility] [address] [id number] [place] [address]- 2571 23 Sep, 2013 [facility] [place] [facility] [address] [id number] [place] [address]- 5298 18 Sep, 2013 [facility] [place] [facility] [address] [id number] [place] [address]- 2129 18 Sep, 2013 [facility] [place] [facility] [address] [id number] [place] [address]- 6367 11 Sep, 2013 [facility] [place] [facility] [address] [id number] [place] [address]- 6201 11 Sep, 2013 [facility] [place] [facility] [address] [id number] [place] [address]- 4518 11 Sep, 2013 [facility] [place] [facility] [address] [id number] [place] [address]- 4000 11 Sep, 2013 [facility] [place] [facility] [address] [id number] [place] [address]- 5366 04 Sep, 2013 [facility] [place] [facility] [address] [id number] [place] [address]- 4385 04 Sep, 2013 [facility] [place] [facility] [address] [id number] [place] [address]- 2540 03 Sep, 2013 [facility] [place] [facility] [address] [id number] [place] [address]- 2547 03 Sep, 2013 [facility] [place] [facility] [address] [id number] [place] [address]- 2543 02 Sep, 2013 [facility] [place] [facility] [address] [id number] [place] [address]- 0244 02 Sep, 2013 [facility] [place] [facility] [address] [id number] [place] [address]- 2546 Apr, [facility] [place] [facility] [address] [id number] [place] [address]- 7900 Apr, [facility] [place] [facility] [address] [id number] [place] [address]- 3114 Apr, [facility] [place] [facility] [address] [id number] [place] [address]- 4275 Apr, [facility] [place] [facility] [address] [id number] [place] [address]- 4050 Mar, [facility] [place] [facility] [address] [id number] [place] [address]- 3447 Mar, [facility] [place] [facility] [address] [id number] [place] [address]- 4017 Mar, [facility] [place] [facility] [address] [id number] [place] [address]- 0649 Mar, [facility] [place] [facility] [address] [id number] [place] [address]- 1696 Mar, [facility] [place] [facility] [address] [id number] [place] [address]- 8210 Mar, [facility] [address] [facility] [id number] [id number] January, [facility] [place] [facility] [address] [id number][place] [address]- 0699 January, [facility] [address] [facility] [id number][place] [id number] Dec, [facility] [place] [facility] [address] [id number], [place] [address]- 7772 Dec, [facility] [address] [facility] [id number][place] [id number] Oct, [facility] [place] [facility] [address] [id number], [place] [address]- 3598 Oct, [facility] [address] [facility] [id number] [address] Sep, [facility] [place] [facility] [address] [id number] [place] [address]- 0897 Sep, [facility] [place] [facility] [address] [id number] [place] [address]- 9976 Aug, [facility] [place] [facility] [address] [id number] [place] [address]- 1843 Aug, [facility] [place] [facility] [address] [id number] [place] [address]- 5164 Jul, [facility] [place] [facility] [address] [id number] [place] [address]- 5034 Jul, [facility] [place] [facility] [address] [id number] [place] [address]- 4076 Jul, [facility] [address] [facility] [id number][place] [id number] Jul, [facility] [place] [facility] [address] [id number], [place] [address]- 6816 Jul, [facility] [address] [facility] [id number][place] [address] Jul, [facility] [place] [facility] [address] [id number], [place] [address]- 9816 Jul, [facility] [place] [facility] [address] [id number], [place] [address]- 4776 Jul, [facility] [place] [facility] [address] [id number], [place] [address]- 2546 Jun, [facility] [place] [facility] [address] [id number], [place] [address]- 2546 Jun, [facility] [address] [facility] [id number][place] [id number] Jun, [facility] [place] [facility] [address] [id number] [place] [address]- 2546 Jun, [facility] [place] [facility] [address] [id number], [place] [address] 7536 Apr, [facility] [address] [address] [id number] [address]687 Apr, [facility] [address] [address]- 1486 Feb, [facility] [address] [address] [id number] [address]- 9848 Dec, [facility] [address] [address]- 4118 Dec, [facility] [address] [address]- 4368 Nov, [facility] [address] [address]- 4116 Nov, [facility] [address] [address]- 5726 Nov, [facility] [address] [address]- 5102 Oct, [facility] [address], [place] [address]- 9555 Oct, [facility] [address] [address]- 7457 Oct, [facility] [address] [address]- 7070 May, [facility] [id number] [address]- 9419 Apr, [facility] [id number] [address]- 7759 Feb, [facility] [address], [place] [address]- 4153 Feb, IMMUNIZATIONS No Known Immunizations SOCIAL HISTORY Never Assessed REASON FOR VISIT left knee pain-xray done. Consult Ang Monroy;Tony RT(R) PLAN OF CARE Activity Details Follow Up prn Reason: VITAL SIGNS Height 67 in 2017-08-08 Blood pressure systolic 152 mmHg 2017-08-08 Blood pressure diastolic 78 mmHg 2017-08-08 MEDICATIONS Unknown Medications RESULTS No Results PROCEDURES Procedure Date Ordered Result Body Site DRAIN/INJECT, JOINT/BURSA Aug 08, 2017 DEPO MEDROL 80 MG/ML Aug 08, 2017 INSTRUCTIONS MEDICATIONS ADMINISTERED No Known [...]
--- OUTSIDE RECORDS SUMMARY | 2018-12-11 19:42 | XMS REPORT ---
Author Author LY PRINGLE [facility] Address [address] [place] [address] Care Team Providers Care Laminating Machine Offbearer Name Role Phone LY PRINGLE Unavailable PROBLEMS Type Condition ICD9-CM Code QLB73-QE Code Onset Dates Condition Status SNOMED Code Problem Periapical abscess without sinus 522.5 Active 887348749 Problem Unspecified essential hypertension 401.9 Active 43483819 Problem Diabetes mellitus without mention of complication, type II or unspecified type, not stated as uncontrolled 250.00 Active 855082126 Problem Elevated blood pressure reading without diagnosis of hypertension 796.2 Active 772824201 Problem 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
--- OUTSIDE RECORDS SUMMARY | 2018-12-11 19:42 | XMS REPORT ---
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 Active 7933415 Problem Pulmonary nodule R91.1 Active 858134274 Problem Benign non-nodular prostatic hyperplasia with lower urinary tract symptoms N40.1 Active 061029215 ALLERGIES Substance Reaction Event Type Date Status Januvia Unknown Drug Allergy Oct, Active SOCIAL HISTORY Never Assessed PLAN OF CARE Activity Details Follow Up 3 Months Reason:DM VITAL SIGNS Height 67 in 2016-10-31 Weight 242 lbs 2016-10-31 Temperature 98.0 degrees Fahrenheit 2016-10-31 Heart Rate 78 bpm 2016-10-31 Respiratory Rate 20 2016-10-31 BMI 37.90 kg/m2 2016-10-31 Blood pressure systolic 128 mmHg 2016-10-31 Blood pressure diastolic 72 mmHg 2016-10-31 MEDICATIONS Medication Instructions Dosage Frequency Start Date End Date Duration Status BusPIRone HCl 15 MG TAKE ONE TABLET BY MOUTH TWICE DAILY. 30 Active Lisinopril-Hydrochlorothiazide 20-25 MG Orally Once a day 1 tablet 24h 30 Active Aspirin 81 MG Orally Once a day 1 tablet 24h Active GlipiZIDE 10 mg Orally Once a day 1 tablet 24h 30 Active Trulicity 0.75 MG/0.5ML Subcutaneous once weekly Inject 0.5ML Jun, 90 days Active Cinnamon 500 MG Active Garlic 1500 1500 MG Active Metformin HCl 1000 MG Orally Twice a day 1 tablet with meals 12h 30 Active Glucocard Expression Test - subcutaneously Once a day use to test blood sugar 24h Sep, Active Atorvastatin Calcium 40 mg Orally Once a day 1 tablet 24h 30 Active Gabapentin 600 MG Orally Three times a day 1 capsule 8h 30 Active Proscar 5 mg Orally Once a day 1 tablet 24h Jul, Active Fish Oil 1360 MG Orally Once a day 1 capsule 24h Active Glucocard Expression Monitor w/Device as directed Sep, Active RESULTS Name Result Date Reference Range UA LONG DIP (IN HOUSE) 2016-10-31 Lot # [id number] Exp date 05/2017 Clarity clear Color yellow Odor none GLU 2+ SHAN neg KET neg SG 1.010 BLO Trace-intact pH 6.5 Protein neg URO 0.2 NIT neg SARINA neg Lot # Exp date CT Scan : Chest w/o Contrast 2017-01-02 PROCEDURES Procedure Date Ordered Result Body Site URINALYSIS, AUTO, W/O SCOPE Oct 31, 2016 IMMUNIZATIONS No Known Immunizations MEDICAL (GENERAL) [...]
--- OUTSIDE RECORDS SUMMARY | 2018-12-11 19:43 | XMS REPORT ---
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 Active 9493068 Problem Pulmonary nodule R91.1 Active 492686463 Problem Type 2 diabetes mellitus with complication, without long-term current use of insulin E11.8 Active 66343152 Problem Polyneuropathy G62.9 Active 80148437 Problem MRSA (methicillin resistant staph aureus) culture positive Z22.322 Active 498686189 Problem Benign non-nodular prostatic hyperplasia with lower urinary tract symptoms N40.1 Active 66560341072691 Problem Mixed hyperlipidemia E78.2 Active 761448802 Problem Bilateral claudication of lower limb I73.9 Active 494186883 Problem Primary osteoarthritis of left knee M17.12 Active 943499814 Problem Essential hypertension I10 Active 86950396 Problem Diabetic polyneuropathy associated with type 2 diabetes mellitus E11.42 Active 38737651 ALLERGIES No Information ENCOUNTERS Encounter Location Date Diagnosis [place] [id number] [address] Feb, [place] [id number] [place] [address] Nov, Benign non-nodular prostatic hyperplasia with lower urinary tract symptoms N40.1 and Acute epididymitis N45.1 [place] [id number] [place] [address]- 5088 Sep, Neuropathy G62.9 [place] [address], [place] [address] Sep, Type 2 diabetes mellitus with complication, without long- term current use of insulin E11.8 ; Neuropathy G62.9 ; Bilateral leg weakness R29.898 and Cough R05 [place] [address] [address] Aug, Left ear pain H92.02 and Bilateral impacted cerumen H61.23 [place] [address] [address]- [address] Jul, [place] [address] [address] 49[address] Jul, [place] [address] [address] 7830 Jul, Type 2 diabetes mellitus with complication, without long- term current use of insulin E11.8 ; Bilateral leg weakness R29.898 and Neuropathy G62.9 [facility] [address] [address] Jul, Acute non-recurrent maxillary sinusitis J01.00 [place] [address] [address] Jul, [place] [address] [address]- 8538 Jul, Primary osteoarthritis of left knee M17.12 [place] [address] [address]- 1363 Jul, Type 2 diabetes mellitus with complication, without long- term current use of insulin E11.8 [place] [address] [address]- 74[address] Jun, [place] [address] [address]- 6773 Jun, Neuropathy G62.9 ; Bilateral leg weakness R29.898 ; Leg cramps R25.2 and Encounter for immunization Z23 [place] [address] [address] Jun, Bilateral claudication of lower limb I73.9 ; Essential hypertension I10 ; Mixed hyperlipidemia E78.2 and Diabetic polyneuropathy associated with type 2 diabetes mellitus E11.42 [place] [address] [address]- 9[address] Jun, Pain in right leg M79.604 ; Pain of left leg M79.605 and Bilateral leg weakness R29.898 [place] [address] [address]- [address] Jun, [place] [address] 16214- 6547 Jun, Left lateral knee pain M25.562 and Bilateral leg weakness R29.898 [place] [address] [address]- 6314 Jun, [place] [address] [address]- 1202 May, Type 2 diabetes mellitus with complication, without long- term current use of insulin E11.8 ; Neuropathy G62.9 and Leg cramps R25.2 [place] [address] [address]- 9304 May, [place] [address] 40847- 6383 Apr, Bilateral leg weakness R29.898 and Leg cramps R25.2 [place] [address] [address]- 1239 Mar, [place] [address] [address]- 3087 Feb, Chronic seasonal allergic rhinitis due to other allergen J30.2 [place] [address] 100[address]- [address] January, Type 2 diabetes mellitus with complication, without long- term current use of insulin E11.8 and Neuropathy G62.9 [place] [address] 14023- 9453 Dec, [place] [id number] [place] [address] 52374- 4832 Dec, Pulmonary nodule R91.1 [place] [address] [place] [id number] [place] [address] 37466- 6685 Dec, [place] [address] [place] [id number] [place] [address]237- 2934 Dec, [place] [address] [address]- 2570 Nov, Pre-procedure lab exam Z01.[address] [address]- [address] Nov, Seasonal allergic rhinitis due to pollen J30.1 [place] [address] [place] [id number] [place] [address] 70582- 4631 Oct, Lower abdominal pain R10.30 ; Hematuria R31.9 ; Pulmonary nodule R91.1 and Type 2 diabetes mellitus with complication, without long-term current use of insulin E11.8 [place] [address] [place] [id number] [place] [address] 33466- 6833 Sep, Type 2 diabetes mellitus with complication, without long- term current use of insulin E11.8 and Ventral hernia without obstruction or gangrene K43.9 [place] [address] [place] [id number] [place] [address] 16746- 0163 Aug, [place] [address] 9[address]16- 6218 Aug, Benign non-nodular prostatic hyperplasia with lower urinary tract symptoms N40.1 and Type 2 diabetes mellitus with complication, without long-term current use of insulin E11.8 [place] [address] [place] [address] 81514- 1065 Jul, Benign non-nodular prostatic hyperplasia with lower urinary tract symptoms N40.1 and Type 2 diabetes mellitus with complication, without long-term current use of insulin E11.8 [place] [address] [facility] [id number], [place] [address] Jul, Type 2 diabetes mellitus with complication, without long- term current use of insulin E11.8 [facility] [address] [facility] [id number], [place] [address] Jul, [facility] [address] [facility] [id number], [place] [address] 4417 Jun, [facility] [address] [facility] [id number], [place] [address] 3649 Jun, [facility] [address] [facility] [id number], [place] [address]- 8335 Jun, Type 2 diabetes mellitus with complication, without long- term current use of insulin E11.8 [place] [address] [facility] [id number], [place] [address] 3615 Jun, [facility] [address] [facility] [id number], [place] [address]- 7229 May, [facility] [address] [facility] [id number], [place] [address]- 3557 May, [facility] [address], [place] [address] 4[address] May, [facility] [address] [place] [id number] [address]- 9473 12 May, 2016 Encounter to establish care [...] Neuropathy G62.9 [facility] [address] [facility] [id number], [place] [address]- 2827 09 May, 2016 Neck abscess L02.11 [place] [address] [place] [id number] [place] [address] 54675- 1681 06 May, 2016 Abscess, neck L02.11 [facility] [address] [facility] [id number], [place] [address] May, [facility] [address] [facility] [id number] [address]- 4039 May, Abscess of neck L02.11 [facility] [address] [facility] [id number], [place] [address] Apr, Cellulitis, neck L03.221 [facility] [address] [facility] [id number], [place] [address] Apr, Abscess L02.91 [facility] [address], [place] [address]- 6892 January, [facility] [address], [place] [address]- 6615 Dec, [facility] [address] [place] [id number] [address]- 3671 Dec, [facility] [address], [place] [address]- 7529 Oct, [facility] [address], [place] [address]- 4767 Oct, [facility] [address], [place] [address]- 0350 Sep, [facility] [address], [place] [address]- 2678 Sep, [facility] [address] [place] [id number], [place] [address]- 7527 Sep, [facility] [address] [place] [id number], [place] [address]- 7546 Sep, [facility] [address], [place] [address]- 2646 Sep, [facility] [address] [facility] [id number] [place] [address]- 9264 Sep, [facility] [place] [facility] [address] [id number] [place] [address]- 6165 Sep, [facility] [place] [facility] [address] [id number] [place] [address]- 6646 Jul, [facility] [place] [facility] [address] [id number] [place] [address]- 0561 Jul, [facility] [place] [facility] [address] [id number] [place] [address]- 2339 Jun, 2013 [facility] [place] [facility] [address] [id number] [place] [address] Jun, 2013 [facility] [place] [facility] [address] [id number] [place] [address]- 6132 Jun, 2013 [facility] [place] [facility] [address] [id number] [place] [address]- 0538 Jun, 2013 [facility] [place] [facility] [address] [id number] [place] [address]- 2024 Jun, 2013 [facility] [place] [facility] [address] [id number] [place] [address]- 9655 Jun, 2013 [facility] [place] [facility] [address] [facility] [id number] [place] [address]- 1263 Jun, 2013 [facility] [place] [facility] [address] [id number] [place] [address]- 4298 Jun, 2013 [facility] [place] [facility] [address] [id number] [place] [address]- 1589 Jun, [facility] [place] [facility] [address] [id number] [place] [address]- 3811 Jun, [facility] [place] [facility] [address] [id number] [place] [address]- 8606 Jun, [facility] [place] [facility] [address] [id number] [place] [address] May, [facility] [place] [facility] [address] [id number] [place] [address]- 5143 30 Sep, 2013 [facility] [place] [facility] [address] [id number] [place] [address]- 6786 23 Sep, 2013 [facility] [place] [facility] [address] [id number] [place] [address]- 6877 23 Sep, 2013 [facility] [place] [facility] [address] [id number] [place] [address]- 2543 18 Sep, 2013 [facility] [place] [facility] [address] [id number] [place] [address]- 1969 18 Sep, 2013 [facility] [place] [facility] [address] [id number] [place] [address]- 6991 11 Sep, 2013 [facility] [place] [facility] [address] [id number] [place] [address]- 3845 11 May, 2013 [facility] [place] [facility] [address] [id number] [place] [address]- 8878 11 Sep, 2013 [facility] [place] [facility] [address] [id number] [place] [address]- 6489 11 Sep, 2013 [facility] [place] [facility] [address] [id number] [place] [address]- 0751 04 Sep, 2013 [facility] [place] [facility] [address] [id number], [place] [address]- 2619 04 Sep, 2013 [facility] [place] [facility] [address] [id number], [place] [address]- 0577 03 Sep, 2013 [facility] [place] [facility] [address] [id number] [place] [address]- 2548 03 Sep, 2013 [facility] [place] [facility] [address] [id number] [place] [address]- 1410 02 Sep, 2013 [facility] [place] [facility] [address] [id number] [place] [address]- 3645 02 Sep, 2013 [facility] [place] [facility] [address] [id number], [place] [address]- 9316 Apr, [facility] [place] [facility] [address] [id number] [place] [address]- 6815 Apr, [facility] [place] [facility] [address] [id number] [place] [address]- 9036 Apr, [facility] [place] [facility] [address] [facility] [id number] [place] [address]- 0900 Apr, [facility] [place] [facility] [address] [facility] [id number] [place] [address]- 5692 Mar, [facility] [place] [facility] [address] [facility] [id number] [place] [address]- 8384 Mar, [facility] [place] [facility] [address] [facility] [id number] [place] [address]- 3855 Mar, [facility] [place] [facility] [address] [facility] [id number] [place] [address]- 8490 Mar, [facility] [place] [facility] [address] [facility] [id number] [place] [address]- 2863 Mar, [facility] [place] [facility] [address] [facility] [id number], [place] [address]- 7942 Mar, [facility] [address] [facility] [id number] [place] [id number] January, [facility] [place] [facility] [address] [facility] [id number], [place] [address]- 4896 January, [facility] [address] [facility] [id number] [place] [id number] Dec, [facility] [place] [facility] [address] [facility] [id number], [place] [address]- 5535 Dec, [facility] [address] [facility] [id number] [place] [address] Oct, [facility] [place] [facility] [address] [facility] [id number], [place] [address]- 4178 Oct, [facility] [address] [facility] [id number] [place] [id number] Sep, [facility] [place] [facility] [address] [id number] [place] [address]- 6356 Sep, [facility] [place] [facility] [address] [id number] [place] [address]- 2546 Aug, [facility] [place] [facility] [address] [id number] [place] [address]- 2546 Aug, [facility] [place] [facility] [address] [id number] [place] [address]- 8576 Jul, [facility] [place] [facility] [address] [id number] [place] [address]- 6706 Jul, [facility] [place] [facility] [address] [facility] [id number], [place] [address]- 8896 Jul, [facility] [address] [place] [id number] [place] [address] Jul, [facility] [place] [facility] [address] [facility] [id number], [place] [address]- 3476 Jul, [facility] [address] [facility] [id number] [place] [id number] Jul, [facility] [place] [facility] [address] [facility] [id number], [place] [address]- 2546 Jul, [facility] [place] [facility] [address] [facility] [id number], [place] [address]- 2546 Jul, [facility] [place] [facility] [address] [id number], [place] [address]- 2546 Jun, [facility] [place] [facility] [address] [id number], [place] [address]- 2546 Jun, [facility] [address] [facility] [id number] [place] [address] Jun, [facility] [place] [facility] [address] [id number], [place] [address]- 2546 Jun, [facility] [place] [facility] [address] [facility] [id number], [place] [address]- 8969 Apr, [facility] [address] 1313 Apr, [facility] [address], [place] [address]- 3097 Feb, [facility] [address], [place] [address]- 6477 Dec, [facility] [address] [id number] [address] Dec, [facility] [address] [address] Nov, [facility] [address] [place] [id number] [place] [address] 79554- 9406 Nov, [facility] [address] [place] [id number] [place] [address] 69040- 1977 Nov, [facility] [address], [place] [address]- 7803 Oct, [facility] [address], [place] [address]- 7949 Oct, [facility] [address], [place] [address]- 1122 Oct, [facility] [address], [place] [address]- 0664 May, [facility] [address], [place] [address]- 2367 Apr, [facility] [address], [place] [address]- 7839 Feb, [facility] [address], [place] [address]- 7444 Feb, IMMUNIZATIONS No Known Immunizations SOCIAL HISTORY Never Assessed REASON FOR VISIT PALS IN-[facility] PLAN OF CARE VITAL SIGNS MEDICATIONS Unknown [...]
--- OUTSIDE RECORDS SUMMARY | 2018-12-11 19:43 | XMS REPORT ---
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 Active 3615742 Problem Pulmonary nodule R91.1 Active 180608517 Problem Type 2 diabetes mellitus with complication, without long-term current use of insulin E11.8 Active 26193415 Problem Polyneuropathy G62.9 Active 46105811 Problem MRSA (methicillin resistant staph aureus) culture positive Z22.322 Active 221325187 Problem Benign non-nodular prostatic hyperplasia with lower urinary tract symptoms N40.1 Active 78644836911735 Problem Mixed hyperlipidemia E78.2 Active 777613202 Problem Bilateral claudication of lower limb I73.9 Active 790520282 Problem Primary osteoarthritis of left knee M17.12 Active 608627260 Problem Essential hypertension I10 Active 03904517 Problem Diabetic polyneuropathy associated with type 2 diabetes mellitus E11.42 Active 66736215 ALLERGIES Substance Reaction Event Type Date Status Sepuvia Unknown Drug Allergy May, Active ENCOUNTERS Encounter Location Date Diagnosis [facility] [id number] [address] Feb, [facility] [id number], [place] [address] Nov, Benign non-nodular prostatic hyperplasia with lower urinary tract symptoms N40.1 and Acute epididymitis N45.1 [facility] [id number], [place] [address] Sep, Neuropathy G62.9 [facility] [id number], [place] [address] Sep, Type 2 diabetes mellitus with complication, without long- term current use of insulin E11.8 ; Neuropathy G62.9 ; Bilateral leg weakness R29.898 and Cough R05 [place] [address] [address] Aug, Left ear pain H92.02 and Bilateral impacted cerumen H61.23 [place] [address] [address] Jul, [facility] [address] [address] Jul, [place] [address] [address] Jul, Type 2 diabetes mellitus with complication, without long- term current use of insulin E11.8 ; Bilateral leg weakness R29.898 and Neuropathy G62.9 [facility] [address] [address] Jul, Acute non-recurrent maxillary sinusitis J01.00 [place] [address] [address] Jul, [place] [address] [address] Jul, Primary osteoarthritis of left knee M17.12 [place] [address] [address] Jul, Type 2 diabetes mellitus with complication, without long- term current use of insulin E11.8 [place] [address] [address] Jun, [place] [address] [address] Jun, Neuropathy G62.9 ; Bilateral leg weakness R29.898 ; Leg cramps R25.2 and Encounter for immunization Z23 [place] [address] [address] Jun, Bilateral claudication of lower limb I73.9 ; Essential hypertension I10 ; Mixed hyperlipidemia E78.2 and Diabetic polyneuropathy associated with type 2 diabetes mellitus E11.42 [place] [id number] [place] [address] Jun, Pain in right leg M79.604 ; Pain of left leg M79.605 and Bilateral leg weakness R29.898 [place] [address] [address] Jun, [place] [address] [address] Jun, Left lateral knee pain M25.562 and Bilateral leg weakness R29.898 [place] [id number] [place] [address] Jun, [place] [address] [address] May, Type 2 diabetes mellitus with complication, without long- term current use of insulin E11.8 ; Neuropathy G62.9 and Leg cramps R25.2 [place] [address] [address] May, [place] [id number] [place] [address] Apr, Bilateral leg weakness R29.898 and Leg cramps R25.2 [place] [id number] [place] [address]- [address] Mar, [place] [id number] [place] [address] Feb, Chronic seasonal allergic rhinitis due to other allergen J30.2 [place] [id number] [place] [address]- [address] January, Type 2 diabetes mellitus with complication, without long- term current use of insulin E11.8 and Neuropathy G62.9 [place] [id number] [place] [address]- [address] Dec, [place] [id number] [place] [address]- 3599 Dec, Pulmonary nodule R91.1 [place] [id number] [place] [address]- [address] Dec, [place] [address] [address] Dec, [place] [id number] [place] [address] Nov, Pre-procedure lab exam Z01.812 [place] [address] [address] Nov, Seasonal allergic rhinitis due to pollen J30.1 [place] [id number] [place] [address]- 2069 Oct, Lower abdominal pain R10.30 ; Hematuria R31.9 ; Pulmonary nodule R91.1 and Type 2 diabetes mellitus with complication, without long-term current use of insulin E11.8 [place] [id number] [place] [address]- [address] Sep, Type 2 diabetes mellitus with complication, without long- term current use of insulin E11.8 and Ventral hernia without obstruction or gangrene K43.9 [place] [id number] [place] [address]- 9[address] Aug, [place] [id number] [place] [address] Aug, Benign non-nodular prostatic hyperplasia with lower urinary tract symptoms N40.1 and Type 2 diabetes mellitus with complication, without long-term current use of insulin E11.8 [place] [id number] [place] [address] Jul, Benign non-nodular prostatic hyperplasia with lower urinary tract symptoms N40.1 and Type 2 diabetes mellitus with complication, without long-term current use of insulin E11.8 [facility] [address] [facility] [id number] [address] Jul, Type 2 diabetes mellitus with complication, without long- term current use of insulin E11.8 [facility] [address] [facility] [id number], [place] [address] Jul, [facility] [address], [place] [address] Jun, [facility] [address] [facility] [id number], [place] [address] Jun, [place] [address], [place] [address] Jun, Type 2 diabetes mellitus with complication, without long- term current use of insulin E11.8 [place] [address], [place] [address] Jun, [facility] [address], [place] [address] May, [facility] [address], [place] [address] May, [facility] [id number], [place] [address] May, [facility] [id number], [place] [address] 12 May, 2016 Encounter to establish care Z76.89 ; Type 2 diabetes mellitus with complication, without long-term current use of insulin E11.8 ; Essential hypertension I10 ; Hyperlipidemia, unspecified hyperlipidemia type E78.5 ; 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 ; MRSA (methicillin resistant staph aureus) culture positive Z22.322 ; Pain in unspecified knee M25.569 ; Other chronic pain G89.29 and Neuropathy G62.9 [place] [id number], [place] [address] 09 May, 2016 Neck abscess L02.11 [place] [address] [place] [address] 06 May, 2016 Abscess, neck L02.11 [facility] [address] [place] [address] 04 May, 2016 [facility] [address] [place] [address] 02 May, 2016 Abscess of neck L02.11 [facility] [address] [place] [address], [place] [address] Apr, Cellulitis, neck L03.221 [facility] [address] [place] [address], [place] [address] Apr, Abscess L02.91 [facility] [address] [place] [address] January, [facility] [id number] [place] [address]- 139[address] Dec, [facility] [address], [place] [address]- [address] Dec, [facility] [address] [place] [address] Oct, [facility] [id number] [place] [address]- [address] Oct, [facility] [address], [place] [address]- [address] Sep, [facility] [address], [place] [address]- [address] Sep, [facility] [address], [place] [address]- [address] Sep, [facility] [address], [place] [address]- 34[address] Sep, [facility] [address], [place] [address]- [address] Sep, [facility] [place] [facility] [address] [id number] [place] [address]- [address] Sep, [facility] [place] [facility] [address] [id number] [place] [address]- 8[address] Sep, [facility] [place] [facility] [address] [id number] [place] [address]- 6[address] Jul, [facility] [place] [facility] [address] [id number] [place] [address]- 8739 Jul, [facility] [place] [facility] [address] [id number] [place] [address]- 2[address] Jun, [facility] [place] [facility] [address] [id number] [place] [address]- 5288 Jun, [facility] [place] [facility] [address] [id number] [place] [address]- 7321 Jun, [facility] [place] [facility] [address] [id number], [place] [address]- 8988 Jun, [facility] [place] [facility] [address] [id number], [place] [address]- [address] Jun, [facility] [place] [facility] [address] [id number], [place] [address]- 9307 Jun, [facility] [place] [facility] [address] [id number], [place] [address]- 3[address] Jun, 2013 [facility] [place] [facility] [address] [id number], [place] [address]- 8168 Jun, [facility] [place] [facility] [address] [id number], [place] [address]- 9[address] Jun, [facility] [place] [facility] [address] [id number], [place] [address]- 8213 Jun, [facility] [place] [facility] [address] [id number], [place] [address]- 4[address] Jun, [facility] [place] [facility] [address] [id number] [place] [address]- 6478 30 Sep, 2013 [facility] [place] [facility] [address] [id number] [place] [address] 2546 30 Sep, 2013 [facility] [place] [facility] [address] [id number] [place] [address] 2546 23 Sep, 2013 [facility] [place] [facility] [address] [id number] [place] [address] 2546 23 Sep, 2013 [facility] [place] [facility] [address] [id number] [place] [address] 2546 18 Sep, 2013 [facility] [place] [facility] [address] [id number] [place] [address] 2545 18 Sep, 2013 [facility] [place] [facility] [address] [id number] [place] [address] 2544 11 Sep, 2013 [facility] [place] [facility] [address] [id number] [place] [address]- 4287 11 Sep, 2013 [facility] [place] [facility] [address] [id number] [place] [address] 2548 11 Sep, 2013 [facility] [place] [facility] [address] [id number] [place] [address] 2546 11 Sep, 2013 [facility] [place] [facility] [address] [id number] [place] [address] 2549 04 Sep, 2013 [facility] [place] [facility] [address] [id number] [place] [address] 2546 04 Sep, 2013 [facility] [place] [facility] [address] [id number] [place] [address] 2546 03 Sep, 2013 [facility] [place] [facility] [address] [id number] [place] [address] 2546 03 Sep, 2013 [facility] [place] [facility] [address] [id number] [place] [address]- 2546 02 Sep, 2013 [facility] [place] [facility] [address] [id number] [place] [address] 2547 02 May, 2014 [facility] [place] [facility] [address] [id number] [place] [address]- 8429 Apr, [facility] [place] [facility] [address] [id number] [place] [address]- 3164 Apr, [facility] [place] [facility] [address] [id number] [place] [address]- 9385 Apr, [facility] [place] [facility] [address] [id number] [place] [address]- 5527 Apr, [facility] [place] [facility] [address] [id number] [place] [address]- 5978 Mar, [facility] [place] [facility] [address] [id number] [place] [address]- 0089 Mar, [facility] [place] [facility] [address] [id number] [place] [address]- 7016 Mar, [facility] [place] [facility] [address] [id number] [place] [address]- 2330 Mar, [facility] [place] [facility] [address] [id number] [place] [address]- 1095 Mar, [facility] [place] [facility] [address] [id number] [place] [address]- 5326 Mar, [facility] [address] [facility] [id number][place] [address] January, [facility] [place] [facility] [address] [id number] [place] [address]- 5161 January, [facility] [address] [id number][place] [id number] Dec, [facility] [place] [facility] [address] [id number] [place] [address]- 5064 Dec, [facility] [address] [facility] [id number][place] [address] Oct, [facility] [place] [facility] [address] [id number] [place] [address]- 6486 Oct, [facility] [address] [id number][place] [address] Sep, [facility] [address] [facility] [id number] [address]- [address] Sep, [facility] [place] [facility] [address] [id number] [place] [address]- 1136 Aug, [facility] [place] [facility] [address] [facility] [id number] [place] [address]- 8207 Aug, [facility] [place] [facility] [address] [id number] [place] [address]- 5216 Jul, [facility] [place] [facility] [id number] [place] [address]- 2454 Jul, [facility] [id number], [place] [address]- 125[address] Jul, [facility] [id number][place] [id number] Jul, [facility] [address] [facility] [id number], [place] [address]- 9[address] Jul, [facility] [address] [id number] [address] Jul, [facility] [id number], [place] [address] Jul, [facility] [place] [facility] [id number], [place] [address]- 8206 Jul, [facility] [place] [facility] [address] [facility] [id number], [place] [address]- 2546 Jun, [facility] [place] [facility] [address] [facility] [id number], [place] [address]- 7636 Jun, [facility] [address] [facility] [id number][place] [id number] Jun, [facility] [place] [facility] [id number], [place] [address]- 2546 Jun, [facility] [place] [facility] [address] [address] Apr, [facility] [address], [place] [address]- 9[address] Apr, [facility] [id number], [place] [address]- 8190 Feb, [facility] [address], [place] [address]- 7[address] Dec, [facility] [address] [facility] [id number] [place] [address]- 3044 Dec, [facility] [id number] [address] Nov, [facility] [address], [place] [address]- 5[address] Nov, [facility] [address], [place] [address]- 6409 Nov, [facility] [address], [place] [address]- 85[address] Oct, [facility] [address], [place] [address]- 1523 Oct, [facility] [address], [place] [address]- 5933 Oct, [facility] [id number], [place] [address]- 86[address] May, [facility] [id number], [place] [address]- 8[address] Apr, [facility] [address] [address] Feb, [facility] [id number], [place] [address]- [address]16 Feb, IMMUNIZATIONS No Known Immunizations SOCIAL HISTORY Never Assessed REASON FOR VISIT Diabetes, PT went to the ER christopher evening with bronchitis- Ciro BYNUM PLAN OF CARE Activity Details Follow Up 3 Months Reason:DM VITAL SIGNS Height 67 in 2017-06-17 Weight 234.8 lbs 2017-06-17 Temperature 97.6 degrees Fahrenheit 2017-06-17 Heart Rate 68 bpm 2017-06-17 Respiratory Rate 20 2017-06-17 BMI 36.77 kg/m2 2017-06-17 Blood pressure systolic 152 mmHg 2017-06-17 Blood pressure diastolic 98 mmHg 2017-06-17 MEDICATIONS Medication Instructions Dosage Frequency Start Date End Date Duration Status Metformin HCl 1000 MG TAKE ONE TABLET BY MOUTH TWICE DAILY WITH MEALS 30 Active Trulicity 0.75 MG/0.5ML Subcutaneous once weekly Inject 0.5ML Jun, 90 days Active BusPIRone HCl 15 MG Orally 2 times a day 1 tablet 12h Active Atorvastatin Calcium 40 MG TAKE ONE TABLET BY MOUTH ONCE DAILY. 30 Active GlipiZIDE 5 mg Orally 2 times a day 1 tablet 12h May, 30 days Active Fish Oil 1360 MG Orally Once a day 1 capsule 24h Active Cinnamon 500 MG Active Proscar 5 mg Orally Once a day 1 tablet 24h 30 Active Glucocard Expression Test - subcutaneously Once a day use to test blood sugar 24h Sep, Active Aspirin 81 MG Orally Once a day 1 tablet 24h Active Tegretol 200 mg Orally Once a day at bedtime 1 tablet Apr, Active Lisinopril-Hydrochlorothiazide 20-25 MG TAKE ONE TABLET BY MOUTH ONCE DAILY. 30 Active Glucocard Expression Monitor w/Device as directed Sep, Active Gabapentin 800 MG Orally Three times a day 1 capsule 8h 30 Active RESULTS No Results PROCEDURES Procedure Date Ordered Result Body Site GLYCATED HEMOGLOBIN TEST Jun 17, 2017 MICROALBUMIN, SEMIQUANT Jun 17, 2017 INSTRUCTIONS MEDICATIONS ADMINISTERED No Known Medications [...]
--- OUTSIDE RECORDS SUMMARY | 2018-12-11 19:43 | XMS REPORT ---
Author Author YVONNE MCGEE [facility] Address [address] [place] [address] Care Team Providers Care Hoistman Name Role Phone YVONNE MCGEE Unavailable PROBLEMS Type Condition ICD9-CM Code FSG25-RO Code Onset Dates Condition Status SNOMED Code Problem Periapical abscess without sinus 522.5 Active 073788257 Problem Unspecified essential hypertension 401.9 Active 08050913 Problem Diabetes mellitus without mention of complication, type II or unspecified type, not stated as uncontrolled 250.00 Active 702464812 Assessment Neck abscess L02.11 May, Active 6850788 Problem Elevated blood pressure reading without diagnosis of hypertension 796.2 Active 259015069 Problem 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 Active 3702573 Problem MRSA (methicillin resistant staph aureus) culture positive Z22.322 Active 310260760 Problem Dermatophytosis of nail 110.1 Active 106766775 Problem Other and unspecified hyperlipidemia 272.4 Active 47558523 Problem Unspecified otitis media 382.9 Active 47555663 Problem Mononeuritis of unspecified site 355.9 Active 08510135 ALLERGIES Substance Reaction Event Type Date Status Januvia Unknown Drug Allergy May, Active SOCIAL HISTORY No smoking Hx information available PLAN OF CARE VITAL SIGNS Height 67 in 2016-06-08 Weight 243.7 lbs 2016-06-08 Heart Rate 94 bpm 2016-06-08 Respiratory Rate 20 2016-06-08 BMI 38.16 kg/m2 2016-06-08 Blood pressure systolic 124 mmHg 2016-06-08 Blood pressure diastolic 76 mmHg 2016-06-08 MEDICATIONS Medication Instructions Dosage Frequency Start Date End Date Duration Status Bactrim DS 800-160 MG Orally Twice a day 1 tablet 12h Apr, May, 10 day(s) Active Lisinopril 20 mg take 1 tablet by Oral route 1 time per day Take in evening Sep, Active Metformin HCl 1000 MG Orally Twice a day 1 tablet with meals 12h 20 days Active GlipiZIDE 10 mg Orally Once a day 1 tablet 24h 20 days Active BusPIRone HCl 15 MG Orally Twice a day 1 tablet 12h 20 days Active Hydrochlorothiazide 25 MG Orally Once a day 1 tablet 24h Active Aspirin 81 MG Orally Once a day 1 tablet 24h Active Gabapentin 600 MG Orally Three times a day 1 capsule 8h Sep, 20 days Active Atorvastatin Calcium 40 mg Orally Once a day 1 tablet 24h 20 days Active RESULTS No Results PROCEDURES Procedure Date Ordered Related Diagnosis Body Site Office Visit, Est Pt., Level 2 Jun 08, 2016 IMMUNIZATIONS No Known Immunizations
--- OUTSIDE RECORDS SUMMARY | 2018-12-11 19:43 | XMS REPORT ---
Author Author YVONNE MCGEE [facility] Address [address] [place] [address] Care Team Providers Care Regional Facilities Specialist Name Role Phone YVONNE MCGEE Unavailable PROBLEMS Type Condition ICD9-CM Code FDA30-JX Code Onset Dates Condition Status SNOMED Code Problem Periapical abscess without sinus 522.5 Active 708449714 Problem Unspecified essential hypertension 401.9 Active 19511340 Problem Diabetes mellitus without mention of complication, type II or unspecified type, not stated as uncontrolled 250.00 Active 662362722 Assessment Abscess, neck L02.11 May, Active 0571712 Problem Elevated blood pressure reading without diagnosis of hypertension 796.2 Active 485200915 Problem 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 Active 7956342 Problem MRSA (methicillin resistant staph aureus) culture positive Z22.322 Active 603639033 Problem Dermatophytosis of nail 110.1 Active 266869712 Problem Other and unspecified hyperlipidemia 272.4 Active 83755382 Problem Unspecified otitis media 382.9 Active 86505268 Problem Mononeuritis of unspecified site 355.9 Active 49268637 ALLERGIES No Known Allergies SOCIAL HISTORY No smoking Hx information available PLAN OF CARE VITAL SIGNS MEDICATIONS No Known Medications RESULTS No Results PROCEDURES Procedure Date Ordered Related Diagnosis Body Site Office Visit, Est Pt., Level 2 Jun 05, 2016 IMMUNIZATIONS No Known Immunizations
--- OUTSIDE RECORDS SUMMARY | 2018-12-11 19:43 | XMS REPORT ---
Author Author LY PRINGLE Organization [employer] Address Unknown Phone Unavailable Care Team Providers Care Cleaning And Maintenance Worker Name Role Phone LY PRINGLE CP Unavailable Allergies No Known Allergies Problems Problem Type Condition Code Onset Dates Condition Status Problem Periapical abscess without sinus 522.5 Active Problem Unspecified essential hypertension 401.9 Active Problem Diabetes mellitus without mention of complication, type II or unspecified type, not stated as uncontrolled 250.00 Active Problem Elevated blood pressure reading without diagnosis of hypertension 796.2 Active Problem 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
--- OUTSIDE RECORDS SUMMARY | 2018-12-11 19:43 | XMS REPORT ---
Author Author LY PRINGLE [facility] Address [address] [place] [address] Care Team Providers Care Veterinary Technology Instructor Name Role Phone LY PRINGLE Unavailable PROBLEMS Type Condition ICD9-CM Code [id number] Code Onset Dates Condition Status SNOMED Code Problem Periapical abscess without sinus 522.5 Active 742327606 Problem Unspecified essential hypertension 401.9 Active 34506777 Problem Diabetes mellitus without mention of complication, type II or unspecified type, not stated as uncontrolled 250.00 Active 244989895 Problem Elevated blood pressure reading without diagnosis of hypertension 796.2 Active 572886130 Problem 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
--- OUTSIDE RECORDS SUMMARY | 2018-12-11 19:43 | XMS REPORT ---
Author Author LY PRINGLE Organization [employer] Address Unknown Phone Unavailable Care Team Providers Care Child Nutrition Manager Name Role Phone LY PRINGLE CP Unavailable [...] Active Problem Dermatophytosis of nail 110.1 Active Medications Medication Code System Code Instructions Start Date End Date Status Dosage Trulicity [facility] [address]-02 0.75 MG/0.5ML Subcutaneous Jul 02, 2016 Aug 01, 2016 0.5 ml Results No Known Results Summary Purpose [employer] Submission
--- OUTSIDE RECORDS SUMMARY | 2018-12-11 19:44 | XMS REPORT ---
Author Author LY PRINGLE Organization [employer] Address Unknown Phone Unavailable Care Team Providers Care Commercial Attorney Name Role Phone LY PRINGLE CP Unavailable [...] Mononeuritis of unspecified site 355.9 Active Medications Medication Code System Code Instructions Start Date End Date Status Dosage Gabapentin [facility] [address]-77 600 MG Orally Three times a day Oct 01, 2014 1 capsule Results No Known Results Summary Purpose [employer] Submission
--- OUTSIDE RECORDS SUMMARY | 2018-12-11 19:44 | XMS REPORT ---
Author Author LY PRINGLE [facility] Address [address] [place] [address] Care Team Providers Care Title One Reading Teacher Name Role Phone LY PRINGLE Unavailable PROBLEMS Type Condition ICD9-CM Code ICX18-AJ Code Onset Dates Condition Status SNOMED Code Problem Mononeuritis of unspecified site 355.9 Active 02912063 Problem MRSA (methicillin resistant staph aureus) culture positive Z22.322 Active 289174885 Problem Unspecified otitis media 382.9 Active 80393839 Problem Neuropathy G62.9 Active 348503662 Problem Seasonal allergic rhinitis due to pollen J30.1 Active 70421343 Problem Type 2 diabetes mellitus with complication, without long-term current use of insulin E11.8 Active 97120194 Problem 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 Active 6381292 Problem Pulmonary nodule R91.1 Active 018931354 Problem Benign non-nodular prostatic hyperplasia with lower urinary tract symptoms N40.1 Active 686179200 Problem Diabetes mellitus without mention of complication, type II or unspecified type, not stated as uncontrolled 250.00 Active 474393365 Problem Unspecified essential hypertension 401.9 Active 86496830 Problem Elevated blood pressure reading without diagnosis of hypertension 796.2 Active 224960558 Problem Other and unspecified hyperlipidemia 272.4 Active 66300244 Problem Periapical abscess without sinus 522.5 Active 384446665 Problem Dermatophytosis of nail 110.1 Active 453868169 ALLERGIES Unknown Allergies SOCIAL HISTORY No smoking Hx information available PLAN OF CARE VITAL SIGNS MEDICATIONS Unknown Medications RESULTS No Results PROCEDURES No Known procedures IMMUNIZATIONS No Known Immunizations
--- OUTSIDE RECORDS SUMMARY | 2018-12-11 19:44 | XMS REPORT ---
Author Author LY PRINGLE Organization [employer] Address Unknown Phone Unavailable Care Team Providers Care Product Manager Financial Services Name Role Phone LY PRINGLE CP Unavailable Allergies No Known Allergies Problems Problem Type Condition Code Onset Dates Condition Status Problem Periapical abscess without sinus 522.5 Active Problem Unspecified essential hypertension 401.9 Active Problem Diabetes mellitus without mention of complication, type II or unspecified type, not stated as uncontrolled 250.00 Active Assessment Type 2 diabetes mellitus with complication, without long-term current use of insulin E11.8 Active Problem Elevated blood pressure reading without [...] Start Date End Date Status Dosage Trulicity [facility] [address]-83 0.75 MG/0.5ML Subcutaneous once weekly Jul 02, 2016 Inject 0.5ML Metformin HCl [facility] [address]-10 1000 MG Orally Twice a day 1 tablet with meals Aspirin [facility] [address]-59 81 MG Orally Once a day 1 tablet Atorvastatin Calcium [facility] [address]-01 40 mg Orally Once a day 1 tablet Lisinopril-Hydrochlorothiazide [facility] 44761774104 20-25 MG Orally Once a day 1 tablet GlipiZIDE [facility] [address]-57 10 mg Orally Once a day 1 tablet BusPIRone HCl [facility] [address]-27 15 MG Orally Twice a day 1 tablet Gabapentin [facility] [address]-44 600 MG Orally Three times a day Oct 01, 2014 1 capsule Results No Known Results Summary Purpose eClinicalWorks Submission
--- OUTSIDE RECORDS SUMMARY | 2018-12-11 19:44 | XMS REPORT ---
Author Author LY PRINGLE Organization [employer] Address Unknown Phone Unavailable Care Team Providers Care Fisher Line Name Role Phone LY PRINGLE CP Unavailable [...]
--- OUTSIDE RECORDS SUMMARY | 2018-12-11 19:44 | XMS REPORT ---
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 Active 5791521 Problem Pulmonary nodule R91.1 Active 302482397 Problem Type 2 diabetes mellitus with complication, without long-term current use of insulin E11.8 Active 57715018 Problem Polyneuropathy G62.9 Active 85993944 Problem MRSA (methicillin resistant staph aureus) culture positive Z22.322 Active 667945844 Problem Benign non-nodular prostatic hyperplasia with lower urinary tract symptoms N40.1 Active 50236438802454 Problem Mixed hyperlipidemia E78.2 Active 516188736 Problem Bilateral claudication of lower limb I73.9 Active 617453484 Problem Primary osteoarthritis of left knee M17.12 Active 768203111 Problem Essential hypertension I10 Active 65545993 Problem Diabetic polyneuropathy associated with type 2 diabetes mellitus E11.42 Active 44253451 ALLERGIES No Information ENCOUNTERS Encounter Location Date Diagnosis [place] [address] [id number] [place] [address] Nov, Benign non-nodular prostatic hyperplasia with lower urinary tract symptoms N40.1 and Acute epididymitis N45.1 [facility] [id number] [place] [address]15- 5057 Sep, Neuropathy G62.9 [facility] [id number] [place] [address] 24282- 4888 Sep, Type 2 diabetes mellitus with complication, without long- term current use of insulin E11.8 ; Neuropathy G62.9 ; Bilateral leg weakness R29.[address] [facility] [address] [address] Aug, Left ear pain H92.02 and Bilateral impacted cerumen H61.23 [place] [address] [address] Jul, [place] [address] [address] Jul, [place] [address] [address] Jul, Type 2 diabetes mellitus with complication, without long- term current use of insulin E11.8 ; Bilateral leg weakness R29.898 and Neuropathy G62.9 [facility] [place] [address] [address] Jul, Acute non-recurrent maxillary sinusitis J01.00 [place] [address] [address]- [address] Jul, [place] [address] [address] 1994 Jul, Primary osteoarthritis of left knee M17.12 [place] [address] 6[address]- 0569 Jul, Type 2 diabetes mellitus with complication, without long- term current use of insulin E11.8 [place] [address] [address]- 6[address] Jun, [place] [address] [address]- 2980 Jun, Neuropathy G62.9 ; Bilateral leg weakness R29.898 ; Leg cramps R25.2 and Encounter for immunization Z23 [place] [address] [address] 360[address] Jun, Bilateral claudication of lower limb I73.9 ; Essential hypertension I10 ; Mixed hyperlipidemia E78.2 and Diabetic polyneuropathy associated with type 2 diabetes mellitus E11.42 [place] [id number] [place] [address] 37000- 2527 Jun, Pain in right leg M79.604 ; Pain of left leg M79.605 and Bilateral leg weakness R29.898 [facility] [id number] [place] [address] 24123- 3784 Jun, [facility] [id number] [place] [address] 38609- 8052 Jun, Left lateral knee pain M25.562 and Bilateral leg weakness R29.898 [place] [id number] [place] [address] 15350- 2665 Jun, [place] [address] [id number] [place] [address] 56209- 9607 May, Type 2 diabetes mellitus with complication, without long- term current use of insulin E11.8 ; Neuropathy G62.9 and Leg cramps R25.2 [place] [id number] [place] [address] 99103- 6582 May, [facility] [id number] [place] [address] 73829- 5587 Apr, Bilateral leg weakness R29.898 and Leg cramps R25.2 [place] [id number] [place] [address] 06973- 9986 Mar, [facility] [id number] [place] [address] 46679- 2916 Feb, Chronic seasonal allergic rhinitis due to other allergen J30.2 [facility] [id number] [place] [address] 96233- 3072 January, Type 2 diabetes mellitus with complication, without long- term current use of insulin E11.[address] [facility] [id number] [place] [address] 28835- 6749 Dec, [facility] [id number] [place] [address] 01645- 6949 Dec, Pulmonary nodule R91.1 [place] [address] [place] [address] 89533- 2920 Dec, [place] [id number] [place] [address] 87467- 3588 Dec, [place] [id number] [place] [address] 78117- 1327 Nov, Pre-procedure lab exam Z01.812 [place] [id number] [place] [address] 87233- 7550 Nov, Seasonal allergic rhinitis due to pollen J30.1 [place] [id number] [place] [address] 96206- 5836 Oct, Lower abdominal pain R10.30 ; Hematuria R31.9 ; Pulmonary nodule R91.1 and Type 2 diabetes mellitus with complication, without long-term current use of insulin E11.8 [place] [id number] [place] [address] 91937- 9047 Sep, Type 2 diabetes mellitus with complication, without long- term current use of insulin E11.8 and Ventral hernia without obstruction or gangrene K43.9 [place] [id number] [place] [address] 97100- 1447 Aug, [place] [id number] [place] [address] 97801- 2539 Aug, Benign non-nodular prostatic hyperplasia with lower urinary tract symptoms N40.1 and Type 2 diabetes mellitus with complication, without long-term current use of insulin E11.8 [place] [address] [place] [address] 85197- 0522 Jul, Benign non-nodular prostatic hyperplasia with lower urinary tract symptoms N40.1 and Type 2 diabetes mellitus with complication, without long-term current use of insulin E11.8 [place] [id number] [place] [address] 94812- 2867 Jul, Type 2 diabetes mellitus with complication, without long- term current use of insulin E11.8 [facility] [address] [facility] [id number] [address] Jul, [facility] [address] [facility] [id number] [address] Jun, [facility] [address] [facility] [id number] [address]- 5684 Jun, [facility] [address] [address]- 1694 Jun, Type 2 diabetes mellitus with complication, without long- term current use of insulin E11.8 [facility] [address] [address] Jun, [facility] [address] [address] May, [facility] [address] [address]165 May, [facility] [id number] [address]- 3777 May, 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 [address] [place] [id number] [address]- 2615 09 May, [address] [facility] [address] [id number] [address]- 9[address] 06 May, 2016 Abscess, neck L02.11 [facility] [id number] [place] [address] 04 May, 2016 [facility] [address] [address]- 0490 May, Abscess of neck L02.11 [facility] [address] [place] [address] 31 Apr, 2016 Cellulitis, neck L03.221 [facility] [address] [facility] [id number] [place] [address] 30 Apr, [address] [facility] [address] [place] [address]- [address]12 January, [facility] [address] [address]170 Dec, [facility] [address] [address]110 Dec, [facility] [id number] [address] 8107 Oct, [facility] [address] [place] [place] [address] 9699 Oct, [facility] [address] [address]702 Sep, [facility] [address] [address] 5848 Sep, [facility] [id number] [address]- 2178 Sep, [facility] [address] [address]- 8534 Sep, [facility] [id number] [address]- 0290 Sep, [facility] [id number] [address]- 9829 Sep, [facility] [address] [facility] [id number] [place] [address] 2542 Sep, [facility] [place] [facility] [address] [id number] [place] [address]- 9842 Jul, [facility] [place] [facility] [address] [id number] [place] [address]- 4367 Jul, [facility] [place] [facility] [address] [id number] [place] [address]- 6031 Jun, 2013 [facility] [place] [facility] [address] [id number] [place] [address]- 5230 Jun, 2013 [facility] [place] [facility] [address] [id number] [place] [address]- 5970 Jun, 2013 [facility] [place] [facility] [address] [id number] [place] [address]- 2604 Jun, 2013 [facility] [place] [facility] [address] [id number] [place] [address]- 5214 Jun, 2013 [facility] [place] [facility] [address] [id number] [place] [address]- 0474 Jun, [facility] [place] [facility] [address] [id number] [place] [address]- 2249 Jun, [facility] [place] [facility] [address] [facility] [id number] [place] [address]- 6295 Jun, [facility] [place] [facility] [address] [id number] [place] [address]- 2502 Jun, [facility] [place] [facility] [address] [id number] [place] [address]- 1262 Jun, [facility] [place] [facility] [address] [id number] [place] [address]- 2992 Jun, [facility] [place] [facility] [address] [id number] [place] [address]- 4934 May, [facility] [place] [facility] [address] [id number] [place] [address]268 May, 2013 [facility] [place] [facility] [address] [id number] [place] [address]- 1123 23 Sep, 2013 [facility] [place] [facility] [address] [id number] [place] [address]- 9746 23 May, 2013 [facility] [place] [facility] [address] [id number] [place] [address]- 8157 18 May, 2013 [facility] [place] [facility] [address] [id number] [place] [address]- 8760 18 May, 2013 [facility] [place] [facility] [address] [id number] [place] [address]- 2895 11 May, 2013 [facility] [place] [facility] [address] [id number] [place] [address]- 4057 11 May, 2013 [facility] [place] [facility] [address] [id number] [place] [address]- 8994 11 May, 2013 [facility] [place] [facility] [address] [id number] [place] [address]- 3281 11 May, 2013 [facility] [place] [facility] [address] [id number] [place] [address]- 8881 04 May, 2013 [facility] [place] [facility] [address] [id number] [place] [address]- 5855 04 May, 2013 [facility] [place] [facility] [address] [id number] [address]- 0821 03 May, 2013 [facility] [place] [facility] [address] [id number], [place] [address]- 2969 03 Sep, 2013 [facility] [place] [facility] [address] [id number] [place] [address]- 6404 02 Sep, 2013 [facility] [place] [facility] [address] [id number] [place] [address]- 3403 02 May, 2013 [facility] [place] [facility] [address] [id number] [place] [address]- 6247 14 Apr, 2013 [facility] [place] [facility] [address] [id number], [place] [address]- 6590 Apr, [facility] [place] [facility] [address] [id number] [place] [address]- 6252 Apr, [facility] [place] [facility] [address] [facility] [id number] [place] [address]- 7067 Apr, [facility] [place] [facility] [address] [facility] [id number] [place] [address]- 2885 Mar, [facility] [place] [facility] [address] [facility] [id number] [place] [address]- 6375 Mar, [facility] [place] [facility] [address] [facility] [id number] [place] [address]- 0527 Mar, [facility] [place] [facility] [address] [facility] [id number] [place] [address]- 6508 Mar, [facility] [place] [facility] [id number] [address]- 0858 Mar, [facility] [place] [facility] [address] [facility] [id number] [place] [address]- 3288 Mar, [facility] [address] [facility] [id number][place] [id number] January, [facility] [place] [facility] [address] [facility] [id number], [place] [address]- 4306 January, [facility] [address] [facility] [id number][place] [id number] Dec, [facility] [place] [facility] [address] [facility] [id number], [place] [address]- 2546 Dec, [facility] [address] [facility] [id number] [place] [id number] Oct, [facility] [place] [facility] [address] [facility] [id number], [place] [address]- 8326 Oct, [facility] [address] [facility] [id number][place] [id number] Sep, [facility] [place] [facility] [address] [facility] [id number] [place] [address]- 7057 Sep, [facility] [place] [facility] [address] [id number] [place] [address]- 2546 Aug, [facility] [place] [facility] [address] [id number] [place] [address]- 2546 Aug, [facility] [place] [facility] [address] [id number] [place] [address]- 2546 Jul, [facility] [place] [facility] [address] [id number] [place] [address]- 2546 Jul, [facility] [place] [facility] [address] [id number] [place] [address]- 2546 Jul, [facility] [address] [place] [address] [id number] [id number] Jul, [facility] [place] [facility] [address] [facility] [id number] [place] [address]- 2546 Jul, [facility] [address] [place] [address] [id number] [id number] Jul, [facility] [place] [facility] [address] [facility] [id number] [place] [address]- 2546 Jul, [facility] [place] [facility] [address] [facility] [id number], [place] [address]- 2546 Jul, [facility] [place] [facility] [address] [facility] [id number], [place] [address]- 2546 Jun, [facility] [place] [facility] [address] [id number][place] [address]- 2546 Jun, [facility] [address] [facility] [id number][place] [id number] Jun, [facility] [place] [facility] [address] [id number] [place] [address]- 2546 Jun, [facility] [place] [facility] [address] [id number][place] [address]- 2546 Apr, [facility] [place] [facility] [address] [facility] [id number], [place] [address] 2546 Apr, [facility] [id number] [address] 7639 Feb, [facility] [address] [address] Dec, [facility] [address] [address] Dec, [facility] [address] [address] 5766 Nov, [facility] [address] [address] Nov, [facility] [id number] [address] Nov, [facility] [id number] [address] Oct, [facility] [id number] [address] Oct, [facility] [id number] [address] Oct, [facility] [id number] [address] May, [facility] [id number] [address] Apr, [facility] [id number] [address] Feb, [facility] [id number], [place] [address] Feb, IMMUNIZATIONS No Known Immunizations SOCIAL HISTORY Never Assessed REASON FOR VISIT PALS IN- [facility] PLAN OF CARE VITAL SIGNS MEDICATIONS No [...]
--- OUTSIDE RECORDS SUMMARY | 2018-12-11 19:44 | XMS REPORT ---
Author Author LY PRINGLE [facility] Address [address] [place] [address] Care Team Providers Care Senior Quality Control Inspector Name Role Phone LY PRINGLE Unavailable PROBLEMS Type Condition ICD9-CM Code DPL05-UD Code Onset Dates Condition Status SNOMED Code Problem Type 2 diabetes mellitus with complication, without long-term current use of insulin E11.8 Active 32763486 Problem Pulmonary nodule R91.1 Active 231113472 Problem Benign non-nodular prostatic hyperplasia with lower urinary tract symptoms N40.1 Active 393463928 Problem MRSA (methicillin resistant staph aureus) culture positive Z22.322 Active 662893106 Problem 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 Active 6943209 Problem Mixed hyperlipidemia E78.2 Active 695358728 Problem Essential hypertension I10 Active 20679582 Problem Neuropathy G62.9 Active 359163291 Problem Seasonal allergic rhinitis due to pollen J30.1 Active 82251308 Problem Diabetic polyneuropathy associated with type 2 diabetes mellitus E11.42 Active 06470212 Problem Bilateral claudication of lower limb I73.9 Active 906300904 ALLERGIES Substance Reaction Event Type Date Status Andreuvquynh Unknown Drug Allergy January, Active SOCIAL HISTORY Never Assessed PLAN OF CARE Activity Details Follow Up 3 Months Reason:DM VITAL SIGNS Height 67 in 2017-02-04 Weight 241.8 lbs 2017-02-04 Temperature 98.1 degrees Fahrenheit 2017-02-04 Heart Rate 80 bpm 2017-02-04 Respiratory Rate 18 2017-02-04 BMI 37.87 kg/m2 2017-02-04 Blood pressure systolic 140 mmHg 2017-02-04 Blood pressure diastolic 80 mmHg 2017-02-04 MEDICATIONS Medication Instructions Dosage Frequency Start Date End Date Duration Status Trulicity 0.75 MG/0.5ML Subcutaneous once weekly Inject 0.5ML Jun, 90 days Active Glucocard Expression Monitor w/Device as directed Sep, Active Proscar 5 mg Orally Once a day 1 tablet 24h 30 Active Aspirin 81 MG Orally Once a day 1 tablet 24h Active Glucocard Expression Test - subcutaneously Once a day use to test blood sugar 24h 18 Sep, 2016 Active Atorvastatin Calcium 40 MG TAKE ONE TABLET BY MOUTH ONCE DAILY. 30 Active Lisinopril-Hydrochlorothiazide 20-25 MG TAKE ONE TABLET BY MOUTH ONCE DAILY. 30 Active Metformin HCl 1000 MG TAKE ONE TABLET BY MOUTH TWICE DAILY WITH MEALS. 30 Active Cinnamon 500 MG Active Fish Oil 1360 MG Orally Once a day 1 capsule 24h Active BusPIRone HCl 15 MG TAKE ONE TABLET BY MOUTH TWICE DAILY 30 Active Claritin 10 mg Orally Once a day in AM 1 tablet Nov, Feb, 30 day(s) Active Gabapentin 800 MG Orally Three times a day 1 capsule 8h 30 Active GlipiZIDE 10 mg TAKE ONE TABLET BY MOUTH ONCE DAILY. 12h 30 days Active RESULTS Name Result Date Reference Range A1C (IN HOUSE) 2017-02-04 A1C IN HOUSE 8.8 4.3 - 5.6 % Previous A1c 9.8 Lot [id number] Exp date 09/2018 PROCEDURES Procedure Date Ordered Result Body Site GLYCATED HEMOGLOBIN TEST February 04, 2017 IMMUNIZATIONS No Known Immunizations MEDICAL (GENERAL) HISTORY [...]
--- OUTSIDE RECORDS SUMMARY | 2018-12-11 19:44 | XMS REPORT ---
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 Active 4800302 Problem Pulmonary nodule R91.1 Active 767114670 Problem Type 2 diabetes mellitus with complication, without long-term current use of insulin E11.8 Active 50001166 Problem Polyneuropathy G62.9 Active 87648665 Problem MRSA (methicillin resistant staph aureus) culture positive Z22.322 Active 630274799 Problem Benign non-nodular prostatic hyperplasia with lower urinary tract symptoms N40.1 Active 66898363039291 Problem Mixed hyperlipidemia E78.2 Active 053582665 Problem Bilateral claudication of lower limb I73.9 Active 342438968 Problem Primary osteoarthritis of left knee M17.12 Active 389473837 Problem Essential hypertension I10 Active 32617180 Problem Diabetic polyneuropathy associated with type 2 diabetes mellitus E11.42 Active 08857879 ALLERGIES No Information ENCOUNTERS Encounter Location Date Diagnosis [place] [address], [place] [address] Feb, [place] [address] [place] [address] Nov, Benign non-nodular prostatic hyperplasia with lower urinary tract symptoms N40.1 and Acute epididymitis N45.1 [place] [address] [place] [address] Sep, Neuropathy G62.9 [place] [address], [place] [address] Sep, Type 2 diabetes mellitus with complication, without long- term current use of insulin E11.8 ; Neuropathy G62.9 ; Bilateral leg weakness R29.898 and Cough R05 [place] [address] [address] Aug, Left ear pain H92.02 and Bilateral impacted cerumen H61.23 [place] [address] [address] Jul, [place] [address] [address] Jul, [place] [address] [address] Jul, Type 2 diabetes mellitus with complication, without long- term current use of insulin E11.8 ; Bilateral leg weakness R29.898 and Neuropathy G62.9 [facility] [address] [address] Jul, Acute non-recurrent maxillary sinusitis J01.00 [place] [address] [address] Jul, [place] [address] [address] Jul, Primary osteoarthritis of left knee M17.12 [place] [address] [address] Jul, Type 2 diabetes mellitus with complication, without long- term current use of insulin E11.8 [place] [address] [address] Jun, [place] [address] [address] Jun, Neuropathy G62.9 ; Bilateral leg weakness R29.898 ; Leg cramps R25.2 and Encounter for immunization Z23 [place] [address] [address] Jun, Bilateral claudication of lower limb I73.9 ; Essential hypertension I10 ; Mixed hyperlipidemia E78.2 and Diabetic polyneuropathy associated with type 2 diabetes mellitus E11.42 [place] [address] [address] Jun, Pain in right leg M79.604 ; Pain of left leg M79.605 and Bilateral leg weakness R29.898 [place] [address] [address] Jun, [place] [address] [address] Jun, Left lateral knee pain M25.562 and Bilateral leg weakness R29.898 [place] [address] [address] Jun, [place] [address] [address] May, Type 2 diabetes mellitus with complication, without long- term current use of insulin E11.8 ; Neuropathy G62.9 and Leg cramps R25.2 [place] [address] [address] May, [place] [address] [address] Apr, Bilateral leg weakness R29.898 and Leg cramps R25.2 [place] [address] [address] Mar, [place] [address] [address] Feb, Chronic seasonal allergic rhinitis due to other allergen J30.2 [place] [address] [address] January, Type 2 diabetes mellitus with complication, without long- term current use of insulin E11.8 and Neuropathy G62.9 [place] [address] [address]- [address] Dec, [place] [address] [place] [address] 44[address] Dec, Pulmonary nodule R91.1 [place] [address] [place] [id number] [place] [address]- [address] Dec, [place] [address] [place] [id number] [place] [address] Dec, [place] [address] [address] Nov, Pre-procedure lab exam Z01.[address] [address] Nov, Seasonal allergic rhinitis due to pollen J30.1 [place] [address] [place] [id number] [place] [address] Oct, Lower abdominal pain R10.30 ; Hematuria R31.9 ; Pulmonary nodule R91.1 and Type 2 diabetes mellitus with complication, without long-term current use of insulin E11.8 [place] [address] [place] [id number] [place] [address]- 3[address] Sep, Type 2 diabetes mellitus with complication, without long- term current use of insulin E11.8 and Ventral hernia without obstruction or gangrene K43.9 [place] [address] [place] [id number] [place] [address]- 00[address] Aug, [place] [address] [address] Aug, Benign non-nodular prostatic hyperplasia with lower urinary tract symptoms N40.1 and Type 2 diabetes mellitus with complication, without long-term current use of insulin E11.8 [place] [address] [place] [address]- 6[address] Jul, Benign non-nodular prostatic hyperplasia with lower urinary tract symptoms N40.1 and Type 2 diabetes mellitus with complication, without long-term current use of insulin E11.8 [place] [address] [facility] [id number], [place] [address] Jul, Type 2 diabetes mellitus with complication, without long- term current use of insulin E11.8 [facility] [address] [facility] [id number], [place] [address] Jul, [facility] [address] [facility] [id number], [place] [address] Jun, [facility] [address] [facility] [id number], [place] [address] Jun, [facility] [address] [facility] [id number], [place] [address] Jun, Type 2 diabetes mellitus with complication, without long- term current use of insulin E11.8 [place] [address] [facility] [id number], [place] [address] Jun, [facility] [address] [facility] [id number], [place] [address] 9[address] May, [facility] [address] 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 [id number], [place] [address]- [address] 09 May, 2016 Neck abscess L02.11 [place] [address] [place] [id number] [place] [address]- 8[address] 06 May, 2016 Abscess, neck L02.11 [facility] [address] [facility] [id number], [place] [address] May, [facility] [address] [facility] [id number], [place] [address]- 17[address] May, Abscess of neck L02.11 [facility] [address] [facility] [id number], [place] [address] Apr, Cellulitis, neck L03.221 [facility] [address] [facility] [id number], [place] [address] Apr, Abscess L02.91 [facility] [address], [place] [address] January, [facility] [address], [place] [address]- [address] Dec, [facility] [address] [place] [id number] [address]- 68[address] Dec, [facility] [address], [place] [address]- 40[address] Oct, [facility] [address], [place] [address]- 6308 Oct, [facility] [address], [place] [address]- 6686 Sep, [facility] [address], [place] [address]- 8744 Sep, [facility] [address] [place] [id number], [place] [address]- [address] Sep, [facility] [address] [place] [id number], [place] [address]- 1578 Sep, [facility] [address], [place] [address]- 3678 Sep, [facility] [address] [facility] [id number] [place] [address]- [address] Sep, [facility] [place] [facility] [address] [id number] [place] [address]- 6981 Sep, [facility] [place] [facility] [address] [id number] [place] [address]- 6607 Jul, [facility] [place] [facility] [address] [id number] [place] [address]- 8946 Jul, [facility] [place] [facility] [address] [id number] [place] [address]- 2558 Jun, 2013 [facility] [place] [facility] [address] [id number] [place] [address] Jun, 2013 [facility] [place] [facility] [address] [id number] [place] [address]- 3691 Jun, 2013 [facility] [place] [facility] [address] [id number] [place] [address]- 5532 Jun, 2013 [facility] [place] [facility] [address] [id number] [place] [address]- 6699 Jun, 2013 [facility] [place] [facility] [address] [id number] [place] [address]- 4489 Jun, 2013 [facility] [place] [facility] [address] [facility] [id number] [place] [address]- 7014 Jun, 2013 [facility] [place] [facility] [address] [id number] [place] [address]- 9717 Jun, 2013 [facility] [place] [facility] [address] [id number] [place] [address]- 1487 Jun, [facility] [place] [facility] [address] [id number] [place] [address]- 0586 Jun, [facility] [place] [facility] [address] [id number] [place] [address]- 1302 Jun, [facility] [place] [facility] [address] [id number] [place] [address] May, [facility] [place] [facility] [address] [id number] [place] [address]- 6695 30 Sep, 2013 [facility] [place] [facility] [address] [id number] [place] [address]- 5096 23 Sep, 2013 [facility] [place] [facility] [address] [id number] [place] [address]- 5424 23 Sep, 2013 [facility] [place] [facility] [address] [id number] [place] [address]- 2548 18 Sep, 2013 [facility] [place] [facility] [address] [id number] [place] [address]- 4601 18 Sep, 2013 [facility] [place] [facility] [address] [id number] [place] [address]- 5183 11 Sep, 2013 [facility] [place] [facility] [address] [id number] [place] [address]- 3691 11 May, 2013 [facility] [place] [facility] [address] [id number] [place] [address]- 7859 11 Sep, 2013 [facility] [place] [facility] [address] [id number] [place] [address]- 3212 11 Sep, 2013 [facility] [place] [facility] [address] [id number] [place] [address]- 7702 04 Sep, 2013 [facility] [place] [facility] [address] [id number], [place] [address]- 9648 04 Sep, 2013 [facility] [place] [facility] [address] [id number], [place] [address]- 2753 03 Sep, 2013 [facility] [place] [facility] [address] [id number] [place] [address]- 2540 03 Sep, 2013 [facility] [place] [facility] [address] [id number] [place] [address]- 1319 02 Sep, 2013 [facility] [place] [facility] [address] [id number] [place] [address]- 7068 02 Sep, 2013 [facility] [place] [facility] [address] [id number], [place] [address]- 2218 Apr, [facility] [place] [facility] [address] [id number] [place] [address]- 9228 Apr, [facility] [place] [facility] [address] [id number] [place] [address]- 0037 Apr, [facility] [place] [facility] [address] [facility] [id number] [place] [address]- 6201 Apr, [facility] [place] [facility] [address] [facility] [id number] [place] [address]- 2128 Mar, [facility] [place] [facility] [address] [facility] [id number] [place] [address]- 0223 Mar, [facility] [place] [facility] [address] [facility] [id number] [place] [address]- 7067 Mar, [facility] [place] [facility] [address] [facility] [id number] [place] [address]- 9277 Mar, [facility] [place] [facility] [address] [facility] [id number] [place] [address]- 4913 Mar, [facility] [place] [facility] [address] [facility] [id number], [place] [address]- 9405 Mar, [facility] [address] [facility] [id number][place] [id number] January, [facility] [place] [facility] [address] [facility] [id number], [place] [address]- 8815 January, [facility] [address] [facility] [id number][place] [address] Dec, [facility] [place] [facility] [address] [facility] [id number], [place] [address]- 0688 Dec, [facility] [address] [facility] [id number][place] [id number] Oct, [facility] [place] [facility] [address] [facility] [id number], [place] [address]- 8291 Oct, [facility] [address] [facility] [id number][place] [address] Sep, [facility] [place] [facility] [address] [id number] [place] [address]- 7356 Sep, [facility] [place] [facility] [address] [id number] [place] [address]- 2546 Aug, [facility] [place] [facility] [address] [id number] [place] [address]- 2546 Aug, [facility] [place] [facility] [address] [id number] [place] [address]- 8456 Jul, [facility] [place] [facility] [address] [id number] [place] [address]- 4216 Jul, [facility] [place] [facility] [address] [facility] [id number], [place] [address]- 4546 Jul, [facility] [address] [place] [id number][place] [address] Jul, [facility] [place] [facility] [address] [facility] [id number], [place] [address]- 8806 Jul, [facility] [address] [facility] [id number][place] [id number] Jul, [facility] [place] [facility] [address] [facility] [id number], [place] [address]- 2546 Jul, [facility] [place] [facility] [address] [facility] [id number], [place] [address]- 2546 Jul, [facility] [place] [facility] [address] [id number], [place] [address]- 2546 Jun, [facility] [place] [facility] [address] [id number], [place] [address]- 2546 Jun, [facility] [address] [facility] [id number][place] [address] Jun, [facility] [place] [facility] [address] [id number], [place] [address]- 2546 Jun, [facility] [place] [facility] [address] [facility] [id number], [place] [address]- 3351 Apr, [facility] [address] [place] [id number], [place] [address]- 60[address] Apr, [facility] [address], [place] [address]- 9248 Feb, [facility] [address], [place] [address]- 2163 Dec, [facility] [address], [place] [address]- 3734 Dec, [facility] [address], [place] [address]- 0057 Nov, [facility] [address] [place] [address]- 2630 Nov, [facility] [address], [place] [address]- 0110 Nov, [facility] [address], [place] [address]- 9068 Oct, [facility] [address], [place] [address]- 8115 Oct, [facility] [address], [place] [address]- 4148 Oct, [facility] [address], [place] [address]- 2344 May, [facility] [address] [address] Apr, [facility] [address], [place] [address]- 3066 Feb, [facility] [address], [place] [address]- 7588 Feb, IMMUNIZATIONS No Known Immunizations SOCIAL HISTORY Never Assessed REASON FOR VISIT PALS/Trulicity PLAN OF CARE VITAL SIGNS MEDICATIONS Medication Instructions Dosage Frequency Start Date End Date Duration Status Trulicity 0.75 MG/0.5ML Subcutaneous once weekly Inject 0.5ML Jun, 90 days Active RESULTS No Results PROCEDURES [...]
--- OUTSIDE RECORDS SUMMARY | 2018-12-11 19:45 | XMS REPORT ---
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 Active 9179264 Problem Pulmonary nodule R91.1 Active 946013891 Problem Type 2 diabetes mellitus with complication, without long-term current use of insulin E11.8 Active 93630721 Problem Polyneuropathy G62.9 Active 66333981 Problem MRSA (methicillin resistant staph aureus) culture positive Z22.322 Active 890338546 Problem Benign non-nodular prostatic hyperplasia with lower urinary tract symptoms N40.1 Active 93096062355462 Problem Mixed hyperlipidemia E78.2 Active 237567758 Problem Bilateral claudication of lower limb I73.9 Active 100061343 Problem Primary osteoarthritis of left knee M17.12 Active 440261040 Problem Essential hypertension I10 Active 39484132 Problem Diabetic polyneuropathy associated with type 2 diabetes mellitus E11.42 Active 13056724 ALLERGIES No Information ENCOUNTERS Encounter Location Date Diagnosis [place] [address] [address] Feb, [place] [id number] [place] [address]- [address] Nov, Benign non-nodular prostatic hyperplasia with lower urinary tract symptoms N40.1 and Acute epididymitis N45.1 [place] [id number] [place] [address]- 7095 Sep, Neuropathy G62.9 [place] [id number] [address] Sep, Type 2 diabetes mellitus with complication, without long- term current use of insulin E11.8 ; Neuropathy G62.9 ; Bilateral leg weakness R29.898 and Cough R05 [place] [address] [address] Aug, Left ear pain H92.02 and Bilateral impacted cerumen H61.23 [place] [address] [address] Jul, [place] [address] [address]- [address] Jul, [place] [address] [address]- [address]35 Jul, Type 2 diabetes mellitus with complication, without long- term current use of insulin E11.8 ; Bilateral leg weakness R29.898 and Neuropathy G62.9 [facility] [address] [address] Jul, Acute non-recurrent maxillary sinusitis J01.00 [place] [address] [address] Jul, [place] [address] [address]- [address] Jul, Primary osteoarthritis of left knee M17.12 [place] [address] [address]- [address] Jul, Type 2 diabetes mellitus with complication, without long- term current use of insulin E11.8 [place] [address] [address]- [address] Jun, [place] [address] [address]- 89[address] Jun, Neuropathy G62.9 ; Bilateral leg weakness R29.898 ; Leg cramps R25.2 and Encounter for immunization Z23 [place] [address] [address]- 0766 Jun, Bilateral claudication of lower limb I73.9 ; Essential hypertension I10 ; Mixed hyperlipidemia E78.2 and Diabetic polyneuropathy associated with type 2 diabetes mellitus E11.42 [place] [address] [address]- [address]907 Jun, Pain in right leg M79.604 ; Pain of left leg M79.605 and Bilateral leg weakness R29.898 [place] [address] [address]- [address]796 Jun, [place] [address] [address]- [address] Jun, Left lateral knee pain M25.562 and Bilateral leg weakness R29.898 [place] [address] [address]- 3[address] Jun, [place] [address] [address]- [address] May, Type 2 diabetes mellitus with complication, without long- term current use of insulin E11.8 ; Neuropathy G62.9 and Leg cramps R25.2 [place] [address] [address]- 1042 May, [place] [address] [address]- 2937 Apr, Bilateral leg weakness R29.898 and Leg cramps R25.2 [place] [address] [address]- 8074 Mar, [place] [address] [address]- 3[address] Feb, Chronic seasonal allergic rhinitis due to other allergen J30.2 [place] [address] [address]- 6[address] January, Type 2 diabetes mellitus with complication, without long- term current use of insulin E11.8 and Neuropathy G62.9 [place] [address] [address]- [address] Dec, [place] [id number] [place] [address]19- 0449 Dec, Pulmonary nodule R91.1 [place] [address] [place] [id number] [place] [address]64- 8645 Dec, [place] [address] [place] [id number] [place] [address] 14886- 2111 Dec, [place] [address] [address]- 8[address] Nov, Pre-procedure lab exam Z01.[address] [address]- [address] Nov, Seasonal allergic rhinitis due to pollen J30.1 [place] [address] [place] [id number] [place] [address] 8[address]11- 0369 Oct, Lower abdominal pain R10.30 ; Hematuria R31.9 ; Pulmonary nodule R91.1 and Type 2 diabetes mellitus with complication, without long-term current use of insulin E11.8 [place] [address] [place] [id number] [place] [address] 18684- 5505 Sep, Type 2 diabetes mellitus with complication, without long- term current use of insulin E11.8 and Ventral hernia without obstruction or gangrene K43.9 [place] [address] [place] [id number] [place] [address] 28845- 9495 Aug, [place] [address] [address]- 4176 Aug, Benign non-nodular prostatic hyperplasia with lower urinary tract symptoms N40.1 and Type 2 diabetes mellitus with complication, without long-term current use of insulin E11.8 [place] [address] [place] [address] 39059- 2225 Jul, Benign non-nodular prostatic hyperplasia with lower urinary tract symptoms N40.1 and Type 2 diabetes mellitus with complication, without long-term current use of insulin E11.8 [place] [address] [facility] [id number] [address] Jul, Type 2 diabetes mellitus with complication, without long- term current use of insulin E11.8 [facility] [address] [facility] [id number] [address]- [address] Jul, [facility] [address] [facility] [id number] [address]- 5[address] Jun, [facility] [address] [facility] [id number] [address]- 5717 Jun, [facility] [address] [facility] [id number] [address]- 9472 Jun, Type 2 diabetes mellitus with complication, without long- term current use of insulin E11.8 [place] [address] [facility] [id number] [address]- 1168 Jun, [facility] [address] [facility] [id number] [address]- 6482 May, [facility] [address] [facility] [id number], [place] [address]- 6497 May, [facility] [address], [place] [address] 0[address] May, [facility] [address] [place] [id number] [address]- [address] 12 May, 2016 Encounter to establish care [...] G62.9 [facility] [address] [facility] [id number], [place] [address]- [address]35 09 May, 2016 Neck abscess L02.11 [place] [address] [place] [id number] [place] [address] 41795- 5760 06 May, 2016 Abscess, neck L02.11 [facility] [address] [facility] [id number] [address] May, [facility] [address] [facility] [id number] [address]- 6136 May, Abscess of neck L02.[address] [facility] [address] [facility] [id number], [place] [address] Apr, Cellulitis, neck L03.221 [facility] [address] [facility] [id number], [place] [address] Apr, Abscess L02.91 [facility] [address], [place] [address]- 1507 January, [facility] [address] [address]- 0135 Dec, [facility] [address] [place] [id number], [place] [address]- 6959 Dec, [facility] [address], [place] [address]- 3041 Oct, [facility] [address], [place] [address]- 1819 Oct, [facility] [address] [address]- 1214 Sep, [facility] [address], [place] [address]- 0036 Sep, [facility] [address] [place] [id number], [place] [address]- 8409 Sep, [facility] [address] [place] [id number], [place] [address]- 1378 Sep, [facility] [address], [place] [address]- 5773 Sep, [facility] [address] [facility] [id number] [place] [address]- 7879 Sep, [facility] [place] [facility] [address] [id number] [place] [address]- 7422 Sep, [facility] [place] [facility] [address] [id number] [place] [address]- 6543 Jul, [facility] [place] [facility] [address] [id number] [place] [address]- 9840 Jul, [facility] [place] [facility] [address] [id number] [place] [address]- 3640 Jun, 2013 [facility] [place] [facility] [address] [id number] [place] [address]65 Jun, 2013 [facility] [place] [facility] [address] [id number] [place] [address]- 6857 Jun, 2013 [facility] [place] [facility] [address] [id number] [place] [address]- 6736 Jun, 2013 [facility] [place] [facility] [address] [id number] [place] [address]- 9125 Jun, 2013 [facility] [place] [facility] [address] [id number] [place] [address]- 9606 Jun, 2013 [facility] [place] [facility] [address] [facility] [id number] [place] [address]- 2473 Jun, 2013 [facility] [place] [facility] [address] [id number] [place] [address]- 4332 Jun, 2013 [facility] [place] [facility] [address] [id number] [place] [address]- 6632 Jun, [facility] [place] [facility] [address] [id number] [place] [address]- 0714 Jun, [facility] [place] [facility] [address] [id number] [place] [address]- 9053 Jun, [facility] [place] [facility] [address] [id number] [place] [address] May, [facility] [place] [facility] [address] [id number] [place] [address]- 6222 30 Sep, 2013 [facility] [place] [facility] [address] [id number] [place] [address]- 8316 23 Sep, 2013 [facility] [place] [facility] [address] [id number] [place] [address]- 2630 23 Sep, 2013 [facility] [place] [facility] [address] [id number] [place] [address]- 2540 18 Sep, 2013 [facility] [place] [facility] [address] [id number] [place] [address]- 7487 18 Sep, 2013 [facility] [place] [facility] [address] [id number] [place] [address]- 8885 11 Sep, 2013 [facility] [place] [facility] [address] [id number] [place] [address]- 0173 11 May, 2013 [facility] [place] [facility] [address] [id number] [place] [address]- 4409 11 Sep, 2013 [facility] [place] [facility] [address] [id number] [place] [address]- 6825 11 Sep, 2013 [facility] [place] [facility] [address] [id number] [place] [address]- 4074 04 Sep, 2013 [facility] [place] [facility] [address] [id number] [address]- 9405 04 Sep, 2013 [facility] [place] [facility] [address] [id number][place] [address]- 2001 03 Sep, 2013 [facility] [place] [facility] [address] [id number] [place] [address]- 2544 03 Sep, 2013 [facility] [place] [facility] [address] [id number] [place] [address]- 2295 02 Sep, 2013 [facility] [place] [facility] [address] [id number] [place] [address]- 7664 02 Sep, 2013 [facility] [place] [facility] [address] [id number] [address]- 4319 Apr, [facility] [place] [facility] [address] [id number] [place] [address]- 5472 Apr, [facility] [place] [facility] [address] [id number] [place] [address]- 4084 Apr, [facility] [place] [facility] [address] [facility] [id number] [place] [address]- 5166 Apr, [facility] [place] [facility] [address] [facility] [id number] [place] [address]- 1389 Mar, [facility] [place] [facility] [address] [facility] [id number] [place] [address]- 0044 Mar, [facility] [place] [facility] [address] [facility] [id number] [place] [address]- 0908 Mar, [facility] [place] [facility] [address] [facility] [id number] [place] [address]- 0126 Mar, [facility] [place] [facility] [address] [facility] [id number] [place] [address]- 4146 Mar, [facility] [place] [facility] [address] [facility] [id number], [place] [address]- 6442 Mar, [facility] [address] [facility] [id number][place] [id number] January, [facility] [place] [facility] [address] [facility] [id number], [place] [address]- 6478 January, [facility] [address] [facility] [id number][place] [id number] Dec, [facility] [place] [facility] [address] [facility] [id number], [place] [address]- 6948 Dec, [facility] [address] [facility] [id number][place] [id number] Oct, [facility] [place] [facility] [address] [facility] [id number], [place] [address]- 2515 Oct, [facility] [address] [facility] [id number][place] [id number] Sep, [facility] [place] [facility] [address] [id number] [place] [address]- 0236 Sep, [facility] [place] [facility] [address] [id number] [place] [address]- 2546 Aug, [facility] [place] [facility] [address] [id number] [place] [address]- 2546 Aug, [facility] [place] [facility] [address] [id number] [place] [address]- 5406 Jul, [facility] [place] [facility] [address] [id number] [place] [address]- 7396 Jul, [facility] [place] [facility] [address] [facility] [id number], [place] [address]- 4246 Jul, [facility] [address] [place] [id number][place] [id number] Jul, [facility] [place] [facility] [address] [facility] [id number][place] [address]- 8806 Jul, [facility] [address] [facility] [id number][place] [id number] Jul, [facility] [place] [facility] [address] [facility] [id number], [place] [address]- 2546 Jul, [facility] [place] [facility] [address] [facility] [id number][place] [address]- 2546 Jul, [facility] [place] [facility] [address] [id number][place] [address]- 2546 Jun, [facility] [place] [facility] [address] [id number][place] [address]- 2546 Jun, [facility] [address] [facility] [id number], [place] [id number] Jun, [facility] [place] [facility] [address] [id number], [place] [address]- 2546 Jun, [facility] [place] [facility] [address] [facility] [id number][place] [address]- 8593 Apr, [facility] [address], [place] [address]- 1209 Apr, [facility] [address], [place] [address]- 3613 Feb, [facility] [address] [address]- 0506 Dec, [facility] [address] [place] [id number] [place] [address]886- 3903 Dec, [facility] [id number] [place] [address] 01400- 8668 Nov, [facility] [address] [place] [id number] [place] [address] 27969- 2712 Nov, [facility] [address] [place] [id number] [place] [address] 94789- 0458 Nov, [facility] [id number] [place] [address] 34281- 3384 Oct, [facility] [address] [address]- 2639 Oct, [facility] [address] [place] [id number], [place] [address]- 9789 Oct, [facility] [address], [place] [address]- 9947 May, [facility] [address], [place] [address]- 2488 Apr, [facility] [address], [place] [address]- 7968 Feb, [facility] [address] [address]- 1794 Feb, IMMUNIZATIONS No Known Immunizations SOCIAL HISTORY Never Assessed REASON FOR VISIT EMG/NCS PLAN OF CARE VITAL SIGNS MEDICATIONS Unknown [...]
--- OUTSIDE RECORDS SUMMARY | 2018-12-11 19:45 | XMS REPORT ---
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 Active 6499489 Problem Pulmonary nodule R91.1 Active 793511331 Problem Type 2 diabetes mellitus with complication, without long-term current use of insulin E11.8 Active 48798200 Problem Polyneuropathy G62.9 Active 65055196 Problem MRSA (methicillin resistant staph aureus) culture positive Z22.322 Active 668039177 Problem Benign non-nodular prostatic hyperplasia with lower urinary tract symptoms N40.1 Active 47102980538946 Problem Mixed hyperlipidemia E78.2 Active 016898508 Problem Bilateral claudication of lower limb I73.9 Active 123295602 Problem Primary osteoarthritis of left knee M17.12 Active 415187799 Problem Essential hypertension I10 Active 56231141 Problem Diabetic polyneuropathy associated with type 2 diabetes mellitus E11.42 Active 48793443 ALLERGIES No Information ENCOUNTERS Encounter Location Date Diagnosis [place] [id number] [place] [address]882- 2686 Nov, Benign non-nodular prostatic hyperplasia with lower urinary tract symptoms N40.1 and Acute epididymitis N45.1 [facility] [id number] [place] [address] 78215- 9967 Sep, Neuropathy G62.9 [facility] [id number] [place] [address] 95474- 7082 Sep, Type 2 diabetes mellitus with complication, without long- term current use of insulin E11.8 ; Neuropathy G62.9 ; Bilateral leg weakness R29.898 and Cough R05 [facility] [address] [address]- [address]60 Aug, Left ear pain H92.02 and Bilateral impacted cerumen H61.23 [place] [address] 8[address]93- 4452 Jul, [place] [address] 89912- 7792 Jul, [place] [address] 01183- 3353 Jul, Type 2 diabetes mellitus with complication, without long- term current use of insulin E11.8 ; Bilateral leg weakness R29.898 and Neuropathy G62.9 [facility] [place] [address] [address] Jul, Acute non-recurrent maxillary sinusitis J01.00 [place] [address] 77985- 6685 Jul, [place] [address] 48453- 7680 Jul, Primary osteoarthritis of left knee M17.12 [place] [address] 47801- 6530 Jul, Type 2 diabetes mellitus with complication, without long- term current use of insulin E11.8 [place] [address] 19834- 5951 Jun, [place] [address] 78805- 6243 Jun, Neuropathy G62.9 ; Bilateral leg weakness R29.898 ; Leg cramps R25.2 and Encounter for immunization Z23 [place] [address] 29888- 8101 Jun, Bilateral claudication of lower limb I73.9 ; Essential hypertension I10 ; Mixed hyperlipidemia E78.2 and Diabetic polyneuropathy associated with type 2 diabetes mellitus E11.42 [place] [id number] [place] [address] 84303- 1299 Jun, Pain in right leg M79.604 ; Pain of left leg M79.605 and Bilateral leg weakness R29.898 [facility] [id number] [place] [address] 14299- 5782 Jun, [facility] [id number] [place] [address] 35656- 3735 Jun, Left lateral knee pain M25.562 and Bilateral leg weakness R29.898 [place] [id number] [place] [address] 50102- 9500 Jun, [place] [id number] [place] [address] 30868- 6740 May, Type 2 diabetes mellitus with complication, without long- term current use of insulin E11.8 ; Neuropathy G62.9 and Leg cramps R25.2 [place] [id number] [place] [address] 82279- 7990 May, [facility] [id number] [place] [address] 31625- 6288 Apr, Bilateral leg weakness R29.898 and Leg cramps R25.2 [place] [id number] [place] [address] 78591- 3330 Mar, [facility] [id number] [place] [address] 85729- 1263 Feb, Chronic seasonal allergic rhinitis due to other allergen J30.2 [facility] [id number] [place] [address] 43032- 9467 January, Type 2 diabetes mellitus with complication, without long- term current use of insulin E11.8 and Neuropathy G62.9 [facility] [id number] [place] [address] 43461- 8061 Dec, [facility] [id number] [place] [address] 97617- 4623 Dec, Pulmonary nodule R91.1 [place] [id number] [place] [address] 81804- 5334 Dec, [place] [id number] [place] [address] 62347- 3053 Dec, [place] [id number] [place] [address] 89048- 8086 Nov, Pre-procedure lab exam Z01.812 [place] [id number] [place] [address] 71842- 6509 Nov, Seasonal allergic rhinitis due to pollen J30.1 [place] [id number] [place] [address] 49128- 6549 Oct, Lower abdominal pain R10.30 ; Hematuria R31.9 ; Pulmonary nodule R91.1 and Type 2 diabetes mellitus with complication, without long-term current use of insulin E11.8 [place] [id number] [place] [address] 66636- 0707 Sep, Type 2 diabetes mellitus with complication, without long- term current use of insulin E11.8 and Ventral hernia without obstruction or gangrene K43.9 [place] [id number] [place] [address] 68281- 1410 Aug, [place] [id number] [place] [address] 34602- 4379 Aug, Benign non-nodular prostatic hyperplasia with lower urinary tract symptoms N40.1 and Type 2 diabetes mellitus with complication, without long-term current use of insulin E11.8 [place] [id number] [place] [address] 38315- 5980 Jul, Benign non-nodular prostatic hyperplasia with lower urinary tract symptoms N40.1 and Type 2 diabetes mellitus with complication, without long-term current use of insulin E11.8 [place] [id number] [place] [address] 16230- 9540 Jul, Type 2 diabetes mellitus with complication, without long- term current use of insulin E11.8 [facility] [address] [facility] [id number] [address]- 6869 Jul, [facility] [address] [facility] [id number] [address]- 6940 Jun, [facility] [address] [facility] [id number] [address]- 2098 Jun, [facility] [id number] [address]- 8474 Jun, Type 2 diabetes mellitus with complication, without long- term current use of insulin E11.8 [facility] [id number] [address]- 0125 Jun, [facility] [id number] [address]- 6828 May, [facility] [id number] [address]- 0603 May, [facility] [id number] [address]- 6481 May, [facility] [address] [address]- 3642 12 May, 2016 Encounter to establish care Z76.89 ; Type 2 diabetes mellitus with complication, without long-term current use of insulin E11.8 ; Essential hypertension I10 ; Hyperlipidemia, unspecified hyperlipidemia type E78.5 ; 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 ; MRSA (methicillin resistant staph aureus) culture positive Z22.322 ; Pain in unspecified knee M25.569 ; Other chronic pain G89.29 and Neuropathy G62.9 [facility] [id number] [address]- 4413 09 May, 2016 Neck abscess L02.11 [facility] [id number] [address]- 4130 06 May, 2016 Abscess, neck L02.11 [facility] [id number] [address] 04 May, 2016 [facility] [id number] [place] [address]- 9471 May, Abscess of neck L02.11 [facility] [id number] [place] [address] 31 Apr, 2016 Cellulitis, neck L03.221 [facility] [address] [facility] [id number] [place] [address] 30 Apr, 2016 Abscess L02.91 [facility] [address] [place] [address]- 2251 January, [facility] [id number] [address]- 2298 Dec, [facility] [id number] [address]- 3969 Dec, [facility] [id number] [address]- 7854 Oct, [facility] [id number] [place] [address]- 8194 Oct, [facility] [id number] [address]- 9865 Sep, [facility] [id number] [address]- 9542 Sep, [facility] [id number] [address]- 1034 Sep, [facility] [address] [address]- 4793 Sep, [facility] [id number] [address]- 7295 Sep, [facility] [id number] [address]- 8245 Sep, [facility] [address] [facility] [id number] [place] [address] 2548 Sep, [facility] [place] [facility] [address] [id number] [place] [address]- 7541 Jul, [facility] [place] [facility] [address] [id number] [place] [address]- 1947 Jul, [facility] [place] [facility] [address] [id number] [place] [address]- 6823 Jun, 2013 [facility] [place] [facility] [address] [id number] [place] [address]- 4792 Jun, 2013 [facility] [place] [facility] [address] [id number] [place] [address]- 5721 Jun, 2013 [facility] [place] [facility] [address] [id number] [place] [address]- 9995 Jun, 2013 [facility] [place] [facility] [address] [id number] [place] [address]- 6788 Jun, 2013 [facility] [place] [facility] [address] [id number] [place] [address]- 9196 Jun, [facility] [place] [facility] [address] [id number] [place] [address]- 8127 Jun, [facility] [place] [facility] [address] [facility] [id number] [place] [address]- 3107 Jun, [facility] [place] [facility] [address] [id number] [place] [address]- 5410 Jun, [facility] [place] [facility] [address] [id number] [place] [address]- 3867 Jun, [facility] [place] [facility] [address] [id number] [place] [address]- 1604 Jun, [facility] [place] [facility] [address] [id number] [place] [address]- 6416 May, [facility] [place] [facility] [address] [id number] [place] [address]504 May, 2013 [facility] [place] [facility] [address] [id number] [place] [address]- 6102 23 Sep, 2013 [facility] [place] [facility] [address] [id number] [place] [address]- 9026 23 May, 2013 [facility] [place] [facility] [address] [id number] [place] [address]- 5076 18 May, 2013 [facility] [place] [facility] [address] [id number] [place] [address]- 1873 18 May, 2013 [facility] [place] [facility] [address] [id number] [place] [address]- 9280 11 May, 2013 [facility] [place] [facility] [address] [id number] [place] [address]- 6737 11 May, 2013 [facility] [place] [facility] [address] [id number] [place] [address]- 0284 11 May, 2013 [facility] [place] [facility] [address] [id number] [place] [address]- 4097 11 May, 2013 [facility] [place] [facility] [address] [id number] [place] [address]- 8391 04 May, 2013 [facility] [place] [facility] [address] [id number] [place] [address]- 8599 04 May, 2013 [facility] [place] [facility] [address] [id number] [address]- 8047 03 May, 2013 [facility] [place] [facility] [address] [id number] [address]- 6466 03 Sep, 2013 [facility] [place] [facility] [address] [id number] [place] [address]- 9560 02 Sep, 2013 [facility] [place] [facility] [address] [id number] [place] [address]- 5359 02 May, 2013 [facility] [place] [facility] [address] [id number] [place] [address]- 9482 14 Apr, 2013 [facility] [place] [facility] [address] [id number], [place] [address]- 2700 Apr, [facility] [place] [facility] [address] [id number] [place] [address]- 4650 Apr, [facility] [place] [facility] [address] [facility] [id number] [place] [address]- 7343 Apr, [facility] [place] [facility] [address] [facility] [id number] [place] [address]- 0909 Mar, [facility] [place] [facility] [address] [facility] [id number] [place] [address]- 2117 Mar, [facility] [place] [facility] [address] [facility] [id number] [place] [address]- 7651 Mar, [facility] [place] [facility] [address] [facility] [id number] [place] [address]- 7961 Mar, [facility] [place] [facility] [id number] [place] [address]- 6470 Mar, [facility] [place] [facility] [address] [facility] [id number] [place] [address]- 9104 Mar, [facility] [address] [facility] [id number] [id number] January, [facility] [place] [facility] [address] [facility] [id number][place] [address]- 1286 January, [facility] [address] [facility] [id number][place] [id number] Dec, [facility] [place] [facility] [address] [facility] [id number][place] [address]- 2546 Dec, [facility] [address] [facility] [id number] [place] [id number] Oct, [facility] [place] [facility] [address] [facility] [id number][place] [address]- 0116 Oct, [facility] [address] [facility] [id number][place] [id number] Sep, [facility] [place] [facility] [address] [facility] [id number] [place] [address]- 7086 Sep, [facility] [place] [facility] [address] [id number] [place] [address]- 2546 Aug, [facility] [place] [facility] [address] [id number] [place] [address]- 2546 Aug, [facility] [place] [facility] [address] [id number] [place] [address]- 2546 Jul, [facility] [place] [facility] [address] [id number] [place] [address]- 2546 Jul, [facility] [place] [facility] [address] [id number] [place] [address]- 2546 Jul, [facility] [address] [id number] [id number] Jul, [facility] [place] [facility] [address] [facility] [id number] [place] [address]- 2546 Jul, [facility] [address] [id number] [id number] Jul, [facility] [place] [facility] [address] [facility] [id number] [place] [address]- 2546 Jul, [facility] [place] [facility] [address] [facility] [id number][place] [address]- 2546 Jul, [facility] [place] [facility] [address] [facility] [id number], [place] [address]- 2546 Jun, [facility] [place] [facility] [address] [id number], [place] [address]- 2546 Jun, [facility] [address] [facility] [id number][place] [id number] Jun, [facility] [place] [facility] [address] [id number] [place] [address]- 2546 Jun, [facility] [place] [facility] [address] [id number], [place] [address]- 2546 Apr, [facility] [place] [facility] [address] [facility] [id number], [place] [address] 2546 Apr, [facility] [address] [id number] [address]- 6258 Feb, [facility] [id number], [place] [address]- 3016 Dec, [facility] [id number] [address]- 9186 Dec, [facility] [id number] [address]- 1441 Nov, [facility] [id number], [place] [address] 2546 Nov, [facility] [id number], [place] [address]- 2546 Nov, [facility] [id number] [address]- 0996 Oct, [facility] [id number] [address]- 4291 Oct, [facility] [id number] [address]- 0946 Oct, [facility] [id number] [address]- 9711 May, [facility] [id number] [address]- 8906 Apr, [facility] [id number], [place] [address]- 7250 Feb, [facility] [id number] [address]- 3869 Feb, IMMUNIZATIONS No Known Immunizations SOCIAL HISTORY Never Assessed REASON FOR VISIT triage - CBowmanRN PLAN OF CARE VITAL SIGNS MEDICATIONS No [...]
--- OUTSIDE RECORDS SUMMARY | 2018-12-11 19:45 | XMS REPORT ---
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 Active 5887351 Problem Pulmonary nodule R91.1 Active 341693486 Problem Type 2 diabetes mellitus with complication, without long-term current use of insulin E11.8 Active 78618944 Problem Polyneuropathy G62.9 Active 73382927 Problem MRSA (methicillin resistant staph aureus) culture positive Z22.322 Active 131936423 Problem Benign non-nodular prostatic hyperplasia with lower urinary tract symptoms N40.1 Active 52820255976662 Problem Mixed hyperlipidemia E78.2 Active 333519635 Problem Bilateral claudication of lower limb I73.9 Active 518586167 Problem Primary osteoarthritis of left knee M17.12 Active 376251603 Problem Essential hypertension I10 Active 83971906 Problem Diabetic polyneuropathy associated with type 2 diabetes mellitus E11.42 Active 96473235 ALLERGIES Substance Reaction Event Type Date Status Sepuvia Unknown Drug Allergy Jul, Active ENCOUNTERS Encounter Location Date Diagnosis [facility] [id number] [address] Feb, [facility] [id number] [address] Nov, Benign non-nodular prostatic hyperplasia with lower urinary tract symptoms N40.1 and Acute epididymitis N45.1 [facility] [address] [id number] [address] Sep, Neuropathy G62.9 [facility] [id number] [address] Sep, Type 2 diabetes mellitus with complication, without long- term current use of insulin E11.8 ; Neuropathy G62.9 ; Bilateral leg weakness R29.898 and Cough R05 [place] [address] [address] Aug, Left ear pain H92.02 and Bilateral impacted cerumen H61.23 [place] [address] [address] Jul, [facility] [address] [address] Jul, [place] [address] [address] Jul, Type 2 diabetes mellitus with complication, without long- term current use of insulin E11.8 ; Bilateral leg weakness R29.898 and Neuropathy G62.9 [facility] [address] [address] Jul, Acute non-recurrent maxillary sinusitis J01.00 [place] [address] [address] Jul, [place] [address] [address] Jul, Primary osteoarthritis of left knee M17.12 [place] [address] [address] Jul, Type 2 diabetes mellitus with complication, without long- term current use of insulin E11.8 [place] [address] [address] Jun, [place] [address] [address] Jun, Neuropathy G62.9 ; Bilateral leg weakness R29.898 ; Leg cramps R25.2 and Encounter for immunization Z23 [place] [address] [address] Jun, Bilateral claudication of lower limb I73.9 ; Essential hypertension I10 ; Mixed hyperlipidemia E78.2 and Diabetic polyneuropathy associated with type 2 diabetes mellitus E11.42 [place] [id number] [place] [address]33 Jun, Pain in right leg M79.604 ; Pain of left leg M79.605 and Bilateral leg weakness R29.898 [place] [address] [address] Jun, [place] [address] [address] Jun, Left lateral knee pain M25.562 and Bilateral leg weakness R29.898 [place] [id number] [place] [address] Jun, [place] [address] [address] May, Type 2 diabetes mellitus with complication, without long- term current use of insulin E11.8 ; Neuropathy G62.9 and Leg cramps R25.2 [place] [address] [address]- [address] May, [place] [id number] [place] [address]- 1426 Apr, Bilateral leg weakness R29.898 and Leg cramps R25.2 [place] [id number] [place] [address]- 8984 Mar, [place] [id number] [place] [address]- 3887 Feb, Chronic seasonal allergic rhinitis due to other allergen J30.2 [place] [id number] [place] [address] 5[address] January, Type 2 diabetes mellitus with complication, without long- term current use of insulin E11.8 and Neuropathy G62.9 [place] [id number] [place] [address]- 1043 Dec, [place] [id number] [place] [address]- 3764 Dec, Pulmonary nodule R91.1 [place] [id number] [place] [address]- 2917 Dec, [place] [address] [address]- [address] Dec, [place] [id number] [place] [address] Nov, Pre-procedure lab exam Z01.812 [place] [address] [address]- 8[address] Nov, Seasonal allergic rhinitis due to pollen J30.1 [place] [id number] [place] [address]17- 1783 Oct, Lower abdominal pain R10.30 ; Hematuria R31.9 ; Pulmonary nodule R91.1 and Type 2 diabetes mellitus with complication, without long-term current use of insulin E11.8 [place] [id number] [place] [address]39- 2413 Sep, Type 2 diabetes mellitus with complication, without long- term current use of insulin E11.8 and Ventral hernia without obstruction or gangrene K43.9 [place] [id number] [place] [address]- 3339 Aug, [place] [id number] [place] [address]- 9[address] Aug, Benign non-nodular prostatic hyperplasia with lower urinary tract symptoms N40.1 and Type 2 diabetes mellitus with complication, without long-term current use of insulin E11.8 [place] [address] [place] [address]- [address] Jul, Benign non-nodular prostatic hyperplasia with lower urinary tract symptoms N40.1 and Type 2 diabetes mellitus with complication, without long-term current use of insulin E11.8 [facility] [address] [facility] [id number] [address] Jul, Type 2 diabetes mellitus with complication, without long- term current use of insulin E11.8 [facility] [address] [facility] [id number] [address] Jul, [facility] [address], [place] [address] Jun, [facility] [address] [facility] [id number] [address] Jun, [place] [address] [address] Jun, Type 2 diabetes mellitus with complication, without long- term current use of insulin E11.8 [place] [address], [place] [address] 47[address] Jun, [facility] [address], [place] [address] May, [facility] [address], [place] [address] 7[address] May, [facility] [id number] [address] May, [facility] [id number] [address] 12 May, 2016 Encounter to establish care Z76.89 ; Type 2 diabetes mellitus with complication, without long-term current use of insulin E11.8 ; Essential hypertension I10 ; Hyperlipidemia, unspecified hyperlipidemia type E78.5 ; 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 ; MRSA (methicillin resistant staph aureus) culture positive Z22.322 ; Pain in unspecified knee M25.569 ; Other chronic pain G89.29 and Neuropathy G62.9 [place] [id number] [address] 09 May, 2016 Neck abscess L02.11 [place] [address] [place] [address] 06 May, 2016 Abscess, neck L02.11 [facility] [address] [place] [address] 04 May, 2016 [facility] [address] [place] [address]- [address] 02 May, 2016 Abscess of neck L02.11 [facility] [id number] [place] [address], [place] [address] Apr, Cellulitis, neck L03.221 [facility] [address] [place] [address], [place] [address] Apr, Abscess L02.91 [facility] [address] [place] [address]- 4[address] January, [facility] [id number] [place] [address]- 2352 Dec, [facility] [address], [place] [address]- 4[address] Dec, [facility] [address] [place] [address]- 9702 Oct, [facility] [address] [place] [address]- 46[address] Oct, [facility] [address], [place] [address]- 12[address] Sep, [facility] [address], [place] [address]- 0931 Sep, [facility] [address], [place] [address]- 22[address] Sep, [facility] [address], [place] [address]- 7[address] Sep, [facility] [address] [address]- 0[address] Sep, [facility] [place] [facility] [address] [id number] [place] [address]- 1086 Sep, [facility] [place] [facility] [address] [id number] [place] [address]- 8359 Sep, [facility] [place] [facility] [address] [id number] [place] [address]- 2552 Jul, [facility] [place] [facility] [address] [id number] [place] [address]- 4536 Jul, [facility] [place] [facility] [address] [id number] [place] [address]- 5279 Jun, [facility] [place] [facility] [address] [id number] [place] [address]- 3594 Jun, [facility] [place] [facility] [address] [id number] [place] [address]- 0078 Jun, [facility] [place] [facility] [address] [id number], [place] [address]- 2394 Jun, [facility] [place] [facility] [address] [id number], [place] [address]- 6662 Jun, [facility] [place] [facility] [address] [id number], [place] [address]- 0276 Jun, [facility] [place] [facility] [address] [id number], [place] [address]- 0065 Jun, 2013 [facility] [place] [facility] [address] [id number], [place] [address]- 9026 Jun, [facility] [place] [facility] [address] [id number], [place] [address]- 8186 Jun, [facility] [place] [facility] [address] [id number], [place] [address]- 7122 Jun, [facility] [place] [facility] [address] [id number] [address]- 0266 Jun, [facility] [place] [facility] [address] [id number] [place] [address]- 2320 30 Sep, 2013 [facility] [place] [facility] [address] [id number] [place] [address] 2546 30 Sep, 2013 [facility] [place] [facility] [address] [id number] [place] [address] 2546 23 Sep, 2013 [facility] [place] [facility] [address] [id number] [place] [address] 2546 23 Sep, 2013 [facility] [place] [facility] [address] [id number] [place] [address] 2546 18 Sep, 2013 [facility] [place] [facility] [address] [id number] [place] [address] 2542 18 Sep, 2013 [facility] [place] [facility] [address] [id number] [place] [address] 2540 11 Sep, 2013 [facility] [place] [facility] [address] [id number] [place] [address]- 9597 11 Sep, 2013 [facility] [place] [facility] [address] [id number] [place] [address] 2540 11 Sep, 2013 [facility] [place] [facility] [address] [id number] [place] [address] 2546 11 Sep, 2013 [facility] [place] [facility] [address] [id number] [place] [address] 2547 04 Sep, 2013 [facility] [place] [facility] [address] [id number] [place] [address] 2546 04 Sep, 2013 [facility] [place] [facility] [address] [id number] [place] [address] 2546 03 Sep, 2013 [facility] [place] [facility] [address] [id number] [place] [address] 2546 03 Sep, 2013 [facility] [place] [facility] [address] [id number] [place] [address]- 2546 02 Sep, 2013 [facility] [place] [facility] [address] [id number] [place] [address] 2542 02 May, 2014 [facility] [place] [facility] [address] [id number] [place] [address]- 1797 Apr, [facility] [place] [facility] [address] [id number] [place] [address]- 1244 Apr, [facility] [place] [facility] [address] [id number] [place] [address]- 1809 Apr, [facility] [place] [facility] [address] [id number] [place] [address]- 8097 Apr, [facility] [place] [facility] [address] [id number] [place] [address]- 2630 Mar, [facility] [place] [facility] [address] [id number] [place] [address]- 5986 Mar, [facility] [place] [facility] [address] [id number] [place] [address]- 8176 Mar, [facility] [place] [facility] [address] [id number] [place] [address]- 7354 Mar, [facility] [place] [facility] [address] [id number] [place] [address]- 6334 Mar, [facility] [place] [facility] [address] [id number] [place] [address]- 9623 Mar, [facility] [address] [facility] [id number][place] [address] January, [facility] [place] [facility] [address] [id number] [place] [address]- 7111 January, [facility] [address] [id number][place] [id number] Dec, [facility] [place] [facility] [address] [id number] [place] [address]- 2700 Dec, [facility] [address] [facility] [id number][place] [address] Oct, [facility] [place] [facility] [address] [id number] [place] [address]- 7752 Oct, [facility] [address] [id number][place] [address] Sep, [facility] [address] [facility] [id number], [place] [address]- 475[address] Sep, [facility] [place] [facility] [address] [id number] [place] [address]- 8606 Aug, [facility] [place] [facility] [address] [facility] [id number] [place] [address]- 1529 Aug, [facility] [place] [facility] [address] [id number] [place] [address]- 6009 Jul, [facility] [place] [facility] [id number] [place] [address]- 1873 Jul, [facility] [id number], [place] [address]- 2946 Jul, [facility] [id number][place] [address] Jul, [facility] [address] [facility] [id number], [place] [address]- 7256 Jul, [facility] [address] [id number][place] [address] Jul, [facility] [id number], [place] [address]- 2796 Jul, [facility] [place] [facility] [id number], [place] [address]- 6866 Jul, [facility] [place] [facility] [address] [facility] [id number], [place] [address]- 2546 Jun, [facility] [place] [facility] [address] [facility] [id number], [place] [address]- 8336 Jun, [facility] [address] [facility] [id number][place] [id number] Jun, [facility] [place] [facility] [id number], [place] [address]- 2546 Jun, [facility] [place] [facility] [address] [address]- 0138 Apr, [facility] [address] [facility] [id number], [place] [address]- 8195 Apr, [facility] [address] [facility] [id number] Feb, [facility] [address], [place] [address]- 68[address] Dec, [facility] [address] [facility] [id number][place] [address] Dec, [facility] [address] [address]- 2775 Nov, [facility] [address], [place] [address]- 1145 Nov, [facility] [address], [place] [address]- 5946 Nov, [facility] [address], [place] [address]- 78[address] Oct, [facility] [address], [place] [address]- 2836 Oct, [facility] [address], [place] [address]- 5206 Oct, [facility] [address] [address]- 0742 May, [facility] [id number] [address]- 4300 Apr, [facility] [address], [place] [address]- 3814 Feb, [facility] [id number] [address]- 2557 Feb, IMMUNIZATIONS No Known Immunizations SOCIAL HISTORY Never Assessed REASON FOR VISIT Leg weakness-Ciro BYNUM PLAN OF CARE Activity Details Follow Up 2 Months Reason:DM and leg weakness VITAL SIGNS Height 67 in 2017-08-26 Weight 232.3 lbs 2017-08-26 Temperature 97.6 degrees Fahrenheit 2017-08-26 Heart Rate 78 bpm 2017-08-26 Respiratory Rate 18 2017-08-26 BMI 36.38 kg/m2 2017-08-26 Blood pressure systolic 138 mmHg 2017-08-26 Blood pressure diastolic 86 mmHg 2017-08-26 MEDICATIONS Medication Instructions Dosage Frequency Start Date End Date Duration Status Proscar 5 mg Orally Once a day 1 tablet 24h 30 Active BusPIRone HCl 15 MG TAKE ONE TABLET BY MOUTH TWICE DAILY 30 Active GlipiZIDE 5 mg Orally 2 times a day 1 tablet 12h May, 30 days Active Tegretol 200 mg Orally Once a day at bedtime 1 tablet Apr, Active Lisinopril-Hydrochlorothiazide 20-25 MG TAKE ONE TABLET BY MOUTH ONCE DAILY. 30 Active Glucocard Expression Test - subcutaneously Once a day use to test blood sugar 24h Sep, Active Amoxicillin 500 mg Orally 3 times a day 1 capsule 8h Jul, Aug, 10 day(s) Active Metformin HCl 1000 MG TAKE ONE TABLET BY MOUTH TWICE DAILY WITH MEALS 30 Active Gabapentin 800 MG TAKE ONE TABLET BY MOUTH THREE TIMES DAILY 30 Active Trulicity 0.75 MG/0.5ML Subcutaneous once weekly Inject 0.5ML Jun, 90 days Active Fish Oil 1360 MG Orally Once a day 1 capsule 24h Active Atorvastatin Calcium 40 MG TAKE ONE TABLET BY MOUTH ONCE DAILY. 30 Active Cinnamon 500 MG Active Aspirin 81 [...]
--- OUTSIDE RECORDS SUMMARY | 2018-12-11 19:46 | XMS REPORT ---
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 Active 8268171 Problem Pulmonary nodule R91.1 Active 226719069 Problem Benign non-nodular prostatic hyperplasia with lower urinary tract symptoms N40.1 Active 826988165 ALLERGIES No Information SOCIAL HISTORY Never Assessed PLAN OF CARE VITAL SIGNS MEDICATIONS Unknown Medications RESULTS Name Result Date Reference Range [facility] 2017-01-02 Request Problem Please note Request Problem Sodium, Serum Potassium, Serum Chloride, Serum Carbon Dioxide, Total Ambig Abbrev BMP8 Default BUN Creatinine, Serum BUN/Creatinine Ratio eGFR If NonAfricn Am eGFR If Africn Am Glucose, Serum Calcium, Serum PROCEDURES Procedure Date Ordered Result Body Site BASIC METABOLIC PANEL December 10, 2016 IMMUNIZATIONS No Known Immunizations MEDICAL (GENERAL) [...]
--- OUTSIDE RECORDS SUMMARY | 2018-12-11 19:46 | XMS REPORT ---
Author Author LY PRINGLE Organization [employer] Address Unknown Phone Unavailable Care Team Providers Care Head Grower Name Role Phone LY PRINGLE CP Unavailable [...] Start Date End Date Status Dosage Trulicity [facility] [address]-64 0.75 MG/0.5ML Subcutaneous once weekly Aug 01, 2016 Aug 31, 2016 0.5 ml Results No Known Results Summary Purpose [employer] Submission
--- OUTSIDE RECORDS SUMMARY | 2018-12-11 19:46 | XMS REPORT ---
Author Author YONG CHURCH [facility] [employer] Address Unknown Phone Unavailable Care Team Providers Care Concept Artist Name Role Phone YONG CHURCH CP Unavailable Allergies, Adverse Reactions, Alerts Substance Reaction Event Type Januvia Info Not Available Drug Allergy Problems Problem Type Condition Code Onset Dates Condition Status Problem Elevated blood pressure reading without diagnosis of hypertension 796.2 Active Assessment Abscess L02.91 Active Problem Mononeuritis of unspecified site 355.9 [...] Instructions Start Date End Date Status Dosage Lisinopril-Hydrochlorothiazide [facility] [address]-21 20-25 MG Orally Once a day May 29, 2016 1 tablet Metformin HCl [facility] [address]-67 1000 MG Orally Twice a day 1 tablet with meals Atorvastatin Calcium [facility] [address]-56 40 mg Orally Once a day 1 tablet BusPIRone HCl [facility] [address]-95 15 MG Orally Twice a day 1 tablet Bactrim DS [facility] [address]-04 800-160 MG Orally Twice a day May 29, 2016 Jun 08, 2016 1 tablet Gabapentin [facility] [address]-28 600 MG Orally Three times a day Oct 01, 2014 1 capsule Lisinopril [facility] [address]-44 20 mg Oct 01, 2014 take 1 tablet by Oral route 1 time per day Take in evening Hydrochlorothiazide [facility] [address]-89 25 MG Orally Once a day 1 tablet Aspirin [facility] [address]-57 81 MG Orally Once a day 1 tablet GlipiZIDE [facility] [address]-25 10 mg Orally Once a day 1 tablet Procedures Procedure Coding System Code Date Office Visit, Est Pt., Level 3 CPT-4 39545 May 29, 2016 CULTURE, BACTERIA, OTHER CPT-4 71814 May 29, 2016 Results No Known Results Summary Purpose [employer] Submission
--- OUTSIDE RECORDS SUMMARY | 2018-12-11 19:46 | XMS REPORT ---
Author Author LY PRINGLE [facility] Address [address] [place] [address] Care Team Providers Care Tube Handler Name Role Phone LY PRINGLE Unavailable PROBLEMS Type Condition ICD9-CM Code LVM78-RX Code Onset Dates Condition Status SNOMED Code Problem Unspecified essential hypertension 401.9 Active 45582537 Problem Dermatophytosis of nail 110.1 Active 831421800 Problem Other and unspecified hyperlipidemia 272.4 Active 76062951 Assessment Benign non-nodular prostatic hyperplasia with lower urinary tract symptoms N40.1 Aug, Active 16738163932060 Problem Elevated blood pressure reading without diagnosis of hypertension 796.2 Active 830691900 Problem Periapical abscess without sinus 522.5 Active 365840344 Problem Diabetes mellitus without mention of complication, type II or unspecified type, not stated as uncontrolled 250.00 Active 453544282 Problem Benign non-nodular prostatic hyperplasia with lower urinary tract symptoms N40.1 Active 089402420 Problem Type 2 diabetes mellitus with complication, without long-term current use of insulin E11.8 Active 07628207 Problem Unspecified otitis media 382.9 Active 95143890 Problem Mononeuritis of unspecified site 355.9 Active 62870070 Problem 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 Active 7331969 Problem MRSA (methicillin resistant staph aureus) culture positive Z22.322 Active 054054613 ALLERGIES Substance Reaction Event Type Date Status Januvia Unknown Drug Allergy Aug, Active SOCIAL HISTORY No smoking Hx information available PLAN OF CARE VITAL SIGNS Height 67 in 2016-09-10 Weight 240.6 lbs 2016-09-10 Heart Rate 78 bpm 2016-09-10 Respiratory Rate 20 2016-09-10 BMI 37.68 kg/m2 2016-09-10 Blood pressure systolic 128 mmHg 2016-09-10 Blood pressure diastolic 80 mmHg 2016-09-10 MEDICATIONS Medication Instructions Dosage Frequency Start Date End Date Duration Status Metformin HCl 1000 MG Orally Twice a day 1 tablet with meals 12h 30 days Active Atorvastatin Calcium 40 mg Orally Once a day 1 tablet 24h 30 days Active Aspirin 81 MG Orally Once a day 1 tablet 24h Active GlipiZIDE 10 mg Orally Once a day 1 1/2 tablet 24h Active Lisinopril-Hydrochlorothiazide 20-25 MG Orally Once a day 1 tablet 24h 30 days Active Gabapentin 600 MG Orally Three times a day 1 capsule 8h Sep, 30 days Active BusPIRone HCl 15 MG TAKE ONE TABLET BY MOUTH TWICE DAILY. 30 Active Proscar 5 mg Orally Once a day 1 tablet 24h Jul, Active RESULTS Name Result Date Reference Range PSA 2016-09-10 Prostate Specific Ag, Serum 0.2 0.0-4.0 LIPID PANEL 2016-09-10 Cholesterol, Total 145 100-199 Triglycerides 97 0-149 HDL Cholesterol 41 >39 VLDL Cholesterol Didier 19 5-40 LDL Cholesterol Calc 85 0-99 CMP 2016-09-10 Glucose, Serum 279 65-99 BUN 8 6-24 Creatinine, Serum 0.94 0.76-1.27 eGFR If NonAfricn Am 92 >59 eGFR If Africn Am 106 >59 BUN/Creatinine Ratio 9 9-20 Sodium, Serum 136 134-144 Potassium, Serum 4.4 3.5-5.2 Chloride, Serum 92 96-106 Carbon Dioxide, Total 26 18-29 Calcium, Serum 9.3 8.7-10.2 Protein, Total, Serum 6.9 6.0-8.5 Albumin, Serum 4.8 3.5-5.5 Globulin, Total 2.1 1.5-4.5 A/G Ratio 2.3 1.1-2.5 Bilirubin, Total 0.6 0.0-1.2 Alkaline Phosphatase, S 85 39-117 AST (SGOT) 21 0-40 ALT (SGPT) 34 0-44 PROCEDURES Procedure Date Ordered Related Diagnosis Body Site ASSAY OF PSA, TOTAL Sep 10, 2016 LIPID PANEL Sep 10, 2016 VENIPUNCT, ROUTINE* Sep 10, 2016 COMPREHEN METABOLIC PANEL Sep 10, 2016 Office Visit, Est Pt., Level 3 Sep 10, 2016 IMMUNIZATIONS No Known Immunizations
--- OUTSIDE RECORDS SUMMARY | 2018-12-11 19:46 | XMS REPORT ---
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 Active 4584760 Problem Pulmonary nodule R91.1 Active 616103554 Problem Type 2 diabetes mellitus with complication, without long-term current use of insulin E11.8 Active 47381509 Problem Polyneuropathy G62.9 Active 77003264 Problem MRSA (methicillin resistant staph aureus) culture positive Z22.322 Active 263391874 Problem Benign non-nodular prostatic hyperplasia with lower urinary tract symptoms N40.1 Active 82861562687927 Problem Mixed hyperlipidemia E78.2 Active 862560981 Problem Bilateral claudication of lower limb I73.9 Active 191692176 Problem Primary osteoarthritis of left knee M17.12 Active 252536108 Problem Essential hypertension I10 Active 75407410 Problem Diabetic polyneuropathy associated with type 2 diabetes mellitus E11.42 Active 04985466 ALLERGIES No Information ENCOUNTERS Encounter Location Date Diagnosis [place] [address] [address] Feb, [place] [id number] [place] [address] Nov, Benign non-nodular prostatic hyperplasia with lower urinary tract symptoms N40.1 and Acute epididymitis N45.1 [place] [id number] [place] [address] 12[address] Sep, Neuropathy G62.9 [place] [address], [place] [address] Sep, Type 2 diabetes mellitus with complication, without long- term current use of insulin E11.8 ; Neuropathy G62.9 ; Bilateral leg weakness R29.898 and Cough R05 [place] [address] [address] Aug, Left ear pain H92.02 and Bilateral impacted cerumen H61.23 [place] [address] [address] Jul, [place] [address] [address] Jul, [place] [address] [address] Jul, Type 2 diabetes mellitus with complication, without long- term current use of insulin E11.8 ; Bilateral leg weakness R29.898 and Neuropathy G62.9 [facility] [address] [address] Jul, Acute non-recurrent maxillary sinusitis J01.00 [place] [address] [address] Jul, [place] [address] [address] Jul, Primary osteoarthritis of left knee M17.12 [place] [address] [address] Jul, Type 2 diabetes mellitus with complication, without long- term current use of insulin E11.8 [place] [address] [address] Jun, [place] [address] [address] Jun, Neuropathy G62.9 ; Bilateral leg weakness R29.898 ; Leg cramps R25.2 and Encounter for immunization Z23 [place] [address] [address] Jun, Bilateral claudication of lower limb I73.9 ; Essential hypertension I10 ; Mixed hyperlipidemia E78.2 and Diabetic polyneuropathy associated with type 2 diabetes mellitus E11.42 [place] [address] [address] Jun, Pain in right leg M79.604 ; Pain of left leg M79.605 and Bilateral leg weakness R29.898 [place] [address] [address] Jun, [place] [address] [address] Jun, Left lateral knee pain M25.562 and Bilateral leg weakness R29.898 [place] [address] [address] Jun, [place] [address] [address] May, Type 2 diabetes mellitus with complication, without long- term current use of insulin E11.8 ; Neuropathy G62.9 and Leg cramps R25.2 [place] [address] [address] May, [place] [address] [address] Apr, Bilateral leg weakness R29.898 and Leg cramps R25.2 [place] [address] [address] Mar, [place] [address] [address] Feb, Chronic seasonal allergic rhinitis due to other allergen J30.2 [place] [address] [address] January, Type 2 diabetes mellitus with complication, without long- term current use of insulin E11.8 and Neuropathy G62.9 [place] [address] [address] Dec, [place] [address] [place] [address]- 0170 Dec, Pulmonary nodule R91.1 [place] [address] [place] [id number] [place] [address] Dec, [place] [address] [place] [id number] [place] [address]- [address] Dec, [place] [address] [address] Nov, Pre-procedure lab exam Z01.[address] [address] Nov, Seasonal allergic rhinitis due to pollen J30.1 [place] [address] [place] [id number] [place] [address]- 29[address] Oct, Lower abdominal pain R10.30 ; Hematuria R31.9 ; Pulmonary nodule R91.1 and Type 2 diabetes mellitus with complication, without long-term current use of insulin E11.8 [place] [address] [place] [id number] [place] [address]- 83[address] Sep, Type 2 diabetes mellitus with complication, without long- term current use of insulin E11.8 and Ventral hernia without obstruction or gangrene K43.9 [place] [address] [place] [id number] [place] [address]- 407[address] Aug, [place] [address] [address] Aug, Benign non-nodular prostatic hyperplasia with lower urinary tract symptoms N40.1 and Type 2 diabetes mellitus with complication, without long-term current use of insulin E11.8 [place] [address] [place] [address]- [address] Jul, Benign non-nodular prostatic hyperplasia with lower urinary tract symptoms N40.1 and Type 2 diabetes mellitus with complication, without long-term current use of insulin E11.8 [place] [address] [facility] [id number], [place] [address] Jul, Type 2 diabetes mellitus with complication, without long- term current use of insulin E11.8 [facility] [address] [facility] [id number], [place] [address] Jul, [facility] [address] [facility] [id number], [place] [address] Jun, [facility] [address] [facility] [id number], [place] [address] Jun, [facility] [address] [facility] [id number], [place] [address] Jun, Type 2 diabetes mellitus with complication, without long- term current use of insulin E11.8 [place] [address] [facility] [id number], [place] [address] Jun, [facility] [address] [facility] [id number], [place] [address] May, [facility] [address] [facility] [id number], [place] [address] 6[address] May, [facility] [address], [place] [address] May, [facility] [address] [place] [id number], [place] [address] 12 May, 2016 Encounter to establish care Z76.89 ; Type 2 diabetes mellitus with complication, without long-term current use of insulin E11.8 ; Essential hypertension I10 ; Hyperlipidemia, unspecified hyperlipidemia type E78.5 ; 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 ; MRSA (methicillin resistant staph aureus) culture positive Z22.322 ; Pain in unspecified knee M25.569 ; Other chronic pain G89.29 and Neuropathy G62.9 [facility] [address] [facility] [id number], [place] [address]- [address] 09 May, 2016 Neck abscess L02.11 [place] [address] [place] [id number] [place] [address]- 0[address] 06 May, 2016 Abscess, neck L02.11 [facility] [address] [facility] [id number], [place] [address] May, [facility] [address] [facility] [id number], [place] [address] 18[address] May, Abscess of neck L02.11 [facility] [address] [facility] [id number], [place] [address] Apr, Cellulitis, neck L03.221 [facility] [address] [facility] [id number], [place] [address] Apr, Abscess L02.91 [facility] [address], [place] [address] January, [facility] [address], [place] [address]- 6665 Dec, [facility] [address] [place] [id number], [place] [address] 7167 Dec, [facility] [address], [place] [address]- 7099 Oct, [facility] [address], [place] [address]- 1285 Oct, [facility] [address], [place] [address]- 40[address] Sep, [facility] [address], [place] [address]- 5943 Sep, [facility] [address] [place] [id number], [place] [address] 09[address] Sep, [facility] [address] [place] [id number], [place] [address] Sep, [facility] [address], [place] [address]- 52[address] Sep, [facility] [address] [facility] [id number] [place] [address]- 89[address] Sep, [facility] [place] [facility] [address] [id number] [place] [address]- 0979 Sep, [facility] [place] [facility] [address] [id number] [place] [address]- 3184 Jul, [facility] [place] [facility] [address] [id number] [place] [address]- 8369 Jul, [facility] [place] [facility] [address] [id number] [place] [address]- 2289 Jun, 2013 [facility] [place] [facility] [address] [id number] [place] [address] Jun, 2013 [facility] [place] [facility] [address] [id number] [place] [address]- 5467 Jun, 2013 [facility] [place] [facility] [address] [id number] [place] [address]- 9084 Jun, 2013 [facility] [place] [facility] [address] [id number] [place] [address]- 3428 Jun, 2013 [facility] [place] [facility] [address] [id number] [place] [address]- 0769 Jun, 2013 [facility] [place] [facility] [address] [facility] [id number] [place] [address]- 0698 Jun, 2013 [facility] [place] [facility] [address] [id number] [place] [address]- 9813 Jun, 2013 [facility] [place] [facility] [address] [id number] [place] [address]- 2954 Jun, [facility] [place] [facility] [address] [id number] [place] [address]- 6315 Jun, [facility] [place] [facility] [address] [id number] [place] [address]- 0652 Jun, [facility] [place] [facility] [address] [id number] [place] [address] May, [facility] [place] [facility] [address] [id number] [place] [address]- 1087 30 Sep, 2013 [facility] [place] [facility] [address] [id number] [place] [address]- 3496 23 Sep, 2013 [facility] [place] [facility] [address] [id number] [place] [address]- 2930 23 Sep, 2013 [facility] [place] [facility] [address] [id number] [place] [address]- 2549 18 Sep, 2013 [facility] [place] [facility] [address] [id number] [place] [address]- 6311 18 Sep, 2013 [facility] [place] [facility] [address] [id number] [place] [address]- 8792 11 Sep, 2013 [facility] [place] [facility] [address] [id number] [place] [address]- 6710 11 May, 2013 [facility] [place] [facility] [address] [id number] [place] [address]- 3321 11 Sep, 2013 [facility] [place] [facility] [address] [id number] [place] [address]- 2690 11 Sep, 2013 [facility] [place] [facility] [address] [id number] [place] [address]- 7476 04 Sep, 2013 [facility] [place] [facility] [address] [id number], [place] [address]- 2923 04 Sep, 2013 [facility] [place] [facility] [address] [id number], [place] [address]- 9911 03 Sep, 2013 [facility] [place] [facility] [address] [id number] [place] [address]- 2540 03 Sep, 2013 [facility] [place] [facility] [address] [id number] [place] [address]- 7259 02 Sep, 2013 [facility] [place] [facility] [address] [id number] [place] [address]- 2796 02 Sep, 2013 [facility] [place] [facility] [address] [id number], [place] [address]- 0278 Apr, [facility] [place] [facility] [address] [id number] [place] [address]- 9871 Apr, [facility] [place] [facility] [address] [id number] [place] [address]- 9270 Apr, [facility] [place] [facility] [address] [facility] [id number] [place] [address]- 4755 Apr, [facility] [place] [facility] [address] [facility] [id number] [place] [address]- 7845 Mar, [facility] [place] [facility] [address] [facility] [id number] [place] [address]- 2228 Mar, [facility] [place] [facility] [address] [facility] [id number] [place] [address]- 6966 Mar, [facility] [place] [facility] [address] [facility] [id number] [place] [address]- 0454 Mar, [facility] [place] [facility] [address] [facility] [id number] [place] [address]- 1369 Mar, [facility] [place] [facility] [address] [facility] [id number], [place] [address]- 8082 Mar, [facility] [address] [facility] [id number] [place] [id number] January, [facility] [place] [facility] [address] [facility] [id number], [place] [address]- 9854 January, [facility] [address] [facility] [id number] [place] [address] Dec, [facility] [place] [facility] [address] [facility] [id number], [place] [address]- 9849 Dec, [facility] [address] [facility] [id number] [place] [address] Oct, [facility] [place] [facility] [address] [facility] [id number], [place] [address]- 3936 Oct, [facility] [address] [facility] [id number] [place] [address] Sep, [facility] [place] [facility] [address] [id number] [place] [address]- 8296 Sep, [facility] [place] [facility] [address] [id number] [place] [address]- 2546 Aug, [facility] [place] [facility] [address] [id number] [place] [address]- 2546 Aug, [facility] [place] [facility] [address] [id number] [place] [address]- 9536 Jul, [facility] [place] [facility] [address] [id number] [place] [address]- 6626 Jul, [facility] [place] [facility] [address] [facility] [id number], [place] [address]- 2656 Jul, [facility] [address] [place] [id number] [place] [id number] Jul, [facility] [place] [facility] [address] [facility] [id number], [place] [address]- 8436 Jul, [facility] [address] [facility] [id number] [place] [address] Jul, [facility] [place] [facility] [address] [facility] [id number], [place] [address]- 2546 Jul, [facility] [place] [facility] [address] [facility] [id number], [place] [address]- 2546 Jul, [facility] [place] [facility] [address] [id number], [place] [address]- 2546 Jun, [facility] [place] [facility] [address] [id number], [place] [address]- 2546 Jun, [facility] [address] [facility] [id number] [place] [address] Jun, [facility] [place] [facility] [address] [id number], [place] [address]- 2546 Jun, [facility] [place] [facility] [address] [facility] [id number], [place] [address]- 9520 Apr, [facility] [address], [place] [address]- 2253 Apr, [facility] [address], [place] [address]- 9323 Feb, [facility] [address], [place] [address]- 7378 Dec, [facility] [address] [address] Dec, [facility] [address], [place] [address]- 8465 Nov, [facility] [address] [place] [id number] [place] [address]- 3679 Nov, [facility] [address], [place] [address]- 9982 Nov, [facility] [address], [place] [address]- 7491 Oct, [facility] [address], [place] [address]- 3254 Oct, [facility] [address], [place] [address]- 1638 Oct, [facility] [address], [place] [address]- 9737 May, [facility] [address], [place] [address]- 0389 Apr, [facility] [address], [place] [address]- 6[address] Feb, [facility] [address], [place] [address]- 7305 Feb, IMMUNIZATIONS No Known Immunizations SOCIAL HISTORY Never Assessed REASON FOR VISIT 1 yr f/u DM Ed PLAN OF CARE VITAL SIGNS MEDICATIONS Unknown [...]
--- OUTSIDE RECORDS SUMMARY | 2018-12-11 19:46 | XMS REPORT ---
Author Author YVONNE MCGEE [facility] eClinicalWorks Address Unknown Phone Unavailable Care Team Providers Care Cook Boat Name Role Phone YVONNE MCGEE CP Unavailable [...] Instructions Start Date End Date Status Dosage Lowes [facility] [address]-40 5-325 MG Orally every 6 hrs May 30, 2016 1 tablet as needed Lisinopril [facility] [address]-34 20 mg Oct 01, 2014 take 1 tablet by Oral route 1 time per day Take in evening Hydrochlorothiazide [facility] [address]-11 25 MG Orally Once a day 1 tablet Aspirin [facility] [address]-79 81 MG Orally Once a day 1 tablet Lisinopril-Hydrochlorothiazide [facility] [address]-60 20-25 MG Orally Once a day May 29, 2016 1 tablet Bactrim DS [facility] [address]-96 800-160 MG Orally Twice a day May 29, 2016 Jun 08, 2016 1 tablet Atorvastatin Calcium [facility] [address]-89 40 mg Orally Once a day 1 tablet Gabapentin [facility] [address]-05 600 MG Orally Three times a day Oct 01, 2014 1 capsule GlipiZIDE [facility] [address]-50 10 mg Orally Once a day 1 tablet BusPIRone HCl [facility] [address]-06 15 MG Orally Twice a day 1 tablet Metformin HCl [facility] [address]-76 1000 MG Orally Twice a day 1 tablet with meals Procedures Procedure Coding System Code Date Office Visit, Est Pt., Level 2 CPT-4 88643 May 30, 2016 Vital Signs Date/Time: May 30, 2016 Blood Pressure Systolic 140 mmHg Cardiac Monitoring Heart Rate 98 bpm Height 67 in Blood Pressure Diastolic 86 mmHg Results No Known Results Summary Purpose eClinicalWorks Submission
--- OUTSIDE RECORDS SUMMARY | 2018-12-11 19:46 | XMS REPORT ---
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 Active 3164043 Problem Pulmonary nodule R91.1 Active 674477215 Problem Benign non-nodular prostatic hyperplasia with lower urinary tract symptoms N40.1 Active 859597324 ALLERGIES Substance Reaction Event Type Date Status Sepuvia Unknown Drug Allergy Sep, Active SOCIAL HISTORY No smoking Hx information available PLAN OF CARE Activity Details Follow Up 4 Weeks Reason:knee pain VITAL SIGNS Height 67 in 2016-10-17 Weight 251 lbs 2016-10-17 Temperature 98.0 degrees Fahrenheit 2016-10-17 Heart Rate 70 bpm 2016-10-17 Respiratory Rate 18 2016-10-17 BMI 39.31 kg/m2 2016-10-17 Blood pressure systolic 138 mmHg 2016-10-17 Blood pressure diastolic 76 mmHg 2016-10-17 MEDICATIONS Medication Instructions Dosage Frequency Start Date End Date Duration Status BusPIRone HCl 15 MG TAKE ONE TABLET BY MOUTH TWICE DAILY. 30 Active Proscar 5 mg Orally Once a day 1 tablet 24h Jul, Active GlipiZIDE 10 mg Orally Once a day 1 tablet 24h 30 Active Glucocard Expression Monitor w/Device as directed Sep, Active Aspirin 81 MG Orally Once a day 1 tablet 24h Active Gabapentin 600 MG Orally Three times a day 1 capsule 8h Sep, 30 days Active Metformin HCl 1000 MG Orally Twice a day 1 tablet with meals 12h 30 Active Atorvastatin Calcium 40 mg Orally Once a day 1 tablet 24h 30 Active Lisinopril-Hydrochlorothiazide 20-25 MG Orally Once a day 1 tablet 24h 30 Active Trulicity 0.75 MG/0.5ML Subcutaneous once weekly Inject 0.5ML Jun, 90 days Active Glucocard Expression Test - subcutaneously Once a day use to test blood sugar 24h 18 Sep, 2016 Active RESULTS Name Result Date Reference Range A1C (IN HOUSE) A1C IN HOUSE 9.8 4.3 - 5.6 % Previous A1c 10.3 Lot [id number] Exp date 03/2018 CT Scan : Abdomen & Pelvis w/ Contrast 2016-10-19 PROCEDURES Procedure Date Ordered Related Diagnosis Body Site GLYCATED HEMOGLOBIN TEST Oct 17, 2016 Office Visit, Est Pt., Level 3 Oct 17, 2016 IMMUNIZATIONS No Known Immunizations
--- OUTSIDE RECORDS SUMMARY | 2018-12-11 19:47 | XMS REPORT | Continuity of Care Document ---
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 10/31/2017 Ot V72.81 EXAM-PRE- OPERATIVE CARDIOVASCULAR 10/31/2017 Ot V72.83 EXAM PRE- OPERATIVE NEC 10/31/2017 Ot 840.7 (SLAP) SUPERIOR GLENOID LABRUM LESIONS 10/31/2017 Ot E000.0 CIVILIAN ACTIVITY DONE FOR INCOME OR PAY 10/31/2017 Ot E849.3 ACC ON [facility] PREMISES 10/31/2017 Ot E928.9 ACCIDENT NOS 10/31/2017 Ot V72.81 EXAM-PRE- OPERATIVE CARDIOVASCULAR 10/31/2017 Ot V72.84 EXAM PRE- OPERATIVE NOS 10/31/2017 MYRTLE AMADOR MD Ot E66.9 OBESITY, UNSPECIFIED 10/31/2017 MYRTLE AMADOR MD Ot E78.2 MIXED HYPERLIPIDEMIA 10/31/2017 MYRTLE AMADOR MD Ot I10 ESSENTIAL (PRIMARY) HYPERTENSION 10/31/2017 MYRTLE AMADOR MD Ot R07.9 CHEST PAIN, UNSPECIFIED 10/31/2017 LY PRINGLEP Ot K43.9 VENTRAL HERNIA WITHOUT OBSTRUCTION OR GA 10/31/2017 LY PRINGLE MEDICAL BILLER/CODER Ot R91.1 SOLITARY PULMONARY NODULE 10/31/2017 LY PRINGLE MEDICAL BILLER/CODER Ot R91.1 SOLITARY PULMONARY NODULE 10/31/2017 LY PRINGLEP Ot Z01.812 ENCOUNTER FOR PREPROCEDURAL LABORATORY E 10/31/2017 LY PRINGLEP Ot R91.1 SOLITARY PULMONARY NODULE 11/15/2017 LY PRINGLEP Ot R91.1 SOLITARY PULMONARY NODULE 02/07/2018 MYRTLE AMADOR MD Ot E66.9 OBESITY, UNSPECIFIED 02/07/2018 MYRTLE AMADOR MD Ot E78.2 MIXED HYPERLIPIDEMIA 02/07/2018 MYRTLE AMADOR MD Ot I10 ESSENTIAL (PRIMARY) HYPERTENSION 02/07/2018 MYRTLE AMADOR MD Ot R07.9 CHEST PAIN, UNSPECIFIED 02/07/2018 LY PRINGLEP Ot K43.9 VENTRAL HERNIA WITHOUT OBSTRUCTION OR GA 02/07/2018 LY PRINGLEP Ot R91.1 SOLITARY PULMONARY NODULE 02/07/2018 LY PRINGLE MEDICAL BILLER/CODER Ot R91.1 SOLITARY PULMONARY NODULE 02/07/2018 LY PRINGLEP Ot Z01.812 ENCOUNTER FOR PREPROCEDURAL LABORATORY E 02/07/2018 LY PRINGLEP Ot R91.1 SOLITARY PULMONARY NODULE 02/27/2018 MYRTLE AMADOR MD Ot E66.9 OBESITY, UNSPECIFIED 02/27/2018 MYRTLE AMADOR MD Ot E78.2 MIXED HYPERLIPIDEMIA 02/27/2018 MYRTLE AMADOR MD Ot I10 ESSENTIAL (PRIMARY) HYPERTENSION 02/27/2018 MYRTLE AMADOR MD Ot R07.89 OTHER CHEST PAIN 02/27/2018 MYRTLE AMADOR MD Ot Z68.38 BODY MASS INDEX (BMI) 38.0-38.9, ADULT 03/14/2018 MYRTLE AMADOR MD Ot E66.9 OBESITY, UNSPECIFIED 03/14/2018 MYRTLE AMADOR MD Ot E78.2 MIXED HYPERLIPIDEMIA 03/14/2018 MYRTLE AMADOR MD Ot I10 ESSENTIAL (PRIMARY) HYPERTENSION 03/14/2018 MYRTLE AMADOR MD Ot R07.89 OTHER CHEST PAIN 03/21/2018 MYRTLE AMADOR MD Ot E66.9 OBESITY, UNSPECIFIED 03/21/2018 MYRTLE AMADOR MD Ot E78.2 MIXED HYPERLIPIDEMIA 03/21/2018 MYRTLE AMADOR MD Ot I07.1 RHEUMATIC TRICUSPID INSUFFICIENCY 03/21/2018 MYRTLE AMADOR MD Ot I10 ESSENTIAL (PRIMARY) HYPERTENSION 03/21/2018 MYRTLE AMADOR MD Ot R07.89 OTHER CHEST PAIN 04/07/2018 MYRTLE AMADOR MD Ot E66.9 OBESITY, UNSPECIFIED 04/07/2018 MYRTLE AMADOR MD Ot E78.2 MIXED HYPERLIPIDEMIA 04/07/2018 MYRTLE AMADOR MD Ot I07.1 RHEUMATIC TRICUSPID INSUFFICIENCY 04/07/2018 MYRTLE AMADOR MD Ot I10 ESSENTIAL (PRIMARY) HYPERTENSION 04/07/2018 MYRTLE AMADOR MD Ot R07.89 OTHER CHEST PAIN 05/08/2018 MYRTLE AMADOR MD Ot E66.9 OBESITY, UNSPECIFIED 05/08/2018 MYRTLE AMADOR MD Ot E78.2 MIXED HYPERLIPIDEMIA 05/08/2018 MYRTLE AMADOR MD Ot I10 ESSENTIAL (PRIMARY) HYPERTENSION 05/08/2018 MYRTLE AMADOR MD Ot R07.89 OTHER CHEST PAIN 09/25/2018 MYRTLE AMADOR MD Ot E66.9 OBESITY, UNSPECIFIED 09/25/2018 MYRTLE AMADOR MD Ot E78.2 MIXED HYPERLIPIDEMIA 09/25/2018 MYRTLE AMADOR MD Ot I10 ESSENTIAL (PRIMARY) HYPERTENSION 09/25/2018 MYRTLE AMADOR MD Ot R07.9 CHEST PAIN, UNSPECIFIED 09/25/2018 YARY, LY MEDICAL BILLER/CODER Ot K43.9 VENTRAL HERNIA WITHOUT OBSTRUCTION OR GA 09/25/2018 LY PRINGLE MEDICAL BILLER/CODER Ot R91.1 SOLITARY PULMONARY NODULE 09/25/2018 LY PRINGLE MEDICAL BILLER/CODER Ot R91.1 SOLITARY PULMONARY NODULE 09/25/2018 LY PRINGLE MEDICAL BILLER/CODER Ot Z01.812 ENCOUNTER FOR PREPROCEDURAL LABORATORY E 09/25/2018 LY PRINGLE MEDICAL BILLER/CODER Ot R91.1 SOLITARY PULMONARY NODULE 09/25/2018 MYRTLE AMADOR MD Ot E66.9 OBESITY, UNSPECIFIED 09/25/2018 MYRTLE AMADOR MD Ot E78.2 MIXED HYPERLIPIDEMIA 09/25/2018 MYRTLE AMADOR MD Ot I07.1 RHEUMATIC TRICUSPID INSUFFICIENCY 09/25/2018 MYRTLE AMADOR MD Ot I10 ESSENTIAL (PRIMARY) HYPERTENSION 09/25/2018 MYRTLE AMADOR MD Ot R07.89 OTHER CHEST PAIN 09/25/2018 MYRTLE AMADOR MD Ot E66.9 OBESITY, UNSPECIFIED 09/25/2018 MYRTLE AMADOR MD Ot E78.2 MIXED HYPERLIPIDEMIA 09/25/2018 MYRTLE AMADOR MD Ot I10 ESSENTIAL (PRIMARY) HYPERTENSION 09/25/2018 MYRTLE AMADOR MD Ot R07.89 OTHER CHEST PAIN 09/25/2018 MYRTLE AMADOR MD Ot Z68.38 BODY MASS INDEX (BMI) 38.0-38.9, ADULT 09/25/2018 Ot E66.9 OBESITY, UNSPECIFIED 09/25/2018 Ot E78.2 MIXED HYPERLIPIDEMIA 09/25/2018 Ot I10 ESSENTIAL ( PRIMARY) HYPERTENSION 09/25/2018 Ot R07.89 OTHER CHEST PAIN 09/25/2018 REED GANT MD, Ot M75.111 INCOMPLETE ROTATR-CUFF TEAR/RUPTR OF R S 09/25/2018 REED GANT MD, Ot M75.112 INCOMPLETE ROTATR-CUFF TEAR/RUPTR OF L S 09/25/2018 REED GANT MD, Ot Z53.8 PROCEDURE AND TREATMENT NOT CARRIED OUT 09/25/2018 MYRTLE AMADOR MD Ot E66.9 OBESITY, UNSPECIFIED 09/25/2018 MYRTLE AMADOR MD Ot E78.2 MIXED HYPERLIPIDEMIA 09/25/2018 MYRTLE AMADOR MD Ot I07.1 RHEUMATIC TRICUSPID INSUFFICIENCY 09/25/2018 MYRTLE AMADOR MD Ot I10 ESSENTIAL (PRIMARY) HYPERTENSION 09/25/2018 MYRTLE AMADOR MD Ot R07.89 OTHER CHEST PAIN 09/26/2018 MYRTLE AMADOR MD Ot E66.9 OBESITY, UNSPECIFIED 09/26/2018 MYRTLE AMADOR MD Ot E78.2 MIXED HYPERLIPIDEMIA 09/26/2018 MYRTLE AMADOR MD Ot I10 ESSENTIAL (PRIMARY) HYPERTENSION 09/26/2018 MYRTLE AMADOR MD Ot R07.89 OTHER CHEST PAIN 10/14/2018 LY PRINGLE Ot R91.1 SOLITARY PULMONARY NODULE 10/15/2018 NANCY MONSALVE Ot D35.01 BENIGN NEOPLASM OF RIGHT ADRENAL GLAND 10/15/2018 NANCY MONSALVEP Ot R91.8 OTHER NONSPECIFIC ABNORMAL FINDING OF SERGE 10/23/2018 KARY AVELAR DO Ot Z01.818 ENCOUNTER FOR OTHER PREPROCEDURAL EXAMIN 10/26/2018 KARY AVELAR DO Ot R10.9 UNSPECIFIED ABDOMINAL PAIN 10/30/2018 LY PRINGLEP Ot R91.1 SOLITARY PULMONARY NODULE 11/05/2018 KARY AVELAR DO Ot R10.9 UNSPECIFIED ABDOMINAL PAIN 12/02/2018 KARY AVELAR DO Ot R10.9 UNSPECIFIED ABDOMINAL PAIN 12/02/2018 NANCY MONSALVE Ot D35.01 BENIGN NEOPLASM OF RIGHT ADRENAL GLAND 12/02/2018 NANCY MONSALVE Ot R91.8 OTHER NONSPECIFIC ABNORMAL FINDING OF SERGE Procedures Code Description [place] [address] A1C (IN-HOUSE) 11/21/2012 61344 ROUTINE VENIPUNCTURE 11/28/2012 67180 CMP 11/28/2012 52298 LIPID PANEL 11/28/2012 [id number] GFR CALC (RESULT ONLY) 11/28/2012 25775 A1C (IN-HOUSE) 07/07/2013 99676 A1C (IN-HOUSE) 01/05/2014 58315 GLUCOSE FINGER STICK 01/05/2014 37487 ROUTINE VENIPUNCTURE 05/13/2014 99644 LIVER PANEL (LFT) 05/13/2014 39541 ROUTINE VENIPUNCTURE 06/29/2014 02384 A1C (IN-HOUSE) 06/29/2014 18261 LIVER PANEL (LFT) 06/29/2014 73232 URIC ACID 06/29/2014 35444 RA FACTOR 06/30/2014 ANAANA ANCELMO ANALYZER (SCREEN) 06/30/2014 77744 A1C (IN-HOUSE) 10/01/2014 Results Test Result Range CBC with Auto Diff - 03/30/16 17:01 Baso% 0.40 % 0.00-2.50 Eos 0.1 K/uL 0.0-0.7 Eos% 1.1 % 0.0-7.0 Hct 40.2 % 42.0-52.0 Hgb 12.8 g/dL 14.0-17.0 Lym 1.62 K/uL 0.60-3.40 Lym% 22.9 % 10.0-50.0 MCH 26.4 pg 27.0-31.2 MCHC 31.8 g/dL 32.0-36.0 MCV 83.1 fL 80.0-97.0 [place]% 8.6 % 0.0-12.0 MPV 10.9 fL 7.4-10.0 [place]% 67.0 % 37.0-80.0 Plt 184 K/uL 150-400 RBC 4.84 M/uL 4.20-5.40 RDW 13.6 % 11.6-14.8 WBC 7.06 K/uL 5.00-10.00 Ashley 4.72 K/uL 2.00-6.90 [place] 0.6 K/uL 0.0-0.9 Baso 0.0 K/uL 0.0-0.2 Aerobic Bacterial Culture - 05/29/16 13:53 Aerobic Bacterial Culture Note Comp. Metabolic Panel (14) - 09/10/16 10:40 Glucose, Serum 279 mg/dL 65-99 BUN 8 mg/dL 6-24 Creatinine, Serum 0.94 mg/dL 0.76-1.27 eGFR If NonAfricn Am 92 mL/min/1.73 >59 eGFR If Africn Am 106 mL/min/1.73 >59 BUN/Creatinine Ratio 9 9-20 Sodium, Serum 136 mmol/L 134-144 Potassium, Serum 4.4 mmol/L 3.5-5.2 Chloride, Serum 92 mmol/L 96-106 Carbon Dioxide, Total 26 mmol/L 18-29 Calcium, Serum 9.3 mg/dL 8.7-10.2 Protein, Total, Serum 6.9 g/dL 6.0-8.5 Albumin, Serum 4.8 g/dL 3.5-5.5 Globulin, Total 2.1 g/dL 1.5-4.5 A/G Ratio 2.3 1.1-2.5 Bilirubin, Total 0.6 mg/dL 0.0-1.2 Alkaline Phosphatase, S 85 IU/L 39-117 AST (SGOT) 21 IU/L 0-40 ALT (SGPT) 34 IU/L 0-44 Lipid Panel - 09/10/16 10:40 Cholesterol, Total 145 mg/dL 100-199 Triglycerides 97 mg/dL 0-149 HDL Cholesterol 41 mg/dL >39 VLDL Cholesterol Didier 19 mg/dL 5-40 LDL Cholesterol Calc 85 mg/dL 0-99 Prostate-Specific Ag, Serum - 09/10/16 10:40 Prostate Specific Ag, Serum 0.2 ng/mL 0.0-4.0 Whole blood basic metabolic panel - 01/02/17 07:48 Serum or plasma sodium measurement (moles/volume) 136 mmol/L 135-145 Serum or plasma potassium measurement (moles/volume) 4.3 mmol/L 3.6-5.0 Serum or plasma chloride measurement (moles/volume) 100 mmol/L 98-107 Carbon dioxide 27 mmol/L 21-32 Serum or plasma anion gap determination (moles/volume) 9 mmol/L 5-14 Serum or plasma urea nitrogen measurement (mass/volume) 8 mg/dL 7-18 Serum or plasma creatinine measurement (mass/volume) 0.89 mg/dL 0.60-1.30 Serum or plasma urea nitrogen/creatinine mass ratio 9 NRG Serum or plasma creatinine measurement with calculation of estimated glomerular filtration rate > NRG Serum or plasma glucose measurement (mass/volume) 257 mg/dL 70-105 Serum or plasma calcium measurement (mass/volume) 9.2 mg/dL 8.5-10.1 Complete blood count (CBC) with automated white blood cell (WBC) differential - 06/11/17 18:35 Blood leukocytes automated count (number/volume) 13.6 10*3/uL 4.3-11.0 Blood erythrocytes automated count (number/volume) 4.86 10*6/uL 4.35-5.85 Venous blood hemoglobin measurement (mass/volume) 13.1 g/dL 13.3-17.7 Blood hematocrit (volume fraction) 38 % 40-54 Automated erythrocyte mean corpuscular volume 79 [foz_us] 80-99 Automated erythrocyte mean corpuscular hemoglobin (mass per erythrocyte) 27 pg 25-34 Automated erythrocyte mean corpuscular hemoglobin concentration measurement ( mass/volume) 34 g/dL 32-36 Automated erythrocyte distribution width ratio 13.9 % 10.0-14.5 Automated blood platelet count (count/volume) 184 10*3/uL 130-400 Automated blood platelet mean volume measurement 10.1 [foz_us] 7.4-10.4 Automated blood neutrophils/100 leukocytes 93 % 42-75 Automated blood lymphocytes/100 leukocytes 2 % 12-44 Blood monocytes/100 leukocytes 4 % 0-12 Automated blood eosinophils/100 leukocytes 0 % 0-10 Automated blood basophils/100 leukocytes 0 % 0-10 Blood neutrophils automated count (number/volume) 12.7 10*3 1.8-7.8 Blood lymphocytes automated count (number/volume) 0.3 10*3 1.0-4.0 Blood monocytes automated count (number/volume) 0.5 10*3 0.0-1.0 Automated eosinophil count 0.0 10*3/uL 0.0-0.3 Automated blood basophil count (count/volume) 0.0 10*3/uL 0.0-0.1 Serum heterophile antibody titer - 06/11/17 18:35 Serum heterophile antibody titer NEGATIVE NEGATIVE Blood manual differential performed detection - 06/11/17 18:35 Blood monocytes/100 leukocytes 2 % NRG Manual blood segmented neutrophils/100 leukocytes 93 % NRG Blood band neutrophils/100 leukocytes 4 % NRG Manual blood lymphocytes/100 leukocytes 1 % NRG Manual eosinophils/100 leukocytes in nose 0 % NRG Manual blood basophils/100 leukocytes 0 % NRG Blood erythrocyte morphology finding identification NORMAL NR Blood lactic acid measurement (moles/volume) - 06/11/17 18:35 Blood lactic acid measurement (moles/volume) 2.13 mmol/L 0.50-2.00 Comprehensive metabolic panel - 06/11/17 18:35 Serum or plasma sodium measurement (moles/volume) 131 mmol/L 135-145 Serum or plasma potassium measurement (moles/volume) 3.5 mmol/L 3.6-5.0 Serum or plasma chloride measurement (moles/volume) 94 mmol/L 98-107 Carbon dioxide 24 mmol/L 21-32 Serum or plasma anion gap determination (moles/volume) 13 mmol/L 5-14 Serum or plasma urea nitrogen measurement (mass/volume) 9 mg/dL 7-18 Serum or plasma creatinine measurement (mass/volume) 0.84 mg/dL 0.60-1.30 Serum or plasma urea nitrogen/creatinine mass ratio 11 NRG Serum or plasma creatinine measurement with calculation of estimated glomerular filtration rate > NRG Serum or plasma glucose measurement (mass/volume) 155 mg/dL 70-105 Serum or plasma calcium measurement (mass/volume) 9.3 mg/dL 8.5-10.1 Serum or plasma total bilirubin measurement (mass/volume) 1.1 mg/dL 0.1-1.0 Serum or plasma alkaline phosphatase measurement (enzymatic activity/volume) 68 U/L 40-136 Serum or plasma aspartate aminotransferase measurement (enzymatic activity/ volume) 23 U/L 5-34 Serum or plasma alanine aminotransferase measurement (enzymatic activity/volume ) 29 U/L 0-55 Serum or plasma protein measurement (mass/volume) 6.7 g/dL 6.4-8.2 Serum or plasma albumin measurement (mass/volume) 4.3 g/dL 3.2-4.5 Serum or plasma C reactive protein measurement (mass/volume) - 06/11/17 18:35 Serum or plasma C reactive protein measurement (mass/volume) 0.40 mg /dL 0.00-0.50 Bacterial blood culture - 06/11/17 18:35 Bacterial blood culture NG NRG Bacterial blood culture - 06/11/17 18:37 Bacterial blood culture NG NRG Complete urinalysis with reflex to culture - 06/11/17 18:53 Urine color determination YELLOW NRG Urine clarity determination CLEAR NRG Urine pH measurement by test strip 7 5-9 Specific gravity of urine by test strip 1.010 1.016- 1.022 Urine protein assay by test strip, semi-quantitative NEGATIVE NEGATIVE Urine glucose detection by automated test strip NEGATIVE NEGATIVE Erythrocytes detection in urine sediment by light microscopy NEGATIVE NEGATIVE Urine ketones detection by automated test strip NEGATIVE NEGATIVE Urine nitrite detection by test strip NEGATIVE NEGATIVE Urine total bilirubin detection by test strip NEGATIVE NEGATIVE Urine urobilinogen measurement by automated test strip (mass/volume) NORMAL NORMAL Urine leukocyte esterase detection by dipstick NEGATIVE NEGATIVE Automated urine sediment erythrocyte count by microscopy (number/high power field) NONE NRG Automated urine sediment leukocyte count by microscopy (number/high power field ) RARE NRG Bacteria detection in urine sediment by light microscopy NEGATIVE NRG Crystals detection in urine sediment by light microscopy NONE NRG Casts detection in urine sediment by light microscopy NONE NRG Mucus detection in urine sediment by light microscopy NEGATIVE NRG Complete urinalysis with reflex to culture NO NRG Streptococcus pyogenes antigen detection - 06/11/17 19:00 Streptococcus pyogenes antigen detection NEGATIVE NEGATIVE Bacterial throat culture - 06/11/17 19:00 Bacterial throat culture NBS NRG Tick identification panel - 06/11/17 19:22 Serum Ehrlichia chaffeensis IgG antibody detection <1:16 <1:16 Serum Ehrlichia chaffeensis IgM antibody detection <1:10 <1:10 Serum Rickettsia rickettsii IgG antibody assay (units/volume) < <1:16 [place] spotted fever panel < <1:10 Francisella tularensis antibody assay 1:40 NRG LYME AB G M < 0.01 0.00-0.89 Interpretation of Lyme disease antibody assay Negative Negative West Nile virus antibody panel (IgG and IgM) - 06/11/17 19:22 Serum West Nile virus IgM antibody assay 0.41 {index_val} 0.00-0.89 West Nile virus IgG antibody detection 0.30 0.00-1.29 Serum or plasma lactate measurement (moles/volume) - 06/11/17 20:15 Serum or plasma lactate measurement (moles/volume) 2.76 mmol/L 0.50-2.00 Influenza virus A and B antigen detection - 06/11/17 21:49 FLU RESULT NEGATIVE FOR INFLUENZA A AND B ANTIGENS BY IA NRG CMP - 10/30/17 09:14 GLUCOSE 157 mg/dL 65-99 UREA NITROGEN (BUN) 7 mg/dL 7-25 CREATININE 0.78 mg/dL 0.70-1.33 eGFR NON-AFR. FRENCH 102 mL/min/1.73m2 > OR=60 eGFR 118 mL/min/1.73m2 > OR=60 BUN/CREATININE RATIO NOT APPLICABLE (calc) 6-22 SODIUM 131 mmol/L 135-146 POTASSIUM 4.0 mmol/L 3.5-5.3 CHLORIDE 90 mmol/L 98-110 CARBON DIOXIDE 32 mmol/L 20-31 CALCIUM 9.6 mg/dL 8.6-10.3 PROTEIN, TOTAL 6.6 g/dL 6.1-8.1 ALBUMIN 4.5 g/dL 3.6-5.1 GLOBULIN 2.1 g/dL (calc) 1.9-3.7 ALBUMIN/GLOBULIN RATIO 2.1 (calc) 1.0-2.5 BILIRUBIN, TOTAL 0.8 mg/dL 0.2-1.2 ALKALINE PHOSPHATASE 67 U/L 40-115 AST 19 U/L 10-35 ALT 22 U/L 9-46 ANCELMO w/Reflex - 12/17/17 16:22 ANCELMO Direct Negative Negative Sed Rate - 12/17/17 16:22 Sed Rate 4 mm/hr 0-9 ANCELMO w/Reflex - 12/17/17 16:22 ANCELMO DIRECT NEGATIVE NEGATIVE Rapid Plasma Reagin (RPR), Qualitative Test - 12/17/17 16:22 RPR NON REACTIVE NON REACTIVE Hep B Core Ab, Tot - 12/17/17 16:22 HEP B CORE AB, TOT NEGATIVE NEGATIVE Hep B Surface Ab - 12/17/17 16:22 HEP B SURFACE AB, QUAL NON REACTIVE Hepatitis Be Antibody - 12/17/17 16:22 HEP BE AB NEGATIVE NEGATIVE Hep B Surface Ab - 12/17/17 16:22 Hep B Surface Ab, Qual Non Reactive HCV Antibody - 12/17/17 16:22 Hep C Virus Ab <0.1 s/co ratio 0.0-0.9 Hep Be Ab - 12/17/17 16:22 Hep Be Ab Negative Negative Hep B Core Ab, Tot - 12/17/17 16:22 Hep B Core Ab, Tot Negative Negative Hep B Core Ab, IgM - 12/17/17 16:22 Hep B Core Ab, IgM Negative Negative Protein Electro.,S - 12/17/17 16:22 Protein, Total, Serum 6.4 g/dL 6.0-8.5 Albumin 3.8 g/dL 2.9-4.4 Exqxc-0-Abdsxitq 0.3 g/dL 0.0-0.4 Ukwqf-7-Dselmpdr 0.6 g/dL 0.4-1.0 Beta Globulin 0.9 g/dL 0.7-1.3 Gamma Globulin 0.8 g/dL 0.4-1.8 M-Amauri Not Observed g/dL Not Observed Globulin, Total 2.6 g/dL 2.2-3.9 A/G Ratio 1.5 0.7-1.7 Please note: Comment RPR - 12/17/17 16:22 RPR Non Reactive Non Reactive Cryoglobulin, Ql, Serum, Rflx - 12/17/17 16:22 Cryoglobulin, Ql, Serum, Rflx Comment None detected Heavy Metals Profile II, Urine - 12/19/17 08:00 Creatinine(Record Clerk Salesperson),U 0.20 g/L 0.30-3.00 Arsenic (Total),U None Detected ug/L 0-50 Arsenic(Inorganic),U None Detected ug/L 0-19 Lead, Urine None Detected ug/L 0-49 Mercury, Urine None Detected ug/L 0-19 Cadmium, Urine None Detected ug/L None detected Protein Electro, 24-Hour Urine - 12/19/17 08:00 PROTEIN,TOTAL,URINE <4.0 MG/DL NOT ESTAB. PLEASE NOTE: PROTEIN ELECTROPHORESIS SCAN WILL FOLLOW VIA COMPUTER, MAIL, OR.brCOURIER DELIVERY. PROT,24HR CALCULATED <122 MG/24 HR 30-150 ALBUMIN, U 13.2 % NOT ESTAB. YDTDR-8-QVCFXOJF, U 13.4 % NOT ESTAB. IXZHY-8-DPROQXSH, U 33.2 % NOT ESTAB. BETA GLOBULIN, U 29.3 % NOT ESTAB. GAMMA GLOBULIN, U 10.8 % NOT ESTAB. M-SPIKE, % NOT OBSERVED % NOT OBSERVED Heavy Metals Profile II, Urine - 12/19/17 08:00 ARSENIC (TOTAL),U NONE DETECTED UG/L 0-50 ARSENIC(INORGANIC),U NONE DETECTED UG/L 0-19 CREATININE(BUSINESS CONTINUITY MANAGEMENT DIRECTOR),U 0.20 G/L 0.30-3.00 LEAD, URINE NONE DETECTED UG/L 0-49 MERCURY, URINE NONE DETECTED UG/L 0-19 CADMIUM, URINE NONE DETECTED UG/L NONE DETECTED Protein Electro, 24-Hour Urine - 12/19/17 08:00 Protein,Total,Urine <4.0 mg/dL Not Estab. Prot,24hr calculated <122 mg/24 hr 30-150 Albumin, U 13.2 % NOT ESTAB. Zzylg-2-Uiocoeax, U 13.4 % NOT ESTAB. Rbyjw-0-Ddoewzso, U 33.2 % NOT ESTAB. Beta Globulin, U 29.3 % NOT ESTAB. Gamma Globulin, U 10.8 % NOT ESTAB. M-Amauri, % Not Observed % Not Observed Please note: Comment Encounters ACCT No. Visit Date/Time Discharge Status Pt. Type Provider Facility Loc./Unit Complaint [id number] 10/01/2014 13:11:00 10/01/2014 23:59:59 CLS Outpatient SUBHASH LEIGH APRN [id number] 06/29/2014 13:07:00 06/29/2014 23:59:59 CLS Outpatient SUBHASH LEIGH APRN [id number] 06/01/2014 13:44:00 06/01/2014 23:59:59 CLS Outpatient SUBHASH LEIGH APRN [id number] 05/13/2014 08:27:00 05/13/2014 23:59:59 CLS Outpatient SUBHASH LEIGH APRN [id number] 04/01/2014 08:48:00 04/01/2014 23:59:59 CLS Outpatient SUBHASH LEIGH APRN [id number] 01/05/2014 13:41:00 01/05/2014 23:59:59 CLS Outpatient BRE GORDILLO DO [id number] 08/29/2013 00:00:00 08/29/2013 23:59:59 CLS Outpatient REED FERRER APRN [id number] 08/06/2013 14:04:00 08/06/2013 23:59:59 CLS Outpatient BRE GORDILLO DO [id number] 07/07/2013 15:46:00 07/07/2013 23:59:59 CLS Outpatient BRE GORDILLO DO [id number] 11/28/2012 07:48:00 11/28/2012 23:59:59 CLS Outpatient LISA SZYMANSKI MD [id number] 11/21/2012 08:18:00 11/21/2012 23:59:59 CLS Outpatient [id number] 07/11/2012 00:00:00 07/11/2012 23:59:59 CLS Outpatient [id number] 09/11/2016 13:06:00 Document Registration [id number] 12/25/2017 14:19:00 Document Registration [id number] 10/27/2018 13:00:00 10/27/2018 23:59:59 CLS Preadmit KARY AVELAR DO [facility] ABD PAIN [id number] 10/24/2018 07:40:00 10/24/2018 23:59:59 CLS Outpatient KARY AVELAR DO [facility] RAD ABD PAIN [id number] 10/23/2018 05:37:00 10/23/2018 13:52:00 DIS Outpatient KARY AVELAR DO [facility] PREOP EGD [id number] 10/14/2018 09:15:00 10/14/2018 23:59:59 CLS Outpatient NANCY MONSALVE MEDICAL BILLER/CODER [facility] RAD PULMONARY NODULE [id number] 08/04/2018 13:07:00 08/04/2018 23:59:59 CLS Outpatient REED GANT MD [facility] RAD ROTATOR CUFF TEAR PTL LT [id number] 07/31/2018 13:59:00 07/31/2018 23:59:59 CLS Preadmit REED GANT MD [facility] RAD SHOULDER PAIN, BILATERAL [id number] 03/20/2018 13:07:00 03/20/2018 23:59:59 CLS Outpatient MYRTLE AMADOR MD [facility] CARD R07.9 CHEST PAIN [id number] 02/12/2018 06:52:00 02/12/2018 23:59:59 CLS Outpatient MYRTLE AMADOR MD [facility] CARD R07.9 CHEST PAIN [id number] 02/07/2018 08:03:00 02/07/2018 23:59:59 CLS Outpatient MYRTLE AMADOR MD [facility] CARD R07.9 CHEST PAIN [id number] 09/02/2017 09:43:00 09/02/2017 23:59:59 CLS Preadmit LY PRINGLE [facility] REHAB B LEG WEAKNESS [id number] 07/15/2017 08:53:00 07/15/2017 23:59:59 CLS Outpatient LY PRINGLEP [facility] RAD PULMONARY NODULE [id number] 06/11/2017 18:25:00 06/11/2017 22:44:00 DIS Emergency LINDA VACA APRN [facility] ER CHILLS,BLURRY VISION [id number] 01/02/2017 07:39:00 01/02/2017 23:59:59 CLS Outpatient LY PRINGLE [facility] RAD PULMONARY NODULE [id number] 10/30/2016 09:37:00 10/30/2016 14:55:00 DIS Outpatient NENA DE LA VEGA DO [facility] ENDO CHANGE IN BOWEL MOVEMENTS [id number] 10/26/2016 05:37:00 10/26/2016 09:37:00 DIS Outpatient NENA DE LA VEGA DO [facility] PREOP COLONOSCOPY WITH CHANGE IN BOWEL MOVEMENTS [id number] 10/19/2016 08:28:00 10/19/2016 23:59:59 CLS Outpatient LY PRINGLEP [facility] RAD VENTRAL HERNIA W/O OBSTRUCTION OR GANGRENE [id number] 01/20/2016 08:30:00 01/20/2016 23:59:59 CLS Outpatient MYRTLE AMADOR MD [facility] CARD CHEST PAIN, ESSENTIAL HTN, HLP,OBESITY [id number] 01/14/2016 17:48:00 01/14/2016 20:35:00 DIS Emergency SOHAN MONTENEGRO DO [facility] ER ELEV BP/AND BLOOD SUGAR NEEDS MEDS REFILLED [id number] 12/11/2018 19:26:00 ACT Emergency VANIA FRANCIS MD [facility] ER CHEST PAIN [id number] 05/09/2018 08:00:00 Document Registration [id number] 06/04/2012 11:04:00 Document Registration [id number] 06/02/2012 09:41:00 Document Registration [id number] 11/27/2018 15:20:00 11/27/2018 23:59:59 CLS Outpatient NANCY MONSALVE [id number] 10/30/2017 08:20:00 Document Registration [id number] 12/19/2017 13:16:00 Document Registration [id number] 12/19/2017 08:54:00 12/19/2017 23:59:00 DIS Outpatient GALLITO MIRANDA [id number] 12/17/2017 16:11:00 12/17/2017 23:59:00 DIS Outpatient GALLITO MIRANDA [id number] 03/30/2016 16:47:00 Document Registration [id number] 12/23/2017 15:18:00 Document Registration [id number] 06/01/2016 18:05:00 Document Registration [id number] 12/23/2017 11:12:00 Document Registration [id number] 12/19/2017 19:10:00 Document Registration [id number] 12/24/2017 14:16:00 Document Registration
[2018-12-11 20:00] LABS: BASOPHILS # (AUTO) 0.1 10^3/uL (0.0-0.1); BASOPHILS % (AUTO) 2 % (0-10); EOSINOPHILS # (AUTO) 0.2 10^3/uL (0.0-0.3); EOSINOPHILS % (AUTO) 3 % (0-10); HEMATOCRIT 43 % (40-54); HEMOGLOBIN 14.3 G/DL (13.3-17.7); LYMPHOCYTES # (AUTO) 1.9 X 10^3 (1.0-4.0); LYMPHOCYTES % (AUTO) 26 % (12-44); MEAN CORPUSCULAR HEMOGLOBIN 26 PG (25-34); MEAN CORPUSCULAR HGB CONC 34 G/DL (32-36); MEAN CORPUSCULAR VOLUME 78 FL (80-99); MEAN PLATELET VOLUME 11.1 FL (7.4-10.4); MONOCYTES # (AUTO) 0.6 X 10^3 (0.0-1.0); MONOCYTES % (AUTO) 8 % (0-12); NEUTROPHILS # (AUTO) 4.4 X 10^3 (1.8-7.8); NEUTROPHILS % (AUTO) 61 % (42-75); PLATELET COUNT 222 10^3/uL (130-400); RED CELL DISTRIBUTION WIDTH 14.4 % (10.0-14.5); WHITE BLOOD COUNT 7.2 10^3/uL (4.3-11.0)
[2018-12-11] MEDS ORDERED: NITROGLYCERIN 0.4 MG SL TABS BTL 25'S SL PRN (20:00)
[2018-12-11] MEDS ORDERED: ASPIRIN 81 MG CHEW (CHILDREN'S ASA) PO ONE (20:00)
--- NOTE | 2018-12-11 20:03 | ED Chest Pain ---
General Chief Complaint: Chest Pain Stated Complaint: CHEST PAIN Nursing Triage Note: pt verbalized chest pain that onset one week ago that comes and goes and at times radiates to the left arm. pt verbalized exertional difficulty breathing, states all these symptoms began shortly after having a severe chest cold Nursing Sepsis Screen: No Definite Risk Source: patient Exam Limitations: no limitations History of Present Illness Date Seen by Provider: Dec 11, 2018 Time Seen by Provider: 19:40 Initial Comments The patient presents to ER by private conveyance with significant other chief complaint of 2 weeks of coughing, chills but no fevers or viral bronchitis. He does not have a history of COPD. He does not smoke cigarettes. He says about Saturday, 5 days ago he began to experience some different pain in his left chest that would come on last for a minute or 2 upwards of 9 out of 10 pain and cause some weakness feeling in his left arm and then he would just feel drained of energy for the rest the day. He been having aches and pains in his diaphragm and his chest wall from all the coughing he's been doing that he said that that was BECAUSE of his recent illness. It does not hurt take a deep breath or cough in his chest. His most recent episode started about 45 minutes ago was about 4 out of 10 when he arrived. He does not have a history of coronary disease but he does have a brother who had a heart attack and CABG when he was 55. No thyroid disorder. He doesn't think he has cholesterol problems. He's lost a lot of weight over 100 pounds over the past couple years intentionally. He has type 2 diabetes and high blood pressure. He denies any sweats, nausea or fevers. Allergies and Home Medications Allergies Coded Allergies: sitagliptin (Unverified Adverse Reaction, Unknown, 01/14/16) Home Medications Aspirin 81 Mg Tablet.dr, 81 MG PO DAILY, (Reported) Atorvastatin Calcium 40 Mg Tablet, 40 MG PO HS, (Reported) Buspirone HCl 15 Mg Tablet, 15 MG PO BID, (Reported) Cinnamon Bark Unknown Strength Capsule, 1,000 MG PO DAILY, (Reported) Finasteride 5 Mg Tablet, 5 MG PO HS, (Reported) Gabapentin 800 Mg Tablet, 800 MG PO TID, (Reported) Glipizide 10 Mg Tablet, 10 MG PO BID, (Reported) Lisinopril/Hydrochlorothiazide 1 Each Tablet, 1 EACH PO DAILY, (Reported) Metformin HCl 1,000 Mg Tablet, 1,000 MG PO BID, (Reported) [place] 3 Polyunsat Fatty Acids 1,000 Mg Cap, 1,000 MG PO DAILY, (Reported) Patient Home Medication List Home Medication List Reviewed: Yes Review of Systems Review of Systems Constitutional: chills; No diaphoresis, No fever; malaise, weakness EENTM: No Blurred Vision, No Double Vision Respiratory: Cough; Denies Shortness of Air, Denies Wheezing Cardiovascular: See HPI, Chest Pain; Denies Edema; Lightheadedness Gastrointestinal: Denies Constipated, Denies Diarrhea, Denies Nausea, Denies Poor Fluid Intake, Denies Vomiting Genitourinary: Denies Burning, Denies Discharge Musculoskeletal: No back pain, No joint pain Skin: No pruritus, No rash Psychiatric/Neurological: Denies Headache, Denies Numbness; Paresthesia (Left arm) Past Aerktts-Uhglcs-Wyowvz Hx Patient Social History Alcohol Use: Denies Use Recreational Drug Use: No Smoking Status: Never a Smoker 2nd Hand Smoke Exposure: No Recent Foreign Travel: No Contact w/Someone Who Travel: No Recent Infectious Disease Expo: No Recent Hopitalizations: No Immunizations Up To Date Date of Influenza Vaccine: Jun 30, 2018 Seasonal Allergies Seasonal Allergies: Yes Past Medical History Surgeries: Yes (left shoulder x 2) Orthopedic, Tonsillectomy Respiratory: No Cardiac: Yes (murmur as a teenager) Heart Murmur, High Cholesterol, Hypertension Neurological: Yes (prakash's palsy 2002) Neuropathy Genitourinary: No Gastrointestinal: Yes (abd pain) Musculoskeletal: Yes (LEFT SHOULDER SURGERY X 2 ) Arthritis Endocrine: Yes Diabetes, Non-Insulin dep HEENT: No Cancer: No Psychosocial: Yes Anxiety Integumentary: No Blood Disorders: No Physical Exam Vital Signs Vital Signs - First Documented 12/11/18 19:36 Temp 98.2 Pulse 92 Resp 20 B/P (MAP) 178/110 (132) O2 Delivery Room Air Capillary Refill : Less Than 3 Seconds Height, Weight, BMI Height: 5'7.00" Weight: 227lbs. 0.0oz. 102.050506kf; 36.8 BMI Method:Stated General Appearance: No Apparent Distress, Obese HEENT: PERRL/EOMI, Normal ENT Inspection, Pharynx Normal, Moist Mucous Membranes Neck: Full Range of Motion, Normal Inspection, Supple Respiratory: Lungs Clear, Normal Breath Sounds, No Accessory Muscle Use, No Respiratory Distress, Other (And left chest wall tender palpation treating the pain.) Cardiovascular: Regular Rate, Rhythm, No Edema, No Murmur, Normal Peripheral Pulses Gastrointestinal: Normal Bowel Sounds, Non Tender, Soft Extremity: Normal Capillary Refill, Normal Inspection, Non Tender, No Calf Tenderness, No Pedal Edema Neurologic/Psychiatric: Alert, Oriented x3, No Motor/Sensory Deficits Skin: Normal Color, Warm/Dry Progress/Results/Core Measures Results/Orders Lab Results Laboratory Tests Test 12/11/18 19:35 12/11/18 21:30 Range/Units White Blood Count 7.2 4.3-11.0 10^3/uL Red Blood Count 5.48 4.35-5.85 10^6/uL Hemoglobin 14.3 13.3-17.7 G/DL Hematocrit 43 40-54 % Mean Corpuscular Volume 78 L 80-99 FL Mean Corpuscular Hemoglobin 26 25-34 PG Mean Corpuscular Hemoglobin Concent 34 32-36 G/DL Red Cell Distribution Width 14.4 10.0-14.5 % Platelet Count 222 130-400 10^3/uL Mean Platelet Volume 11.1 H 7.4-10.4 FL Neutrophils (%) (Auto) 61 42-75 % Lymphocytes (%) (Auto) 26 12-44 % Monocytes (%) (Auto) 8 0-12 % Eosinophils (%) (Auto) 3 0-10 % Basophils (%) (Auto) 2 0-10 % Neutrophils # (Auto) 4.4 1.8-7.8 X 10^3 Lymphocytes # (Auto) 1.9 1.0-4.0 X 10^3 Monocytes # (Auto) 0.6 0.0-1.0 X 10^3 Eosinophils # (Auto) 0.2 0.0-0.3 10^3/uL Basophils # (Auto) 0.1 0.0-0.1 10^3/uL Prothrombin Time 12.5 12.2-14.7 SEC INR Comment 0.9 0.8-1.4 Activated Partial Thromboplast Time 30 24-35 SEC Sodium Level 136 135-145 MMOL/L Potassium Level 3.8 3.6-5.0 MMOL/L Chloride Level 97 L 98-107 MMOL/L Carbon Dioxide Level 24 21-32 MMOL/L Anion Gap 15 H 5-14 MMOL/L Blood Urea Nitrogen 19 H 7-18 MG/DL Creatinine 1.23 0.60-1.30 MG/DL Estimat Glomerular Filtration Rate > 60 BUN/Creatinine Ratio 15 Glucose Level 195 H 70-105 MG/DL Calcium Level 9.9 8.5-10.1 MG/DL Corrected Calcium 8.5-10.1 MG/DL Magnesium Level 2.7 H 1.8-2.4 MG/DL Total Bilirubin 0.5 0.1-1.0 MG/DL Aspartate Amino Transf (AST/SGOT) 23 5-34 U/L Alanine Aminotransferase (ALT/SGPT) 30 0-55 U/L Alkaline Phosphatase 74 40-136 U/L Myoglobin 30.9 10.0-92.0 NG/ML Troponin I < 0.028 < 0.028 <0.028 NG/ML C-Reactive Protein High Sensitivity 0.26 0.00-0.50 MG/DL B-Type Natriuretic Peptide < 10.0 <100.0 PG/ML Total Protein 7.5 6.4-8.2 GM/DL Albumin 4.8 H 3.2-4.5 GM/DL My Orders Orders - [place] Cbc With Automated Diff (12/11/18 19:54) Magnesium (12/11/18 19:54) Chest 1 View, Ap/Pa Only (12/11/18 19:54) Ekg Tracing (12/11/18 19:54) Cardiac Profile 1 (12/11/18 19:54) Comprehensive Metabolic Panel (12/11/18 19:54) Myoglobin Serum (12/11/18 19:54) Protime With Inr (12/11/18 19:54) Partial Thromboplastin Time (12/11/18 19:54) O2 (12/11/18 19:54) Monitor-Rhythm Ecg Trace Only (12/11/18 19:54) Lipid Panel (12/12/18 06:00) Aspirin Chewable Tablet (Baby Aspirin Ch (12/11/18 20:00) Nitroglycerin 0.4 Mg Btl 25's (Nitrostat (12/11/18 20:00) Saline Lock/Iv-Start (12/11/18 19:54) BNP (12/11/18 19:54) Hs C Reactive Protein (12/11/18 19:54) Troponin I (12/11/18 21:30) Ketorolac Injection (Toradol Injection) (12/11/18 20:45) Medications Given in ED Current Medications Medications Dose Ordered Sig/Ant Route Start Time Stop Time Status Last Admin Dose Admin Aspirin 324 mg ONCE ONCE PO 12/11/18 20:00 12/11/18 20:01 DC 12/11/18 20:10 324 MG Ketorolac Tromethamine 30 mg ONCE ONCE IVP 12/11/18 20:45 12/11/18 20:46 DC 12/11/18 21:04 30 MG Nitroglycerin 0.4 mg UD PRN SL 12/11/18 20:00 12/11/18 20:05 0.4 MG Vital Signs/I&O 12/11/18 12/11/18 12/11/18 19:36 19:38 19:40 Temp 98.2 Pulse 92 Resp 20 B/P (MAP) 178/110 (132) O2 Delivery Room Air Room Air Room Air Blood Pressure Mean: 132 Progress Progress Note : Time: 20:01 Progress Note Chest wall pain most likely. He does have some risk factors including diabetes, hypertension and early-onset family history of coronary disease. We'll give him aspirin nitroglycerin see how that helps with his pain. Initial EKG is unrevealing. Plan to do an ER rule out of his troponins. We could also trial NSAIDs if his initial troponin is negative. There is no evidence for DVT his heart rate is 90 and his oxygen saturations are 100% on room air so a PE seems fairly unlikely. Does not have any symptoms of GERD and no tenderness in the epigastric region. ED ACS score 13 points. Low risk by the EDACS Score. If the patient also has: (1) EKG without new ischemic changes and (2) negative initial and 2-hour troponins, then this patient is safe for discharge to early outpatient follow-up investigation (or proceed to earlier inpatient testing). If EKG with ischemic changes or positive troponin, they are not low risk and require normal risk stratification. Initial ECG Impression Date: Dec 11, 2018 Initial ECG Impression Time: 19:37 Initial ECG Rate: 90 Initial ECG Rhythm: Normal Sinus Initial ECG Intervals: Normal Initial ECG Impression: Normal, Nonspecific Changes Comment No ST elevation or depression. Diagnostic Imaging Diagonstic Imaging: Xray Plain Films/CT/US/NM/MRI: chest (1v) Comments NAME: [facility] REC#: [id number] PHYSICIAN: VANIA FRANCIS MD CC: JAVIER VALADEZ MD; VANIA FRANCIS Page 1 of 1 RADIOLOGY REPORT [facility] [place] CC: JAVIER VALADEZ MD; VANIA FRANCIS Page 1 of 1 RADIOLOGY REPORT NAME: [facility] REC#: [id number] PT STATUS: REG ER : 1960 PHYSICIAN: VANIA FRANCIS MD ADMIT DATE: 12/11/18/ER Signed Date of Exam: 12/11/18 CHEST 1 VIEW, AP/PA ONLY INDICATION: Chest pain. EXAMINATION: Chest dated 12/11/2018. COMPARISON: 06/11/2017. FINDINGS: The cardiomediastinal silhouette is unremarkable. The pulmonary vasculature is within normal limits. The lungs and pleural spaces are clear. IMPRESSION: No evidence of an acute cardiopulmonary process. Dictated by: Dictated on workstation # [id number] Dict: 12/11/182048 Trans: 12/11/182135 Interpreted by: JAVIER VALADEZ MD Electronically signed by: JAVIER VALADEZ MD 12/11/182135 Reviewed: Reviewed by Me Departure Impression Primary Impression: Anterior chest wall pain Additional Impression: Bronchitis Disposition: 01 HOME, SELF-CARE Condition: Improved Departure-Patient Inst. Decision time for Depature: 22:01 Referrals: [facility] (PCP) Primary Care Physician NANCY MONSALVE (Family) Primary Care Physician MYRTLE AMADOR MD Patient Instructions: Costochondritis (DC) Add. Discharge Instructions: For chest wall pain we will usually start out with NSAIDs such as Naprosyn 500 mg twice a day for one to 2 weeks to bring down the inflammation in your chest wall and treat the pain. You can use Tylenol 1000 mg every 8 hours in addition to this. 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 Follow-up with your primary care doctor in 1-2 weeks so they can continue to manage your chest wall pain if it's not improving. Humidifiers and vapor rubs are very helpful for your cough. Tessalon Perles 1 capsule every 6 hours as needed for coughing. All discharge instructions reviewed with patient and/or family. Voiced understanding. Scripts Benzonatate (Tessalon Perle) 100 Mg Capsule 100 MG PO Q6H PRN for COUGH, #20 CAP 0 Refills Prov: VANIA FRANCIS 12/11/18 Naproxen (Naprosyn) 500 Mg Tablet 500 MG PO BID for 14 Days, #30 TAB 0 Refills Prov: VANIA FRANCIS 12/11/18 VANIA FRANCIS Dec 11, 2018 20:03
[2018-12-11 20:07] LABS: INR 0.9 (0.8-1.4); PROTHROMBIN TIME PATIENT 12.5 SEC (12.2-14.7)
[2018-12-11 20:13] LABS: ALANINE AMINOTRANSFERASE 30 U/L (0-55); ALBUMIN 4.8 GM/DL (3.2-4.5); ALKALINE PHOSPHATASE 74 U/L (40-136); BILIRUBIN,TOTAL 0.5 MG/DL (0.1-1.0); BUN/CREATININE RATIO 15; CALCIUM 9.9 MG/DL (8.5-10.1); CARBON DIOXIDE 24 MMOL/L (21-32); CHLORIDE 97 MMOL/L (98-107); CREATININE SERUM 1.23 MG/DL (0.60-1.30); GFR ESTIMATED > 60; GLUCOSE 195 MG/DL (70-105); MAGNESIUM 2.7 MG/DL (1.8-2.4); POTASSIUM 3.8 MMOL/L (3.6-5.0); SODIUM 136 MMOL/L (135-145); TOTAL PROTEIN 7.5 GM/DL (6.4-8.2)
[2018-12-11 20:20] LABS: MYOGLOBIN SERUM 30.9 NG/ML (10.0-92.0)
[2018-12-11] MEDS ORDERED: KETOROLAC 30 MG/ML VIAL IVP ONE (20:45)
--- NOTE | 2018-12-11 20:56 | Diagnostic Imaging Report ---
INDICATION: Chest pain. EXAMINATION: Chest dated 12/11/2018. COMPARISON: 06/11/2017. FINDINGS: The cardiomediastinal silhouette is unremarkable. The pulmonary vasculature is within normal limits. The lungs and pleural spaces are clear. IMPRESSION: No evidence of an acute cardiopulmonary process. Dictated by: Dictated on workstation # [id number]
[2018-12-11] MEDS ORDERED: NAPR-1071 PO (22:10)
[2018-12-11] MEDS ORDERED: BENZ-13 PO (22:10)
[2018-12-11 22:17] VITALS: BP 139/71
== END 2018-12-11 22:17 | disposition home or self-care (01) ==
LOC: EDUNIT# 19:25 → ER 19:26
DX: R07.89 Other chest pain (principal); J40 Bronchitis, not specified as acute or chronic; E78.00 Pure hypercholesterolemia, unspecified; I10 Essential (primary) hypertension; F41.9 Anxiety disorder, unspecified; E11.9 Type 2 diabetes mellitus without complications; Z82.49 Family history of ischemic heart disease and other diseases of the circulatory system; Z88.8 Allergy status to other drugs, medicaments and biological substances; Z90.89 Acquired absence of other organs; Z79.82 Long term (current) use of aspirin; Z79.4 Long term (current) use of insulin
CPT/HCPCS: 36415; 71045; 80053; 83735; 83874; 83880; 84484; 85025; 85610; 85730; 86141; 93005; 93041

== ENCOUNTER 2019-01-24 18:03 | Observation (INO) | payer BC ==
[~2019-01-24] VITALS: Ht 167.6 cm; Wt 104.3 kg
[2019-01-24] VITALS (7 sets, daily range): BP systolic 120–144; BP diastolic 29–80
[~2019-01-24 18:03] MED LIST changes: +BENZ-13 PO; +NAPR-1071 PO
[2019-01-24] MEDS ORDERED: NS IV 1000 ML 1,000 ML IV ONE (18:18)
[2019-01-24] MEDS ORDERED: GLIP5TAB13 PO (18:25)
[2019-01-24] MEDS ORDERED: FINA5TAB6 PO (18:25)
[2019-01-24] MEDS ORDERED: EMPA10TA PO (18:26)
[2019-01-24 18:27] LABS: BASOPHILS # (AUTO) 0.1 10^3/uL (0.0-0.1); BASOPHILS % (AUTO) 1 % (0-10); EOSINOPHILS # (AUTO) 0.1 10^3/uL (0.0-0.3); EOSINOPHILS % (AUTO) 1 % (0-10); HEMATOCRIT 38 % (40-54); HEMOGLOBIN 12.9 G/DL (13.3-17.7); LYMPHOCYTES # (AUTO) 2.2 X 10^3 (1.0-4.0); LYMPHOCYTES % (AUTO) 21 % (12-44); MEAN CORPUSCULAR HEMOGLOBIN 27 PG (25-34); MEAN CORPUSCULAR HGB CONC 34 G/DL (32-36); MEAN CORPUSCULAR VOLUME 79 FL (80-99); MEAN PLATELET VOLUME 11.1 FL (7.4-10.4); MONOCYTES # (AUTO) 0.9 X 10^3 (0.0-1.0); MONOCYTES % (AUTO) 9 % (0-12); NEUTROPHILS # (AUTO) 7.1 X 10^3 (1.8-7.8); NEUTROPHILS % (AUTO) 68 % (42-75); PLATELET COUNT 231 10^3/uL (130-400); RED CELL DISTRIBUTION WIDTH 14.4 % (10.0-14.5); WHITE BLOOD COUNT 10.5 10^3/uL (4.3-11.0)
--- NOTE | 2019-01-24 18:27 | ED General ---
General Chief Complaint: Dizziness/Syncope Stated Complaint: GLUCOSE PROBLEMS Nursing Triage Note: PT PRESENTS TO ED PER EMS FOR LIGHTHEADEDNESS, HYPOTENSION, ELEVATED BLOOD SUGAR, NAUSEA AND MEDIAL CP. 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 PT CANNOT RECALL ALL OF EVENTS PT WAS ALSO PROFUSELY DIAPHORETIC AT THE TIME NO RECENT FEVER, COLD/URI SYMPTOMS OR OTHER RECENT ILLNESS EMS REPORT THAT BP WAS LOW 86/52 AND 79/48--UP TO 104/55 WITH FLUIDS EMS GAVE ASPIRIN ACCUCHECK 349 WITH KETONES, PER EMS PT IS DIABETIC--ATE SANDWICH AND CHICKEN WINGS AT 11:45, THEN TOOK MEDICATIONS AND ATE A COUPLE OF CHICKEN WINGS AT 1415--DID NOT CHECK BLOOD SUGAR AT HOME TODAY. DID CHECK IT ONE TIME YESTERDAY AND WAS IN 150'S PT HAS BEEN DRINKING FLUIDS WELL TODAY--TEA, POP, WATER PT STATES HE HAS HAD EPISODES OF CHEST PAIN BEFORE, BUT HAS NEVER HAD A CARDIAC CATH OR BEEN DX WITH ANY CARDIAC PROBLEMS PT HAS HAD STRESS TESTS, HOLTER MONITOR AND ECHOCARDIOGRAMS--LAST ONES 01/2018-- ALL ESSENTIALLY NORMAL WITH EF 55-65%, ISOLATED PAC'S AND PVC'S WAS IN ER 12/11/18 FOR ANTERIOR CHEST WALL PAIN, RECENT URI/BRONCHITIS SYMPTOMS PCP: [facility] Allergies and Home Medications Allergies Coded Allergies: dapagliflozin (Verified Adverse Reaction, Unknown, 01/24/19) DIFFICULTY WITH URINATION/CONSTIPATION duloxetine (Verified Adverse Reaction, Unknown, 01/24/19) HEART RACING FEELING AND NAUSEA. sitagliptin (Unverified Adverse Reaction, Unknown, 01/14/16) Home Medications Aspirin 81 Mg Tablet.dr, 81 MG PO DAILY, (Reported) Atorvastatin Calcium 40 Mg Tablet, 40 MG PO HS, (Reported) Buspirone HCl 15 Mg Tablet, 15 MG PO BID, (Reported) Cinnamon Bark Unknown Strength Capsule, 1,000 MG PO DAILY, (Reported) Empagliflozin 10 Mg Tablet, 10 MG PO DAILY, (Reported) Finasteride 5 Mg Tablet, 5 MG PO HS, (Reported) Finasteride 5 Mg Tablet, 5 MG PO DAILY, (Reported) Gabapentin 800 Mg Tablet, 800 MG PO TID, (Reported) Glipizide 5 Mg Tablet, 5 MG PO BID, (Reported) Lisinopril/Hydrochlorothiazide 1 Each Tablet, 1 EACH PO DAILY, (Reported) Metformin HCl 1,000 Mg Tablet, 1,000 MG PO BID, (Reported) [place] 3 Polyunsat Fatty Acids 1,000 Mg Cap, 1,000 MG PO DAILY, (Reported) Patient Home Medication List Home Medication List Reviewed: Yes Review of Systems Review of Systems Constitutional: see HPI, diaphoresis, dizziness, malaise, weakness, weight loss (INTENTIONAL WEIGHT LOSS OF OVER 100 LBS OVER THE LAST COUPLE OF YEARS. ) EENTM: no symptoms reported Respiratory: see HPI; No cough; short of breath Cardiovascular: see HPI, chest pain; No edema, No palpitations, No syncope, No vascular heart diseas Gastrointestinal: see HPI; No abdominal pain; nausea, vomiting Genitourinary: no symptoms reported Musculoskeletal: other (CHRONIC BILATERAL SHOULDER PAIN ) Skin: no symptoms reported Psychiatric/Neurological: See HPI, Headache, Pre-Existing Deficit (PERIPHERAL NEUROPATHY IN FEET) Hematologic/Lymphatic: No Symptoms Reported Immunological/Allergic: no symptoms reported Past Lqvxuiz-Iylwuc-Tkkepi Hx Patient Social History Alcohol Use: Past History (HISTORY OF ABUSE/HEAVY USE--CLAIMS NONE FOR 5 YEARS , PER PT ON 01/24/19) Smoking Status: Never a Smoker 2nd Hand Smoke Exposure: No Recent Foreign Travel: No Contact w/Someone Who Travel: No Recent Infectious Disease Expo: No Recent Hopitalizations: No Physical Abuse: No Sexual Abuse: No Mistreated: No Fear: No Immunizations Up To Date Date of Influenza Vaccine: Jun 30, 2018 Seasonal Allergies Seasonal Allergies: Yes Past Medical History Surgeries: Yes (left shoulder x 2; COLONOSCOPY/POLYPECTOMY 2017) Orthopedic, Tonsillectomy Respiratory: No Cardiac: Yes (murmur as a teenager; STRESS TEST/HOLTER/ECHOCARDIOGRA-LAST ONE 01/2018--NORMAL, EF 55-65%, ISOLATED PAC'S/PVC'S) Heart Murmur, High Cholesterol, Hypertension Neurological: Yes (prakash's palsy 2003; PERIPHERAL NEUROPATHY) Neuropathy Genitourinary: No Gastrointestinal: Yes (COLONOSCOPY WITH POLYPECTOMY 2017) Polyps Musculoskeletal: Yes (LEFT SHOULDER SURGERY X 2; SOME DIFFICULTY WALKING DUE TO NEUROPATHY) Arthritis Endocrine: Yes (OBESITY) Diabetes, Non-Insulin dep HEENT: Yes (S/P TONSILLECTOMY) Tonsilitis Cancer: No Psychosocial: Yes Anxiety Integumentary: No Blood Disorders: No Physical Exam Vital Signs Vital Signs - First Documented 01/24/19 18:10 Temp 97.9 Pulse 90 Resp 22 B/P (MAP) 107/63 (78) Pulse Ox 100 Capillary Refill : Less Than 3 Seconds Height, Weight, BMI Height: 5'7.00" Weight: 230lbs. 0.0oz. 104.888654zs; 36.8 BMI Method:Stated General Appearance: No Apparent Distress, Obese, Other (MILDLY LETHARGIC'/ GENERALIZED WEAKNESS AND SLOW MENTATION) HEENT: PERRL/EOMI, Normal ENT Inspection Neck: Full Range of Motion, Normal Inspection, Non Tender, Supple; No Carotid Bruit, No JVD Respiratory: Normal Breath Sounds, No Accessory Muscle Use, No Respiratory Distress Cardiovascular: Regular Rate, Rhythm, No Edema, No JVD, No Murmur, Normal Peripheral Pulses (+1/4 IN ALL EXTREMITIES) Gastrointestinal: Normal Bowel Sounds, No Organomegaly, No Pulsatile Mass, Non Tender, Soft Extremity: Normal Capillary Refill, Normal Inspection, Normal Range of Motion, Non Tender, No Calf Tenderness, No Pedal Edema Neurologic/Psychiatric: Alert, Oriented x3, classroom assistant II-XII Norm as Tested; No Aphasia, No Disoriented; Other (FINGER TO NOSE NORMAL,. 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 DECREASED SENSATION TO FEET BILATERALLY. GENERALIZED WEAKNESS. LETHARGIC, FLAT AFFECT) Skin: Warm/Dry, Pallor; No Rash; Other (HANDS AND FEET COOL--PT STATES IS NORMAL FOR HIM--STATES HE IS ALWAYS COLD ALL OVER AND HANDS / FEET ARE ALWAYS ESPECIALLY COLD. ) Progress/Results/Core Measures Suspected Sepsis Recent Fever Within 48 Hours: No Infection Criteria Present: None New/Unexplained Altered Menta: No Sepsis Screen: No Definite Risk SIRS Temperature:97.9 Pulse: 90 Respiratory Rate: 22 Laboratory Tests 01/24/19 18:08: White Blood Count 10.5 Blood Pressure 107 /63 Mean: 78 Laboratory Tests 01/24/19 18:08: Creatinine 1.61H, INR Comment 1.1, Platelet Count 231, Total Bilirubin 0.5 Results/Orders Lab Results Laboratory Tests Test 01/24/19 18:08 01/24/19 18:35 Range/Units White Blood Count 10.5 4.3-11.0 10^3/uL Red Blood Count 4.83 4.35-5.85 10^6/uL Hemoglobin 12.9 L 13.3-17.7 G/DL Hematocrit 38 L 40-54 % Mean Corpuscular Volume 79 L 80-99 FL Mean Corpuscular Hemoglobin 27 25-34 PG Mean Corpuscular Hemoglobin Concent 34 32-36 G/DL Red Cell Distribution Width 14.4 10.0-14.5 % Platelet Count 231 130-400 10^3/uL Mean Platelet Volume 11.1 H 7.4-10.4 FL Neutrophils (%) (Auto) 68 42-75 % Lymphocytes (%) (Auto) 21 12-44 % Monocytes (%) (Auto) 9 0-12 % Eosinophils (%) (Auto) 1 0-10 % Basophils (%) (Auto) 1 0-10 % Neutrophils # (Auto) 7.1 1.8-7.8 X 10^3 Lymphocytes # (Auto) 2.2 1.0-4.0 X 10^3 Monocytes # (Auto) 0.9 0.0-1.0 X 10^3 Eosinophils # (Auto) 0.1 0.0-0.3 10^3/uL Basophils # (Auto) 0.1 0.0-0.1 10^3/uL Prothrombin Time 14.4 12.2-14.7 SEC INR Comment 1.1 0.8-1.4 Activated Partial Thromboplast Time 24 24-35 SEC Sodium Level 134 L 135-145 MMOL/L Potassium Level 3.4 L 3.6-5.0 MMOL/L Chloride Level 97 L 98-107 MMOL/L Carbon Dioxide Level 20 L 21-32 MMOL/L Anion Gap 17 H 5-14 MMOL/L Blood Urea Nitrogen 23 H 7-18 MG/DL Creatinine 1.61 H 0.60-1.30 MG/DL Estimat Glomerular Filtration Rate 45 BUN/Creatinine Ratio 14 Glucose Level 365 H 70-105 MG/DL Glucometer 324 H 70-110 MG/DL Calcium Level 8.9 8.5-10.1 MG/DL Corrected Calcium 9.1 8.5-10.1 MG/DL Magnesium Level 1.9 1.8-2.4 MG/DL Total Bilirubin 0.5 0.1-1.0 MG/DL Aspartate Amino Transf (AST/SGOT) 14 5-34 U/L Alanine Aminotransferase (ALT/SGPT) 23 0-55 U/L Alkaline Phosphatase 57 40-136 U/L Total Creatine Kinase 78 30-200 U/L Creatine Kinase MB 1.8 <6.6 NG/ML Myoglobin 78.9 10.0-92.0 NG/ML Troponin I < 0.028 <0.028 NG/ML B-Type Natriuretic Peptide < 10.0 <100.0 PG/ML Total Protein 5.8 L 6.4-8.2 GM/DL Albumin 3.8 3.2-4.5 GM/DL Amylase Level 55 25-125 U/L Lipase 58 8-78 U/L TSH [facility] Testing 4.82 0.35-4.94 UIU/ML Acetaminophen Level < 10 L 10-30 UG/ML Serum Alcohol < 10 <10 MG/DL Blood Gas Puncture Site RIGHT WRIST Blood Gas Patient Temperature 98.0 Arterial Blood pH 7.37 7.37-7.43 Arterial Blood Partial Pressure CO2 38 35-45 MMHG Arterial Blood Partial Pressure O2 80 79-93 MMHG Arterial Blood HCO3 22 L 23-27 MMOL/L Arterial Blood Total CO2 22.7 21.0-31.0 MMOL/L Arterial Blood Oxygen Saturation 97 94-100 % Arterial Blood Base Excess -3.1 L -2.5-2.5 MMOL/L Chidi Test POSITIVE Blood Gas Ventilator Setting NO Blood Gas Inspired Oxygen ROOM AIR My Orders Orders - SOHAN MONTENEGRO DO Accucheck Stat ONCE (01/24/19 18:18) Ed Iv/Invasive Line Start (01/24/19 18:18) Ekg Tracing (01/24/19 18:18) Monitor-Rhythm Ecg Trace Only (01/24/19 18:18) Ct Head Wo-R/O Stroke (01/24/19 18:18) Chest 1 View, Ap/Pa Only (01/24/19 18:18) Ed Iv/Invasive Line Start (01/24/19 18:18) Ns Iv 1000 Ml (Sodium Chloride 0.9%) (01/24/19 18:18) Acetaminophen (01/24/19 18:18) Alcohol (01/24/19 18:18) Amylase (01/24/19 18:18) Arterial Blood Gas (01/24/19 18:18) BNP (01/24/19 18:18) Cbc With Automated Diff (01/24/19 18:18) Comprehensive Metabolic Panel (01/24/19 18:18) Creatine Kinase (01/24/19 18:18) Creatine Kinase Mb (01/24/19 18:18) Lactic Acid Analyzer (01/24/19 18:18) Lipase (01/24/19 18:18) Magnesium (01/24/19 18:18) Protime With Inr (01/24/19 18:18) Partial Thromboplastin Time (01/24/19 18:18) Thyroid Analyzer (01/24/19 18:18) Troponin I (01/24/19 18:18) Ua Culture If Indicated (01/24/19 18:18) Myoglobin Serum (01/24/19 18:18) Medications Given in ED Current Medications Medications Dose Ordered Sig/Ant Route Start Time Stop Time Status Last Admin Dose Admin Sodium Chloride 1,000 ml @ 0 mls/hr Q0M ONCE IV 01/24/19 18:18 01/24/19 18:22 DC 01/24/19 18:30 0 MLS/HR Vital Signs/I&O 01/24/19 18:10 Temp 97.9 Pulse 90 Resp 22 B/P (MAP) 107/63 (78) Pulse Ox 100 Capillary Refill : Less Than 3 Seconds Blood Pressure Mean: 78 Progress Note : Progress Note 1850--PT MORE TALKATIVE, MORE ANIMATED, JOKING AND LAUGHING SOME. PT CONTINUES TO FEEL BETTER AND IS MORE TALKATIVE, IMPROVED MENTATION. COLOR IMPROVED STATES HE FEELS BETTER NO COMPLAINTS OF CHEST PAIN DURING REMAINDER OF ER STAY ECG Initial ECG Impression Date: Jan 24, 2019 Initial ECG Impression Time: 18:04 Initial ECG Rate: 88 Initial ECG Rhythm: Normal Sinus Initial ECG Impression: Nonspecific Changes Initial ECG Comparisson: Unchanged Diagnostic Imaging Comments CXR--NO ACUTE PROCESS CT HEAD--NO ACUTE PROCESS PER RADIOLOGIST REPORTS @ 1913 Reviewed: Reviewed by Me Departure Communication (Admissions) [id number]--SPOKE WITH DR. ROWLEY, ACCEPTS PT FOR ADMIT Impression Primary Impression: Chest pain Additional Impressions: DEHYDRATION WITH HYPOTENSION Uncontrolled diabetes mellitus Electrolyte imbalance Generalized weakness Transient confusion Near syncope Disposition: 09 ADMITTED INPATIENT Condition: Improved Admissions Decision to Admit Reason: Admit from ER (General) Decision to Admit/Date: Jan 24, 2019 Time/Decision to Admit Time: 19:30 Departure-Patient Inst. Referrals: [facility] (PCP) Primary Care Physician NANCY MONSALVE (Family) Primary Care Physician SOHAN MONTENEGRO DO Jan 24, 2019 18:27
[2019-01-24 18:31] LABS: INR 1.1 (0.8-1.4); PROTHROMBIN TIME PATIENT 14.4 SEC (12.2-14.7)
[2019-01-24 18:41] LABS: ABG BASE EXCESS -3.1 MMOL/L (-2.5-2.5); ABG OXYGEN SATURATION 97 % (94-100); ABG PCO2 38 MMHG (35-45); ABG PH 7.37 (7.37-7.43); ABG PO2 80 MMHG (79-93); ABG TCO2 22.7 MMOL/L (21.0-31.0)
[2019-01-24 18:42] LABS: ALLENS TEST POSITIVE; INSPIRED O2 ROOM AIR; VENTILATOR NO
[2019-01-24 18:43] LABS: ALANINE AMINOTRANSFERASE 23 U/L (0-55); ALBUMIN 3.8 GM/DL (3.2-4.5); ALKALINE PHOSPHATASE 57 U/L (40-136); AMYLASE 55 U/L (25-125); BILIRUBIN,TOTAL 0.5 MG/DL (0.1-1.0); BUN/CREATININE RATIO 14; CALCIUM 8.9 MG/DL (8.5-10.1); CARBON DIOXIDE 20 MMOL/L (21-32); CHLORIDE 97 MMOL/L (98-107); CREATINE KINASE 78 U/L (30-200); CREATININE SERUM 1.61 MG/DL (0.60-1.30); GFR ESTIMATED 45; GLUCOSE 365 MG/DL (70-105); LIPASE 58 U/L (8-78); MAGNESIUM 1.9 MG/DL (1.8-2.4); POTASSIUM 3.4 MMOL/L (3.6-5.0); SODIUM 134 MMOL/L (135-145); TOTAL PROTEIN 5.8 GM/DL (6.4-8.2)
[2019-01-24 18:54] LABS: ACETAMINOPHEN < 10 UG/ML (10-30)
--- NOTE | 2019-01-24 19:02 | Diagnostic Imaging Report ---
INDICATION: Lightheadedness. Hypertension. Hyperglycemia. COMPARISON: 12/11/2018 FINDINGS: Single frontal view of the chest demonstrates normal heart size and pulmonary vascularity. The lungs are well aerated and clear. No large pleural effusion or pneumothorax is seen. The visualized osseous structures show no acute abnormalities. IMPRESSION: 1. No acute cardiopulmonary process. Dictated by: Dictated on workstation # [id number]
[2019-01-24 19:03] LABS: CREATINE KINASE MB 1.8 NG/ML (<6.6); TSH (THYROID ANALYZER) 4.82 UIU/ML (0.35-4.94)
--- NOTE | 2019-01-24 19:06 | Diagnostic Imaging Report ---
PROCEDURE: CT head wo r/o stroke. TECHNIQUE: Multiple contiguous axial images were obtained through the brain without the use of intravenous contrast. Auto Exposure Controls were utilized during the CT exam to meet ALARA standards for radiation dose reduction. INDICATION: Lightheadedness and hypotension. No prior studies are available for comparison. Ventricles and sulci are within normal limits. No sulcal effacement, midline shift or hemorrhage is detected. Cisterns are patent. Visualized paranasal sinuses are clear. IMPRESSION: No acute intracranial process is detected. Dictated by: Dictated on workstation # [id number]
[2019-01-24] MEDS ORDERED: KCL 20 MEQ TAB (K-DUR) PO ONE (19:37)
[2019-01-24] MEDS ORDERED: KCL 10 MEQ TAB (MICRO K) PO ONE (19:45)
[2019-01-24] MEDS ORDERED: NS IV 1000 ML 1,000 ML IV SCH (19:45)
[2019-01-24 20:39] LABS: BILIRUBIN,URINE NEGATIVE (NEGATIVE); CLARITY,URINE CLEAR; COLOR,URINE YELLOW; GLUCOSE, URINE (UA) 4+ (NEGATIVE); KETONES,URINE NEGATIVE (NEGATIVE); LEUKOCYTE ESTERASE ,URINE NEGATIVE (NEGATIVE); NITRITE,URINE NEGATIVE (NEGATIVE); PH,URINE 5 (5-9); PROTEIN,URINE NEGATIVE (NEGATIVE); UROBILINOGEN,URINE NORMAL (NORMAL)
--- NOTE | 2019-01-24 20:40 | NUR ---
RAN ZAVALA admitted to room 408-1, with an admitting diagnosis of CHEST PAIN, NEAR- SYNSCOPE, DEHYDRATION, HYPOTENSION, ELECTROLYTE IMBALANCE, UNCONTROLLED NIDDM, on 01/24/19 from AM via CART, accompanied by AND STAFF.RAN ZAVALA introduced to surroundings, call light, bed controls, phone, TV, temperature control, lights, meal times, smoking policy, visitor policy, side rail policy, bathrooms and showers. Patient Rights given to patient in the handbook. RAN ZAVALA verbalizes understanding that [facility] is not responsible for the loss or damage to any personal effects or valuables that are kept in the patients posession during their hospitalization.
[2019-01-24 20:48] LABS: BACTERIA,URINE NEGATIVE /HPF; WBC,URINE 0-2 /HPF
[2019-01-24] MEDS ORDERED: ONDANSETRON 4 MG/2 ML (SDV) Z0FRAN IV PRN (21:00)
[2019-01-24] MEDS ORDERED: morphine INJ 4 MG/ML 1 ML (VIAL/SYRINGE) IV PRN (21:00)
[2019-01-24] MEDS ORDERED: ACETAMINOPHEN 500 MG TAB (TYLENOL) PO PRN (21:00)
[2019-01-24] MEDS ORDERED: CATHETER FLUSH 10 ML SYR IV PRN (21:00)
[2019-01-24] MEDS: NS W/KCL 20 MEQ/L 1,000 ML IV SCH (21:54)
[2019-01-24] MEDS: CATHETER FLUSH 10 ML SYR IV SCH (21:55)
[2019-01-24] MEDS: inSUlin ASPART (NovoLOG) 1 UNIT/0.01 ML (CHARGE PER UNIT) SC SCH (22:02)
[2019-01-25 00:19] VITALS: BP 126/72
[2019-01-25 00:42] LABS: CREATINE KINASE 85 U/L (30-200)
[2019-01-25 02:55] VITALS: BP 135/80
[2019-01-25 03:23] VITALS: BP 129/77
[2019-01-25 04:25] VITALS: BP 129/82
[2019-01-25] MEDS: NS W/KCL 20 MEQ/L 1,000 ML IV SCH (04:34)
[2019-01-25 05:14] LABS: BASOPHILS % (AUTO) 1 % (0-10); EOSINOPHILS # (AUTO) 0.1 10^3/uL (0.0-0.3); EOSINOPHILS % (AUTO) 2 % (0-10); HEMATOCRIT 39 % (40-54); HEMOGLOBIN 12.7 G/DL (13.3-17.7); LYMPHOCYTES # (AUTO) 1.5 X 10^3 (1.0-4.0); LYMPHOCYTES % (AUTO) 24 % (12-44); MEAN CORPUSCULAR HEMOGLOBIN 26 PG (25-34); MEAN CORPUSCULAR HGB CONC 33 G/DL (32-36); MEAN CORPUSCULAR VOLUME 80 FL (80-99); MEAN PLATELET VOLUME 11.2 FL (7.4-10.4); MONOCYTES # (AUTO) 0.6 X 10^3 (0.0-1.0); MONOCYTES % (AUTO) 9 % (0-12); NEUTROPHILS % (AUTO) 64 % (42-75); PLATELET COUNT 188 10^3/uL (130-400); RED CELL DISTRIBUTION WIDTH 14.3 % (10.0-14.5); WHITE BLOOD COUNT 6.2 10^3/uL (4.3-11.0)
[2019-01-25 05:43] LABS: ALANINE AMINOTRANSFERASE 23 U/L (0-55); ALBUMIN 3.9 GM/DL (3.2-4.5); ALKALINE PHOSPHATASE 59 U/L (40-136); BILIRUBIN,TOTAL 0.4 MG/DL (0.1-1.0); BUN/CREATININE RATIO 18; CARBON DIOXIDE 23 MMOL/L (21-32); CHLORIDE 105 MMOL/L (98-107); CHOLESTEROL 128 MG/DL (< 200); CREATININE SERUM 0.96 MG/DL (0.60-1.30); GFR ESTIMATED > 60; GLUCOSE 196 MG/DL (70-105); HDL CHOLESTEROL 31 MG/DL (40-60); SODIUM 140 MMOL/L (135-145); TOTAL PROTEIN 5.8 GM/DL (6.4-8.2); TRIGLYCERIDES 112 MG/DL (<150); VLDL CHOLESTEROL 22 MG/DL (5-40)
[2019-01-25] MEDS: CATHETER FLUSH 10 ML SYR IV SCH (06:41)
[2019-01-25] MEDS: inSUlin ASPART (NovoLOG) 1 UNIT/0.01 ML (CHARGE PER UNIT) SC SCH (06:41)
[2019-01-25 08:00] VITALS: BP 130/92
--- NOTE | 2019-01-25 08:46 | NUR ---
DR. ROWLEY AT BEDSIDE. PER DR. EATON IV AND IVF AND AMBULATE IN HALLWAY. PT UP AND AMBULATING. REFUSED ASA, STATING HE WILL TAKE WHEN HE GETS HOME IT WILL BE MORE COST EFFECTIVE.
[2019-01-25] MEDS ORDERED: ASPIRIN E.C. 81 MG (ECOTRIN) TAB PO SCH (09:00)
--- NOTE | 2019-01-25 10:10 | NUR ---
AMBULATING HALLS WITH SO WITH NO C/O. TELEMETRY REMOVED AND DISCHARGED AMBULATORY WITH SO AND ASSISTANT FINANCE MANAGER. INST GIVEN AND VERBALIZED UNDERSTANDING.
--- NOTE | 2019-01-25 10:58 | Short Stay Summary-Hospitalist ---
History of Present Illness HPI/Chief Complaint Mr. Campbell is a 58-year-old white male who reports she been in his usual state of health but while working on his lawnmower became lightheaded and felt nauseated. He was able to stagger into the house where his reported he was diaphoretic and pale. He had the urge to go to the bathroom sat down on the commode had a small nonbloody stool and nearly passed out. He was able to make his way to the bed. So more along the line he did have 1 episode of emesis without evidence for blood bright red or coffee-ground. They contacted EMS services and he was brought in to the hospital. He denied chest pain or shortness of breath. He has a long-standing history of type II diabetes mellitus and reports last year he underwent exercise stress testing and echocardiography that revealed no evidence for cardiac disease per his report. He was noted to be hypotensive emergency room and IV fluids were initiated. He also met criteria for acute kidney injury with creatinine level up to 1.6 with baseline levels under 1. He was admitted on IV fluids and telemetry monitoring to cardiac stepdown. On his ECG there were nonspecific changes in the inferior leads with no evidence for diagnostic acute ischemic change and baseline troponin level was normal. Date Seen 01/25/19 Time Seen by a Provider: 08:30 Attending Physician Jam Huerta MD [facility] Referring Physician Date of Admission Jan 24, 2019 at 19:30 Home Medications & Allergies Home Medications Reviewed patient Home Medication Reconciliation performed by pharmacy medication reconciliations delivery technician and/or nursing. Patients Allergies have been reviewed. Allergies Allergies Coded Allergies strawberry (Verified Allergy, Unknown, 01/25/19) sitagliptin (Unverified Adverse Reaction, Unknown, 01/14/16) Past Fqgeusz-Igxrot-Qjjiyy Hx Past Med/Social Hx: Reviewed and Corrections made Patient Social History Alcohol Use: Past History (HISTORY OF ABUSE/HEAVY USE--CLAIMS NONE FOR 5 YEARS , PER PT ON 01/24/19) Smoking Status: Never a Smoker 2nd Hand Smoke Exposure: No Recent Foreign Travel: No Contact w/other who traveled: No Recent Hopitalizations: No Recent Infectious Disease Expo: No Immunizations Up To Date Date of Influenza Vaccine: Jun 30, 2018 Seasonal Allergies Seasonal Allergies: Yes Past Medical History Surgeries: Orthopedic, Tonsillectomy Cardiac: Heart Murmur, High Cholesterol, Hypertension Neurological: Neuropathy Gastrointestinal: Polyps Musculoskeletal: Arthritis Endocrine: Diabetes, Non-Insulin dep HEENT: Tonsilitis Psychosocial: Anxiety History of Blood Disorders: No Review of Systems Constitutional: No no symptoms reported, No see HPI, No chills; diaphoresis, dizziness; No fever, No malaise; weakness; No weight gain; weight loss (Reports about a 90 pound weight loss very slowly over the past 10 years); No other Respiratory: No no symptoms reported; see HPI; No cough, No dyspnea on exertion , No hemoptysis, No orthopnea, No phlegm, No short of breath, No stridor, No wheezing, No other Cardiovascular: No no symptoms reported; see HPI; No chest pain, No edema, No Hx of Intervention, No palpitations; syncope (Patient isn't sure thinks he may have blacked out temporarily); No vascular heart diseas, No other Gastrointestinal: see HPI, nausea Physical Exam Physical Exam Vital Signs Vital Signs - First Documented 01/24/19 01/24/19 18:10 20:40 Temp 97.9 Pulse 90 Resp 22 B/P (MAP) 107/63 (78) Pulse Ox 100 O2 Delivery Room Air Capillary Refill : Less Than 3 Seconds Height, Weight, BMI Height: 5'6.00" Weight: 230lbs. 0.0oz. [id number]; 37.1 BMI Method:Stated General Appearance: No Apparent Distress, Obese, Other (MILDLY LETHARGIC'/ GENERALIZED WEAKNESS AND SLOW MENTATION) HEENT: PERRL/EOMI, Normal ENT Inspection Neck: Full Range of Motion, Normal Inspection, Non Tender, Supple; No Carotid Bruit, No JVD Respiratory: Normal Breath Sounds, No Accessory Muscle Use, No Respiratory Distress Cardiovascular: Regular Rate, Rhythm, No Edema, No Gallop, No JVD, No Murmur, Normal Peripheral Pulses (+1/4 IN ALL EXTREMITIES) Gastrointestinal: Normal Bowel Sounds, No Organomegaly, No Pulsatile Mass, Non Tender, Soft Extremity: Normal Capillary Refill, Normal Inspection, Normal Range of Motion, Non Tender, No Calf Tenderness, No Pedal Edema Neurologic/Psychiatric: Alert, Oriented x3, domestic technician II-XII Norm as Tested; No Aphasia, No Disoriented; Other (FINGER TO NOSE NORMAL,. RECREATION THERAPY TEACHER EQUAL, LEG STRENGTH EQUAL. DECREASED SENSATION TO FEET BILATERALLY. GENERALIZED WEAKNESS. LETHARGIC, FLAT AFFECT) Skin: Warm/Dry, Pallor; No Rash; Other (HANDS AND FEET COOL--PT STATES IS NORMAL FOR HIM--STATES HE IS ALWAYS COLD ALL OVER AND HANDS / FEET ARE ALWAYS ESPECIALLY COLD. ) Results Results/Procedures Labs Laboratory Tests 01/24/19 18:08 01/25/19 04:35 Patient resulted labs reviewed. Imaging: Reviewed Imaging Report Short Stay Diagnosis Discharge Diagnosis-Short Stay Admission Diagnosis 1. Syncope secondary to vasovagal etiology aggravated by dehydration. 2. Acute kidney injury secondary to dehydration. 3. Dehydration likely aggravated by combination of lisinopril HCT and Jardiance 4. History of hypertension. 5. Type II diabetes mellitus with peripheral neuropathy. Final Discharge Diagnosis Same as admission diagnosis Conclusion Plan Patient was admitted to cardiac stepdown on IV fluid resuscitation. The following morning his creatinine and come down from 1.6-0.96 and he reports that he was feeling about back to baseline just a little tired. He had no chest discomfort or shortness of breath and denied lightheadedness. Telemetry was unremarkable. Vital signs were stable and blood pressure came up to 130 systolic range having held all of his home medications. We discussed the fact that the combination of Jardiance and lisinopril HCT likely contributed to dehydration as well as possible hypotension. I advise for now that he continue the former and stop the latter. In the future especially in light of his diabetes would consider adding back just plain lisinopril. Discussed the importance of hydration and advised that he give up diet soda for water and unsweetened tea that he likes. He is to follow-up with his primary care provider in the next 1-2 weeks for blood pressure check and diabetic monitoring. His other home medications will be continued unchanged Clinical Quality Measures DVT/VTE Risk/Contraindication: Risk Factor Score Per Nursin RFS Level Per Nursing on Admit: 2=Moderate Copy Copies To 1: TERRIE JORDAN MARK D MD Jan 25, 2019 10:58
== END 2019-01-25 10:10 | disposition home or self-care (01) ==
LOC: EDUNIT# 18:03 → ER 18:05 → 4TH 19:30
PROVIDERS: ADMIT Internal Medicine; ATTEND Internal Medicine
DX: E86.0 Dehydration (principal); I95.9 Hypotension, unspecified; R55 Syncope and collapse; N17.9 Acute kidney failure, unspecified; R01.1 Cardiac murmur, unspecified; E78.00 Pure hypercholesterolemia, unspecified; I10 Essential (primary) hypertension; E11.40 Type 2 diabetes mellitus with diabetic neuropathy, unspecified; E11.65 Type 2 diabetes mellitus with hyperglycemia; F41.9 Anxiety disorder, unspecified; Z79.899 Other long term (current) drug therapy; Z79.84 Long term (current) use of oral hypoglycemic drugs; Z79.82 Long term (current) use of aspirin; Z86.010 Personal history of colon polyps; E87.8 Other disorders of electrolyte and fluid balance, not elsewhere classified; R53.1 Weakness
CPT/HCPCS: 36415; 70450; 71045; 80053; 80061; 80320; 80329; 81000; 82150; 82550; 82553; 82805; 82962; 83690; 83735; 83874; 83880; 84443; 84484; 85025; 85610; 85730; 93005; 93041; G0378